=== PATIENT | female | born 1960 | race African-American/Black ===

== ENCOUNTER 2016-06-12 18:14 | Emergency (ER) | payer OTHER ==
[~2016-06-12] VITALS: Ht 154.9 cm; Wt 56.0 kg
[~2016-06-12 18:14] MED LIST: AMLO5 PO; ASPI81TA11 PO; CREON24 PO; FOLI1TAB4 PO; GETGO ROLLING W1 MI1; GLIP5 PO; LIPI20TA PO; MAGN400T PO; METF500 PO; OXYC-392 PO; PANT40TA3 PO; PERI8.6T PO; THIA100T PO; TRAZ100T4 PO
== END 2016-06-12 21:03 | disposition left against medical advice (07) ==
LOC: NED 18:14
DX: R68.89 Other general symptoms and signs (principal)
CPT/HCPCS: 99281

== ENCOUNTER 2016-06-19 21:39 | Inpatient (IN) | payer OTHER ==
[~2016-06-19] VITALS: Ht 154.9 cm; Wt 77.7 kg
[2016-06-19 21:48] VITALS: BP 161/72; PULSE 105; RESP 18; TEMP 98; O2SAT 98
[2016-06-19] MEDS ORDERED: SODIUM CHLOR 0.9% 1000 ML INJ 1,000 ML IV SCH (22:14)
--- NOTE | 2016-06-19 22:21 | PD ---
HPI Chief Complaint: Diabetic Time Seen by Provider: 22:17 Travel History International Travel<30 days: No Contact w/Intl Traveler<30days: No Traveled to known affect area: No History of Present Illness HPI 56-year-old female with a history of alcohol abuse, pancreatitis, and diabetes that presents to the ED for evaluation of high blood sugar and some epigastric abdominal pain as well as dizziness and feeling thirsty. Per patient she's had this for about 2 weeks now. Per patient nothing seems to make it better. Per patient her sugars keep coming as critical high. She denies any chest pain or shortness of breath but she does state having some epigastric pain to radiates to the back especially to the right side. She denies any diarrhea. No bowel movement or urinary issues. She states that she does feel more thirsty than usual and she's been urinating a little more but no pain or dysuria. She states that she has no nausea or vomiting. Per patient she feels lightheaded and not really spinning. She denies any numbness, tilling, weakness. She has no allergies to medication. She states compliance with her diabetic medications. She is here with family member who provides some history as she is somewhat of a poor historian. Abdominal panel is pressure-like and sharp and is 6 out of 10. Nothing seems to make it better or worse. PFSH Past Medical History Arthritis: No Asthma: Yes (CHILDHOOD) Autoimmune Disease: No Blood Disorders: No Anxiety: No Depression: No Heart Rhythm Problems: No Cancer: No Cardiac Catheterization: Yes Cardiovascular Problems: Yes (HTN) High Cholesterol: Yes Chemotherapy: No Chest Pain: Yes Congestive Heart Failure: No COPD: No Cerebrovascular Accident: No Coronary Artery Disease: Yes Diabetes: Yes Diminished Hearing: No Endocrine: No Gastrointestinal Disorders: Yes (HX. PANCREATITIS) GERD: No Glaucoma: No Genitourinary: No Headaches: No Hepatitis: No Hiatal Hernia: No Hypertension: Yes Immune Disorder: No Implanted Vascular Access Dvce: No Kidney Stones: No Musculoskeletal: Yes Neurologic: No Psychiatric: No Reproductive: No Respiratory: Yes Immunizations Current: Yes Migraines: No Myocardial Infarction: No Pancreatitis: Yes Radiation Therapy: No Renal Failure: No Seizures: No Sickle Cell Disease: No Sleep Apnea: Yes (denies) Thyroid Disease: No Ulcer: No Menopausal: Yes : 9 Para: 9 Past Surgical History Abdominal Surgery: Yes (CHOLECYSTECTOMY) AICD: No Appendectomy: No Arteriovenous Shunt: No Cardiac Surgery: Yes (CARDIAC CATH. WITH STENTS-,) Cholecystectomy: Yes Coronary Artery Bypass Graft: No Coronary Stent: Yes (2005) Ear Surgery: No Endocrine Surgery: No Eye Surgery: No Genitourinary Surgery: No Gynecologic Surgery: No Insulin Pump: No Joint Replacement: No Neurologic Surgery: No Oral Surgery: Yes (TEETH EXTRACTIONS) Pacemaker: No Thoracic Surgery: No Other Surgery: Yes (G-TUBE PLACEMENT) Social History Alcohol Use: Yes (SOCIALLY) Tobacco Use: Yes (1 PPD) Substance Use: No Allergies-Medications (Allergen,Severity, Reaction): Coded Allergies: No Known Allergies (Verified , 06/12/16) NONE KNOWN Reported Meds & Prescriptions Reported Meds & Active Scripts Active Walker Rolling/GetGo (Device) 1 Mis Mis 1 Ea .ROUTE DIRECTED Aspirin EC (Aspirin) 81 Mg Tabdr 81 Mg PO DAILY Lipitor (Atorvastatin Calcium) 20 Mg Tab 20 Mg PO HS Glucotrol (Glipizide) 5 Mg Tab 2.5 Mg PO DAILYAC Hold if glucose less than 100. Take with food, do not skip meal. Glucophage (Metformin HCl) 500 Mg Tab 1,000 Mg PO BIDPC Norvasc (Amlodipine Besylate) 5 Mg Tab 5 Mg PO DAILY Oxycodone (Oxycodone HCl) 5 Mg Tab 5 Mg PO Q8H PRN Creon (Amylase/Lipase/Protease) 24,000-76,000-120,000 Units Cap 2 Cap PO TID Pantoprazole (Pantoprazole Sodium) 40 Mg Tab 40 Mg PO DAILY Trazodone (Trazodone HCl) 100 Mg Tab 100 Mg PO HS Thiamine (Thiamine HCl) 100 Mg Tab 100 Mg PO DAILY Mariah-Colace (Sennosides-Docusate Sodium) 8.6-50 Mg Tab 1 Tab PO BID PRN Folate (Folic Acid) 1 Mg Tab 1 Mg PO DAILY Magnesium Oxide 400 Mg Tab 1 Tab PO DAILY Review of Systems General / Constitutional: No: Fever, Chills, Weight Gain, Weight Loss, Other Eyes: No: Diploplia, Blurred Vision, Photophobia, Drainage, Redness, Foreign Body Sensation, Pain, Tearing, Blind Spots, Visual changes, Blindness, Other HENT: No: Headaches, Vertigo, Lightheadedness, Sore Throat, Rhinitis, Rhinorrhea, Congestion, Nosebleed, Neck Stiffness, Neck Pain, Masses, Gingival Bleeding, Dental Difficulties, Ear Discharge, Earache, Other Cardiovascular: No: Chest Pain or Discomfort, Palpitations, Irregular Rhythm, Tachycardia, Diaphoresis, Syncope, Dyspnea on exertion, Varicosities, Edema, Cyanosis, Varicosities, Phlebitis, Claudication, Other Respiratory: No: Cough, Shortness of Breath, Wheezing, Sneezing, Orthopnea, Hemoptysis, Stridor, Night Sweats, Pleuritic Pain, Other Gastrointestinal: Positive: Abdominal Pain, No: Nausea, Vomiting, Diarrhea, Hematemesis, Hematochezia, Constipation, Changes in Bowel Habits, Indigestion, Dysphagia, Loss of Appetite, Other Genitourinary: No: Urgency, Frequency, Dysuria, Nocturia, Hematuria, Decreased Urinary Output, Oliguria, Hesitancy, Dribbling, Incontinence, Pelvic Pain, Flank Pain, Dyspareunia, Discharge, Dysmenorrhea, Menorrhagia, Metorrhagia, Vaginal Bleeding, Other Musculoskeletal: No: Myalgias, Arthralgias, Limited ROM, Weakness, Cramping, Edema, Pain, Atrophy, Other Skin: No Rash, No Itching, No Dryness, No Lumps, No Hives, No Change in Pigmentation, No Change in nails, No Alopecia, No Lesions, No Breast Lumps, No Breast Tenderness, No Breast Swelling, No Other Neurologic: No: Weakness, Dizziness, Syncope, Focal Abnormalities, Coordination Problem, Tremor, Ataxia, Headache, Change in Mentation, Slurred Speech, Paresthesia, Incontinence, Seizures, Sensory Disturbance, Other Psychiatric: No: Anxiety, Depression, Suicidal Ideations, Disorder of Thought, Mood Disorder, Substance Abuse, Homicidal Ideation, Other Endocrine: Positive: Polyuria, Polydipsia, No: Heat Intolerance, Cold Intolerance, Other Hematologic/Lymphatic: No: Easy Bruising, Lymph Node Enlargement, Other Physical Exam Narrative GENERAL: SKIN: Warm and dry. HEAD: Atraumatic. Normocephalic. EYES: Pupils equal and round. No scleral icterus. No injection or drainage. ENT: No nasal bleeding or discharge. Mucous membranes pink and moist. Tongue is midline. No uvula deviation. NECK: Trachea midline. No JVD. CARDIOVASCULAR: Regular rate and rhythm. No murmurs, S3, S4. RESPIRATORY: No accessory muscle use. Clear to auscultation. Breath sounds equal bilaterally. GASTROINTESTINAL: Abdomen soft, non-tender, nondistended. Hepatic and splenic margins not palpable. MUSCULOSKELETAL: Extremities without clubbing, cyanosis, or edema. No obvious deformities. Full range of motion of the upper and lower extremities bilaterally. 2+ pulses bilaterally. No cervical, thoracic, lumbar spine tenderness to palpation. NEUROLOGICAL: Awake and alert. No obvious cranial nerve deficits. Motor grossly within normal limits. Five out of 5 muscle strength in the arms and legs. Normal speech. PSYCHIATRIC: Appropriate mood and affect; insight and judgment normal. Data Data Last Documented VS Vital Signs Date Time Temp Pulse Resp B/P Pulse Ox O2 Delivery O2 Flow Rate FiO2 06/19/16 21:48 98.0 105 18 161/72 98 Orders Electrocardiogram (06/19/16 22:14) Complete Blood Count With Diff (06/19/16 22:14) Comprehensive Metabolic Panel (06/19/16 22:14) Troponin I (06/19/16 22:14) Lipase (06/19/16 22:14) Urinalysis - C+S If Indicated (06/19/16 22:14) Magnesium (Mg) (06/19/16 22:14) Beta Hydroxybutyrate (Acetone) (06/19/16 22:14) Chest, Single Ap (06/19/16 22:14) Iv Access Insert/Monitor (06/19/16 22:14) Ecg Monitoring (06/19/16 22:14) Oximetry (06/19/16 22:14) Sodium Chlor 0.9% 1000 Ml Inj (Ns 1000 M (06/19/16 22:14) MDM Medical Decision Making Medical Screen Exam Complete: Yes Emergency Medical Condition: Yes Medical Record Reviewed: Yes Differential Diagnosis Pancreatitis versus pneumonia versus DKA versus hyperglycemia versus electrical abnormality versus noncompliance versus dehydration Narrative Course 56-year-old female that presents to the ED for evaluation of high blood sugar and abdominal pain. Patient was properly examined and was found to have signs and symptoms of unclear etiology. At this time labs and imaging recommended. Patient was given IV fluids. Patient is agreeable with plan. Case will be sent out to my attending pending labs and imaging. Emanuel Manriquez Jun 19, 2016 22:21
[2016-06-19 22:30] VITALS: TEMP 98.1
--- NOTE | 2016-06-19 22:38 | RADRPT ---
EXAM DATE/TIME: 06/19/2016 22:29 [facility] COMPARISON: No previous studies available for comparison. INDICATIONS : Chest pain. MEDICAL HISTORY : None. SURGICAL HISTORY : None. ENCOUNTER: Initial ACUITY: 1 day PAIN SCORE: 4/10 LOCATION: Bilateral chest FINDINGS: A single view of the chest demonstrates the lungs to be symmetrically aerated without evidence of mas s, infiltrate or effusion. The cardiomediastinal contours are unremarkable. Osseous structures are intact. CONCLUSION: No acute intrathoracic disease. James Herrera MD on June 19, 2016 at 22:36 Board Certified Radiologist. This report was verified electronically.
[2016-06-19 23:12] VITALS: BP 132/82; PULSE 76; RESP 16; O2SAT 96
[2016-06-19 23:30] LABS: BLOOD, URINE NEG (NEG); COMMENT (UR) CULT NOT INDICATED; CULTURE IF INDICATED CULT NOT INDICATED; GLUCOSE,URINE 1000 mg/dL (NEG); KETONE, URINE NEG (NEG); NITRITE,URINE NEG (NEG); SQUAMOUS EPITHELIAL CELL URINE <1 /hpf (0-5); URINE COLOR COLORLESS (YELLW/STRAW)
[2016-06-19 23:39] LABS: ALKALINE PHOSPHATASE 261 U/L (45-117); ALT (GPT) 19 U/L (10-53); ANION GAP 16 MEQ/L (5-15); AST (GOT) 16 U/L (15-37); BETA-HYDROXYBUTYRATE 1.31 MMOL/L (0.00-0.39); BICARBONATE 17.7 MEQ/L (21.0-32.0); BLOOD UREA NITROGEN 63 MG/DL (7-18); CHLORIDE 81 MEQ/L (98-107); GLOMERULAR FILTRATION RATE 28 ML/MIN (>89); MAGNESIUM 2.3 MG/DL (1.5-2.5); POTASSIUM 5.4 MEQ/L (3.5-5.1); TOTAL BILIRUBIN ADULT 0.3 MG/DL (0.2-1.0)
[2016-06-19 23:42] LABS: SODIUM (NA) 115 MEQ/L (136-145)
[2016-06-19] MEDS ORDERED: SODIUM CHLOR 0.9% 1000 ML INJ 1,000 ML IV ONE (23:42)
[2016-06-19] MEDS ORDERED: INSULIN HUMAN REGULAR 1,000 UNITS/10 ML VIAL IVP ONE (23:45)
[2016-06-20] VITALS (13 sets, daily range): BP systolic 118–147; BP diastolic 70–79; PULSE 82–89; RESP 16–24; TEMP 97.8–98.9; O2SAT 96–100
[2016-06-20] MEDS ORDERED: SODIUM CHLOR 0.9% 1000 ML INJ 1,000 ML IV ONE (00:12)
[2016-06-20 01:11] LABS: AUTOMATED NEUTROPHIL # 4.6 TH/MM3 (1.8-7.7); BASOPHIL % 0.4 % (0.0-2.0); EOSINOPHIL % 0.2 % (0.0-4.0); HEMATOCRIT 40.2 % (35.0-46.0); HEMO FLAGS DIFF FINAL; LYMPH % 14.3 % (9.0-44.0); LYMPHOCYTE # 0.8 TH/MM3 (1.0-4.8); MEAN CELL VOLUME 98.5 FL (80.0-100.0); MEAN CORPUSCULAR HEMOGLOBIN 30.8 PG (27.0-34.0); MEAN CORPUSCULAR HGB CONC 31.3 % (32.0-36.0); MONO % 3.3 % (0.0-8.0); NEUT % 81.8 % (16.0-70.0); PLATELET COUNT 132 TH/MM3 (150-450); RED BLOOD COUNT 4.08 MIL/MM3 (4.00-5.30); RED CELL DISTRIBUTION WIDTH 14.8 % (11.6-17.2); WHITE BLOOD COUNT 5.6 TH/MM3 (4.0-11.0)
[2016-06-20] MEDS ORDERED: HYDROmorphone HCL PF 1 MG/ML VIAL IV PUSH ONE (01:30)
[2016-06-20 01:32] LABS: BICARBONATE 16.7 MEQ/L (21.0-32.0); POTASSIUM 3.2 MEQ/L (3.5-5.1)
[2016-06-20] MEDS ORDERED: DEXT 5%-NACL 0.9% 1000 ML INJ 1,000 ML IV SCH ×2 (01:34→17:00)
[2016-06-20] MEDS ORDERED: SODIUM BICARBONATE 8.4% SOLN 50 MEQ/50 ML VIAL IV PRN ×2 (01:45)
[2016-06-20] MEDS ORDERED: POTASSIUM CHLOR 20 MEQ PREMIX 100 ML IV PRN ×6 (01:45)
[2016-06-20] MEDS ORDERED: MISCELLANEOUS NURSING INFORMATION XX SCH (01:45)
[2016-06-20] MEDS ORDERED: CHLORHEXIDINE GLUCONATE 2 % 1 PACK (2 CLOTHS) TOP PRN (01:45)
[2016-06-20] MEDS ORDERED: POTASSIUM CHLOR 40 MEQ PREMIX 100 ML IV PRN (01:45)
[2016-06-20] MEDS ORDERED: INSULIN REGULAR (IV INFUSION) 100 UNITS in SODIUM CHLORIDE 0.9% INJ 99 ML IV SCH ×2 (01:45→06:45)
[2016-06-20] MEDS ORDERED: SODIUM PHOSPHATE INJ 15 MMOL in SODIUM CHLORIDE 0.9% INJ 100 ML IV PRN (01:45)
[2016-06-20 02:08] LABS: BLOOD GAS BASE EXCESS -12.1 mmol/L (-2-2); BLOOD GAS CARBOXYHEMOGLOBIN 1.1 % (0-4); BLOOD GAS HCO3 14 mmol/L (22-26); BLOOD GAS METHEMOGLOBIN 0.4 % (0-2); BLOOD GAS O2 HGB SATURATION 95 % (90-100); BLOOD GAS OXYGEN CONTENT 18.8 Vol % (12.0-20.0); BLOOD GAS PCO2 38 mmHg (38-42); BLOOD GAS PO2 98 mmHG (61-120); TEMP CORR TO 98.6
[2016-06-20 02:09] LABS: CRITICAL VALUE YES; DRAW SITE LT RADIAL; FIO2 21 %; NUMBER OF ARTERIAL PUNCTURES 1; OXYGEN DEVICE RA; STAT YES; ULNAR PULSE Y
--- NOTE | 2016-06-20 02:15 | HHI.HP ---
[facility] Unknown Admission Diagnosis Hyperglycemia, Pancreatitis, HyperK Diagnoses: Chief Complaint: Sugar was high, dizziness Travel History International Travel<30 Days: No Contact w/Intl Traveler <30 Da: No Traveled to Known Affected Are: No History of Present Illness History patient, your physician for medication, and review of medical records. Patient reported that she came to the hospital because her sugar was high at home. Next and she reports she has been feeling dizzy for the past 3 months. Today particularly, because her dizziness was getting worse, her daughter had checked her blood sugar. She states the blood sugar was not registering it on the machine and therefore the daughter brought her to hospital. Patient states that she ran out of her medications although she is not sure which ones. She states her daughter usually puts her medication in the pillbox for a whole week and she would take from it. She knew that she ran out of medications and was told to wait until the next doctor's appointment to get refills. Next appointment is in one week. Patient reports of dizziness chronically for past 3 months. She states that she did have a stroke versus seizure previously and since then she has been feeling dizzy. Her previous hospitalization in February 2016reviewed. Patient had carotid sono gram done which did not reveal any hemodynamically significant stenosis. Apart from the above, patient denies any recent fever/nausea/vomiting/diarrhea/ urinary burning or pain on urination. Denies any hematemesis/hematochezia/melena/hematuria. Patient is somewhat of a poor historian in general though. She reports that she thinks some of her symptoms may be coming because she was inhaling bleach and cleaning supply pretty much every day as her daughter-in- law always cleans the house with 2 months, call us. She lives with her son and [id number]. She states that these chemicals have been causing her to have trouble breathing as well. She is considering to move out. 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 Prior history of alcohol abusestated she quit about a year ago History of head of pancreas mass History of cephalic vein thrombosiswas evaluated by hematology previously. Contraindication to anticoagulants. Noncompliance with medications Past Surgical History J-tube insertion Coronary angiogram and stent placements Cholecystectomy Reported Medications Patient's medications listed on EMRreviewed. Allergies: Coded Allergies: No Known Allergies (Verified , 06/19/16) NONE KNOWN Family History Patient states she cannot remember any medical issues in her immediate family members. Per EMR, patient has history of CAD in uncles. Social History Smokes about half a pack a day. States she used to drink alcohol heavily. However quit about a year ago. Denies any drug abuse. Physical Exam Vital Signs Vital Signs Date Time Temp Pulse Resp B/P Pulse Ox O2 Delivery O2 Flow Rate FiO2 06/19/16 23:12 16 06/19/16 23:12 Room Air 06/19/16 23:12 76 16 132/82 96 Room Air 06/19/16 21:48 98.0 105 18 161/72 98 Physical Exam GENERAL: This is elderly lady, in no apparent distress. SKIN: No rashes, ecchymoses or lesions. Cool and dry. HEAD: Atraumatic. Normocephalic. No temporal or scalp tenderness. EYES: No scleral icterus. No injection or drainage. ENT: Nose without bleeding, purulent drainage or septal hematoma. Airway patent. NECK: Trachea midline. No JVD CARDIOVASCULAR: Regular rate and rhythm without murmurs, gallops, or rubs. RESPIRATORY: Clear to auscultation. Breath sounds equal bilaterally. No wheezes , rales, or rhonchi. GASTROINTESTINAL: Abdomen soft, non-tender, nondistended. No guarding.prior peg site clean MUSCULOSKELETAL: Extremities without clubbing, cyanosis, or edema. No calf tenderness. NEUROLOGICAL: Awake and alert. Motor and sensory grossly within normal limits. Normal speech. Laboratory Laboratory Tests Test 06/19/16 06/20/16 06/20/16 22:50 00:55 02:00 Sodium Level 115 127 Potassium Level 5.4 3.2 Chloride Level 81 94 Carbon Dioxide Level 17.7 16.7 Anion Gap 16 16 Blood Urea Nitrogen 63 59 Creatinine 2.20 1.93 Estimat Glomerular Filtration 28 32 Rate Random Glucose 1639 1199 Calcium Level 9.7 8.7 Magnesium Level 2.3 Total Bilirubin 0.3 Aspartate Amino Transf 16 (AST/SGOT) Alanine Aminotransferase 19 (ALT/SGPT) Alkaline Phosphatase 261 Troponin I LESS THAN 0.02 Total Protein 9.3 Albumin 4.0 Lipase 664 B-Hydroxybutyrate 1.31 Urine Color COLORLESS Urine Turbidity CLEAR Urine pH 6.0 Urine Specific Ruth 1.022 Urine Protein NEG Urine Glucose (UA) 1000 Urine Ketones NEG Urine Occult Blood NEG Urine Nitrite NEG Urine Bilirubin NEG Urine Urobilinogen LESS THAN 2.0 Urine Leukocyte Esterase NEG Urine RBC 1 Urine WBC LESS THAN 1 Urine Squamous Epithelial <1 Cells Urine Yeast (Budding) RARE Microscopic Urinalysis Comment CULT NOT INDICATED White Blood Count 5.6 Red Blood Count 4.08 Hemoglobin 12.6 Hematocrit 40.2 Mean Corpuscular Volume 98.5 Mean Corpuscular Hemoglobin 30.8 Mean Corpuscular Hemoglobin 31.3 Concent Red Cell Distribution Width 14.8 Platelet Count 132 Mean Platelet Volume 11.5 Neutrophils (%) (Auto) 81.8 Lymphocytes (%) (Auto) 14.3 Monocytes (%) (Auto) 3.3 Eosinophils (%) (Auto) 0.2 Basophils (%) (Auto) 0.4 Neutrophils # (Auto) 4.6 Lymphocytes # (Auto) 0.8 Monocytes # (Auto) 0.2 Eosinophils # (Auto) 0.0 Basophils # (Auto) 0.0 CBC Comment DIFF FINAL Differential Comment Blood Gas Puncture Site LT RADIAL Blood Gas Patient Temperature 98.6 Blood Gas HCO3 14 Blood Gas Base Excess -12.1 Blood Gas Oxygen Saturation 95 Arterial Blood pH 7.20 Arterial Blood Partial 38 Pressure CO2 Arterial Blood Partial 98 Pressure O2 Arterial Blood Oxygen Content 18.8 Arterial Blood 1.1 Carboxyhemoglobin Arterial Blood Methemoglobin 0.4 Blood Gas Hemoglobin 14.0 Oxygen Delivery Device RA Blood Gas Inspired Oxygen 21 Result Diagram: 06/20/165406/20/1654 Imaging Last 48 hours Impressions Chest X-Ray 06/19/162213 Signed Impressions: Service Date/Time: Sunday, June 19, 2016 22:29 - CONCLUSION: No acute intrathoracic disease. 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 Prior history of alcohol abusestated she quit about a year ago History of head of pancreas mass History of cephalic vein thrombosiswas evaluated by hematology previously. Contraindication to anticoagulants. Noncompliance with medications Plan: Patient was given a total of 4 L normal saline bolus in ER. She was also given 20 units of insulin IV push. Blood sugars came down to 1199 from 1639 after the above treatment. Start patient on insulin drip per DKA protocol. Fingersticks every hour. Replace electrolytes per protocol. At present, patient has no respiratory distress or compensation from this metabolic acidosis. She is quite comfortable sitting in bed, able to complete sentences. No documented fevers. Nothing by mouth. Will follow electrolytes. Follow Nilesh's criteria. DVT prophylaxiswith SCD. GI prophylaxison pantoprazole. critical care 40min Discussed Condition With Patient, ER physician, ER nurse Physician Certification 2 Midnight Certification Type: Admission for Inpatient Services Order for Inpatient Services The services are ordered in accordance with Medicare regulations or non- Medicare payer requirements, as applicable. In the case of services not specified as inpatient-only, they are appropriately provided as inpatient services in accordance with the 2-midnight benchmark. Estimated LOS (days): 3 days is the estimated time the patient will need to remain in the hospital, assuming treatment plan goals are met and no additional complications. Post-Hospital Plan: Lucila Stephenson MD Jun 20, 2016 02:15
[2016-06-20] MEDS: POTASSIUM CHLOR 40 MEQ PREMIX 100 ML IV PRN ×2 (02:45→04:10)
[2016-06-20] MEDS: SODIUM CHLOR 0.9% 1000 ML INJ 1,000 ML IV SCH ×4 (03:32→12:59)
[2016-06-20] MEDS ORDERED: CHLORHEXIDINE GLUCONATE 2 % 1 PACK (2 CLOTHS) TOP SCH (04:00)
[2016-06-20 04:05] LABS: BICARBONATE 18.5 MEQ/L (21.0-32.0); POTASSIUM 5.2 MEQ/L (3.5-5.1)
[2016-06-20 05:10] LABS: BICARBONATE 16.9 MEQ/L (21.0-32.0); MAGNESIUM 1.8 MG/DL (1.5-2.5)
[2016-06-20] MEDS ORDERED: INSULIN HUMAN REGULAR 1,000 UNITS/10 ML VIAL IVP ONE ×2 (05:15→06:45)
[2016-06-20] MEDS ORDERED: PILL SPLITTER OTHER PRN (05:30)
[2016-06-20] MEDS ORDERED: MISC INFORMATION XX ONE (06:45)
[2016-06-20] MEDS ORDERED: DEXTROSE 50% IN WATER 50 ML VIAL(D50) IV PUSH PRN ×2 (06:45→19:00)
[2016-06-20 07:36] LABS: BICARBONATE 16.7 MEQ/L (21.0-32.0); MAGNESIUM 1.6 MG/DL (1.5-2.5); POTASSIUM 4.9 MEQ/L (3.5-5.1)
[2016-06-20] MEDS: PANTOPRAZOLE SOD 40 MG DELAYED RELEASE TAB PO SCH (08:22)
[2016-06-20] MEDS: THIAMINE HCL 100 MG TAB PO SCH (08:22)
[2016-06-20] MEDS: glipiZIDE 5 MG TAB PO SCH (08:22)
[2016-06-20] MEDS: ASPIRIN EC 81 MG TABEC PO SCH (08:23)
[2016-06-20] MEDS: FOLIC ACID 1 MG TAB PO SCH (08:23)
[2016-06-20] MEDS: LIPASE/PROTEASE/AMYLASE (24,000/76,000/120,000) CAP PO SCH ×3 (08:23→17:31)
[2016-06-20] MEDS: MAGNESIUM OXIDE 400 MG TAB PO SCH (08:23)
[2016-06-20] MEDS: amLODIPine BESYLATE 5 MG TAB PO SCH (08:24)
--- NOTE | 2016-06-20 10:05 | EKG ---
Date Performed: 06/19/2016 Time Performed: 22:31:37 PTAGE: 56 years EKG: Sinus rhythm POSSIBLE RIGHT ATRIAL ENLARGEMENT NONSPECIFIC T-WAVE ABNORMALITY BORDERLINE ECG WARNING: DATA QUALIT Y MAY AFFECT INTERPRETATION PREVIOUS TRACING : 02/26/2016 20.29 DOCTOR: Amilcar Shelton Interpretating Date/Time 06/20/2016 10:02:03
[2016-06-20 14:27] LABS: BETA-HYDROXYBUTYRATE 0.32 MMOL/L (0.00-0.39); BICARBONATE 19.4 MEQ/L (21.0-32.0); MAGNESIUM 1.7 MG/DL (1.5-2.5); POTASSIUM 4.6 MEQ/L (3.5-5.1)
[2016-06-20] MEDS: DEXT 5%-NACL 0.9% 1000 ML INJ 1,000 ML IV SCH ×2 (17:00→21:03)
[2016-06-20] MEDS ORDERED: GLUCAGON 1 MG/ML VIAL OTHER PRN (19:00)
[2016-06-20] MEDS ORDERED: DC previous DKA orders (HMC 1917) XX ONE (19:00)
[2016-06-20 19:36] LABS: BICARBONATE 19.9 MEQ/L (21.0-32.0); MAGNESIUM 1.5 MG/DL (1.5-2.5); POTASSIUM 3.9 MEQ/L (3.5-5.1)
[2016-06-20] MEDS: INSULIN ASPART SUPPLEMENTAL SCALE SQ SCH (21:00)
[2016-06-20] MEDS: INSULIN DETEMIR 100 UNITS/ML VIAL SQ SCH (21:02)
[2016-06-20] MEDS: traZODone HCL 100 MG TAB PO SCH (21:02)
[2016-06-20] MEDS: ATORVASTATIN 20 MG TAB PO SCH (21:02)
[2016-06-20] MEDS ORDERED: DC Insulin drip 2 hrs post basal insulin dose XX ONE (23:00)
[2016-06-21] VITALS (13 sets, daily range): BP systolic 97–120; BP diastolic 53–68; PULSE 82–116; RESP 18–23; TEMP 98.4–99.3; O2SAT 96–100
[2016-06-21] MEDS: DEXT 5%-NACL 0.9% 1000 ML INJ 1,000 ML IV SCH (01:21)
[2016-06-21 05:34] LABS: BICARBONATE 17.2 MEQ/L (21.0-32.0); POTASSIUM 3.9 MEQ/L (3.5-5.1)
[2016-06-21] MEDS: INSULIN ASPART SUPPLEMENTAL SCALE SQ SCH ×4 (06:59→20:53)
[2016-06-21] MEDS: amLODIPine BESYLATE 5 MG TAB PO SCH (08:16)
[2016-06-21] MEDS: FOLIC ACID 1 MG TAB PO SCH (08:16)
[2016-06-21] MEDS: PANTOPRAZOLE SOD 40 MG DELAYED RELEASE TAB PO SCH (08:16)
[2016-06-21] MEDS: ASPIRIN EC 81 MG TABEC PO SCH (08:16)
[2016-06-21] MEDS: MAGNESIUM OXIDE 400 MG TAB PO SCH (08:16)
[2016-06-21] MEDS: glipiZIDE 5 MG TAB PO SCH (08:16)
[2016-06-21] MEDS: THIAMINE HCL 100 MG TAB PO SCH (08:16)
[2016-06-21] MEDS: LIPASE/PROTEASE/AMYLASE (24,000/76,000/120,000) CAP PO SCH ×3 (09:00→18:07)
[2016-06-21] MEDS ORDERED: INFLUENZA VIRUS VACCINE (QUADRIVALENT) 0.5 ML SYR IM ONE (10:00)
[2016-06-21] MEDS ORDERED: PNEUMOCOCCAL POLYVALENT INJ 25 MCG/0.5 ML SYR IM ONE (10:00)
[2016-06-21] MEDS: INSULIN DETEMIR 100 UNITS/ML VIAL SQ SCH ×2 (10:21→20:50)
[2016-06-21] MEDS: metFORMIN HCL 500 MG TAB PO SCH ×2 (10:22→18:06)
--- NOTE | 2016-06-21 14:41 | HHI.PR ---
Subjective Remarks Late entry. Patient was seen at noon. She is eating well. Most recent Accu- Chek was 300. The patient states she has used insulin in the past but currently is not on it. She is agreeable to going back on insulin. She admits she ran out of medications. She is unable to tell me the names of the medications that she was on for diabetes. She does admit to continued smoking. She states that the only candy she eats are [employer]. The patient is a somewhat poor historian. The patient does endorse dizziness for the past few weeks as well as pain along the entire right side of her body. She denies nausea or vomiting. Objective Vitals Vital Signs Date Time Temp Pulse Resp B/P Pulse Ox O2 Delivery O2 Flow Rate FiO2 06/21/16 11:00 98.6 116 22 97/53 96 06/21/16 07:00 98.4 86 22 120/62 98 06/21/16 06:00 89 06/21/16 04:00 82 06/21/16 04:00 98.5 82 18 103/63 99 06/21/16 02:00 88 06/21/16 00:00 89 06/21/16 00:00 98.6 89 18 101/59 98 06/21/16 00:00 89 06/20/16 22:00 88 06/20/16 22:00 88 06/20/16 20:00 98.9 88 24 128/75 100 06/20/16 20:00 88 06/20/16 20:00 88 06/20/16 18:00 82 06/20/16 16:00 83 06/20/16 15:05 84 17 140/77 99 Room Air I/O 06/20/16 06/20/16 06/20/16 06/21/16 06/21/16 06/21/16 07:00 15:00 23:00 07:00 15:00 23:00 Intake Total 3919 ml 180 ml 560 ml Output Total 1500 ml 800 ml 2100 ml 600 ml 600 ml Balance -1500 ml -800 ml 1819 ml -420 ml -40 ml Intake Oral 240 ml 120 ml 560 ml IV Total 3679 ml 60 ml Output Urine Total 1500 ml 800 ml 2100 ml 600 ml 600 ml # Bowel Movements 0 1 Result Diagram: 06/20/16 0055 06/21/16 0346 Objective Remarks GENERAL: Well-nourished, well-developed pleasant obese female patient. No apparent distress. SKIN: Warm and dry. HEAD: Normocephalic. EYES: No scleral icterus. No injection or drainage. NECK: Supple, trachea midline. No JVD or lymphadenopathy. CARDIOVASCULAR: Regular rate and rhythm without murmurs, gallops, or rubs. RESPIRATORY: Breath sounds equal and clear to auscultation bilaterally. No accessory muscle use. GASTROINTESTINAL: Abdomen soft, non-tender, nondistended. EXTREMITIES: No cyanosis, or edema. NEUROLOGICAL: Awake, alert, and oriented x 3. Non-focal. 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 Now resolved and transitioned to Levemir subcutaneous. I will increase to 15 units subcutaneous twice a day. Resume metformin. Continue sliding scale insulin low-dose with NovoLog. Awaiting cob sawyer consultation. -Elevated lipase, now resolved. Doubt pancreatitis. -Hypertension - blood pressure currently running lower. Will hold Norvasc. -Coronary artery disease, history of stents -continue aspirin and statin. -Acute kidney injury - resolved -Chronic diastolic heart failure - currently compensated. -Noncompliance with medications -Tobaccoism counts on cessation -Chronic pancreatitis. Continue pancreatic enzyme supplementation. -History of alcoholism. Patient states she has not been drinking at all. -Chronic dizziness -DVT prophylaxis with SCDs Jessica Salas MD Jun 21, 2016 14:41
[2016-06-21] MEDS: ATORVASTATIN 20 MG TAB PO SCH (20:50)
[2016-06-21] MEDS: traZODone HCL 100 MG TAB PO SCH (20:50)
[2016-06-22] VITALS (8 sets, daily range): BP systolic 88–119; BP diastolic 57–66; PULSE 80–97; RESP 15–24; TEMP 98.3–99.1; O2SAT 93–100
[2016-06-22 02:05] LABS: MAGNESIUM 1.4 MG/DL (1.5-2.5)
[2016-06-22 02:06] LABS: BETA-HYDROXYBUTYRATE 0.59 MMOL/L (0.00-0.39)
[2016-06-22] MEDS: INSULIN ASPART SUPPLEMENTAL SCALE SQ SCH ×4 (07:00→21:00)
[2016-06-22] MEDS: INSULIN DETEMIR 100 UNITS/ML VIAL SQ SCH ×2 (08:50→21:00)
[2016-06-22] MEDS: metFORMIN HCL 500 MG TAB PO SCH ×2 (08:51→17:10)
[2016-06-22] MEDS: FOLIC ACID 1 MG TAB PO SCH (08:51)
[2016-06-22] MEDS: ASPIRIN EC 81 MG TABEC PO SCH (08:51)
[2016-06-22] MEDS: THIAMINE HCL 100 MG TAB PO SCH (08:51)
[2016-06-22] MEDS: LIPASE/PROTEASE/AMYLASE (24,000/76,000/120,000) CAP PO SCH ×3 (08:51→17:09)
[2016-06-22] MEDS: PANTOPRAZOLE SOD 40 MG DELAYED RELEASE TAB PO SCH (08:51)
[2016-06-22] MEDS: MAGNESIUM OXIDE 400 MG TAB PO SCH (08:52)
[2016-06-22 12:04] LABS: BICARBONATE 19.6 MEQ/L (21.0-32.0); MAGNESIUM 1.3 MG/DL (1.5-2.5); POTASSIUM 3.6 MEQ/L (3.5-5.1)
--- NOTE | 2016-06-22 17:28 | HHI.PR ---
Subjective Remarks Episode of hypotension this morning, and patient is quite dizzy, no one at home to help her with insulin today. Objective Vitals Vital Signs Date Time Temp Pulse Resp B/P Pulse Ox O2 Delivery O2 Flow Rate FiO2 06/22/16 14:00 94 06/22/16 12:00 90 06/22/16 10:00 86 06/22/16 08:00 80 06/22/16 04:00 99.1 85 15 88/59 98 06/22/16 04:00 85 06/22/16 00:00 98.7 85 16 100/57 98 06/22/16 00:00 85 06/21/16 22:00 93 06/21/16 20:00 93 06/21/16 20:00 98.8 93 19 115/67 98 I/O 06/21/16 06/21/16 06/21/16 06/22/16 06/22/16 06/22/16 07:00 15:00 23:00 07:00 15:00 23:00 Intake Total 180 ml 560 ml 100 ml 150 ml 200 ml Output Total 600 ml 600 ml 400 ml 375 ml 100 ml Balance -420 ml -40 ml -300 ml -225 ml 100 ml Intake Oral 120 ml 560 ml 100 ml 150 ml 200 ml IV Total 60 ml Output Urine Total 600 ml 600 ml 400 ml 375 ml 100 ml # Bowel Movements 1 0 Result Diagram: 06/20/16 0055 06/22/16 1136 Objective Remarks GENERAL: Well-nourished, well-developed pleasant obese female patient. No apparent distress. SKIN: Warm and dry. HEAD: Normocephalic. EYES: No scleral icterus. No injection or drainage. NECK: Supple, trachea midline. No JVD or lymphadenopathy. CARDIOVASCULAR: Regular rate and rhythm without murmurs, gallops, or rubs. RESPIRATORY: Breath sounds equal and clear to auscultation bilaterally. No accessory muscle use. GASTROINTESTINAL: Abdomen soft, non-tender, nondistended. EXTREMITIES: No cyanosis, or edema. NEUROLOGICAL: Awake, alert, and oriented x 3. Non-focal. 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 Now resolved and transitioned to Levemir subcutaneous. Cont 15 units subcutaneous twice a day. Resumed metformin. Continue sliding scale insulin low-dose with NovoLog. S/p family living educator consultation. -Elevated lipase, now resolved. Doubt pancreatitis. -Hypertension - blood pressure currently running lower. Will hold Norvasc. -Coronary artery disease, history of stents -continue aspirin and statin. -Acute kidney injury - resolved -Chronic diastolic heart failure - currently compensated. -Noncompliance with medications -Tobaccoism counts on cessation -Chronic pancreatitis. Continue pancreatic enzyme supplementation. -History of alcoholism. Patient states she has not been drinking at all. -Chronic dizziness - check orthostatics. -DVT prophylaxis with SCDs Discharge Planning DC home in a.m. if BP improved. Jessica Salas MD Jun 22, 2016 17:28
[2016-06-22] MEDS: traZODone HCL 100 MG TAB PO SCH (21:00)
[2016-06-22] MEDS: ATORVASTATIN 20 MG TAB PO SCH (21:02)
[2016-06-23] VITALS: BP 122/70; PULSE 103; RESP 20; TEMP 99.1; O2SAT 99
[2016-06-23 04:00] VITALS: BP 105/58; PULSE 92; RESP 18; TEMP 98.1; O2SAT 98
[2016-06-23] MEDS: INSULIN ASPART SUPPLEMENTAL SCALE SQ SCH ×4 (05:53→23:39)
[2016-06-23 08:00] VITALS: BP_SYST 106; BP_SYST 113; BP_SYST 95; BP_DIAS 66; BP_DIAS 77; BP_DIAS 82; PULSE 102; PULSE 103; PULSE 95; RESP 16; TEMP 97.7; O2SAT 97
[2016-06-23] MEDS: PANTOPRAZOLE SOD 40 MG DELAYED RELEASE TAB PO SCH (09:00)
[2016-06-23] MEDS: FOLIC ACID 1 MG TAB PO SCH (09:00)
[2016-06-23] MEDS ORDERED: LEVEMIR SQ (10:34)
[2016-06-23] MEDS: LIPASE/PROTEASE/AMYLASE (24,000/76,000/120,000) CAP PO SCH ×3 (10:37→18:33)
[2016-06-23] MEDS ORDERED: LANCETS1 MI1 (10:37)
[2016-06-23] MEDS ORDERED: GLUCKIT15 (10:37)
[2016-06-23] MEDS ORDERED: INSU1MIS15 (10:37)
[2016-06-23] MEDS: MAGNESIUM OXIDE 400 MG TAB PO SCH (10:37)
[2016-06-23] MEDS: metFORMIN HCL 500 MG TAB PO SCH ×2 (10:37→18:33)
[2016-06-23] MEDS: THIAMINE HCL 100 MG TAB PO SCH (10:37)
[2016-06-23] MEDS: ASPIRIN EC 81 MG TABEC PO SCH (10:37)
[2016-06-23] MEDS ORDERED: GLUCTES12 (10:37)
--- NOTE | 2016-06-23 10:37 | HHI.DS ---
Discharge Summary Admission Date Jun 20, 2016 at 01:37 Discharge Date: Jun 24, 2016 Admitting Diagnosis Hyperglycemia, Pancreatitis, HyperK (1) DKA (diabetic ketoacidoses) ICD Code: E13.10 (2) Diastolic CHF ICD Code: I50.30 (3) Type 2 diabetes mellitus ICD Code: E11.9 (4) Cephalic vein thrombosis ICD Code: I82.619 (5) MAUREEN (acute kidney injury) ICD Code: N17.9 Procedures None Brief History - From Admission History patient, your physician for medication, and review of medical records. Patient reported that she came to the hospital because her sugar was high at home. Next and she reports she has been feeling dizzy for the past 3 months. Today particularly, because her dizziness was getting worse, her daughter had checked her blood sugar. She states the blood sugar was not registering it on the machine and therefore the daughter brought her to hospital. Patient states that she ran out of her medications although she is not sure which ones. She states her daughter usually puts her medication in the pillbox for a whole week and she would take from it. She knew that she ran out of medications and was told to wait until the next doctor's appointment to get refills. Next appointment is in one week. Patient reports of dizziness chronically for past 3 months. She states that she did have a stroke versus seizure previously and since then she has been feeling dizzy. Her previous hospitalization in February 2016reviewed. Patient had carotid sono gram done which did not reveal any hemodynamically significant stenosis. Apart from the above, patient denies any recent fever/nausea/vomiting/diarrhea/ urinary burning or pain on urination. Denies any hematemesis/hematochezia/melena/hematuria. Patient is somewhat of a poor historian in general though. She reports that she thinks some of her symptoms may be coming because she was inhaling bleach and cleaning supply pretty much every day as her daughter-in- law always cleans the house with 2 months, call us. She lives with her son and [id number]. She states that these chemicals have been causing her to have trouble breathing as well. She is considering to move out. CBC/BMP: 06/20/16 0055 06/22/16 1136 Significant Findings Laboratory Tests Test 06/20/16 06/20/16 06/21/16 06/22/16 13:25 18:55 03:46 11:36 Chloride Level 113 MEQ/L 112 MEQ/L 111 MEQ/L 110 MEQ/L (98-107) (98-107) (98-107) (98-107) Carbon Dioxide Level 19.4 MEQ/L 19.9 MEQ/L 17.2 MEQ/L 19.6 MEQ/L (21.0-32.0) (21.0-32.0) (21.0-32.0) (21.0-32.0) Blood Urea Nitrogen 33 MG/DL (7-18) 25 MG/DL (7-18) 19 MG/DL (7-18) Estimat Glomerular Filtration 81 ML/MIN (>89) 87 ML/MIN (>89) 81 ML/MIN (>89) Rate Random Glucose 157 MG/DL 250 MG/DL 242 MG/DL 201 MG/DL (74-106) (74-106) (74-106) (74-106) Phosphorus Level 2.0 MG/DL 1.8 MG/DL 1.9 MG/DL (2.5-4.9) (2.5-4.9) (2.5-4.9) Calcium Level 8.3 MG/DL (8.5-10.1) Magnesium Level 1.4 MG/DL 1.3 MG/DL (1.5-2.5) (1.5-2.5) Lipase 501 U/L (73-393) B-Hydroxybutyrate 0.59 MMOL/L (0.00-0.39) PE at Discharge GENERAL: Well-nourished, well-developed pleasant obese female patient. No apparent distress. SKIN: Warm and dry. HEAD: Normocephalic. EYES: No scleral icterus. No injection or drainage. NECK: Supple, trachea midline. No JVD or lymphadenopathy. CARDIOVASCULAR: Regular rate and rhythm without murmurs, gallops, or rubs. RESPIRATORY: Breath sounds equal and clear to auscultation bilaterally. No accessory muscle use. GASTROINTESTINAL: Abdomen soft, non-tender, nondistended. EXTREMITIES: No cyanosis, or edema. NEUROLOGICAL: Awake, alert, and oriented x 3. Non-focal. Hospital Course The patient was admitted for the DKA treated with insulin drip, DKA resolved. She's been transitioned to Levemir subcutaneous with good Accu-Cheks. She has undergone diabetic education and is comfortable using insulin. Renal function is now good and she will also be continued on metformin. The patient complained of dizziness but ambulated well with physical therapy. The patient does have a history of chronic pancreatitis but was not complaining of significant abdominal pain. She did have a mildly elevated lipase. She is tolerating her meals well. She'll be discharged home today. She is instructed to follow-up with her primary care physician in one week with the list of her Accu-Chek readings for adjustment of her insulin if needed. Pt Condition on Discharge: Stable Discharge Disposition: Discharge Home Discharge Time: > 30 minutes Discharge Instructions DIET: Follow Instructions for: Diabetic Diet Activities you can perform: Regular-No Restrictions New Medications: Blood Glucose Monitoring W/Device (Glucocom Blood Glucose Mo W/Device) 1 Kit Kit 1 KIT .ROUTE DIRECTED Blood Sugar Management #1 KIT Glucocom Test Strips (Glucocom Test Strips) 1 Martha Marhta 1 EA .ROUTE DIRECTED Blood Sugar Management #120 BOX Insulin Syringe/U-100/31G X 5/16" 1 ml (Insulin Syringe/U-100/31G X 5/16" 1 ml) 1 Mis Mis 1 EA .ROUTE DIRECTED #1 Ref 0 BOX Lancets (Lancets) 1 Mis Mis 1 EA .ROUTE Blood Sugar Management #1 Ref 0 BOX Insulin Detemir Inj (Levemir Inj) 1,000 unit/ 10 ML Vial 15 UNITS SQ BID glucose Days 30 INJECTION Continued Medications: Amlodipine (Norvasc) 5 Mg Tab 5 MG PO DAILY #[address] (Aspirin EC) 81 Mg Tabdr 81 MG PO DAILY #30 TAB Atorvastatin (Lipitor) 20 Mg Tab 20 MG PO HS #30 TAB Folic Acid (Folate) 1 Mg Tab 1 MG PO DAILY Nutritional Supplement #30 Ref 0 TAB Magnesium Oxide (Magnesium Oxide) 400 Mg Tab 1 TAB PO DAILY #30 Metformin (Glucophage) 500 Mg Tab 1000 MG PO BIDPC #120 TAB Oxycodone (Oxycodone) 5 Mg Tab 5 MG PO Q8H PRN pain scale 5-10 #30 TAB Pancrelipase (Creon) 24,000-76,000-120,000 Units Cap 2 CAP PO TID abdominal pain #180 CAP Pantoprazole (Pantoprazole) 40 Mg Tab 40 MG PO DAILY Reflux #30 Ref 0 TAB Sennosides-Docusate Sodium (Mariah-Colace) 8.6-50 Mg Tab 1 TAB PO BID PRN Constipation #60 Ref 0 TAB Thiamine (Thiamine) 100 Mg Tab 100 MG PO DAILY Nutritional Supplement #30 Ref 0 TAB Trazodone (Trazodone) 100 Mg Tab 100 MG PO HS Control Depression #30 Ref 0 TAB Discontinued Medications: Glipizide (Glucotrol) 5 Mg Tab 2.5 MG PO DAILYAC Hold if glucose less than 100. Take with food, do not skip meal. #30 TAB Jessica Salas MD Jun 23, 2016 10:37
[2016-06-23] MEDS: INSULIN DETEMIR 100 UNITS/ML VIAL SQ SCH ×2 (10:38→23:04)
[2016-06-23 12:00] VITALS: BP_SYST 118; BP_SYST 126; BP_SYST 142; BP_DIAS 110; BP_DIAS 72; BP_DIAS 83; PULSE 102; PULSE 90; RESP 16; TEMP 97; O2SAT 99
[2016-06-23 16:00] VITALS: BP_SYST 115; BP_SYST 120; BP_SYST 130; BP_DIAS 70; BP_DIAS 80; BP_DIAS 88; PULSE 111; PULSE 117; PULSE 85; RESP 16; TEMP 97.5; O2SAT 99
[2016-06-23 20:00] VITALS: BP_SYST 127; BP_SYST 168; BP_SYST 183; BP_DIAS 67; BP_DIAS 90; BP_DIAS 97; PULSE 112; PULSE 92; PULSE 99; RESP 19; RESP 20; RESP 22; TEMP 96.2; O2SAT 96; O2SAT 98
[2016-06-23] MEDS: traZODone HCL 100 MG TAB PO SCH (23:00)
[2016-06-23] MEDS: ATORVASTATIN 20 MG TAB PO SCH (23:00)
[2016-06-24] VITALS: BP 139/70; PULSE 99; RESP 20; TEMP 98.3; O2SAT 96
[2016-06-24 04:00] VITALS: BP 132/96; PULSE 96; RESP 19; TEMP 97.6; O2SAT 96
[2016-06-24] MEDS: INSULIN ASPART SUPPLEMENTAL SCALE SQ SCH ×2 (06:11→12:26)
[2016-06-24 08:00] VITALS: BP 108/72; PULSE 87; RESP 16; TEMP 97.3; O2SAT 99
[2016-06-24] MEDS: MAGNESIUM OXIDE 400 MG TAB PO SCH (08:31)
[2016-06-24] MEDS: INSULIN DETEMIR 100 UNITS/ML VIAL SQ SCH (08:31)
[2016-06-24] MEDS: PANTOPRAZOLE SOD 40 MG DELAYED RELEASE TAB PO SCH (08:31)
[2016-06-24] MEDS: LIPASE/PROTEASE/AMYLASE (24,000/76,000/120,000) CAP PO SCH ×2 (08:31→12:35)
[2016-06-24] MEDS: metFORMIN HCL 500 MG TAB PO SCH (08:32)
[2016-06-24] MEDS: THIAMINE HCL 100 MG TAB PO SCH (08:32)
[2016-06-24] MEDS: ASPIRIN EC 81 MG TABEC PO SCH (08:32)
[2016-06-24] MEDS: FOLIC ACID 1 MG TAB PO SCH (08:32)
[2016-06-24 12:00] VITALS: BP 113/67; PULSE 92; RESP 16; TEMP 97.9; O2SAT 100
== END 2016-06-24 14:30 | disposition home or self-care (01) | DRG 638 ==
LOC: NEPE 21:39 → NEDA 06-20 01:37 → NEDH 06-20 13:32 → HIMW 06-20 15:50 → HIME 06-21 14:35 → HOCB 06-22 22:19
PROVIDERS: ADMIT Family Medicine; ATTEND Family Medicine
DX: E13.10 Other specified diabetes mellitus with ketoacidosis without coma (principal); N17.9 Acute kidney failure, unspecified; I50.32 Chronic diastolic (congestive) heart failure; I95.9 Hypotension, unspecified; E87.5 Hyperkalemia; K86.1 Other chronic pancreatitis; I10 Essential (primary) hypertension; E78.5 Hyperlipidemia, unspecified; I25.10 Atherosclerotic heart disease of native coronary artery without angina pectoris; Z91.14 Patient's other noncompliance with medication regimen; F17.210 Nicotine dependence, cigarettes, uncomplicated; E86.0 Dehydration; F10.21 Alcohol dependence, in remission; J45.909 Unspecified asthma, uncomplicated; E78.00 Pure hypercholesterolemia, unspecified; Z95.5 Presence of coronary angioplasty implant and graft; Z86.718 Personal history of other venous thrombosis and embolism; Z79.84 Long term (current) use of oral hypoglycemic drugs; Z23 Encounter for immunization
CPT/HCPCS: 36600; 71010; 76937; 80048; 80053; 81001; 82010; 82805; 82948; 83690; 83735; 84100; 84484; 85025; 87641; 90686; 90732; 93005; 96361; 96374; J1170; J1815; J1817; J3480; J7030; J7042; Q2038

== ENCOUNTER 2016-07-03 17:11 | Emergency (ER) | payer OTHER ==
[~2016-07-03] VITALS: Ht 154.9 cm; Wt 53.0 kg
[~2016-07-03 17:11] MED LIST changes: -GETGO ROLLING W1 MI1; -GLIP5 PO; +GLUCKIT15; +GLUCTES12; +INSU1MIS15; +LANCETS1 MI1; +LEVEMIR SQ
[2016-07-03 17:12] VITALS: BP 146/67; PULSE 120; RESP 20; TEMP 99.4; O2SAT 97
[2016-07-03 17:56] VITALS: PULSE 104
--- NOTE | 2016-07-03 17:58 | PD ---
Physical Exam Date Seen by Provider: Jul 03, 2016 Time Seen by Provider: 17:55 Narrative 56 YOBF C/O DIZZINESS WITH NEW ONSET IDDM. NO CP/SOB. BGL 441 VITALS REVIEW. AWAITING BED PLACEMENT Data Data Last Documented VS Vital Signs Date Time Temp Pulse Resp B/P Pulse Ox O2 Delivery O2 Flow Rate FiO2 07/03/16 17:56 104 07/03/16 17:12 99.4 20 146/67 97 Room Air [facility] Medical Record Reviewed: Yes Supervised Visit with SHELBIE: Yes Sincere Silverman Jul 03, 2016 17:58
[2016-07-03] MEDS ORDERED: SODIUM CHLOR 0.9% 1000 ML INJ 1,000 ML IV ONE ×2 (21:45→23:30)
--- NOTE | 2016-07-03 21:56 | PD ---
HPI Chief Complaint: Diabetic Time Seen by Provider: 21:40 Travel History International Travel<30 days: No Contact w/Intl Traveler<30days: No Traveled to known affect area: No History of Present Illness HPI The patient is a 56 year old female who presents to the [facility] emergency department with a history of lower abdominal pain, dizziness, dysuria with urinary frequency and urgency that began approximately a week and a half to 2 weeks ago. The patient reports that she was just seen in the emergency department approximately 2 weeks ago and started on insulin for poorly controlled diabetes mellitus. She reports that she has an appointment to follow -up with her primary care physician regarding this later in the month. She reports that her blood sugar continues to be difficult to control despite of taking the Levemir 15 units twice a day. She denies having any fevers or chills. She denies having any vomiting or diarrhea. Her last bowel movement was yesterday. She denies having any blood in her stool or black or tarry stools. The patient reports that she has a chronic history of back pain, however it has been changed, slightly worse recently. She reports that she now has left flank pain. On review of systems, the patient denies any cough, congestion, neck pain, chest pain, shortness of breath, or neurologic symptoms. [facility] Past Medical History Narrative Medical The patient's past medical history is significant for diabetes mellitus, hypertension, pancreatitis, acid reflux, and asthma. Arthritis: No Asthma: Yes (CHILDHOOD) Autoimmune Disease: No Blood Disorders: No Anxiety: No Depression: No Heart Rhythm Problems: No Cancer: No Cardiac Catheterization: Yes Cardiovascular Problems: Yes (htn) High Cholesterol: Yes Chemotherapy: No Chest Pain: No Congestive Heart Failure: No COPD: No Cerebrovascular Accident: No Coronary Artery Disease: Yes Diabetes: Yes Diminished Hearing: No Endocrine: No Gastrointestinal Disorders: Yes (HX. PANCREATITIS) GERD: No Glaucoma: No Genitourinary: No Headaches: No Hepatitis: No Hiatal Hernia: No Hypertension: Yes Immune Disorder: No Implanted Vascular Access Dvce: No Kidney Stones: No Musculoskeletal: Yes Neurologic: No Psychiatric: No Reproductive: No Respiratory: Yes Immunizations Current: Yes Migraines: No Myocardial Infarction: No Pancreatitis: Yes Radiation Therapy: No Renal Failure: No Seizures: No Sickle Cell Disease: No Sleep Apnea: Yes (denies) Thyroid Disease: No Ulcer: No Menopausal: Yes : 9 Para: 9 Past Surgical History Narrative Surgical The patient has a past surgical history significant for dental extractions, cardiac catheterization with stent placement in 2005 and 2006, cholecystectomy. Abdominal Surgery: Yes (CHOLECYSTECTOMY) AICD: No Appendectomy: No Arteriovenous Shunt: No Cardiac Surgery: Yes (CARDIAC CATH. WITH STENTS-,) Cholecystectomy: Yes Coronary Artery Bypass Graft: No Coronary Stent: Yes (2005) Ear Surgery: No Endocrine Surgery: No Eye Surgery: No Genitourinary Surgery: No Gynecologic Surgery: No Insulin Pump: No Joint Replacement: No Neurologic Surgery: No Oral Surgery: Yes (TEETH EXTRACTIONS) Pacemaker: No Thoracic Surgery: No Other Surgery: Yes (G-TUBE PLACEMENT) Social History Alcohol Use: Yes (SOCIALLY) Tobacco Use: Yes (1 PPD) Substance Use: No Allergies-Medications (Allergen,Severity, Reaction): Coded Allergies: No Known Allergies (Verified , 07/03/16) NONE KNOWN Reported Meds & Prescriptions Reported Meds & Active Scripts Active Levemir Inj (Insulin Detemir) 1,000 unit/ 10 ML Vial 15 Units SQ BID 30 Days Lipitor (Atorvastatin Calcium) 20 Mg Tab 20 Mg PO HS Glucophage (Metformin HCl) 500 Mg Tab 1,000 Mg PO BIDPC Norvasc (Amlodipine Besylate) 5 Mg Tab 5 Mg PO DAILY Creon (Amylase/Lipase/Protease) 24,000-76,000-120,000 Units Cap 2 Cap PO TID Pantoprazole (Pantoprazole Sodium) 40 Mg Tab 40 Mg PO DAILY Trazodone (Trazodone HCl) 100 Mg Tab 100 Mg PO HS Thiamine (Thiamine HCl) 100 Mg Tab 100 Mg PO DAILY Mariah-Colace (Sennosides-Docusate Sodium) 8.6-50 Mg Tab 1 Tab PO BID PRN Folate (Folic Acid) 1 Mg Tab 1 Mg PO DAILY Review of Systems Except as stated in HPI: all other systems reviewed are Neg General / Constitutional: No: Fever Eyes: No: Visual changes HENT: No: Headaches Cardiovascular: No: Chest Pain or Discomfort Respiratory: No: Shortness of Breath Gastrointestinal: Positive: Abdominal Pain, No: Nausea, Vomiting, Diarrhea, Hematemesis, Hematochezia, Constipation, Changes in Bowel Habits, Loss of Appetite Genitourinary: Positive: Urgency, Frequency, Dysuria, Flank Pain (left-sided) Musculoskeletal: No: Pain Skin: No Rash Neurologic: No: Weakness, Focal Abnormalities, Change in Mentation, Slurred Speech, Sensory Disturbance Psychiatric: No: Depression Endocrine: Positive: Polyuria, Polydipsia Hematologic/Lymphatic: No: Easy Bruising Physical Exam Narrative General: The patient is a well-developed well-nourished female in no acute distress. Head and Neck exam: Head is normocephalic atraumatic. Eyes: EOMI, pupils are equal round and reactive to light. Nose: Midline septum with pink mucous membranes Mouth: Dentition unremarkable. Moist mucus membranes. Posterior oropharynx is not erythematous. No tonsillar hypertrophy. Uvula midline. Airway patent. Neck: No palpable lymphadenopathy. No nuchal rigidity. No thyromegaly. Cardiovascular: Sinus tachycardia in the low 100s without murmurs, gallops, or rubs. No pulse deficit to the extremities is on Altace auscultation and palpation of her radial artery. Lungs: Clear to auscultation bilaterally. No wheezes, rhonchi, or rales. Abdomen: Soft, without tenderness to palpation in all 4 quadrants of the abdomen. No guarding, rebound, or rigidity. Normal bowel sounds are audible. No tenderness on palpation of McBurney's point. Negative Manzano's sign. Extremities: No clubbing, cyanosis, or edema. 2+ pulses in all 4 extremities. Back: No spinous process tenderness to palpation. Left-sided CVA tenderness on palpation. Neurologic Exam: Grossly nonfocal Skin Exam: No rash noted. Intact skin that is warm and dry. Data Data Last Documented VS Vital Signs Date Time Temp Pulse Resp B/P Pulse Ox O2 Delivery O2 Flow Rate FiO2 07/03/16 23:52 100 20 140/81 98 07/03/16 17:12 99.4 Room Air Orders Electrocardiogram (07/03/16 21:41) Complete Blood Count With Diff (07/03/16 21:41) Comprehensive Metabolic Panel (07/03/16 21:41) Lipase (07/03/16 21:41) Urinalysis - C+S If Indicated (07/03/16 21:41) Magnesium (Mg) (07/03/16 21:41) Beta Hydroxybutyrate (Acetone) (07/03/16 21:41) Chest, Single Ap (07/03/16 21:41) Iv Access Insert/Monitor (07/03/16 21:41) Ecg Monitoring (07/03/16 21:41) Oximetry (07/03/16 21:41) Resp Blood Gas Venous (07/03/16 ) Sodium Chlor 0.9% 1000 Ml Inj (Ns 1000 M (07/03/16 21:45) Blood Gas Venous (Vbg) (07/03/16 21:54) Acetaminophen (Tylenol) (07/03/16 23:15) Insulin Human Regular Inj (Novolin R Inj (07/03/16 23:15) Sodium Chlor 0.9% 1000 Ml Inj (Ns 1000 M (07/03/16 23:30) Blood Glucose (07/03/16 23:22) Cath For Specimen (07/03/16 23:23) Ceftriaxone Inj (Rocephin Inj) (07/04/16 00:30) Urine Culture (07/04/16 00:00) Labs Laboratory Tests Test 07/03/16 07/03/16 07/04/16 21:54 22:00 00:00 Blood Gas Puncture Site IV Blood Gas Patient Temperature 98.6 Venous Blood pH 7.39 Venous Blood Partial Pressure 40 mmHg CO2 Venous Blood Partial Pressure 34 mmHg O2 Venous Blood HCO3 24 mmol/L Venous Blood Oxygen Saturation 59 % Venous Blood Oxygen Content 9.6 Vol % Venous Blood Base Excess -0.4 mmol/L Oxygen Delivery Device NASAL CANNULA Blood Gas Liter Flow 2 L/M Sodium Level 131 MEQ/L Potassium Level 4.1 MEQ/L Chloride Level 95 MEQ/L Carbon Dioxide Level 25.5 MEQ/L Anion Gap 11 MEQ/L Blood Urea Nitrogen 25 MG/DL Creatinine 1.29 MG/DL Estimat Glomerular Filtration 52 ML/MIN Rate Random Glucose 593 MG/DL Calcium Level 9.1 MG/DL Magnesium Level 1.8 MG/DL Total Bilirubin 0.3 MG/DL Aspartate Amino Transf 17 U/L (AST/SGOT) Alanine Aminotransferase 15 U/L (ALT/SGPT) Alkaline Phosphatase 178 U/L Total Protein 8.0 GM/DL Albumin 3.0 GM/DL Lipase 377 U/L B-Hydroxybutyrate 0.19 MMOL/L White Blood Count 6.1 TH/MM3 Red Blood Count 3.72 MIL/MM3 Hemoglobin 11.2 GM/DL Hematocrit 33.8 % Mean Corpuscular Volume 90.8 FL Mean Corpuscular Hemoglobin 30.2 PG Mean Corpuscular Hemoglobin 33.2 % Concent Red Cell Distribution Width 14.8 % Platelet Count 184 TH/MM3 Mean Platelet Volume 9.6 FL Neutrophils (%) (Auto) 76.1 % Lymphocytes (%) (Auto) 18.3 % Monocytes (%) (Auto) 4.7 % Eosinophils (%) (Auto) 0.7 % Basophils (%) (Auto) 0.2 % Neutrophils # (Auto) 4.7 TH/MM3 Lymphocytes # (Auto) 1.1 TH/MM3 Monocytes # (Auto) 0.3 TH/MM3 Eosinophils # (Auto) 0.0 TH/MM3 Basophils # (Auto) 0.0 TH/MM3 CBC Comment DIFF FINAL Differential Comment Urine Color YELLOW Urine Turbidity HAZY Urine pH 6.0 Urine Specific [place] 1.017 Urine Protein TRACE mg/dL Urine Glucose (UA) 1000 mg/dL Urine Ketones NEG mg/dL Urine Occult Blood SMALL Urine Nitrite NEG Urine Bilirubin NEG Urine Urobilinogen LESS THAN 2.0 MG/DL Urine Leukocyte Esterase LARGE Urine RBC 1 /hpf Urine WBC /hpf Urine WBC Clumps MANY Urine Squamous Epithelial <1 /hpf Cells Microscopic Urinalysis Comment CATH-CULTURE IND MDM Medical Decision Making Medical Screen Exam Complete: Yes Emergency Medical Condition: Yes Medical Record Reviewed: Yes Interpretation(s) Last Impressions Chest X-Ray 07/03/162140 Signed Impressions: Service Date/Time: Sunday, July 03, 2016 22:13 - CONCLUSION: No acute cardiopulmonary disease. Tamika Drummond MD Differential Diagnosis DKA, versus poorly controlled diabetes mellitus related to an infectious process , versus cystitis, versus pyelonephritis, dehydration, versus pancreatitis Narrative Course During the course of the patients emergency department visit, the patients history, examination, and differential diagnosis were reviewed with the patient. The patient had IV access obtained and blood work sent for analysis. The patient's was on a quality assurance monitor body with oximetry and blood pressure monitoring. An EKG was done on arrival. The patient's EKG shows a sinus rhythm heart rate of 96, no acute ST segment elevation or depression. The patient was provided normal saline a 500 mL bolus 1, Zofran 4 mg IV, Tylenol 650 by mouth 1 for pain. VBG reveals no evidence of acidosis. The patient's elevated blood sugar was covered with subcutaneous insulin 9 units subcutaneous 1. The patients laboratory studies were reviewed and remarkable for a white count that is 6.1, hemoglobin 11.2, platelets 184 with 76.1 neutrophils. CMP is remarkable for sodium of 131, chloride 95, BUN 25, creatinine 1.29, glucose 593 , alkaline phosphatase 178, albumin 3.0, lipase 377, beta hydroxybutyrate is 0.19. Radiology studies were reviewed and remarkable for a chest x-ray that shows no acute abnormality. The patient's Levemir dose will be increased to 18 units twice a day. The patient will also be discharged home with a prescription for Bactrim for her urinary tract infection The patient is resting comfortably and feels better, is alert and in no distress. The patients results and examination findings were discussed with the patient. The repeat examination is unremarkable and benign. The history, exam, diagnostic testing, and current condition do not suggest any significant pathology to warrant further testing, continued ED treatment, admission, or surgical evaluation at this point. The vital signs have been stable. The patient does not have uncontrollable pain, intractable vomiting, or other significant symptoms. The patient's condition is stable and appropriate for discharge. The patient will pursue further outpatient evaluation with a primary care physician or other designated or consulting physician as indicated in the discharge instructions. The patient expressed understanding and was agreeable with this plan. Diagnosis Primary Impression: Abdominal pain Qualified Code: R10.30 - Lower abdominal pain Additional Impressions: Poorly controlled diabetes mellitus Urinary tract infection Qualified Code: N39.0 - Urinary tract infection without hematuria, site unspecified Referrals: Primary Care Physician 2 days Patient Instructions: Diabetic Hyperglycemia (ED), General Instructions, Urinary Tract Infection in Women (ED) Med/Other Pt SpecificInfo: Prescription(s) given Scripts Sulfamethoxazole-Trimethoprim (Bactrim DS)800-160 Mg Tab1 Tab PO BID #20 TAB Ref 0 Prov:Deepti Garcia MD 07/04/16 Insulin Detemir Inj (Levemir Inj)1,000 unit/ 10 ML Vial18 Units SQ BID 30 Days Prov:Deepti Garcia MD 07/04/16 Disposition: 01 DISCHARGE HOME Condition: Stable Deepti Garcia MD Jul 03, 2016 21:56
[2016-07-03 22:00] LABS: BLOOD GAS VENOUS BASE EXCESS -0.4 mmol/L (-2-2); BLOOD GAS VENOUS HCO3 24 mmol/L (22-26); BLOOD GAS VENOUS O2 CONTENT 9.6 Vol % (9.0-17.0); BLOOD GAS VENOUS O2 HGB SAT 59 % (70-76); BLOOD GAS VENOUS PCO2 40 mmHg (44-48); BLOOD GAS VENOUS PO2 34 mmHg (35-40); BLOOD GAS VENOUS pH 7.39 (7.360-7.400); CRITICAL VALUE NO; DRAW SITE IV; LITER FLOW 2 L/M; OXYGEN DEVICE NASAL CANNULA; STAT YES; TEMP CORR TO 98.6
[2016-07-03 22:06] VITALS: BP 128/102; PULSE 102; RESP 20; O2SAT 99
[2016-07-03 22:34] LABS: AUTOMATED NEUTROPHIL # 4.7 TH/MM3 (1.8-7.7); BASOPHIL % 0.2 % (0.0-2.0); EOSINOPHIL % 0.7 % (0.0-4.0); HEMATOCRIT 33.8 % (35.0-46.0); HEMO FLAGS DIFF FINAL; LYMPH % 18.3 % (9.0-44.0); LYMPHOCYTE # 1.1 TH/MM3 (1.0-4.8); MEAN CELL VOLUME 90.8 FL (80.0-100.0); MEAN CORPUSCULAR HEMOGLOBIN 30.2 PG (27.0-34.0); MEAN CORPUSCULAR HGB CONC 33.2 % (32.0-36.0); MONO % 4.7 % (0.0-8.0); NEUT % 76.1 % (16.0-70.0); PLATELET COUNT 184 TH/MM3 (150-450); RED BLOOD COUNT 3.72 MIL/MM3 (4.00-5.30); RED CELL DISTRIBUTION WIDTH 14.8 % (11.6-17.2); WHITE BLOOD COUNT 6.1 TH/MM3 (4.0-11.0)
--- NOTE | 2016-07-03 22:40 | RADRPT ---
EXAM DATE/TIME: 07/03/2016 22:13 [place] COMPARISON: CHEST SINGLE AP, June 19, 2016, 22:29. INDICATIONS : Chest pain. MEDICAL HISTORY : None. SURGICAL HISTORY : None. ENCOUNTER: Initial ACUITY: 2 weeks PAIN SCORE: 5/10 LOCATION: Bilateral chest FINDINGS: The lungs are clear without infiltrate, nodule, or mass. There is no appreciable pleural effusion fo r technique. Heart and mediastinum are unremarkable. CONCLUSION: No acute cardiopulmonary disease. Tamika Drummond MD on July 03, 2016 at 22:38 Board Certified Radiologist. This report was verified electronically.
[2016-07-03 22:56] LABS: ALT (GPT) 15 U/L (10-53); ANION GAP 11 MEQ/L (5-15); AST (GOT) 17 U/L (15-37); BICARBONATE 25.5 MEQ/L (21.0-32.0); BLOOD UREA NITROGEN 25 MG/DL (7-18); CHLORIDE 95 MEQ/L (98-107); GLOMERULAR FILTRATION RATE 52 ML/MIN (>89); MAGNESIUM 1.8 MG/DL (1.5-2.5); POTASSIUM 4.1 MEQ/L (3.5-5.1); SODIUM (NA) 131 MEQ/L (136-145)
[2016-07-03 22:59] LABS: ALKALINE PHOSPHATASE 178 U/L (45-117); BETA-HYDROXYBUTYRATE 0.19 MMOL/L (0.00-0.39); TOTAL BILIRUBIN ADULT 0.3 MG/DL (0.2-1.0)
[2016-07-03] MEDS ORDERED: INSULIN HUMAN REGULAR 1,000 UNITS/10 ML VIAL SQ ONE (23:15)
[2016-07-03] MEDS ORDERED: ACETAMINOPHEN 325 MG TAB PO ONE (23:15)
[2016-07-03 23:52] VITALS: BP 140/81; PULSE 100; RESP 20; O2SAT 98
[2016-07-04] MEDS ORDERED: cefTRIAXone INJ 1,000 MG in SODIUM CHLORIDE 0.9% INJ 100 ML IV ONE (00:30)
[2016-07-04 00:31] LABS: BLOOD, URINE SMALL (NEG); GLUCOSE,URINE 1000 mg/dL (NEG); KETONE, URINE NEG (NEG); NITRITE,URINE NEG (NEG); SQUAMOUS EPITHELIAL CELL URINE <1 /hpf (0-5); URINE COLOR YELLOW (YELLW/STRAW)
[2016-07-04 00:32] LABS: COMMENT (UR) CATH-CULTURE IND; CULTURE IF INDICATED CATH CULTURE IND
[2016-07-04] MEDS ORDERED: LEVEMIR SQ (01:27)
[2016-07-04] MEDS ORDERED: BACT800T5 PO (01:27)
[2016-07-04 02:01] VITALS: RESP 16
[2016-07-04 03:52] VITALS: BP 150/80
--- NOTE | 2016-07-04 10:42 | EKG ---
Date Performed: 07/03/2016 Time Performed: 21:58:59 PTAGE: 56 years EKG: Sinus rhythm POSSIBLE LEFT ATRIAL ENLARGEMENT POSSIBLE LEFT VENTRICULAR HYPERTROPHY ABNORMAL ECG Compared to prio r tracing no significant change PREVIOUS TRACING 06/19/2016 22.31.37 DOCTOR: Olamide Mcfadden Interpretating Date/Time 07/04/2016 10:36:08
== END 2016-07-04 03:49 | disposition home or self-care (01) ==
LOC: NEPC 17:11
DX: R10.30 Lower abdominal pain, unspecified (principal); N39.0 Urinary tract infection, site not specified; E11.65 Type 2 diabetes mellitus with hyperglycemia; B96.20 Unspecified Escherichia coli [E. coli] as the cause of diseases classified elsewhere; J45.909 Unspecified asthma, uncomplicated; I10 Essential (primary) hypertension; R94.31 Abnormal electrocardiogram [ECG] [EKG]; F17.210 Nicotine dependence, cigarettes, uncomplicated
CPT/HCPCS: 71010; 80053; 81001; 82010; 82805; 83690; 83735; 85025; 87077; 87086; 87186; 93005; 96361; 96365; 96372; 99284; J0696; J1815; J7030; P9612

== ENCOUNTER 2016-09-08 04:45 | Inpatient (IN) | payer OTHER ==
[2016-09-08] VITALS (8 sets, daily range): BP systolic 102–145; BP diastolic 63–80; PULSE 70–106; RESP 14–24; TEMP 97.7–97.8; O2SAT 96–100
[~2016-09-08] VITALS: Ht 154.9 cm; Wt 83.6 kg
[~2016-09-08 04:45] MED LIST changes: -ASPI81TA11 PO; +BACT800T5 PO; -GLUCKIT15; -GLUCTES12; -INSU1MIS15; -LANCETS1 MI1; -MAGN400T PO; -OXYC-392 PO
[2016-09-08] MEDS ORDERED: SODIUM CHLOR 0.9% 1000 ML INJ 1,000 ML IV SCH ×2 (05:14→09:26)
[2016-09-08 05:16] LABS: MEAN CORPUSCULAR HGB CONC 29.1 % (32.0-36.0)
--- NOTE | 2016-09-08 05:51 | PD ---
HPI Chief Complaint: Diabetic Time Seen by Provider: 05:07 Travel History International Travel<30 days: No Contact w/Intl Traveler<30days: No Traveled to known affect area: No History of Present Illness HPI Patient's 56-year-old female presents emergency department for evaluation of back pain dehydration high blood sugar. Patient is coming by her family who states they noticed that she has slurred speech and that typically happens when her blood sugar is very high. She is also stating that she's been out of all of her medicines recently including her insulin. Patient states she took her blood sugar prior to arrival and was "hi". Patient states she's never had a history of DKA before. She states she has chronic back pain as might be the cause of her high blood sugar. On the order of the slurred speech patient's daughter says that she thinks is slurred simply because her mouth is very dry. No focalized weakness no facial droop was seen. The patient awoke with the symptoms this morning. No fevers no chest pain mild abdominal cramping. PFSH Past Medical History Arthritis: No Asthma: Yes (CHILDHOOD) Autoimmune Disease: No Blood Disorders: No Anxiety: No Depression: No Heart Rhythm Problems: No Cancer: No Cardiac Catheterization: Yes Cardiovascular Problems: Yes (htn) High Cholesterol: Yes Chemotherapy: No Chest Pain: No Congestive Heart Failure: No COPD: No Cerebrovascular Accident: No Coronary Artery Disease: Yes Diabetes: Yes Patient Takes Glucophage: No Diminished Hearing: No Endocrine: No Gastrointestinal Disorders: Yes (HX. PANCREATITIS) GERD: No Glaucoma: No Genitourinary: No Headaches: No Hepatitis: No Hiatal Hernia: No Heparin Induced Thrombocytopen: No Hypertension: No Immune Disorder: No Implanted Vascular Access Dvce: No Kidney Stones: No Musculoskeletal: Yes Neurologic: No Psychiatric: No Reproductive: No Respiratory: Yes Immunizations Current: Yes Migraines: No Myocardial Infarction: No Pancreatitis: Yes Radiation Therapy: No Renal Failure: No Seizures: No Sickle Cell Disease: No Sleep Apnea: Yes (denies) Thyroid Disease: No Ulcer: No Menopausal: Yes : 9 Para: 9 Past Surgical History Abdominal Surgery: Yes (CHOLECYSTECTOMY) AICD: No Appendectomy: No Arteriovenous Shunt: No Cardiac Surgery: Yes (CARDIAC CATH. WITH STENTS-,) Cholecystectomy: Yes Coronary Artery Bypass Graft: No Coronary Stent: Yes (2005) Ear Surgery: No Endocrine Surgery: No Eye Surgery: No Genitourinary Surgery: No Gynecologic Surgery: No Insulin Pump: No Joint Replacement: No Neurologic Surgery: No Oral Surgery: Yes (TEETH EXTRACTIONS) Pacemaker: No Thoracic Surgery: No Other Surgery: Yes (G-TUBE PLACEMENT AND REMOVAL ) Family History Family Myocardial Infarction: Yes (uncle and other family members) Social History Alcohol Use: No Tobacco Use: Yes (1 PPD) Substance Use: No Allergies-Medications (Allergen,Severity, Reaction): Coded Allergies: No Known Allergies (Verified , 09/08/16) NONE KNOWN Reported Meds & Prescriptions Reported Meds & Active Scripts Active Bactrim DS (Sulfamethoxazole-Trimethoprim) 800-160 Mg Tab 1 Tab PO BID Levemir Inj (Insulin Detemir) 1,000 unit/ 10 ML Vial 18 Units SQ BID 30 Days Lipitor (Atorvastatin Calcium) 20 Mg Tab 20 Mg PO HS Glucophage (Metformin HCl) 500 Mg Tab 1,000 Mg PO BIDPC Norvasc (Amlodipine Besylate) 5 Mg Tab 5 Mg PO DAILY Creon (Amylase/Lipase/Protease) 24,000-76,000-120,000 Units Cap 2 Cap PO TID Pantoprazole (Pantoprazole Sodium) 40 Mg Tab 40 Mg PO DAILY Trazodone (Trazodone HCl) 100 Mg Tab 100 Mg PO HS Mariah-Colace (Sennosides-Docusate Sodium) 8.6-50 Mg Tab 1 Tab PO BID PRN Review of Systems Except as stated in HPI: all other systems reviewed are Neg Physical Exam Narrative GENERAL: Well-developed well-nourished, appears much older than stated age in no apparent distress. SKIN: No rash, decreased in turgor. HEAD: Atraumatic. Normocephalic. EYES: Pupils equal and round. No scleral icterus. No injection or drainage. ENT: No nasal bleeding or discharge. Mucous membranes pink and dry. NECK: Trachea midline. No JVD. CARDIOVASCULAR: Regular rate and rhythm. No murmur appreciated. RESPIRATORY: No accessory muscle use. Clear to auscultation. Breath sounds equal bilaterally. GASTROINTESTINAL: Abdomen soft, non-tender, nondistended. No rebound no percussive tenderness. Hepatic and splenic margins not palpable. MUSCULOSKELETAL: No obvious deformities. No clubbing. No cyanosis. No edema. NEUROLOGICAL: Awake and alert. No obvious cranial nerve deficits. Motor grossly within normal limits. Normal speech. PSYCHIATRIC: Appropriate mood and affect; insight and judgment normal. Data Data Last Documented VS Vital Signs Date Time Temp Pulse Resp B/P Pulse Ox O2 Delivery O2 Flow Rate FiO2 09/08/16 07:18 90 24 106/68 100 Room Air 09/08/16 04:53 97.7 Orders Complete Blood Count With Diff (09/08/16 05:14) Comprehensive Metabolic Panel (09/08/16 05:14) Lipase (09/08/16 05:14) Prothrombin Time / Inr (Pt) (09/08/16 05:14) Act Partial Throm Time (Ptt) (09/08/16 05:14) Urinalysis - C+S If Indicated (09/08/16 05:14) Iv Access Insert/Monitor (09/08/16 05:14) Ecg Monitoring (09/08/16 05:14) Oximetry (09/08/16 05:14) Sodium Chlor 0.9% 1000 Ml Inj (Ns 1000 M (09/08/16 05:14) Sodium Chloride 0.9% Flush (Ns Flush) (09/08/16 05:15) Resp Blood Gas Venous (09/08/16 ) Beta Hydroxybutyrate (Acetone) (09/08/16 05:14) Electrocardiogram (09/08/16 ) Ct Brain W/O Iv Contrast(Rout) (09/08/16 ) Chest, Single Ap (09/08/16 ) Blood Gas Venous (Vbg) (09/08/16 06:15) Morphine Inj (Morphine Inj) (09/08/16 07:00) Troponin I (09/08/16 06:26) Typewriter Operator Automatic / Telemetry ANDREI.Q8H (09/08/16 07:48) ^ Insert Iv (09/08/16 07:48) Diet Npo (09/08/16 Breakfast) Dext 5%-Nacl 0.9% 1000 Ml Inj (D5w-Ns 10 (09/08/16 07:48) Insulin Human Regular Inj (Novolin R Inj (09/08/16 08:00) Insulin Regular (Iv Infusion) (Novolin R (09/08/16 08:00) Potassium Chlor 40 Meq Premix (Kcl 40 Me (09/08/16 08:00) Potassium Chlor 40 Meq Premix (Kcl 40 Me (09/08/16 08:00) Potassium Chlor 20 Meq Premix (Kcl 20 Me (09/08/16 08:00) Potassium Chlor 20 Meq Premix (Kcl 20 Me (09/08/16 08:00) Potassium Chlor 20 Meq Premix (Kcl 20 Me (09/08/16 08:00) Potassium Chlor 20 Meq Premix (Kcl 20 Me (09/08/16 08:00) Potassium Chlor 20 Meq Premix (Kcl 20 Me (09/08/16 08:00) Potassium Chlor 20 Meq Premix (Kcl 20 Me (09/08/16 08:00) Sodium Bicarbonate 8.4% Inj (Sodium Bica (09/08/16 08:00) Sodium Bicarbonate 8.4% Inj (Sodium Bica (09/08/16 08:00) Sodium Phosphate Inj (Sodium Phosphate I (09/08/16 08:00) Basic Metabolic Panel (Bmp) (09/08/16 12:48) Basic Metabolic Panel (Bmp) (09/09/16 00:48) Basic Metabolic Panel (Bmp) (09/09/16 06:48) Magnesium (Mg) (09/08/16 12:48) Magnesium (Mg) (09/09/16 00:48) Magnesium (Mg) (09/09/16 06:48) Phosphorus (Po4) (09/08/16 12:48) Phosphorus (Po4) (09/09/16 00:48) Phosphorus (Po4) (09/09/16 06:48) Beta Hydroxybutyrate (Acetone) (09/09/16 06:48) Admit Order (Ed Use Only) (09/08/16 09:12) Labs Laboratory Tests Test 09/08/16 09/08/16 06:15 06:26 Blood Gas Puncture Site CENTRAL LINE Blood Gas Patient Temperature 98.6 Venous Blood pH 7.28 Venous Blood Partial Pressure 52 mmHg CO2 Venous Blood Partial Pressure 29 mmHg O2 Venous Blood HCO3 24 mmol/L Venous Blood Oxygen Saturation 43 % Venous Blood Oxygen Content 7.9 Vol % Venous Blood Base Excess -1.7 mmol/L Oxygen Delivery Device ROOMAIR Blood Gas Inspired Oxygen 21 % White Blood Count 6.3 TH/MM3 Red Blood Count 4.28 MIL/MM3 Hemoglobin 12.5 GM/DL Hematocrit 42.8 % Mean Corpuscular Volume 99.9 FL Mean Corpuscular Hemoglobin 29.1 PG Mean Corpuscular Hemoglobin 29.1 % Concent Red Cell Distribution Width 16.1 % Platelet Count 203 TH/MM3 Mean Platelet Volume 11.0 FL Neutrophils (%) (Auto) 80.0 % Lymphocytes (%) (Auto) 14.0 % Monocytes (%) (Auto) 5.2 % Eosinophils (%) (Auto) 0.3 % Basophils (%) (Auto) 0.5 % Neutrophils # (Auto) 5.0 TH/MM3 Lymphocytes # (Auto) 0.9 TH/MM3 Monocytes # (Auto) 0.3 TH/MM3 Eosinophils # (Auto) 0.0 TH/MM3 Basophils # (Auto) 0.0 TH/MM3 CBC Comment DIFF FINAL Differential Comment Prothrombin Time 11.2 SEC Prothromb Time International 1.0 RATIO Ratio Activated Partial 19.7 SEC Thromboplast Time Urine Color LIGHT-YELLOW Urine Turbidity CLEAR Urine pH 6.0 Urine Specific Morse 1.026 Urine Protein NEG mg/dL Urine Glucose (UA) 1000 mg/dL Urine Ketones TRACE mg/dL Urine Occult Blood NEG Urine Nitrite NEG Urine Bilirubin NEG Urine Urobilinogen LESS THAN 2.0 MG/DL Urine Leukocyte Esterase NEG Urine RBC 1 /hpf Urine WBC 1 /hpf Microscopic Urinalysis Comment CULT NOT INDICATED Sodium Level 115 MEQ/L Potassium Level 4.7 MEQ/L Chloride Level 76 MEQ/L Carbon Dioxide Level 23.5 MEQ/L Anion Gap 16 MEQ/L Blood Urea Nitrogen 40 MG/DL Creatinine 1.96 MG/DL Estimat Glomerular Filtration 32 ML/MIN Rate Random Glucose 1436 MG/DL Calcium Level 9.4 MG/DL Total Bilirubin 0.6 MG/DL Aspartate Amino Transf 26 U/L (AST/SGOT) Alanine Aminotransferase 127 U/L (ALT/SGPT) Alkaline Phosphatase 670 U/L Troponin I LESS THAN 0.02 NG/ML Total Protein 8.8 GM/DL Albumin 3.8 GM/DL Lipase 512 U/L B-Hydroxybutyrate 2.76 MMOL/L [facility] Medical Decision Making Medical Screen Exam Complete: Yes Emergency Medical Condition: Yes Interpretation(s) EKG shows sinus rhythm right atrial enlargement, non specific ST segment depression in II, III, and F aVF, no ST elevations seen, no peaked T waves. Intervals within normal limits. This is a borderline EKG. comparison to 2016 shows no significant change. Differential Diagnosis DKA, dehydration, pancreatitis, hyperglycemia, HHS. Narrative Course Patient roomed in the emergency department, she has significant history of being a diabetic only for the past 2 months. She has history of recurrent admissions for alcohol-related pancreatitis. She appears well in no obvious distress. After ultrasound-guided IV was started fluid resuscitation was started, patient will be given pain medication. Discussed with the oncoming provider at 0700 is to follow-up workup and disposition properly. Procedures Procedure Narrative Ultrasound guided IV: Under ultrasound guidance patient had 20-gauge placed in left antecubital superficial vein. Mary flushed with ease, secured, tourniquet removed. Rubens Hubbard MD Sep 08, 2016 05:51
--- NOTE | 2016-09-08 06:12 | RADRPT ---
EXAM DATE/TIME: 09/08/2016 05:45 [facility] COMPARISON: No previous studies available for comparison. INDICATIONS : Pt has cough and shortness of breath. MEDICAL HISTORY : None. SURGICAL HISTORY : None. ENCOUNTER: Initial ACUITY: 1 day PAIN SCORE: 7/10 LOCATION: Bilateral chest FINDINGS: A single view of the chest demonstrates the lungs to be symmetrically aerated without evidence of mas s, infiltrate or effusion. The cardiomediastinal contours are unremarkable. Osseous structures are intact. CONCLUSION: No evidence of acute cardiopulmonary disease. Chang Martell MD on September 08, 2016 at 6:10 Board Certified Radiologist. This report was verified electronically.
[2016-09-08 06:26] LABS: BLOOD GAS VENOUS BASE EXCESS -1.7 mmol/L (-2-2); BLOOD GAS VENOUS HCO3 24 mmol/L (22-26); BLOOD GAS VENOUS O2 CONTENT 7.9 Vol % (9.0-17.0); BLOOD GAS VENOUS O2 HGB SAT 43 % (70-76); BLOOD GAS VENOUS PCO2 52 mmHg (44-48); BLOOD GAS VENOUS PO2 29 mmHg (35-40); BLOOD GAS VENOUS pH 7.28 (7.360-7.400); TEMP CORR TO 98.6
[2016-09-08 06:27] LABS: CRITICAL VALUE YES; DRAW SITE CENTRAL LINE; FIO2 21 %; OXYGEN DEVICE ROOMAIR; STAT YES
--- NOTE | 2016-09-08 06:52 | RADRPT ---
EXAM DATE/TIME: 09/08/2016 06:39 [facility] COMPARISON: No previous studies available for comparison. INDICATIONS : Altered mental status. RADIATION DOSE: 33.28 CTDIvol (mGy) MEDICAL HISTORY : Cardiovascular disease. Diabetes mellitus type 2. Hypercholesterolemia.Pancreatitis SURGICAL HISTORY : Cholecystectomy. Coronary artery stent. ENCOUNTER: Initial ACUITY: 1 day PAIN SCALE: 0/10 LOCATION: cranial TECHNIQUE: Multiple contiguous axial images were obtained of the head. Using automated exposure control and adj ustment of the mA and/or kV according to patient size, radiation dose was kept as low as reasonably a chievable to obtain optimal diagnostic quality images. FINDINGS: CEREBRUM: The ventricles are normal for age. No evidence of midline shift, mass lesion, hemorrhage or acute in farction. No extra-axial fluid collections are seen. POSTERIOR FOSSA: The cerebellum and brainstem are intact. The 4th ventricle is midline. The cerebellopontine angle i s unremarkable. EXTRACRANIAL: The visualized portion of the orbits is intact. SKULL: The calvaria is intact. No evidence of skull fracture. CONCLUSION: Negative noncontrast head CT. Chang Martell MD on September 08, 2016 at 6:50 Board Certified Radiologist. This report was verified electronically.
[2016-09-08 06:58] LABS: BASOPHIL % 0.5 % (0.0-2.0); EOSINOPHIL % 0.3 % (0.0-4.0); HEMATOCRIT 42.8 % (35.0-46.0); HEMO FLAGS DIFF FINAL; LYMPHOCYTE # 0.9 TH/MM3 (1.0-4.8); MEAN CELL VOLUME 99.9 FL (80.0-100.0); MEAN CORPUSCULAR HEMOGLOBIN 29.1 PG (27.0-34.0); MONO % 5.2 % (0.0-8.0); PLATELET COUNT 203 TH/MM3 (150-450); RED BLOOD COUNT 4.28 MIL/MM3 (4.00-5.30); RED CELL DISTRIBUTION WIDTH 16.1 % (11.6-17.2); WHITE BLOOD COUNT 6.3 TH/MM3 (4.0-11.0)
[2016-09-08] MEDS ORDERED: MORPHINE SULFATE 4 MG/ML INJ IV PUSH ONE (07:00)
[2016-09-08 07:05] LABS: BLOOD, URINE NEG (NEG); GLUCOSE,URINE 1000 mg/dL (NEG); KETONE, URINE TRACE mg/dL (NEG); NITRITE,URINE NEG (NEG); URINE COLOR LIGHT-YELLOW (YELLW/STRAW)
[2016-09-08 07:08] LABS: COMMENT (UR) CULT NOT INDICATED; CULTURE IF INDICATED CULT NOT INDICATED
[2016-09-08 07:16] LABS: APTT (PATIENT) 19.7 SEC (24.3-30.1); PROTHROMBIN TIME - PATIENT 11.2 SEC (9.8-11.6)
[2016-09-08 07:35] LABS: ANION GAP 16 MEQ/L (5-15)
[2016-09-08 07:36] LABS: ALKALINE PHOSPHATASE 670 U/L (45-117); ALT (GPT) 127 U/L (10-53); AST (GOT) 26 U/L (15-37); BETA-HYDROXYBUTYRATE 2.76 MMOL/L (0.00-0.39); BICARBONATE 23.5 MEQ/L (21.0-32.0); BLOOD UREA NITROGEN 40 MG/DL (7-18); CHLORIDE 76 MEQ/L (98-107); GLOMERULAR FILTRATION RATE 32 ML/MIN (>89); POTASSIUM 4.7 MEQ/L (3.5-5.1); TOTAL BILIRUBIN ADULT 0.6 MG/DL (0.2-1.0)
[2016-09-08 07:37] LABS: SODIUM (NA) 115 MEQ/L (136-145)
[2016-09-08] MEDS ORDERED: DEXT 5%-NACL 0.9% 1000 ML INJ 1,000 ML IV SCH ×2 (07:48→10:00)
[2016-09-08] MEDS ORDERED: POTASSIUM CHLOR 20 MEQ PREMIX 100 ML IV PRN ×10 (08:00→09:30)
[2016-09-08] MEDS ORDERED: SODIUM PHOSPHATE INJ 15 MMOL in SODIUM CHLORIDE 0.9% INJ 100 ML IV PRN ×2 (08:00→09:30)
[2016-09-08] MEDS ORDERED: INSULIN HUMAN REGULAR 1,000 UNITS/10 ML VIAL IV PUSH ONE (08:00)
[2016-09-08] MEDS ORDERED: SODIUM BICARBONATE 8.4% SOLN 50 MEQ/50 ML VIAL IV PRN ×4 (08:00→09:30)
[2016-09-08] MEDS ORDERED: INSULIN REGULAR (IV INFUSION) 100 UNITS in SODIUM CHLORIDE 0.9% INJ 99 ML IV SCH (08:00)
[2016-09-08] MEDS ORDERED: POTASSIUM CHLOR 40 MEQ PREMIX 100 ML IV PRN ×2 (08:00)
--- NOTE | 2016-09-08 09:24 | PD ---
Data Data Last Documented VS Vital Signs Date Time Temp Pulse Resp B/P Pulse Ox O2 Delivery O2 Flow Rate FiO2 09/08/16 07:18 90 24 106/68 100 Room Air 09/08/16 04:53 97.7 Orders Complete Blood Count With Diff (09/08/16 05:14) Comprehensive Metabolic Panel (09/08/16 05:14) Lipase (09/08/16 05:14) Prothrombin Time / Inr (Pt) (09/08/16 05:14) Act Partial Throm Time (Ptt) (09/08/16 05:14) Urinalysis - C+S If Indicated (09/08/16 05:14) Iv Access Insert/Monitor (09/08/16 05:14) Ecg Monitoring (09/08/16 05:14) Oximetry (09/08/16 05:14) Sodium Chlor 0.9% 1000 Ml Inj (Ns 1000 M (09/08/16 05:14) Sodium Chloride 0.9% Flush (Ns Flush) (09/08/16 05:15) Resp Blood Gas Venous (09/08/16 ) Beta Hydroxybutyrate (Acetone) (09/08/16 05:14) Electrocardiogram (09/08/16 ) Ct Brain W/O Iv Contrast(Rout) (09/08/16 ) Chest, Single Ap (09/08/16 ) Blood Gas Venous (Vbg) (09/08/16 06:15) Morphine Inj (Morphine Inj) (09/08/16 07:00) Troponin I (09/08/16 06:26) Veneer Stacker / Telemetry ANDREI.Q8H (09/08/16 07:48) ^ Insert Iv (09/08/16 07:48) Diet Npo (09/08/16 Breakfast) Dext 5%-Nacl 0.9% 1000 Ml Inj (D5w-Ns 10 (09/08/16 07:48) Insulin Human Regular Inj (Novolin R Inj (09/08/16 08:00) Insulin Regular (Iv Infusion) (Novolin R (09/08/16 08:00) Potassium Chlor 40 Meq Premix (Kcl 40 Me (09/08/16 08:00) Potassium Chlor 40 Meq Premix (Kcl 40 Me (09/08/16 08:00) Potassium Chlor 20 Meq Premix (Kcl 20 Me (09/08/16 08:00) Potassium Chlor 20 Meq Premix (Kcl 20 Me (09/08/16 08:00) Potassium Chlor 20 Meq Premix (Kcl 20 Me (09/08/16 08:00) Potassium Chlor 20 Meq Premix (Kcl 20 Me (09/08/16 08:00) Potassium Chlor 20 Meq Premix (Kcl 20 Me (09/08/16 08:00) Potassium Chlor 20 Meq Premix (Kcl 20 Me (09/08/16 08:00) Sodium Bicarbonate 8.4% Inj (Sodium Bica (09/08/16 08:00) Sodium Bicarbonate 8.4% Inj (Sodium Bica (09/08/16 08:00) Sodium Phosphate Inj (Sodium Phosphate I (09/08/16 08:00) Hemoglobin (Hgb) A1c (09/08/16 07:48) Basic Metabolic Panel (Bmp) (09/08/16 12:48) Basic Metabolic Panel (Bmp) (09/08/16 18:48) Basic Metabolic Panel (Bmp) (09/09/16 00:48) Basic Metabolic Panel (Bmp) (09/09/16 06:48) Magnesium (Mg) (09/08/16 12:48) Magnesium (Mg) (09/08/16 18:48) Magnesium (Mg) (09/09/16 00:48) Magnesium (Mg) (09/09/16 06:48) Phosphorus (Po4) (09/08/16 12:48) Phosphorus (Po4) (09/08/16 18:48) Phosphorus (Po4) (09/09/16 00:48) Phosphorus (Po4) (09/09/16 06:48) Beta Hydroxybutyrate (Acetone) (09/08/16 18:48) Beta Hydroxybutyrate (Acetone) (09/09/16 06:48) Admit Order (Ed Use Only) (09/08/16 09:12) Labs Laboratory Tests Test 09/08/16 09/08/16 06:15 06:26 Blood Gas Puncture Site CENTRAL LINE Blood Gas Patient Temperature 98.6 Venous Blood pH 7.28 Venous Blood Partial Pressure 52 mmHg CO2 Venous Blood Partial Pressure 29 mmHg O2 Venous Blood HCO3 24 mmol/L Venous Blood Oxygen Saturation 43 % Venous Blood Oxygen Content 7.9 Vol % Venous Blood Base Excess -1.7 mmol/L Oxygen Delivery Device ROOMAIR Blood Gas Inspired Oxygen 21 % White Blood Count 6.3 TH/MM3 Red Blood Count 4.28 MIL/MM3 Hemoglobin 12.5 GM/DL Hematocrit 42.8 % Mean Corpuscular Volume 99.9 FL Mean Corpuscular Hemoglobin 29.1 PG Mean Corpuscular Hemoglobin 29.1 % Concent Red Cell Distribution Width 16.1 % Platelet Count 203 TH/MM3 Mean Platelet Volume 11.0 FL Neutrophils (%) (Auto) 80.0 % Lymphocytes (%) (Auto) 14.0 % Monocytes (%) (Auto) 5.2 % Eosinophils (%) (Auto) 0.3 % Basophils (%) (Auto) 0.5 % Neutrophils # (Auto) 5.0 TH/MM3 Lymphocytes # (Auto) 0.9 TH/MM3 Monocytes # (Auto) 0.3 TH/MM3 Eosinophils # (Auto) 0.0 TH/MM3 Basophils # (Auto) 0.0 TH/MM3 CBC Comment DIFF FINAL Differential Comment Prothrombin Time 11.2 SEC Prothromb Time International 1.0 RATIO Ratio Activated Partial 19.7 SEC Thromboplast Time Urine Color LIGHT-YELLOW Urine Turbidity CLEAR Urine pH 6.0 Urine Specific Orange 1.026 Urine Protein NEG mg/dL Urine Glucose (UA) 1000 mg/dL Urine Ketones TRACE mg/dL Urine Occult Blood NEG Urine Nitrite NEG Urine Bilirubin NEG Urine Urobilinogen LESS THAN 2.0 MG/DL Urine Leukocyte Esterase NEG Urine RBC 1 /hpf Urine WBC 1 /hpf Microscopic Urinalysis Comment CULT NOT INDICATED Sodium Level 115 MEQ/L Potassium Level 4.7 MEQ/L Chloride Level 76 MEQ/L Carbon Dioxide Level 23.5 MEQ/L Anion Gap 16 MEQ/L Blood Urea Nitrogen 40 MG/DL Creatinine 1.96 MG/DL Estimat Glomerular Filtration 32 ML/MIN Rate Random Glucose 1436 MG/DL Calcium Level 9.4 MG/DL Total Bilirubin 0.6 MG/DL Aspartate Amino Transf 26 U/L (AST/SGOT) Alanine Aminotransferase 127 U/L (ALT/SGPT) Alkaline Phosphatase 670 U/L Troponin I LESS THAN 0.02 NG/ML Total Protein 8.8 GM/DL Albumin 3.8 GM/DL Lipase 512 U/L B-Hydroxybutyrate 2.76 MMOL/L [facility] Supervised Visit with SHELBIE: No Narrative Course I took over care of this patient from Dr. Hubbard. She has a history of poorly controlled diabetes and recurrent the emergency department with some confusion and slurred speech. Labs were obtained which demonstrate marked hyperglycemia with a sodium of 115, renal insufficiency and elevated alkaline phosphatase of uncertain etiology. Patient was started on IV insulin and electrolyte repletion. She appears quite well. She'll be admitted to the residents for further care. Otherwise imaging studies are reassuring. Critical Care Narrative Aggregate critical care time was 35 minutes. Time to perform other separately billable procedures was not included in the critical care time. My time did not include minutes spent treating any other patients simultaneously or on activities that did not directly contribute to the patient's treatment. The services I provided to this patient were to treat and/or prevent clinically significant deterioration that could result in: Disability, I provided critical care services requiring my management, as noted below: Chart data review, documentation time, medication orders and management, vital sign assessments/reviewing monitor data, ordering and reviewing lab tests, ordering and interpreting/reviewing x-rays and diagnostic studies, care of the patient and discussion of the patient with the admitting physicians. Adalgisa Yates MD Sep 08, 2016 09:23
[2016-09-08] MEDS ORDERED: CHLORHEXIDINE GLUCONATE 2 % 1 PACK (2 CLOTHS) TOP PRN (09:30)
[2016-09-08] MEDS ORDERED: MISCELLANEOUS NURSING INFORMATION XX SCH (09:30)
--- NOTE | 2016-09-08 10:07 | HHI.HP ---
HPI Service Family Medicine Primary Care Physician No Primary Care Physician Admission Diagnosis hyperglycemia Diagnoses: International Travel<30 Days: No Contact w/Intl Traveler<30days: No Known Affected Area: No History of Present Illness Patient is a 56 year old female with a past medical history of Diabetes mellitus, hypertension, hyperlipidemia and chronic pancreatitis who was brought to the ED by her son for confusion/AMS. Patient is a poor historian however describes experiencing nausea and vomiting last night and this morning, along with back pain which has been present for several weeks. Currently she has some mild abdominal pain, back pain, headache and blurry vision. She denies other symptoms such as chest pain, and shortness of breath and has not vomited since this morning. Patient ran out of her home medications approximately 2 weeks ago and has not seen her PCP in approximately one year. ( Mariam Doyle MD R3) Review of Systems Other Denies fever or chills Denies otorrhea, rhinorrhea, admits to blurry vision and headache Denies sore throat and cough No chest pain, palpitations, shortness of breath, leg swelling Mild epigastric abdominal pain Denies constipation/diarrhea, admits to nausea and vomiting this morning Denies muscle pain/weakness No rashes (Mariam Doyle MD R3) Past Family Social History Past Medical History Hypertension Diabetes Mellitus Hyperlipidemia Chronic pancreatitis Past Surgical History J-tube placement Coronary angiogram and stent placement Cholecystectomy May 2006 Reported Medications Reported Meds & Active Scripts Active Levemir Inj (Insulin Detemir) 1,000 unit/ 10 ML Vial 18 Units SQ BID 30 Days Lipitor (Atorvastatin Calcium) 20 Mg Tab 20 Mg PO HS Glucophage (Metformin HCl) 500 Mg Tab 1,000 Mg PO BIDPC Norvasc (Amlodipine Besylate) 5 Mg Tab 5 Mg PO DAILY Creon (Amylase/Lipase/Protease) 24,000-76,000-120,000 Units Cap 2 Cap PO TID Pantoprazole (Pantoprazole Sodium) 40 Mg Tab 40 Mg PO DAILY Trazodone (Trazodone HCl) 100 Mg Tab 100 Mg PO HS Mariah-Colace (Sennosides-Docusate Sodium) 8.6-50 Mg Tab 1 Tab PO BID PRN (Mariam Doyle MD R3) Allergies: Coded Allergies: No Known Allergies (Verified , 09/08/16) NONE KNOWN Family History Diabetes mellitus Social History Tobacco use 1/2 pack per day Prior heavy alcohol use, none currently Denies other recreational drug use (Mariam Doyle MD R3) Physical Exam Vital Signs Vital Signs Date Time Temp Pulse Resp B/P Pulse Ox O2 Delivery O2 Flow Rate FiO2 09/08/16 07:18 90 24 106/68 100 Room Air 09/08/16 06:35 90 14 131/79 99 Room Air 09/08/16 04:53 97.7 106 18 145/80 96 Physical Exam GENERAL: This is a well-nourished, well-developed patient, in no apparent distress. SKIN: No rashes, ecchymoses or lesions. Cool and dry. HEAD: Atraumatic. Normocephalic. No temporal or scalp tenderness. EYES: Pupils equal round and reactive. Extraocular motions intact. No scleral icterus. No injection or drainage. ENT: Nose without bleeding, purulent drainage or septal hematoma. Throat without erythema, tonsillar hypertrophy or exudate. Uvula midline. Airway patent. NECK: Trachea midline. No JVD or lymphadenopathy. Supple, nontender, no meningeal signs. CARDIOVASCULAR: Regular rate and rhythm without murmurs, gallops, or rubs. Pulses equal in all four extremities. RESPIRATORY: Clear to auscultation. Breath sounds equal bilaterally. No wheezes , rales, or rhonchi. GASTROINTESTINAL: Abdomen soft, nondistended, mildly tender to palpation in mid- epigastric region. No hepato-splenomegaly, or palpable masses. No guarding. MUSCULOSKELETAL: Extremities without clubbing, cyanosis, or edema. No joint tenderness, effusion, or edema noted. No calf tenderness. Negative Homans sign bilaterally. NEUROLOGICAL: Awake and alert. Cranial nerves II through XII intact. Motor and sensory grossly within normal limits. Five out of 5 muscle strength in all muscle groups. Normal speech. Laboratory Laboratory Tests Test 09/08/16 09/08/16 06:15 06:26 Blood Gas Puncture Site CENTRAL LINE Blood Gas Patient Temperature 98.6 Venous Blood pH 7.28 Venous Blood Partial Pressure 52 CO2 Venous Blood Partial Pressure 29 O2 Venous Blood HCO3 24 Venous Blood Oxygen Saturation 43 Venous Blood Oxygen Content 7.9 Venous Blood Base Excess -1.7 Oxygen Delivery Device ROOMAIR Blood Gas Inspired Oxygen 21 White Blood Count 6.3 Red Blood Count 4.28 Hemoglobin 12.5 Hematocrit 42.8 Mean Corpuscular Volume 99.9 Mean Corpuscular Hemoglobin 29.1 Mean Corpuscular Hemoglobin 29.1 Concent Red Cell Distribution Width 16.1 Platelet Count 203 Mean Platelet Volume 11.0 Neutrophils (%) (Auto) 80.0 Lymphocytes (%) (Auto) 14.0 Monocytes (%) (Auto) 5.2 Eosinophils (%) (Auto) 0.3 Basophils (%) (Auto) 0.5 Neutrophils # (Auto) 5.0 Lymphocytes # (Auto) 0.9 Monocytes # (Auto) 0.3 Eosinophils # (Auto) 0.0 Basophils # (Auto) 0.0 CBC Comment DIFF FINAL Differential Comment Prothrombin Time 11.2 Prothromb Time International 1.0 Ratio Activated Partial 19.7 Thromboplast Time Urine Color LIGHT-YELLOW Urine Turbidity CLEAR Urine pH 6.0 Urine Specific [place] 1.026 Urine Protein NEG Urine Glucose (UA) 1000 Urine Ketones TRACE Urine Occult Blood NEG Urine Nitrite NEG Urine Bilirubin NEG Urine Urobilinogen LESS THAN 2.0 Urine Leukocyte Esterase NEG Urine RBC 1 Urine WBC 1 Microscopic Urinalysis Comment CULT NOT INDICATED Sodium Level 115 Potassium Level 4.7 Chloride Level 76 Carbon Dioxide Level 23.5 Anion Gap 16 Blood Urea Nitrogen 40 Creatinine 1.96 Estimat Glomerular Filtration 32 Rate Random Glucose 1436 Calcium Level 9.4 Total Bilirubin 0.6 Aspartate Amino Transf 26 (AST/SGOT) Alanine Aminotransferase 127 (ALT/SGPT) Alkaline Phosphatase 670 Troponin I LESS THAN 0.02 Total Protein 8.8 Albumin 3.8 Lipase 512 B-Hydroxybutyrate 2.76 (Mariam Doyle MD R3) Result Diagram: 09/08/1662509/08/16625 Assessment and Plan Assessment and Plan Patient is a 56 year old female with a past medical history of diabetes mellitus , chronic pancreatitis, hypertension and hyperlipidemia presenting in hyperosmolar hyperglycemic state. She admitted to nausea and vomiting last night and some mild abdominal pain with no other symptoms. 1. HHS: Blood glucose 1436, pH 7.28, sodium 115, corrected 136. Osmolality pending Insulin drip per protocol with IV fluid hydration Follow serial BMPs, adjust IV fluids and transition to subcutaneous insulin per protocol Replete electrolytes as needed 2. MAUREEN - likely secondary to dehydration - IV fluid hydration as above, monitor creatinine 3. Chronic pancreatitis - last imaging done 03/02/16 showing acute on chronic pancreatitis without masses. Patient's lipase is mildly elevated near baseline. - follow clinically 4. Chronic medical problems - HTN: continue home amlodipine - Hyperlipidemia: continue home atorvastatin - GERD: continue home protonix - 5. FEN - fluids as above, electrolytes replete prn, npo - heparin 5000 units [id number] (Mariam Doyle MD R3) Attending Attestation The patient has been seen and examined. The chart and all resident notes have been reviewed. I agree that inpatient care is appropriate and that a two midnight stay is expected for the reasons documented in the resident history and physical. I have discussed this with the resident and certify the resident s order for inpatient admission. Patient seen and examined in the ED. Case reviewed and discussed Please refer to resident H&P for further details regarding HPI, ROS, PMH, SurgHx , Fh and SocHx All systems reviewed and neg except as stated in HPI. In summary, patient is a 56yoF seen in the ED with a history of insulin- dependent DM (diagnosed approx 1 year ago). She reports she ran out of her insulin about 1-2 weeks ago She has started to feel dizzy and unwell and came to the ED because she suspected she needed her insulin. Upon arrival, she was found to have a glucose of >1400 She is currently on the insulin gtt, per protocol. She does mention some back pain which is chronic in nature GENERAL: thin AAF resting in bed, awake, communicative SKIN: Warm and dry. No rashes HEAD: Normocephalic. AT EYES: No scleral icterus. No injection or drainage. ENT: OP clear. MM slightly dry NECK: Supple, trachea midline. No JVD or lymphadenopathy. CARDIOVASCULAR: Regular rate and rhythm without audible murmurs, gallops, or rubs. RESPIRATORY: Breath sounds equal and clear bilaterally. No accessory muscle use. GASTROINTESTINAL: Abdomen soft, mild tenderness over epigastrium, nondistended. Normal active BS. MUSCULOSKELETAL: No cyanosis, or edema. No calf tenderness BACK: Mild tenderness over bilateral paraspinal spaces without obvious deformity. No midline tenderness. No CVA tenderness. NEURO: Awake and alert. Normal speech. CN grossly intact. A/P: 56yoF admitted with: HHS/DKA Severe hyponatremia Acute on chronic kidney failure Chronic pancreatitis with pancreatic insufficiency Transaminitis HTN HL Medical non-adherence Insulin gtt per protocol Serial BMPs Resume home meds as appropriate Heparin for DVT proph DM education Monitor Cr, LFTs Monitor back pain, if persists, consider CT Abd/Pelvis with IV contrast Patient seen and examined. Case reviewed and discussed Agree with plan of care as discussed with me and documented in the resident note. (Gloria Padgett MD) Problem List: (1) Type 2 diabetes mellitus with hyperosmolar nonketotic hyperglycemia Status: Acute (2) MAUREEN (acute kidney injury) Status: Acute (3) Type 2 diabetes mellitus Status: Chronic (4) Chronic pancreatitis Status: Acute (5) HTN (hypertension) Status: Chronic (6) Hyperlipemia Status: Acute (Mariam Doyle MD R3) Physician Certification 2 Midnight Certification Type: Admission for Inpatient Services Order for Inpatient Services The services are ordered in accordance with Medicare regulations or non- Medicare payer requirements, as applicable. In the case of services not specified as inpatient-only, they are appropriately provided as inpatient services in accordance with the 2-midnight benchmark. Estimated LOS (days): 2 2 days is the estimated time the patient will need to remain in the hospital, assuming treatment plan goals are met and no additional complications. Post-Hospital Plan: Not yet determined (Mariam Doyle MD R3) Mariam Doyle MD R3 Sep 08, 2016 10:07 Gloria Padgett MD Sep 08, 2016 17:02
[2016-09-08 10:13] LABS: BETA-HYDROXYBUTYRATE 0.51 MMOL/L (0.00-0.39); BICARBONATE 22.4 MEQ/L (21.0-32.0); POTASSIUM 4.3 MEQ/L (3.5-5.1)
[2016-09-08 12:52] LABS: BICARBONATE 29.4 MEQ/L (21.0-32.0); MAGNESIUM 2.4 MG/DL (1.5-2.5); POTASSIUM 4.2 MEQ/L (3.5-5.1)
[2016-09-08] MEDS: HEPARIN SODIUM - SQ 10,000 UNITS/ML VIAL SQ SCH ×2 (14:02→21:39)
[2016-09-08 16:32] LABS: MAGNESIUM 2.5 MG/DL (1.5-2.5); POTASSIUM 3.7 MEQ/L (3.5-5.1)
[2016-09-08] MEDS ORDERED: DC Insulin drip 2 hrs post basal insulin dose ONE (17:15)
[2016-09-08] MEDS ORDERED: DEXTROSE 50% IN WATER 50 ML VIAL(D50) IV PRN ×2 (17:15→22:30)
[2016-09-08] MEDS ORDERED: INSULIN ASPART 1,000 UNITS/10 ML VIAL SQ SCH (17:15)
[2016-09-08] MEDS ORDERED: DC previous DKA orders (HMC 1917) ONE (17:15)
[2016-09-08] MEDS ORDERED: GLUCAGON 1 MG/ML VIAL OTHER PRN ×2 (17:15→22:30)
--- NOTE | 2016-09-08 17:18 | EKG ---
Date Performed: 09/08/2016 Time Performed: 06:27:27 PTAGE: 56 years EKG: Sinus rhythm RIGHT ATRIAL ENLARGEMENT MODERATE ST DEPRESSION ABNORMAL ECG PREVIOUS TRACING : 07/03/2016 21.58 Compared to the previous tracing ST changes now present DOCTOR: Ericka Schulz Interpretating Date/Time 09/08/2016 17:17:34
[2016-09-08] MEDS: INSULIN DETEMIR 100 UNITS/ML VIAL SQ SCH ×2 (18:13→21:00)
[2016-09-08] MEDS: MORPHINE SULFATE 4 MG/ML INJ IV PUSH PRN ×2 (18:13→21:47)
[2016-09-08 21:39] LABS: ANION GAP 10 MEQ/L (5-15); BETA-HYDROXYBUTYRATE 0.12 MMOL/L (0.00-0.39); BLOOD UREA NITROGEN 39 MG/DL (7-18); CHLORIDE 110 MEQ/L (98-107); GLOMERULAR FILTRATION RATE 52 ML/MIN (>89); MAGNESIUM 2.1 MG/DL (1.5-2.5); POTASSIUM 3.4 MEQ/L (3.5-5.1); SODIUM (NA) 143 MEQ/L (136-145)
[2016-09-08] MEDS: ATORVASTATIN 20 MG TAB PO SCH (21:39)
[2016-09-08] MEDS: traZODone HCL 100 MG TAB PO SCH (21:39)
[2016-09-08] MEDS: SODIUM CHLORIDE 0.9% FLUSH 10 ML FLUSH IV FLUSH PRN (21:48)
[2016-09-08] MEDS ORDERED: POTASSIUM PHOSPHATE INJ 30 MMOL in SODIUM CHLOR 0.9% 250 ML INJ 250 ML IV ONE (22:45)
[2016-09-08] MEDS ORDERED: ONDANSETRON HCL 4 MG/2 ML VIAL IV PUSH PRN (22:45)
[2016-09-09] VITALS (11 sets, daily range): BP systolic 97–135; BP diastolic 57–73; PULSE 67–91; RESP 15–24; TEMP 96.8–98.7; O2SAT 95–100
[2016-09-09] MEDS: HEPARIN SODIUM - SQ 10,000 UNITS/ML VIAL SQ SCH ×3 (07:25→21:02)
[2016-09-09] MEDS: INSULIN ASPART SUPPLEMENTAL SCALE SQ SCH ×4 (07:28→21:01)
[2016-09-09] MEDS ORDERED: INSULIN ASPART 1,000 UNITS/10 ML VIAL SQ SCH (08:00)
[2016-09-09 08:47] LABS: BICARBONATE 22.1 MEQ/L (21.0-32.0); POTASSIUM 4.4 MEQ/L (3.5-5.1)
[2016-09-09] MEDS: INSULIN DETEMIR 100 UNITS/ML VIAL SQ SCH ×2 (09:00→21:01)
[2016-09-09] MEDS: amLODIPine BESYLATE 5 MG TAB PO SCH (09:32)
[2016-09-09] MEDS: PANTOPRAZOLE SOD 40 MG DELAYED RELEASE TAB PO SCH (09:33)
[2016-09-09] MEDS: SODIUM CHLOR 0.9% 1000 ML INJ 1,000 ML IV SCH ×2 (09:33→17:45)
[2016-09-09] MEDS: MORPHINE SULFATE 4 MG/ML INJ IV PUSH PRN ×2 (09:42→16:24)
[2016-09-09] MEDS ORDERED: INFLUENZA VIRUS VACCINE (QUADRIVALENT) 0.5 ML SYR IM ONE (10:00)
--- NOTE | 2016-09-09 12:39 | HHI.FPPN ---
Subjective Remarks Patient was afebrile overnight with stable vitals. Patient was able to eat some last night but had one episode of nausea with emesis. She is still having lower back and mild epigastric pain which was present on admission and also complains of a mild sore throat. She denies fevers, chills, headache, chest pain, shortness of breath, nausea and vomiting. (Mariam Doyle MD R3) Objective Vitals Vital Signs Date Time Temp Pulse Resp B/P Pulse Ox O2 Delivery O2 Flow Rate FiO2 09/09/16 06:00 73 09/09/16 04:00 97.4 79 15 101/57 95 09/09/16 04:00 79 09/09/16 02:00 91 09/09/16 00:00 98.2 84 24 135/66 100 09/09/16 00:00 84 09/08/16 22:00 93 09/08/16 21:52 24 09/08/16 20:00 97.8 96 24 106/65 96 09/08/16 20:00 96 09/08/16 18:09 70 09/08/16 13:54 94 14 102/69 100 Room Air I/O 09/08/16 09/08/16 09/08/16 09/09/16 09/09/16 09/09/16 07:00 15:00 23:00 07:00 15:00 23:00 Intake Total 1258 ml 1537 ml Output Total 500 ml 400 ml Balance 758 ml 1137 ml Intake Oral 480 ml IV Total 778 ml 1537 ml Output Urine Total 250 ml 400 ml Emesis 250 ml (Mariam Doyle MD R3) Result Diagram: 09/08/16 0626 09/09/16 0720 Objective Remarks General: patient was in no acute distress, laying comfortably in bed. Alert and oriented Cardio: regular rate and rhythm with no evidence of murmurs, rubs or gallops. Pulm: lungs clear to auscultation bilaterally with no accessory muscle use, wheezes, crackles or rhonchi. Abdomen: Bowel sounds present; remains tender to palpation in mid-epigastric region. Extremities: no swelling or erythema in any extremity. Negative Giovanni's sign. Skin: no rashes seen, patient was warm and dry. (Mariam Doyle MD R3) A/P Assessment and Plan Patient is a 56 year old female with a past medical history of diabetes mellitus , chronic pancreatitis, hypertension and hyperlipidemia presenting in hyperosmolar hyperglycemic state. 1. HHS: On admission, blood glucose 1436, pH 7.28, sodium 115, corrected 136 with serum osmolality 343. Patient is s/p insulin drip which was transitioned to subcutaneous insulin as Levemir 10 units bid and insulin aspart 10 units before meals after resolution of increased anion gap and hyperglycemia. Patient continued to be hyperglycemic this morning with a bedside glucose of 456, likely secondary to D5NS which was discontinued, home Levemir was restarted and sliding scale insulin was used to lower her serum glucose. Insulin adjusted to Levemir 15 units bid with sliding scale as needed as patient was on this dosing at home Normal saline restarted at 100ml/hr Repeat BMP in the morning (09/10) - monitor bedside glucose before meals and at bedtime - transfer to floor 2. MAUREEN: On admission, creatinine was 1.62. Baseline 0.7. Improving with IVFs. 3. Chronic pancreatitis: patient is still experiencing pain in the lower back bilaterally, but denies worsening abdominal or back pain. - last imaging done 03/02/16 showing acute on chronic pancreatitis without masses. Patient's lipase is mildly elevated near baseline. - CT abd/pelvis for evaluation of possible acute on chronic process 4. Chronic medical problems - HTN: continue home amlodipine - Hyperlipidemia: continue home atorvastatin - GERD: continue home protonix 5. FEN - fluids as above, electrolytes replete prn - heparin 5000 units [id number] - patient is tolerating soft, diabetic diet well. Disp: Anticipate d/c to home tomorrow (Mariam Doyle MD R3) Attending Attestation Patient seen and examined with the resident team. Case reviewed and discussed Agree with plan of care as discussed with me and documented in the resident note. CT Abd/Pelvis for persistent abd and back pain Resume home Levemir [place] [facility] [place] (Gloria Padgett MD) Problem List: (1) Type 2 diabetes mellitus with hyperosmolar nonketotic hyperglycemia Status: Acute (2) MAUREEN (acute kidney injury) Status: Acute (3) Type 2 diabetes mellitus Status: Chronic (4) Chronic pancreatitis Status: Acute (5) HTN (hypertension) Status: Chronic (6) Hyperlipemia Status: Acute (Mariam Doyle MD R3) Mariam Doyle MD R3 Sep 09, 2016 12:39 Gloria Padgett MD Sep 09, 2016 14:29
[2016-09-09] MEDS ORDERED: DIATRIZOATE MEGLUM/DIATRIZOATE SOD 9 ML CUP PO ONE (13:15)
[2016-09-09 14:18] LABS: HEMOGLOBIN A1a 1.1 %
[2016-09-09 14:19] LABS: HEMOGLOBIN A1b 0.8 %; HEMOGLOBIN Ao 86.3 %; HEMOGLOBIN F 0.9 %; HEMOGLOBIN LA1C 1.7 %; HEMOGLOBIN P3 3.4 %
[2016-09-09] MEDS ORDERED: IOHEXOL 350 MG/ML 10 ML VIAL (for RAD DIAG) IV ONE (19:27)
--- NOTE | 2016-09-09 19:49 | RADRPT ---
EXAM DATE/TIME: 09/09/2016 19:15 [place] COMPARISON: No previous studies available for comparison. INDICATIONS : Diffuse abdomen pain for three weeks. IV CONTRAST: 96 cc Omnipaque 350 (iohexol) IV ORAL CONTRAST: Prescribed oral contrast ingested. RADIATION DOSE: 10.36 CTDIvol (mGy) MEDICAL HISTORY : Pancreatitis. Cardiovascular disease SURGICAL HISTORY : Cholecystectomy. ENCOUNTER: Initial ACUITY: 3 weeks PAIN SCALE: 7/10 LOCATION: Bilateral abdomen TECHNIQUE: Volumetric scanning of the abdomen and pelvis was performed. Using automated exposure control and ad justment of the mA and/or kV according to patient size, radiation dose was kept as low as reasonably achievable to obtain optimal diagnostic quality images. FINDINGS: Lung bases are clear except for minimal linear atelectasis or scarring. There is biliary ductal dilatation the common bile duct measuring up to 17 mm in diameter. Calcificat ions in the pancreas are difficult to differentiate from distal common bile duct. Cannot exclude chol edocholithiasis. The coarse calcifications in the pancreas characteristic of chronic pancreatitis the pancreatic duct dilated up to 6 mm. No acute findings in the spleen, adrenals. Small left renal cysts. No hydronephrosis or obstructive u ropathy. Within the pelvis there is a fat containing right adnexal lesion circumscribed measuring up to 4.8 cm in diameter most characteristic of an ovarian dermoid. On bone windows there are subtle subcentimeter lucencies in several vertebra. Consider myeloma. CONCLUSION: 1. Chronic pancreatitis with biliary ductal dilatation to 17 mm. Cannot exclude choledocholithiasis w ith extensive coarse calcifications in the region of the pancreatic head. 2. Subtle subcentimeter lucent lesions in the lumbar spine. Patient should be evaluated for myeloma o r less likely metastatic disease. 3. 4.8 cm dermoid right adnexal region. Sincere Gallardo MD on September 09, 2016 at 19:38 Board Certified Radiologist. This report was verified electronically.
[2016-09-09] MEDS: traZODone HCL 100 MG TAB PO SCH (20:55)
[2016-09-09] MEDS: ATORVASTATIN 20 MG TAB PO SCH (20:55)
[2016-09-10] VITALS: BP 107/66; PULSE 77; RESP 17; TEMP 98; O2SAT 100
[2016-09-10] MEDS: SODIUM CHLOR 0.9% 1000 ML INJ 1,000 ML IV SCH ×3 (03:45→21:06)
[2016-09-10 04:00] VITALS: BP 97/58; PULSE 77; RESP 17; TEMP 97.8; O2SAT 97
[2016-09-10] MEDS: MORPHINE SULFATE 4 MG/ML INJ IV PUSH PRN ×4 (05:17→21:05)
[2016-09-10] MEDS: HEPARIN SODIUM - SQ 10,000 UNITS/ML VIAL SQ SCH ×3 (05:17→21:05)
[2016-09-10] MEDS: INSULIN ASPART SUPPLEMENTAL SCALE SQ SCH ×4 (05:45→21:04)
[2016-09-10 07:26] LABS: BICARBONATE 23.2 MEQ/L (21.0-32.0); POTASSIUM 4.1 MEQ/L (3.5-5.1)
[2016-09-10 08:00] VITALS: BP 100/60; PULSE 79; RESP 17; TEMP 97.2; O2SAT 99
[2016-09-10] MEDS: PANTOPRAZOLE SOD 40 MG DELAYED RELEASE TAB PO SCH (08:45)
[2016-09-10] MEDS: amLODIPine BESYLATE 5 MG TAB PO SCH (08:45)
[2016-09-10] MEDS: INSULIN DETEMIR 100 UNITS/ML VIAL SQ SCH ×2 (08:53→21:03)
--- NOTE | 2016-09-10 10:13 | HHI.FPPN ---
Subjective Remarks Still complaining of chronic back pain that is not getting better despite IV morphine. New epigastric pain today that is dull and achy. No fevers or chills, sob, or headaches. BG has been < 200. Objective Vitals Vital Signs Date Time Temp Pulse Resp B/P Pulse Ox O2 Delivery O2 Flow Rate FiO2 09/10/16 08:00 97.2 79 17 100/60 99 09/10/16 04:00 97.8 77 17 97/58 97 09/10/16 00:00 98.0 77 17 107/66 100 09/09/16 21:00 80 09/09/16 20:00 96.8 79 16 110/66 99 09/09/16 16:00 98.4 85 18 118/73 98 09/09/16 14:00 82 09/09/16 12:00 98.7 75 18 106/63 100 09/09/16 12:00 75 I/O 09/09/16 09/09/16 09/09/16 09/10/16 09/10/16 09/10/16 07:00 15:00 23:00 07:00 15:00 23:00 Intake Total 1537 ml 455 ml 240 ml 240 ml Output Total 400 ml 350 ml Balance 1137 ml 105 ml 240 ml 240 ml Intake Oral 240 ml 240 ml IV Total 1537 ml 455 ml Output Urine Total 400 ml 350 ml # Voids 2 2 # Bowel Movements 0 0 Result Diagram: 09/08/16 0626 09/10/16 0607 Objective Remarks General: patient was in no acute distress, laying comfortably in bed. Alert and oriented Cardio: regular rate and rhythm with no evidence of murmurs, rubs or gallops. Pulm: lungs clear to auscultation bilaterally with no accessory muscle use, wheezes, crackles or rhonchi. Abdomen: Bowel sounds present; remains tender to palpation in mid-epigastric region. Extremities: no swelling or erythema in any extremity. Negative Giovanni's sign. Skin: no rashes seen, patient was warm and dry. A/P Assessment and Plan Patient is a 56 year old female with a past medical history of diabetes mellitus , chronic pancreatitis, hypertension and hyperlipidemia presenting in hyperosmolar hyperglycemic state. 1. HHS: Corrected. Glucose 142 this a.m. Insulin adjusted to Levemir 15 units bid with sliding scale as needed as patient was on this dosing at home Normal saline restarted at 100ml/hr Repeat BMP in the morning (09/11) - monitor bedside glucose before meals and at bedtime - A1c 5.5% 2. MAUREEN: On admission, creatinine was 1.62. Baseline 0.7. Improving with IVFs. 3. Chronic pancreatitis: patient is still experiencing pain in the lower back bilaterally. - CT abd/pelvis on 09/09 showed "chronic pancreatitis with biliary ductal dilatation to 17 mm. Cannot exclude choledocholelithiasis with extensive coarse calcifications in the region of the pancreatic head. " -Lipase elevated to 515, patient with history of chronic pancreatitis. -Consult GI, we appreciate their recommendations. 4. Chronic medical problems - HTN: continue home amlodipine - Hyperlipidemia: continue home atorvastatin - GERD: continue home protonix 5. Lytic lesions of spine Subtle subcentimeter lucent lesions in the lumbar spine. "Patient should be evaluated for myeloma or less likely metastatic disease." Multiple myeloma workup including ERP, beta-2 microglobulin, LDH, ESR, protein electro paresis, urine electro paresis, free light chain kappa/lambda. 6. 4.8 cm dermoid lesion in adnexa We'll get tumor markers. Patient may need CT of thorax to rule out any malignancies above the diaphragm. Will follow. 5. FEN - fluids as above, electrolytes replete prn - heparin 5000 units [id number] - patient is tolerating soft, diabetic diet well. Problem List: (1) Type 2 diabetes mellitus with hyperosmolar nonketotic hyperglycemia Status: Acute (2) MAUREEN (acute kidney injury) Status: Acute (3) Type 2 diabetes mellitus Status: Chronic (4) Chronic pancreatitis Status: Acute (5) HTN (hypertension) Status: Chronic (6) Hyperlipemia Status: Acute Ferny Avitia MD R2 Sep 10, 2016 10:13
[2016-09-10 12:00] VITALS: BP 101/61; PULSE 75; RESP 18; TEMP 97.9; O2SAT 98
[2016-09-10 12:27] LABS: LDH SERUM 249 U/L (84-246)
[2016-09-10 16:00] VITALS: BP 111/67; PULSE 81; RESP 18; TEMP 96.8; O2SAT 97
[2016-09-10 20:25] VITALS: BP 116/68; PULSE 89; RESP 17; TEMP 98.4; O2SAT 98
[2016-09-10] MEDS: ATORVASTATIN 20 MG TAB PO SCH (21:05)
[2016-09-10] MEDS: traZODone HCL 100 MG TAB PO SCH (21:05)
[2016-09-10] MEDS: CHLORHEXIDINE GLUCONATE 2 % 1 PACK (2 CLOTHS) TOP SCH (21:06)
--- NOTE | 2016-09-10 22:09 | PD.CONS ---
HPI History of Present Illness This is a 56 year old female known to our service from prior encounters who we are asked to see regarding a dilated bile duct noted on abdomen CT which was done to further evaluate abdominal pain patient has a known underlying chronic pancreatitis her biggest complaint to me at this point was that of back pain she did have some abdominal pain with nausea and vomiting prior to coming to the hospital but this has settled down at this point on admission she was found to be hyperglycemic [facility] Past Medical History Past Medical History Hypertension Diabetes Mellitus Hyperlipidemia Chronic pancreatitis Past Surgical History Past Surgical History J-tube placement Coronary angiogram and stent placement Cholecystectomy May 2006 Coded Allergies: No Known Allergies (Verified , 09/08/16) NONE KNOWN Medications Levemir Inj (Insulin Detemir) 1,000 unit/ 10 ML Vial 18 Units SQ BID 30 Days Lipitor (Atorvastatin Calcium) 20 Mg Tab 20 Mg PO HS Glucophage (Metformin HCl) 500 Mg Tab 1,000 Mg PO BIDPC Norvasc (Amlodipine Besylate) 5 Mg Tab 5 Mg PO DAILY Creon (Amylase/Lipase/Protease) 24,000-76,000-120,000 Units Cap 2 Cap PO TID Pantoprazole (Pantoprazole Sodium) 40 Mg Tab 40 Mg PO DAILY Trazodone (Trazodone HCl) 100 Mg Tab 100 Mg PO HS Mariah-Colace (Sennosides-Docusate Sodium) 8.6-50 Mg Tab 1 Tab PO BID PRN Family History Diabetes mellitus Social History Tobacco use 1/2 pack per day Prior heavy alcohol use, none currently Review of Systems ROS Review of systems Patient denies any headache dizziness blurry vision, denies any chest pain shortness of breath cough fever chills, Denies any palpitations or fatigue denies any polyuria dysuria hematuria, denies any numbness tingling or weakness, denies any skin rash pruritus or jaundice, denies any easy bruising or bleeding tendency, denies any recent change in mood GI Exam Vitals I&O Vital Signs Date Time Temp Pulse Resp B/P Pulse Ox O2 Delivery O2 Flow Rate FiO2 09/10/16 16:00 96.8 81 18 111/67 97 09/10/16 12:00 97.9 75 18 101/61 98 09/10/16 08:00 97.2 79 17 100/60 99 09/10/16 04:00 97.8 77 17 97/58 97 09/10/16 00:00 98.0 77 17 107/66 100 I/O 09/09/16 09/09/16 09/09/16 09/10/16 09/10/16 09/10/16 07:00 15:00 23:00 07:00 15:00 23:00 Intake Total 1537 ml 455 ml 240 ml 240 ml 960 ml Output Total 400 ml 350 ml Balance 1137 ml 105 ml 240 ml 240 ml 960 ml Intake Oral 240 ml 240 ml 960 ml IV Total 1537 ml 455 ml Output Urine Total 400 ml 350 ml # Voids 2 2 4 # Bowel Movements 0 0 0 Imaging Last Impressions Abdomen/Pelvis CT 09/09/16 0000 Signed Impressions: Service Date/Time: Friday, September 09, 2016 19:15 - CONCLUSION: 1. Chronic pancreatitis with biliary ductal dilatation to 17 mm. Cannot exclude choledocholithiasis with extensive coarse calcifications in the region of the pancreatic head. 2. Subtle subcentimeter lucent lesions in the lumbar spine. Patient should be evaluated for myeloma or less likely metastatic disease. 3. 4.8 cm dermoid right adnexal region. Sincere Gallardo MD Head CT 09/08/16 0000 Signed Impressions: Service Date/Time: Thursday, September 08, 2016 06:39 - CONCLUSION: Negative noncontrast head CT. Chang Martell MD Chest X-Ray 09/08/16 0000 Signed Impressions: Service Date/Time: Thursday, September 08, 2016 05:45 - CONCLUSION: No evidence of acute cardiopulmonary disease. Chang Martell MD Laboratory Test 09/10/16 09/10/16 06:07 11:07 Sodium Level 139 MEQ/L Potassium Level 4.1 MEQ/L Chloride Level 106 MEQ/L Carbon Dioxide Level 23.2 MEQ/L Anion Gap 10 MEQ/L Blood Urea Nitrogen 17 MG/DL Creatinine 0.77 MG/DL Estimat Glomerular Filtration 94 ML/MIN Rate Random Glucose 142 MG/DL Calcium Level 8.1 MG/DL Erythrocyte Sedimentation Rate 62 mm/hr Phosphorus Level 2.5 MG/DL Lactate Dehydrogenase 249 U/L C-Reactive Protein LESS THAN 0.29 MG/DL Total Protein 6.0 GM/DL Tumor Marker Alpha Fetoprotein 4.3 NG/ML Carcinoembryonic Antigen 8.2 NG/ML CA 19-9 Antigen 265.1 U/ML CA 125 Antigen 8.3 U/ML Physical Examination HEENT: Pupils round and reactive to light; normocephalic; atraumatic; no jaundice. Throat is clear. NECK: Neck is supple, no JVD, no lymphadenopathy. CHEST: Chest is clear to auscultation and percussion. CARDIAC: Regular rate and rhythm with no murmur gallop or rubs. ABDOMEN: Soft, nondistended, mild opportunity mid abdominal tenderness no rebound or guarding; no hepatosplenomegaly; bowel sounds are present in all four quadrants. EXTREMITIES: No clubbing, cyanosis, or edema. SKIN: Normal; no rash; no jaundice. COMMERCIAL COUNSEL: No focal deficits; alert and oriented times three. Assessment and Plan Plan Abdominal pain Acute on Chronic pancreatitis Abnormal imaging revealing pancreatic calcifications and dilated bile duct Elevated LFTs specifically ALT and alkaline phosphatase Hyperglycemia Agree with current supportive care Recommend ERCP Monitor labs Pain control Hydration Jun Samaniego MD Sep 10, 2016 22:09
[2016-09-11] VITALS (7 sets, daily range): BP systolic 98–148; BP diastolic 59–90; PULSE 78–87; RESP 17–19; TEMP 96.9–98.6; O2SAT 94–100
[2016-09-11] MEDS: MORPHINE SULFATE 4 MG/ML INJ IV PUSH PRN ×4 (02:58→20:40)
[2016-09-11] MEDS: HEPARIN SODIUM - SQ 10,000 UNITS/ML VIAL SQ SCH ×3 (05:53→20:39)
[2016-09-11] MEDS: INSULIN ASPART SUPPLEMENTAL SCALE SQ SCH ×4 (06:02→20:38)
[2016-09-11 06:42] LABS: AUTOMATED NEUTROPHIL # 2.2 TH/MM3 (1.8-7.7); BASOPHIL % 0.5 % (0.0-2.0); EOSINOPHIL # 0.1 TH/MM3 (0-0.4); EOSINOPHIL % 2.9 % (0.0-4.0); HEMATOCRIT 29.8 % (35.0-46.0); LYMPH % 45.7 % (9.0-44.0); LYMPHOCYTE # 2.1 TH/MM3 (1.0-4.8); MEAN CELL VOLUME 88.9 FL (80.0-100.0); MEAN CORPUSCULAR HEMOGLOBIN 29.6 PG (27.0-34.0); MEAN CORPUSCULAR HGB CONC 33.3 % (32.0-36.0); MONO % 4.3 % (0.0-8.0); NEUT % 46.6 % (16.0-70.0); PLATELET COUNT 125 TH/MM3 (150-450); RED BLOOD COUNT 3.36 MIL/MM3 (4.00-5.30); RED CELL DISTRIBUTION WIDTH 15.5 % (11.6-17.2); WHITE BLOOD COUNT 4.7 TH/MM3 (4.0-11.0)
[2016-09-11 06:59] LABS: HEMO FLAGS AUTO DIFF
[2016-09-11 07:02] LABS: ALKALINE PHOSPHATASE 419 U/L (45-117); ALT (GPT) 174 U/L (10-53); ANION GAP 9 MEQ/L (5-15); AST (GOT) 187 U/L (15-37); BICARBONATE 23.3 MEQ/L (21.0-32.0); BLOOD UREA NITROGEN 14 MG/DL (7-18); CHLORIDE 106 MEQ/L (98-107); GLOMERULAR FILTRATION RATE 84 ML/MIN (>89); POTASSIUM 4.4 MEQ/L (3.5-5.1); SODIUM (NA) 138 MEQ/L (136-145); TOTAL BILIRUBIN ADULT 0.2 MG/DL (0.2-1.0)
[2016-09-11 07:54] LABS: PLATELET ESTIMATE SMEAR LOW (NORMAL); PLATELET MORPHOLOGY NORMAL (NORMAL); SCAN/DIFF AUTO DIFF CONFIRMED
[2016-09-11] MEDS: amLODIPine BESYLATE 5 MG TAB PO SCH (09:06)
[2016-09-11] MEDS: INSULIN DETEMIR 100 UNITS/ML VIAL SQ SCH ×2 (09:06→20:39)
[2016-09-11] MEDS: PANTOPRAZOLE SOD 40 MG DELAYED RELEASE TAB PO SCH (09:06)
[2016-09-11] MEDS: SODIUM CHLOR 0.9% 1000 ML INJ 1,000 ML IV SCH (09:09)
[2016-09-11] MEDS: SODIUM CHLORIDE 0.9% FLUSH 10 ML FLUSH IV FLUSH PRN ×2 (10:29→15:30)
--- NOTE | 2016-09-11 11:01 | HHI.GIFU ---
Subjective Remarks Resting in bed without distress. No n/v. Mild epigastric discomfort, controlled. Had breakfast, states she did not know she needed to be NPO. ( Ilana Cotter) Objective Vitals I&O Vital Signs Date Time Temp Pulse Resp B/P Pulse Ox O2 Delivery O2 Flow Rate FiO2 09/11/16 08:00 97.5 78 18 107/63 99 09/11/16 04:20 98.3 82 17 98/62 98 09/11/16 00:25 97.7 86 17 100/61 98 09/10/16 20:25 98.4 89 17 116/68 98 09/10/16 16:00 96.8 81 18 111/67 97 09/10/16 12:00 97.9 75 18 101/61 98 I/O 09/10/16 09/10/16 09/10/16 09/11/16 09/11/16 09/11/16 07:00 15:00 23:00 07:00 15:00 23:00 Intake Total 240 ml 960 ml 480 ml 240 ml Balance 240 ml 960 ml 480 ml 240 ml Intake Oral 240 ml 960 ml 480 ml 240 ml # Voids 2 4 4 4 # Bowel Movements 0 0 0 0 Laboratory Laboratory Tests Test 09/10/16 09/11/16 11:07 05:56 Erythrocyte Sedimentation Rate 62 Phosphorus Level 2.5 Lactate Dehydrogenase 249 C-Reactive Protein LESS THAN 0.29 Total Protein 6.0 5.9 Tumor Marker Alpha Fetoprotein 4.3 Carcinoembryonic Antigen 8.2 CA 19-9 Antigen 265.1 CA 125 Antigen 8.3 White Blood Count 4.7 Red Blood Count 3.36 Hemoglobin 9.9 Hematocrit 29.8 Mean Corpuscular Volume 88.9 Mean Corpuscular Hemoglobin 29.6 Mean Corpuscular Hemoglobin 33.3 Concent Red Cell Distribution Width 15.5 Platelet Count 125 Mean Platelet Volume 10.6 Neutrophils (%) (Auto) 46.6 Lymphocytes (%) (Auto) 45.7 Monocytes (%) (Auto) 4.3 Eosinophils (%) (Auto) 2.9 Basophils (%) (Auto) 0.5 Neutrophils # (Auto) 2.2 Lymphocytes # (Auto) 2.1 Monocytes # (Auto) 0.2 Eosinophils # (Auto) 0.1 Basophils # (Auto) 0.0 CBC Comment AUTO DIFF Differential Comment AUTO DIFF CONFIRMED Platelet Estimate LOW Platelet Morphology Comment NORMAL Sodium Level 138 Potassium Level 4.4 Chloride Level 106 Carbon Dioxide Level 23.3 Anion Gap 9 Blood Urea Nitrogen 14 Creatinine 0.85 Estimat Glomerular Filtration 84 Rate Random Glucose 252 Calcium Level 8.8 Total Bilirubin 0.2 Aspartate Amino Transf 187 (AST/SGOT) Alanine Aminotransferase 174 (ALT/SGPT) Alkaline Phosphatase 419 Albumin 2.3 Lipase 279 Imaging Last Impressions Abdomen/Pelvis CT 09/09/16 0000 Signed Impressions: Service Date/Time: Friday, September 09, 2016 19:15 - CONCLUSION: 1. Chronic pancreatitis with biliary ductal dilatation to 17 mm. Cannot exclude choledocholithiasis with extensive coarse calcifications in the region of the pancreatic head. 2. Subtle subcentimeter lucent lesions in the lumbar spine. Patient should be evaluated for myeloma or less likely metastatic disease. 3. 4.8 cm dermoid right adnexal region. Sincere Gallardo MD Head CT 09/08/16 0000 Signed Impressions: Service Date/Time: Thursday, September 08, 2016 06:39 - CONCLUSION: Negative noncontrast head CT. Chang Martell MD Chest X-Ray 09/08/16 0000 Signed Impressions: Service Date/Time: Thursday, September 08, 2016 05:45 - CONCLUSION: No evidence of acute cardiopulmonary disease. Chang Martell MD Physical Exam HEENT: Normocephalic; atraumatic; no jaundice. CHEST: CTA CARDIAC: RRR ABDOMEN: Soft, nondistended, mild epigastric discomfort; no hepatosplenomegaly ; bowel sounds are present in all four quadrants. EXTREMITIES: No clubbing, cyanosis, or edema. SKIN: Normal; no rash; no jaundice. [employer] SOCIAL WORKER: No focal deficits; alert and oriented times three. (Ilana Cotter) Assessment and Plan Plan ASSESSMENT: - Abdominal pain. Abdomen/Pelvis CT (09/09/16)----> 1. Chronic pancreatitis with biliary ductal dilatation to 17 mm. Cannot exclude choledocholithiasis with extensive coarse calcifications in the region of the pancreatic head. 2. Subtle subcentimeter lucent lesions in the lumbar spine. Patient should be evaluated for myeloma or less likely metastatic disease. 3. 4.8 cm dermoid right adnexal region. Ca19-9 265.1, CEA 8.2, AFP 4.3, Ca125 8.3. Pt ate today, therefore ERCP will be scheduled for tomorrow. No distress. Mild epigastric discomfort. - Acute on Chronic pancreatitis. CT as above. Ca19-9 265.1. Lipase 279. Hx of heavy ETOH use, none currently. Tolerating diet. - Biliary ductal dilatation to 17mm with elevated LFTs and chronic pancreatitis and unable to exclude choledocholithiasis. T. Bili 0.2, AST 187, ALT 174, Alk Phosph. 419. - Abnormal imaging with subtle subcentimeter lucent lesions in the lumbar spine. - DM, HTN, Hyperlipidemia per primary. PLAN: - Plan for ERCP with possible stent placement - Obtain consents - NPO after MN - Hold heparin after MN - IVF - PPI - Monitor labs - Supportive care - Further recommendations to follow based on results of above - Pt seen and examined by Dr. Osorio and myself and this note is written on his behalf (Ilana Cotter) Physician Comments Seen and examined with STEVE, ERCP planned for tomorrow for elevated lfts and abnormal imaging suspicious for cholidocholithiasis. (Cat Osorio MD) Ilana Cotter Sep 11, 2016 11:01 Cat Osorio MD Sep 11, 2016 14:45
--- NOTE | 2016-09-11 11:59 | HHI.FPPN ---
Subjective Remarks Patient was afebrile with stable vitals overnight. She was sitting up in bed, finishing her breakfast and still experiencing the same mid-epigastric and back pain present since admission. She denied any other symptoms such as nausea, vomiting, fevers or chills. (Mariam Doyle MD R3) Objective Vitals Vital Signs Date Time Temp Pulse Resp B/P Pulse Ox O2 Delivery O2 Flow Rate FiO2 09/11/16 08:00 97.5 78 18 107/63 99 09/11/16 04:20 98.3 82 17 98/62 98 09/11/16 00:25 97.7 86 17 100/61 98 09/10/16 20:25 98.4 89 17 116/68 98 09/10/16 16:00 96.8 81 18 111/67 97 09/10/16 12:00 97.9 75 18 101/61 98 I/O 09/10/16 09/10/16 09/10/16 09/11/16 09/11/16 09/11/16 07:00 15:00 23:00 07:00 15:00 23:00 Intake Total 240 ml 960 ml 480 ml 240 ml Balance 240 ml 960 ml 480 ml 240 ml Intake Oral 240 ml 960 ml 480 ml 240 ml # Voids 2 4 4 4 # Bowel Movements 0 0 0 0 (Mariam Doyle MD R3) Result Diagram: 09/11/16 0556 09/11/16 0556 Objective Remarks General: patient was in no acute distress, laying comfortably in bed. Alert and oriented Cardio: regular rate and rhythm with no evidence of murmurs, rubs or gallops. Pulm: lungs clear to auscultation bilaterally with no accessory muscle use, wheezes, crackles or rhonchi. Abdomen: Bowel sounds present; remains tender to palpation in mid-epigastric region. Extremities: no swelling or erythema in any extremity. Negative Giovanni's sign. Skin: no rashes seen, patient was warm and dry. (Mariam Doyle MD R3) A/P Assessment and Plan Patient is a 56 year old female with a past medical history of diabetes mellitus , chronic pancreatitis, hypertension and hyperlipidemia presenting in hyperosmolar hyperglycemic state. BG now controlled. Patient with persistent abdominal and back pain resulting in further workup. CT abd/pelvis showed biliary ductal dilation. Lytic spine lesions on CT, concerning for MM. 1. HHS: Corrected. Glucose 252 this a.m on BMP. Patient remains hyperglycemic with BG 427 last night. Insulin adjusted to Levemir 18 units bid with sliding scale as needed as serum glucose is still not at optimal levels IV fluids stopped 09/11 as patient is eating and drinking appropriately. - monitor bedside glucose before meals and at bedtime - A1c 5.5% 2. MAUREEN: Resolved. 2/2 Dehydration. 3. Chronic pancreatitis: patient is still experiencing pain in epigastric region and the lower back bilaterally. - CT abd/pelvis on 09/09 showed "chronic pancreatitis with biliary ductal dilatation to 17 mm. Cannot exclude choledocholelithiasis with extensive coarse calcifications in the region of the pancreatic head. " -Lipase elevated to 515, patient with history of chronic pancreatitis. -GI consulted and they recommended ERCP which will be completed 09/12. We appreciate their involvement. 4. Lytic lesions of spine Subtle subcentimeter lucent lesions in the lumbar spine. "Patient should be evaluated for myeloma or less likely metastatic disease." Multiple myeloma workup including ERP, beta-2 microglobulin, protein electro paresis, urine electro paresis, free light chain kappa/lambda - results pending ESR 30; LDH 249 Tumor markers obtained. AFP - 4.3; CA 19-9 - 265; CA 125 - 8.[address] of thorax to rule out any malignancies above the diaphragm. - Medical oncology was consulted, appreciate recommendations. 5. Anemia & thrombocytopenia. - Likely dilutional - Hemoccult ordered to rule out GI bleeding causing decreased Hgb and RBC. - Hematocrit and hemoglobin will be repeated at 1800 on 09/11 to follow - Will follow CBC tomorrow morning - stopped IV fluids 09/11 6. Chronic medical problems - HTN: continue home amlodipine - Hyperlipidemia: continue home atorvastatin - GERD: continue home protonix 8. FEN - heparin 5000 units [id number] - patient is tolerating soft, diabetic diet well. - NPO after midnight for ERCP 09/12 (Mariam Doyle MD R3) Attending Attestation Patient seen and examined Case reviewed and discussed Agree with plan of care as discussed with me and documented in the resident note. (Gloria Padgett MD) Problem List: (1) Type 2 diabetes mellitus with hyperosmolar nonketotic hyperglycemia Status: Acute (2) Type 2 diabetes mellitus Status: Chronic (3) MAUREEN (acute kidney injury) Status: Acute (4) Chronic pancreatitis Status: Acute (5) Anemia Status: Chronic (6) Thrombocytopenia Status: Chronic (7) HTN (hypertension) Status: Chronic (8) Hyperlipemia Status: Acute (9) Lytic bone lesions on xray Status: Acute (Mariam Doyle MD R3) Mariam Doyle MD R3 Sep 11, 2016 11:59 Gloria Padgett MD Sep 21, 2016 11:27
[2016-09-11] MEDS ORDERED: LACTATED RINGER'S 1000 ML IV PRN (16:45)
[2016-09-11] MEDS ORDERED: CHLORHEXIDINE GLUCONATE 2 % 1 PACK (2 CLOTHS) TOPICAL PRN (16:45)
[2016-09-11] MEDS ORDERED: SODIUM CHLORID 0.9% 500 ML IV PRN (16:45)
[2016-09-11] MEDS ORDERED: POVIDONE IODINE 5% (ANTISEPSIS KIT) 4 APPLICATIONS EACH NARE PRN (16:45)
[2016-09-11] MEDS ORDERED: METOPROLOL TARTRATE 25 MG TAB PO PRN (16:45)
[2016-09-11] MEDS ORDERED: INSULIN HUMAN REGULAR 1,000 UNITS/10 ML VIAL SQ PRN (16:45)
[2016-09-11 20:00] LABS: REVIEW FLAG FINAL
[2016-09-11] MEDS: ATORVASTATIN 20 MG TAB PO SCH (20:39)
[2016-09-11] MEDS: traZODone HCL 100 MG TAB PO SCH (20:39)
[2016-09-11] MEDS ORDERED: INSULIN DETEMIR 100 UNITS/ML VIAL SQ SCH (21:00)
[2016-09-11 21:50] LABS: ALBUMIN SPE 3.03 GM/DL (3.50-5.00); ALPHA 1 GLOBULIN 0.19 GM/DL (0.11-0.29); ALPHA 2 GLOBULIN 1.01 GM/DL (0.22-1.00)
[2016-09-11] MEDS ORDERED: IOHEXOL 350 MG/ML 10 ML VIAL (for RAD DIAG) IV ONE (22:55)
--- NOTE | 2016-09-11 23:15 | RADRPT ---
EXAM DATE/TIME: 09/11/2016 22:49 [place] COMPARISON: CT ABDOMEN & PELVIS W CONTRAST, September 09, 2016, 19:15. INDICATIONS : Neoplasm. IV CONTRAST: 75 cc Omnipaque 350 (iohexol) IV RADIATION DOSE: 9.41 CTDIvol (mGy) MEDICAL HISTORY : Cardiovascular disease. Pancreatitis. Diabetes mellitus type 2.Coronary artery disease. SURGICAL HISTORY : None. ENCOUNTER: Initial ACUITY: 1 day PAIN SCALE: 0/10 LOCATION: chest TECHNIQUE: Volumetric scanning of the chest was performed. Using automated exposure control and adjustment of t he mA and/or kV according to patient size, radiation dose was kept as low as reasonably achievable to obtain optimal diagnostic quality images. FINDINGS: The lungs are clear without infiltrate, nodule, or mass except for slight scarring in the left lung b ase. There is no pleural effusion. No appreciable pathological adenopathy is seen within the medias tinum. There are benignappearing lymph nodes in the mediastinum the largest measures 1.5 cm in pretra cheal area. There is an approximate 4.1 x 1.7 cm mainly fat containing mass adjacent to the right par avertebral location at the level of T9 has the appearance of a lipoma with a separate area at the lev el of T8 similar size. 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 KRocío Drummond MD on September 11, 2016 at 23:08 Board Certified Radiologist. This report was verified electronically.
[2016-09-12] MEDS: CHLORHEXIDINE GLUCONATE 2 % 1 PACK (2 CLOTHS) TOP SCH (00:26)
[2016-09-12] MEDS: MORPHINE SULFATE 4 MG/ML INJ IV PUSH PRN ×5 (02:00→22:41)
[2016-09-12 03:51] VITALS: BP 101/60; PULSE 77; RESP 18; TEMP 97.5; O2SAT 96
[2016-09-12 04:59] LABS: AUTOMATED NEUTROPHIL # 2.4 TH/MM3 (1.8-7.7); BASOPHIL % 0.8 % (0.0-2.0); EOSINOPHIL # 0.1 TH/MM3 (0-0.4); EOSINOPHIL % 2.3 % (0.0-4.0); HEMATOCRIT 30.7 % (35.0-46.0); HEMO FLAGS DIFF FINAL; LYMPH % 43.2 % (9.0-44.0); LYMPHOCYTE # 2.1 TH/MM3 (1.0-4.8); MEAN CELL VOLUME 90.2 FL (80.0-100.0); MEAN CORPUSCULAR HEMOGLOBIN 28.8 PG (27.0-34.0); MEAN CORPUSCULAR HGB CONC 31.9 % (32.0-36.0); MONO % 4.2 % (0.0-8.0); NEUT % 49.5 % (16.0-70.0); PLATELET COUNT 117 TH/MM3 (150-450); RED BLOOD COUNT 3.41 MIL/MM3 (4.00-5.30); RED CELL DISTRIBUTION WIDTH 16.1 % (11.6-17.2); WHITE BLOOD COUNT 4.9 TH/MM3 (4.0-11.0)
[2016-09-12 05:03] LABS: ALKALINE PHOSPHATASE 398 U/L (45-117); ALT (GPT) 155 U/L (10-53); ANION GAP 8 MEQ/L (5-15); AST (GOT) 130 U/L (15-37); BICARBONATE 24.8 MEQ/L (21.0-32.0); BLOOD UREA NITROGEN 13 MG/DL (7-18); CHLORIDE 106 MEQ/L (98-107); GLOMERULAR FILTRATION RATE 75 ML/MIN (>89); INDIRECT BILIRUBIN 0.2 MG/DL (0.0-0.8); SODIUM (NA) 139 MEQ/L (136-145); TOTAL BILIRUBIN ADULT 0.3 MG/DL (0.2-1.0)
[2016-09-12 05:04] LABS: POTASSIUM 4.5 MEQ/L (3.5-5.1)
[2016-09-12] MEDS: INSULIN ASPART SUPPLEMENTAL SCALE SQ SCH ×4 (06:29→20:45)
--- NOTE | 2016-09-12 06:32 | MB ---
cc: TESS PROCTOR M.D. DATE OF CONSULTATION September 11, [address] Doyle REASON FOR CONSULTATION Oncology is consulted to render opinion regarding patient with a bone lesion. HISTORY OF PRESENT ILLNESS The patient is a very pleasant 56-year-old male brought into the hospital with acute mental status change. She was found to have blood glucose level of 1400 and is in diabetic ketoacidosis. When I saw her mental status back to baseline, she stated she had low back pain over the last two weeks; it is constant, is worse with sudden movement and she also experienced low abdominal pain the last three days. She had nausea and vomiting twice when she first presented but that has resolved. Denies any fever, chills, night sweats or weight loss. Denies any chest pressure or palpitations. Denies shortness of breath or cough. Denies any dysuria or hematuria. Denies any headache or visual changes. PAST MEDICAL HISTORY 1. Diabetes mellitus. 2. Hypertension. 3. Hyperlipidemia. 4. Chronic pancreatitis. PAST SURGICAL HISTORY 1. G-tube placement. 2. Coronary stent placement. 3. Cholecystectomy. FAMILY HISTORY She had nine children, all healthy. SOCIAL HISTORY Smoker of half a pack per day for the above 15 years. She used to drink four to a six-pack of beer per day but has quit about a year ago. ALLERGIES No known drug allergies. CURRENT MEDICATIONS 1. Insulin. 2. Amlodipine. 3. Protonix. 4. Atorvastatin. 5. Trazodone. 6. Heparin. REVIEW OF SYSTEMS CONSTITUTIONAL: Negative. EYES: Denies any blurry vision, double vision. ENT: Negative. CARDIOVASCULAR: No chest pressure or palpitation. RESPIRATORY: Denies shortness of breath or cough. GI: As above. : Denies dysuria, hematuria. MUSCULOSKELETAL: As above. HEMATOLOGY: Negative. ENDOCRINE: Negative. DERMATOLOGY: Negative. PSYCHIATRIC: Negative. NEUROLOGIC: Negative. PHYSICAL EXAMINATION VITAL SIGNS: Temperature 98.6, blood pressure 137/89, O2 saturation 99%. GENERAL: She is alert and oriented x 3, in no acute distress. HEENT: Atraumatic, normocephalic. Pupils equal, round and reactive to light. Extraocular muscles intact. No scleral icterus. Oropharynx - dry mucosa. No lesion, no thrush, no Mucositis. NECK: No thyromegaly. No palpable masses. LYMPHATICS: No palpable cervical, clavicular, axillary or inguinal lymph nodes. CARDIOVASCULAR: Regular S1, S2. No murmurs. LUNGS: Clear to auscultation bilaterally. No wheezing. ABDOMEN: Soft, a little tender in the lower abdomen. No rebound or rigidity. Positive bowel sounds. Could not palpate liver or spleen. EXTREMITY EXAM: No cyanosis or clubbing. No edema, no calf tenderness. BACK: No paravertebral tenderness. SKIN: No rash or petechiae. NEUROLOGIC EXAMINATION: Nonfocal. LABORATORY DATA Reviewed ASSESSMENT 1. Low back pain which started about two weeks ago. It is constant in nature and worse with certain movements. CT of the abdomen and pelvis showed subtle lucent lesions in the lumbar spine. They were all sub-cm. Differential diagnosis include multiple myeloma or metastatic disease. Tumor markers CA19-9 and CEA were elevated. She does not have renal failure or significant cytopenia. We will need to rule out metastatic disease. Serum and urine protein study have been ordered and pending. I am going to have her get a CT of the chest and a bone scan for further evaluation. May need biopsy if there is any hypermetabolic bone lesion. 2. Elevated tumor marker. Her CEA was 8.2 and CA19-9 was 265 which are nonspecific. This could be due to underlying pancreatitis and biliary disease but would need to rule out malignancy. CT of the abdomen and pelvis showed chronic pancreatitis with biliary ductal dilatation. There was calcification noted in the region of the pancreatic head. She has been evaluated by Gastroenterology and awaiting an ERCP. 3. Diabetes with diabetic ketoacidosis. Symptoms have improved. 4. Hypertension. 5. Hyperlipidemia. RECOMMENDATIONS 1. Get CT of the chest and bone scan. 2. Await serum and urine protein study. 3. Await ERCP. 4. Reviewed CT scan with the patient. Her questions were answered. Thank you Dr. Doyle for asking me to see this patient. MD MINA Noonan/RUMA /6:38 PM /6:20 AM FELIX
[2016-09-12 07:45] VITALS: BP 103/60; PULSE 84; RESP 18; TEMP 97.7; O2SAT 98
[2016-09-12] MEDS: SODIUM CHLORIDE 0.9% FLUSH 10 ML FLUSH IV FLUSH PRN ×2 (08:17→17:58)
--- NOTE | 2016-09-12 08:56 | HHI.FPPN ---
Subjective Remarks Patient was afebrile with stable vital signs overnight. She is still having pain in the mid abdomen and lower back which has been unchanged since admission. She states feeling well besides the pain and denied fever, chills or vomiting but said she had some nausea last night which resolved. Patient expressed feeling hungry but understood the need to remain NPO for her procedure today. She had questions regarding the plan for her workup; we clarified those answers and patient seemed like she understood. (Mariam Doyle MD R3) Objective Vitals Vital Signs Date Time Temp Pulse Resp B/P Pulse Ox O2 Delivery O2 Flow Rate FiO2 09/12/16 07:45 97.7 84 18 103/60 98 09/12/16 03:51 97.5 77 18 101/60 96 09/11/16 23:03 97.1 81 18 148/90 99 09/11/16 19:06 98.1 87 19 118/88 100 09/11/16 16:00 98.6 86 18 137/89 99 09/11/16 12:00 98.1 87 18 115/59 100 I/O 09/11/16 09/11/16 09/11/16 09/12/16 09/12/16 09/12/16 07:00 15:00 23:00 07:00 15:00 23:00 Intake Total 240 ml 960 ml 0 ml Balance 240 ml 960 ml 0 ml Intake Oral 240 ml 960 ml 0 ml # Voids 4 9 2 # Bowel Movements 0 0 0 (Mariam Doyle MD R3) Result Diagram: 09/12/16 0400 09/12/16 0400 Objective Remarks General: patient was in no acute distress, laying comfortably in bed. Alert and oriented Cardio: regular rate and rhythm with no evidence of murmurs, rubs or gallops. Pulm: lungs clear to auscultation bilaterally with no accessory muscle use, wheezes, crackles or rhonchi. Abdomen: Bowel sounds present; remains tender to palpation in mid-epigastric region. No distention or peritoneal signs present. Extremities: no swelling or erythema in any extremity. Negative Giovanni's sign. Skin: no rashes seen, patient was warm and dry. (Mariam Doyle MD R3) A/P Assessment and Plan Patient is a 56 year old female with a past medical history of diabetes mellitus , chronic pancreatitis, hypertension and hyperlipidemia presenting in hyperosmolar hyperglycemic state. BG now controlled. Patient with persistent abdominal and back pain resulting in further workup. CT abd/pelvis showed biliary ductal dilation. Lytic spine lesions on CT, concerning for MM. CT chest showed lipoma at T8 and T9. 1. HHS: Corrected. Glucose 272 this a.m on BMP. Patient remains hyperglycemic with BG remaining around 300 overnight. After procedure, insulin will be adjusted to Levemir 18 units bid with sliding scale as needed as serum glucose is still not at optimal levels. - monitor bedside glucose before meals and at bedtime - A1c 5.5% 2. MAUREEN: Resolved. 2/2 Dehydration. 3. Chronic pancreatitis: patient is still experiencing pain in epigastric region and the lower back bilaterally. - CT abd/pelvis on 09/09 showed "chronic pancreatitis with biliary ductal dilatation to 17 mm. Cannot exclude choledocholelithiasis with extensive coarse calcifications in the region of the pancreatic head. " -Lipase chronically elevated -GI consulted and they recommended ERCP which will be completed 09/12. We appreciate their involvement. 4. Lytic lesions of spine Subtle subcentimeter lucent lesions in the lumbar spine. "Patient should be evaluated for myeloma or less likely metastatic disease." Multiple myeloma workup including ERP, beta-2 microglobulin, protein electrophoresis, urine electrophoresis, free light chain kappa/lambda - results showed mild elevation in alpha 2 globulin and mild decrease in albumin ESR 30; LDH 249 Tumor markers obtained. AFP - 4.3; CA 19-9 - 265; CA 125 - 8.3 24 hour urine ordered to further assess markers for multiple myeloma - begun 0810. -- Medical oncology was consulted, recommended CT chest and bone scan. CT of thorax showed lipoma at the level of T8 and T9 on 09/11 with no other abnormalities. Bone scan is pending. 5. Anemia & thrombocytopenia. - Likely dilutional - Hemoccult ordered to rule out GI bleeding causing decreased Hgb and RBC. - H&H stable 6. Chronic medical problems - HTN: continue home amlodipine - Hyperlipidemia: continue home atorvastatin - GERD: continue home protonix 8. FEN - heparin 5000 units [id number] - patient is tolerating soft, diabetic diet well. - NPO until after procedure - Electrolytes replete when necessary (Mariam Doyle MD R3) Attending Attestation Patient seen and examined Case reviewed and discussed Agree with plan of care as discussed with me and documented in the resident note. (Gloria Padgett MD) Problem List: (1) Type 2 diabetes mellitus with hyperosmolar nonketotic hyperglycemia Status: Acute (2) Type 2 diabetes mellitus Status: Chronic (3) MAUREEN (acute kidney injury) Status: Acute (4) Chronic pancreatitis Status: Acute (5) Anemia Status: Chronic (6) Thrombocytopenia Status: Chronic (7) HTN (hypertension) Status: Chronic (8) Hyperlipemia Status: Acute (9) Lytic bone lesions on xray Status: Acute (Mariam Doyle MD R3) Mariam Doyle MD R3 Sep 12, 2016 08:56 Gloria Padgett MD Sep 21, 2016 11:29 Mariam Doyle MD R3 Sep 12, 2016 08:56
--- NOTE | 2016-09-12 08:58 | PD.ONC.PN ---
Subjective Subjective Remarks Afebrile overnight. Patient resting in bed. Awaiting bone scan. Minimal abdominal pain at present. Objective Data Date Time Temp Pulse Resp B/P Pulse Ox O2 Delivery O2 Flow Rate FiO2 09/12/16 07:45 97.7 84 18 103/60 98 09/12/16 03:51 97.5 77 18 101/60 96 09/11/16 23:03 97.1 81 18 148/90 99 09/11/16 19:06 98.1 87 19 118/88 100 09/11/16 16:00 98.6 86 18 137/89 99 09/11/16 12:00 98.1 87 18 115/59 100 09/12/16 09/12/16 09/12/16 07:00 15:00 23:00 Intake Total 0 ml Balance 0 ml Result Diagram: 09/12/16 0400 09/12/16 0400 Laboratory Results Laboratory Tests Test 09/11/16 09/12/16 19:00 04:00 Hemoglobin 11.3 GM/DL 9.8 GM/DL Hematocrit 34.0 % 30.7 % White Blood Count 4.9 TH/MM3 Red Blood Count 3.41 MIL/MM3 Mean Corpuscular Volume 90.2 FL Mean Corpuscular Hemoglobin 28.8 PG Mean Corpuscular Hemoglobin 31.9 % Concent Red Cell Distribution Width 16.1 % Platelet Count 117 TH/MM3 Mean Platelet Volume 10.1 FL Neutrophils (%) (Auto) 49.5 % Lymphocytes (%) (Auto) 43.2 % Monocytes (%) (Auto) 4.2 % Eosinophils (%) (Auto) 2.3 % Basophils (%) (Auto) 0.8 % Neutrophils # (Auto) 2.4 TH/MM3 Lymphocytes # (Auto) 2.1 TH/MM3 Monocytes # (Auto) 0.2 TH/MM3 Eosinophils # (Auto) 0.1 TH/MM3 Basophils # (Auto) 0.0 TH/MM3 CBC Comment DIFF FINAL Differential Comment Sodium Level 139 MEQ/L Potassium Level 4.5 MEQ/L Chloride Level 106 MEQ/L Carbon Dioxide Level 24.8 MEQ/L Anion Gap 8 MEQ/L Blood Urea Nitrogen 13 MG/DL Creatinine 0.93 MG/DL Estimat Glomerular Filtration 75 ML/MIN Rate Random Glucose 272 MG/DL Calcium Level 8.5 MG/DL Total Bilirubin 0.3 MG/DL Direct Bilirubin LESS THAN 0.1 MG/DL Indirect Bilirubin 0.2 MG/DL Aspartate Amino Transf 130 U/L (AST/SGOT) Alanine Aminotransferase 155 U/L (ALT/SGPT) Alkaline Phosphatase 398 U/L Total Protein 6.3 GM/DL Albumin 2.6 GM/DL Administered Medications Medications (Trade) Dose Ordered Sig/Vini Route PRN Reason Start Time Stop Time Status Last Admin Dose Admin Sodium Chloride (NS Flush) 2 ml UNSCH PRN IV FLUSH FLUSH AFTER USING IV ACCESS 09/08/16 05:15 09/12/16 08:17 Amlodipine Besylate (Norvasc) 5 mg DAILY PO 09/09/16 09:00 09/11/16 09:06 Atorvastatin Calcium (Lipitor) 20 mg HS PO 09/08/16 21:00 09/11/16 20:39 Pantoprazole Sodium (Protonix) 40 mg DAILY PO 09/09/16 09:00 09/11/16 09:06 Trazodone HCl (Desyrel) 100 mg HS PO 09/08/16 21:00 09/11/16 20:39 Heparin Sodium (Porcine) (Heparin Inj) 5,000 units Q8HR SQ 09/08/16 14:00 Hold 09/11/16 20:39 Morphine Sulfate (Morphine Inj) 2 mg Q3H PRN IV PUSH PAIN 1-10 09/08/16 17:45 09/12/16 08:04 Insulin Detemir (Levemir Inj) 10 units HS SQ 09/11/16 21:00 09/11/16 20:39 Objective Remarks GENERAL: Middle aged female, sitting up in bed in [facility] SKIN: Warm and dry. HEAD: Normocephalic. EYES: No injection or drainage. NECK: Supple, trachea midline. CARDIOVASCULAR: Regular rate and rhythm RESPIRATORY: Breath sounds equal bilaterally. No accessory muscle use. GASTROINTESTINAL: Abdomen soft, non-tender, nondistended. EXTREMITIES: No cyanosis NEUROLOGICAL: No obvious focal deficit. Awake, alert, and oriented x3. Assessment/Plan Problem List: (1) Lytic bone lesions on xray Status: Acute Plan: -- Low back pain started about two weeks ago--> constant in nature and worse with certain movements. --CT abdomen and pelvis showed subtle lucent lesions in the lumbar spine. They were all sub-cm. --Differential diagnosis include multiple myeloma or metastatic disease. --Tumor markers CA19-9 and CEA were elevated --no renal failure or significant cytopenia. --will need to rule out metastatic disease. --Serum and urine protein study have been ordered and pending. --CT chest no mets --bone scan pending --May need biopsy and bone marrow biopsy if there is any hypermetabolic bone lesion. (2) Elevated tumor markers Status: Acute Plan: -- CEA was 8.2 and CA19-9 was 265 which are nonspecific. --could be due to underlying pancreatitis and biliary disease but would need to rule out malignancy. --CT of the abdomen and pelvis showed chronic pancreatitis with biliary ductal dilatation. --Gastroenterology following awaiting an ERCP. Assessment 56y/o female with a bone lesion, admitted with AMS, found to be in diabetic ketoacidosis h/o Diabetes mellitus. Hypertension. Hyperlipidemia. Chronic pancreatitis. G-tube placement. Coronary stent placement. Cholecystectomy. Plan 1. await bone scan 2. monitor blood counts 3. await SPEP Attending Statement The exam, history, and the medical decision-making described in the above note were completed with the assistance of the mid-level provider. I reviewed and agree with the findings presented. I attest that I had a [id number] encounter with the patient on the same day, and personally performed and documented my assessment and findings in the medical record. Back pain stable. CT chest showed no obvious mass. Bone scan pending. Serum and urine protein studies pending. Await ERCP. Charisse Sanchez Sep 12, 2016 08:57 Ramana Orozco MD Sep 12, 2016 11:36
[2016-09-12] MEDS: PANTOPRAZOLE SOD 40 MG DELAYED RELEASE TAB PO SCH (09:00)
[2016-09-12 11:15] VITALS: BP 103/68; PULSE 84; RESP 18; TEMP 97.7; O2SAT 97
[2016-09-12] MEDS ORDERED: NS 500 ML (EXCEL BAG) 500 ML BAG IV ONE (12:06)
[2016-09-12] MEDS ORDERED: PROPOFOL 200 MG/20 ML AMP IV ONE (12:06)
[2016-09-12] MEDS ORDERED: IOHEXOL 350 MG/ML 100 ML BTL (for RAD DIAG) OTHER ONE (12:06)
[2016-09-12] MEDS ORDERED: ESMOLOL HCL 100 MG/10 ML VIAL IV ONE (13:06)
[2016-09-12] MEDS ORDERED: PHENYLEPH/NS 1000 MCG/10 ML SYR IV ONE (13:06)
--- NOTE | 2016-09-12 15:16 | RADRPT ---
EXAM DATE/TIME: 09/12/2016 12:08 [facility] COMPARISON: CT ABDOMEN & PELVIS W CONTRAST, September 09, 2016, 19:15. INDICATIONS : Abdominal pain, dilated CBD FLUORO TIME: 7.4 minutes IMAGE COUNT: 3 CONTRAST: Instilled by Ordering Physician MEDICAL HISTORY : Pancreatitis. Cardiovascular disease SURGICAL HISTORY : Cholecystectomy. ENCOUNTER: Subsequent ACUITY: 3 days PAIN SCORE: Non-responsive. LOCATION: abdomen FINDINGS: An ERCP was performed by the ordering physician. There is marked dilatation of the extrahepatic and central intrahepatic biliary system. No focal filling defect is noted. There is significant narrowing of the distal common bile duct resulting in distal common bile duct obstruction. CONCLUSION: ERCP as above. Rubens Menchaca MD on September 12, 2016 at 15:12 Board Certified Radiologist. This report was verified electronically.
[2016-09-12 15:41] VITALS: BP 143/91; PULSE 100; RESP 18; TEMP 96; O2SAT 96
--- NOTE | 2016-09-12 16:40 | RADRPT ---
EXAM DATE/TIME: 09/12/2016 10:12 [facility] COMPARISON: CT ABDOMEN & PELVIS W CONTRAST, September 09, 2016, 19:15. PRIOR BONE SCANS: No correlative bone scan available for comparison. INDICATIONS : Low back pain with lucent lesions seen on CT of lumbar spine. DOSE: 31 mCi Tc99m MDP IV IMAGING: SPECT/CT imaging with fusion was performed. RADIATION DOSE: 4.57 CTDIvol (mGy) MEDICAL HISTORY : Hypertension. Diabetes mellitus type 2. SURGICAL HISTORY : Cholecystectomy. G-Tube. ENCOUNTER: Subsequent ACUITY: 2 weeks PAIN SCALE: 3/10 LOCATION: Low back. TECHNIQUE: Three hours post intravenous administration of radiotracer, whole body bone scan imaging was performe d. FINDINGS: Images demonstrate a homogeneous pattern of uptake in the soft tissue. No hyperemic areas are identi fied. Whole body bone scan demonstrates a normal pattern of uptake throughout the axial and appendic ular skeleton. No focal areas of suspicious increased or decreased uptake are seen. Mild uptake is i dentified in the right knee. To further evaluate the lumbar spine, SPECT imaging was performed in sagittal, axial and coronal plan es. Attenuation correction was performed with computed tomography and both the attenuation correctio n and non-attenuation corrected data sets were reviewed. There is a normal pattern of uptake. No foc al abnormalities are seen. CONCLUSION: Increased uptake in the right knee characteristic of arthropathy. Otherwise normal bone scan. No evidence of metastatic disease. Tin Momin MD on September 12, 2016 at 16:34 Board Certified Radiologist. This report was verified electronically.
[2016-09-12] MEDS: amLODIPine BESYLATE 5 MG TAB PO SCH (16:57)
[2016-09-12 20:16] VITALS: BP 134/79; PULSE 98; RESP 18; TEMP 96.7; O2SAT 98
[2016-09-12] MEDS: traZODone HCL 100 MG TAB PO SCH (20:43)
[2016-09-12] MEDS: ATORVASTATIN 20 MG TAB PO SCH (20:43)
[2016-09-12] MEDS: INSULIN DETEMIR 100 UNITS/ML VIAL SQ SCH (20:44)
--- NOTE | 2016-09-12 22:58 | MR ---
cc: SUNIL CAMPOS M.D. [facility] DATE: 09/12/2016 INDICATIONS FOR PROCEDURE: Choledocholithiasis, pancreatitis. PROCEDURE: ERCP. DESCRIPTION OF PROCEDURE: After informed consent and explaining the risks of the procedure to the patient including bleeding, perforation, risk of anesthesia, risk of pancreatitis, May placed in the ERCP position and sedated with the help of anesthesia. ERCP scope advanced to the second portion of the duodenum. Significant duodenitis seen, swelling inflammation around the ampulla consistent with pancreatitis, common bile duct was cannulated common bile duct was dilated in its entirety, intrahepatic ducts were minimally dilated. No clear filling defects seen. The duct was not seen emptying out rapidly due to the swelling from the pancreatitis. The duct was suctioned and generously washed. Adequate drainage was obtained and the ERCP scope was withdrawn. The patient appeared to tolerate procedure well. No complications. IMPRESSION Dilated common bile duct, pancreatitis. No clear filling defects identified. RECOMMENDATIONS Post ERCP protocol. Continue to monitor for signs of fever and infection. Will follow with you. Thank you for this referral. MD DOMI Pitts/JULISA /12:45 PM /10:54 PM
[2016-09-12 23:22] VITALS: BP 103/65; PULSE 91; RESP 17; TEMP 98.8; O2SAT 97
[2016-09-13] MEDS: MORPHINE SULFATE 4 MG/ML INJ IV PUSH PRN ×4 (03:13→11:19)
[2016-09-13] MEDS: CHLORHEXIDINE GLUCONATE 2 % 1 PACK (2 CLOTHS) TOP SCH ×2 (03:42→21:30)
[2016-09-13 03:59] VITALS: BP 128/71; PULSE 92; RESP 18; TEMP 100.2; O2SAT 96
[2016-09-13] MEDS: INSULIN ASPART SUPPLEMENTAL SCALE SQ SCH ×4 (06:04→21:00)
[2016-09-13 07:20] LABS: AUTOMATED NEUTROPHIL # 4.1 TH/MM3 (1.8-7.7); BASOPHIL % 0.2 % (0.0-2.0); EOSINOPHIL # 0.1 TH/MM3 (0-0.4); HEMATOCRIT 31.2 % (35.0-46.0); HEMO FLAGS DIFF FINAL; LYMPH % 12.1 % (9.0-44.0); LYMPHOCYTE # 0.6 TH/MM3 (1.0-4.8); MEAN CELL VOLUME 89.5 FL (80.0-100.0); MEAN CORPUSCULAR HEMOGLOBIN 28.7 PG (27.0-34.0); MONO % 5.4 % (0.0-8.0); NEUT % 81.3 % (16.0-70.0); PLATELET COUNT 114 TH/MM3 (150-450); RED BLOOD COUNT 3.49 MIL/MM3 (4.00-5.30); RED CELL DISTRIBUTION WIDTH 16.2 % (11.6-17.2)
[2016-09-13 07:57] LABS: ALKALINE PHOSPHATASE 530 U/L (45-117); ALT (GPT) 325 U/L (10-53); ANION GAP 11 MEQ/L (5-15); AST (GOT) 488 U/L (15-37); BICARBONATE 22.3 MEQ/L (21.0-32.0); BLOOD UREA NITROGEN 12 MG/DL (7-18); CHLORIDE 101 MEQ/L (98-107); GLOMERULAR FILTRATION RATE 91 ML/MIN (>89); POTASSIUM 4.4 MEQ/L (3.5-5.1); SODIUM (NA) 134 MEQ/L (136-145); TOTAL BILIRUBIN ADULT 0.7 MG/DL (0.2-1.0)
[2016-09-13 08:00] VITALS: BP 121/69; PULSE 93; RESP 18; TEMP 100.8; O2SAT 99
[2016-09-13] MEDS: PANTOPRAZOLE SOD 40 MG DELAYED RELEASE TAB PO SCH (08:06)
[2016-09-13] MEDS: amLODIPine BESYLATE 5 MG TAB PO SCH (08:06)
--- NOTE | 2016-09-13 08:37 | HHI.FPPN ---
Subjective Remarks Patient reports worsening abdominal pain, localized to the left lower quadrant. She denies any fevers or chills. She is tolerating meals. Spiking fevers, temperature max was 101.1. (Ferny Avitia MD R2) Objective Vitals Vital Signs Date Time Temp Pulse Resp B/P Pulse Ox O2 Delivery O2 Flow Rate FiO2 09/13/16 08:00 100.8 93 18 121/69 99 09/13/16 03:59 100.2 92 18 128/71 96 09/12/16 23:22 98.8 91 17 103/65 97 09/12/16 20:16 96.7 98 18 134/79 98 09/12/16 15:41 96.0 100 18 143/91 96 09/12/16 13:10 96 18 122/60 96 09/12/16 12:59 99 18 138/63 98 09/12/16 12:49 97.6 106 18 123/66 98 09/12/16 11:15 97.7 84 18 103/68 97 I/O 09/12/16 09/12/16 09/12/16 09/13/16 09/13/16 09/13/16 07:00 15:00 23:00 07:00 15:00 23:00 Intake Total 0 ml 125 ml 360 ml 480 ml Output Total 400 ml 500 ml Balance 0 ml 125 ml -40 ml -20 ml Intake Oral 0 ml 360 ml 480 ml Other 125 ml Output Urine Total 400 ml 500 ml # Voids 2 5 3 # Bowel Movements 0 0 0 0 (Ferny Avitia MD R2) Result Diagram: 09/13/16 0630 09/13/16 0630 Objective Remarks General: patient was in no acute distress, laying comfortably in bed. Alert and oriented Cardio: regular rate and rhythm with no evidence of murmurs, rubs or gallops. Pulm: lungs clear to auscultation bilaterally with no accessory muscle use, wheezes, crackles or rhonchi. Abdomen: Bowel sounds present; remains tender to palpation in mid-epigastric region and now in the left lower quadrant. No distention or peritoneal signs present. Extremities: no swelling or erythema in any extremity. Negative Giovanni's sign. Skin: no rashes seen, patient was warm and dry. (Ferny Avitia MD R2) A/P Assessment and Plan Patient is a 56 year old female with a past medical history of diabetes mellitus , chronic pancreatitis, hypertension and hyperlipidemia presenting in hyperosmolar hyperglycemic state. BG now controlled. Patient with persistent abdominal and back pain resulting in further workup. CT abd/pelvis showed biliary ductal dilation. Lytic spine lesions on CT, concerning for MM. CT chest showed lipoma at T8 and T9. 1. Fever TMax 101.1 on 09/13/2016 No leukocytosis - WBC 5.0 Fevers on 09/13 to 101.1 Get UA, Blood cultures x 2 No consolidation on chest CT on 09/11 2. HHS: Corrected. Glucose 262 this a.m on BMP. Start her on Levemir 18 units twice a day, continue with sliding scale. - monitor bedside glucose before meals and at bedtime - A1c 5.5% 3. MAUREEN: Resolved. / Dehydration. 4. Chronic pancreatitis. - CT abd/pelvis on 09/09 showed "chronic pancreatitis with biliary ductal dilatation to 17 mm. Cannot exclude choledocholelithiasis with extensive coarse calcifications in the region of the pancreatic head. " -ERCP 09/12. Showed: "Marked dilatation of the extrahepatic and central intrahepatic biliary system. No focal filling defect is noted. There is a significant narrowing of the distal common bile duct resulting in distal common bile duct obstruction." GI consulted, we appreciate their assistance. 5. Lytic lesions of spine MRI of spine pending. Subtle subcentimeter lucent lesions in the lumbar spine. "Patient should be evaluated for myeloma or less likely metastatic disease." Tumor markers obtained. AFP - 4.3; CA 19-9 - 265; CA 125 - 8.3. Multiple myeloma workup including ERP, beta-2 microglobulin, protein electrophoresis, urine electrophoresis, free light chain kappa/lambda - results showed mild elevation in alpha 2 globulin and mild decrease in albumin ESR 30; LDH 249 24 hr urine ordered to further assess markers for multiple myeloma - begun 09/12 0810. -- Medical oncology was consulted, recommended CT chest and bone scan. CT of thorax showed lipoma at the level of T8 and T9 on 09/11 with no other abnormalities. Bone scan is pending. 5. Anemia & thrombocytopenia. - Likely dilutional - Hemoccult ordered to rule out GI bleeding causing decreased Hgb and RBC. - H&H stable 6. Chronic medical problems - HTN: continue home amlodipine - Hyperlipidemia: continue home atorvastatin - GERD: continue home protonix 8. FEN - heparin 5000 units [id number] - patient is tolerating soft, diabetic diet well. - NPO until after procedure - Electrolytes replete when necessary (Ferny Avitia MD R2) Attending Attestation Patient seen and examined Case reviewed and discussed Agree with plan of care as discussed with me and documented in the resident note. (Gloria Padgett MD) Problem List: (1) Fever Status: Resolved (2) Type 2 diabetes mellitus with hyperosmolar nonketotic hyperglycemia Status: Acute (3) Type 2 diabetes mellitus Status: Chronic (4) MAUREEN (acute kidney injury) Status: Acute (5) Chronic pancreatitis Status: Acute (6) Anemia Status: Chronic (7) Thrombocytopenia Status: Chronic (8) HTN (hypertension) Status: Chronic (9) Hyperlipemia Status: Acute (10) Lytic bone lesions on xray Status: Acute (Ferny Avitia MD R2) Ferny Avitia MD R2 Sep 13, 2016 08:37 Gloria Padgett MD Sep 21, 2016 11:30
[2016-09-13 11:36] VITALS: BP 114/63; PULSE 98; RESP 18; TEMP 101.1; O2SAT 94
--- NOTE | 2016-09-13 12:39 | PD.ONC.PN ---
Subjective Subjective Remarks Tmax 101.1 this AM. Patient continuing to have low back pain. Otherwise resting without complaint. Waiting to go down for MRI. Objective Data Date Time Temp Pulse Resp B/P Pulse Ox O2 Delivery O2 Flow Rate FiO2 09/13/16 11:36 101.1 98 18 114/63 94 09/13/16 08:22 18 09/13/16 08:00 100.8 93 18 121/69 99 09/13/16 03:59 100.2 92 18 128/71 96 09/12/16 23:22 98.8 91 17 103/65 97 09/12/16 20:16 96.7 98 18 134/79 98 09/12/16 15:41 96.0 100 18 143/91 96 09/12/16 13:10 96 18 122/60 96 09/12/16 12:59 99 18 138/63 98 09/12/16 12:49 97.6 106 18 123/66 98 09/13/16 09/13/16 09/13/16 07:00 15:00 23:00 Intake Total 480 ml Output Total 500 ml Balance -20 ml Result Diagram: 09/13/16 0630 09/13/16 0630 Laboratory Results Laboratory Tests Test 09/13/16 06:30 White Blood Count 5.0 TH/MM3 Red Blood Count 3.49 MIL/MM3 Hemoglobin 10.0 GM/DL Hematocrit 31.2 % Mean Corpuscular Volume 89.5 FL Mean Corpuscular Hemoglobin 28.7 PG Mean Corpuscular Hemoglobin 32.0 % Concent Red Cell Distribution Width 16.2 % Platelet Count 114 TH/MM3 Mean Platelet Volume 10.1 FL Neutrophils (%) (Auto) 81.3 % Lymphocytes (%) (Auto) 12.1 % Monocytes (%) (Auto) 5.4 % Eosinophils (%) (Auto) 1.0 % Basophils (%) (Auto) 0.2 % Neutrophils # (Auto) 4.1 TH/MM3 Lymphocytes # (Auto) 0.6 TH/MM3 Monocytes # (Auto) 0.3 TH/MM3 Eosinophils # (Auto) 0.1 TH/MM3 Basophils # (Auto) 0.0 TH/MM3 CBC Comment DIFF FINAL Differential Comment Sodium Level 134 MEQ/L Potassium Level 4.4 MEQ/L Chloride Level 101 MEQ/L Carbon Dioxide Level 22.3 MEQ/L Anion Gap 11 MEQ/L Blood Urea Nitrogen 12 MG/DL Creatinine 0.79 MG/DL Estimat Glomerular Filtration 91 ML/MIN Rate Random Glucose 226 MG/DL Calcium Level 8.7 MG/DL Total Bilirubin 0.7 MG/DL Aspartate Amino Transf 488 U/L (AST/SGOT) Alanine Aminotransferase 325 U/L (ALT/SGPT) Alkaline Phosphatase 530 U/L Total Protein 6.4 GM/DL Albumin 2.5 GM/DL Administered Medications Medications (Trade) Dose Ordered Sig/Vini Route PRN Reason Start Time Stop Time Status Last Admin Dose Admin Sodium Chloride (NS Flush) 2 ml UNSCH PRN IV FLUSH FLUSH AFTER USING IV ACCESS 09/08/16 05:15 09/12/16 17:58 Amlodipine Besylate (Norvasc) 5 mg DAILY PO 09/09/16 09:00 09/13/16 08:06 Atorvastatin Calcium (Lipitor) 20 mg HS PO 09/08/16 21:00 09/12/16 20:43 Pantoprazole Sodium (Protonix) 40 mg DAILY PO 09/09/16 09:00 09/13/16 08:06 Trazodone HCl (Desyrel) 100 mg HS PO 09/08/16 21:00 09/12/16 20:43 Heparin Sodium (Porcine) (Heparin Inj) 5,000 units Q8HR SQ 09/08/16 14:00 Hold 09/11/16 20:39 Morphine Sulfate (Morphine Inj) 2 mg Q3H PRN IV PUSH PAIN 1-10 09/08/16 17:45 09/13/16 11:19 Insulin Detemir (Levemir Inj) 10 units HS SQ 09/11/16 21:00 09/12/16 20:44 Objective Remarks GENERAL: Middle aged female, supine in bed. SKIN: Warm and dry. HEAD: Normocephalic. EYES: No injection or drainage. NECK: Supple, trachea midline. CARDIOVASCULAR: Regular rate and rhythm RESPIRATORY: Breath sounds equal bilaterally. No accessory muscle use. GASTROINTESTINAL: Abdomen soft, non-tender, nondistended. EXTREMITIES: No cyanosis NEUROLOGICAL: awake and alert, normal speech. Assessment/Plan Problem List: (1) Lytic bone lesions on xray Status: Acute Plan: -- Low back pain started about two weeks ago--> constant in nature and worse with certain movements. --CT abdomen and pelvis showed subtle lucent lesions in the lumbar spine. They were all sub-cm. --Differential diagnosis include multiple myeloma or metastatic disease. --Tumor markers CA19-9 and CEA were elevated --no renal failure or significant cytopenia. --will need to rule out metastatic disease. --Serum protein study shows no monoclonal protein. free light chains pending. --CT chest no mets --bone scan no mets --May need biopsy and bone marrow biopsy if there is any hypermetabolic bone lesion. (2) Elevated tumor markers Status: Acute Plan: -- CEA was 8.2 and CA19-9 was 265 which are nonspecific. --could be due to underlying pancreatitis and biliary disease but would need to rule out malignancy. --CT of the abdomen and pelvis showed chronic pancreatitis with biliary ductal dilatation. --Gastroenterology following awaiting an ERCP. Assessment 56y/o female with a bone lesion, admitted with AMS, found to be in diabetic ketoacidosis h/o Diabetes mellitus. Hypertension. Hyperlipidemia. Chronic pancreatitis. G-tube placement. Coronary stent placement. Cholecystectomy. Plan 1. obtain screening MRI of the spine. 2. continue pain management, supportive care Attending Statement The exam, history, and the medical decision-making described in the above note were completed with the assistance of the mid-level provider. I reviewed and agree with the findings presented. I attest that I had a [id number] encounter with the patient on the same day, and personally performed and documented my assessment and findings in the medical record. Still has low back pain. Bone scan no hypermetabolic lesion SPEP no M spike. Will get MRI spine to further evaluate the bone. Charisse Sanchez Sep 13, 2016 12:39 Ramana Orozco MD Sep 13, 2016 15:53
[2016-09-13] MEDS ORDERED: oxyCODONE/ACETAMINOPHEN 10 MG/325 MG TAB PO PRN (12:45)
[2016-09-13] MEDS ORDERED: GADODIAMIDE PF 287 MG/ML 10 ML VIAL (for RAD MRI) IV ONE (15:08)
[2016-09-13] MEDS: oxyCODONE/ACETAMINOPHEN 10 MG/325 MG TAB PO PRN ×2 (15:47→21:45)
[2016-09-13 16:00] VITALS: BP 139/78; PULSE 105; RESP 18; TEMP 99.3; O2SAT 95
[2016-09-13 16:14] LABS: URINE TOTAL PROTEIN TIMED 15.7 MG/DL
--- NOTE | 2016-09-13 17:14 | HHI.GIFU ---
Subjective Remarks Resting in bed. Tolerating diet. No n/v. Still having some pain, but no worse , slightly improved. States the Morphine made her dizzy and she does not want it anymore. (Ilana Cotter) Objective Vitals I&O Vital Signs Date Time Temp Pulse Resp B/P Pulse Ox O2 Delivery O2 Flow Rate FiO2 09/13/16 11:36 101.1 98 18 114/63 94 09/13/16 08:22 18 09/13/16 08:00 100.8 93 18 121/69 99 09/13/16 03:59 100.2 92 18 128/71 96 09/12/16 23:22 98.8 91 17 103/65 97 09/12/16 20:16 96.7 98 18 134/79 98 I/O 09/12/16 09/12/16 09/12/16 09/13/16 09/13/16 09/13/16 07:00 15:00 23:00 07:00 15:00 23:00 Intake Total 0 ml 125 ml 360 ml 480 ml 150 ml Output Total 400 ml 500 ml Balance 0 ml 125 ml -40 ml -20 ml 150 ml Intake Oral 0 ml 360 ml 480 ml 150 ml Other 125 ml Output Urine Total 400 ml 500 ml # Voids 2 5 3 # Bowel Movements 0 0 0 0 Laboratory Laboratory Tests Test 09/13/16 09/13/16 06:30 08:05 White Blood Count 5.0 Red Blood Count 3.49 Hemoglobin 10.0 Hematocrit 31.2 Mean Corpuscular Volume 89.5 Mean Corpuscular Hemoglobin 28.7 Mean Corpuscular Hemoglobin 32.0 Concent Red Cell Distribution Width 16.2 Platelet Count 114 Mean Platelet Volume 10.1 Neutrophils (%) (Auto) 81.3 Lymphocytes (%) (Auto) 12.1 Monocytes (%) (Auto) 5.4 Eosinophils (%) (Auto) 1.0 Basophils (%) (Auto) 0.2 Neutrophils # (Auto) 4.1 Lymphocytes # (Auto) 0.6 Monocytes # (Auto) 0.3 Eosinophils # (Auto) 0.1 Basophils # (Auto) 0.0 CBC Comment DIFF FINAL Differential Comment Sodium Level 134 Potassium Level 4.4 Chloride Level 101 Carbon Dioxide Level 22.3 Anion Gap 11 Blood Urea Nitrogen 12 Creatinine 0.79 Estimat Glomerular Filtration 91 Rate Random Glucose 226 Calcium Level 8.7 Total Bilirubin 0.7 Aspartate Amino Transf 488 (AST/SGOT) Alanine Aminotransferase 325 (ALT/SGPT) Alkaline Phosphatase 530 Total Protein 6.4 Albumin 2.5 Urine Total Volume 24 Hours 1400 Urine Total Protein 24 Hour 220 Imaging Last Impressions SPECT Scan-Bone Nuclear Medicine 09/12/16 0000 Signed Impressions: Service Date/Time: Monday, September 12, 2016 10:12 - CONCLUSION: Increased uptake in the right knee characteristic of arthropathy. Otherwise normal bone scan. No evidence of metastatic disease. Tin Momin MD GI Procedure 09/12/16 0000 Signed Impressions: Service Date/Time: Monday, September 12, 2016 12:08 - CONCLUSION: ERCP as above. 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 Tamika Drummond MD Abdomen/Pelvis CT 09/09/16 0000 Signed Impressions: Service Date/Time: Friday, September 09, 2016 19:15 - CONCLUSION: 1. Chronic pancreatitis with biliary ductal dilatation to 17 mm. Cannot exclude choledocholithiasis with extensive coarse calcifications in the region of the pancreatic head. 2. Subtle subcentimeter lucent lesions in the lumbar spine. Patient should be evaluated for myeloma or less likely metastatic disease. 3. 4.8 cm dermoid right adnexal region. Sincere Gallardo MD Head CT 09/08/16 0000 Signed Impressions: Service Date/Time: Thursday, September 08, 2016 06:39 - CONCLUSION: Negative noncontrast head CT. Chang Martell MD Chest X-Ray 09/08/16 0000 Signed Impressions: Service Date/Time: Thursday, September 08, 2016 05:45 - CONCLUSION: No evidence of acute cardiopulmonary disease. Chang Martell MD Physical Exam HEENT: Normocephalic; atraumatic; no jaundice. CHEST: CTA CARDIAC: RRR ABDOMEN: Soft, nondistended, mild epigastric discomfort; no hepatosplenomegaly ; bowel sounds are present in all four quadrants. EXTREMITIES: No clubbing, cyanosis, or edema. SKIN: Normal; no rash; no jaundice. LINE TESTER: No focal deficits; alert and oriented times three. (Ilana Cotter) Assessment and Plan Plan ASSESSMENT: - Abdominal pain. Abdomen/Pelvis CT (09/09/16)----> 1. Chronic pancreatitis with biliary ductal dilatation to 17 mm. Cannot exclude choledocholithiasis with extensive coarse calcifications in the region of the pancreatic head. 2. Subtle subcentimeter lucent lesions in the lumbar spine. Patient should be evaluated for myeloma or less likely metastatic disease. 3. 4.8 cm dermoid right adnexal region. Ca19-9 265.1, CEA 8.2, AFP 4.3, Ca125 8.3. S/P ERCP (09/12/16)---> dilated common bile duct, pancreatitis, no clear filling defect. LFT's increased T. Bili 0.7, AST 488, ALT 325, Alk Phosph 530, but WBC okay and pain is slightly improved not worse. Likely related to procedure itself. Will recheck in am. - Acute on Chronic pancreatitis. CT as above. Ca19-9 265.1. Lipase 279. Hx of heavy ETOH use, none currently. Tolerating diet. - Biliary ductal dilatation to 17mm with elevated LFTs and chronic pancreatitis and unable to exclude choledocholithiasis. ERCP as above. No clear filling defect. LFTs increased today, likely related to procedure, will recheck in am. - Abnormal imaging with subtle subcentimeter lucent lesions in the lumbar spine. - DM, HTN, Hyperlipidemia per primary. PLAN: - JOCELYN - PPI - LFT in am - Supportive care - Okay to d/c home in am if doing well and LFTs improved - Pt seen and examined by Dr. Osorio and myself and this note is written on his behalf (Ilana Cotter) Physician Comments Seen and examined with STEVE, some abdominal pain. LFTS increased after ERCP. REpeat labs tomorrow. (Cat Osorio MD) Ilana Cotter Sep 13, 2016 17:14 Cat Osorio MD Sep 14, 2016 14:12
[2016-09-13 18:57] LABS: AUTOMATED NEUTROPHIL # 3.8 TH/MM3 (1.8-7.7); BASOPHIL % 0.2 % (0.0-2.0); EOSINOPHIL % 0.7 % (0.0-4.0); HEMATOCRIT 31.4 % (35.0-46.0); HEMO FLAGS DIFF FINAL; LYMPHOCYTE # 0.9 TH/MM3 (1.0-4.8); MEAN CELL VOLUME 90.4 FL (80.0-100.0); MEAN CORPUSCULAR HGB CONC 32.1 % (32.0-36.0); MONO % 6.2 % (0.0-8.0); NEUT % 75.9 % (16.0-70.0); PLATELET COUNT 114 TH/MM3 (150-450); RED BLOOD COUNT 3.47 MIL/MM3 (4.00-5.30); RED CELL DISTRIBUTION WIDTH 15.8 % (11.6-17.2)
[2016-09-13] MEDS ORDERED: IOHEXOL 350 MG/ML 10 ML VIAL (for RAD DIAG) IV ONE (19:08)
--- NOTE | 2016-09-13 19:14 | RADRPT ---
EXAM DATE/TIME: 09/13/2016 18:46 [facility] COMPARISON: CT ABDOMEN & PELVIS W CONTRAST, September 09, 2016, 19:15. INDICATIONS : Diffuse abdomen pain in left lower region. IV CONTRAST: 95 cc Omnipaque 350 (iohexol) IV ORAL CONTRAST: No oral contrast ingested. RADIATION DOSE: 10.19 CTDIvol (mGy) MEDICAL HISTORY : Hypertension. Diabetes mellitus type 2. Pancreatitis. SURGICAL HISTORY : None. ENCOUNTER: Initial ACUITY: 2 days PAIN SCALE: 6/10 LOCATION: Left lower quadrant TECHNIQUE: Volumetric scanning of the abdomen and pelvis was performed. Using automated exposure control and ad justment of the mA and/or kV according to patient size, radiation dose was kept as low as reasonably achievable to obtain optimal diagnostic quality images. FINDINGS: Heterogeneously enhancing liver without a well-defined focal lesion. Biliary distention again noted w ith the common bile duct around 17 mm, not changed. Patient has had previous cholecystectomy. Calcifi cations are again seen of the pancreas. Spleen within normal limits. There is nodularity of the left adrenal gland. Patchy cortical thinning/ scarring seen in both kidneys. No obstruction or acute inflammatory changes are seen in the gastrointestinal tract. Diverticulosis a gain seen of the descending and sigmoid colon. 5 cm right ovarian dermoid again seen. No free fluid. CONCLUSION: 1. No obstruction or acute inflammatory changes have developed. Distal colon diverticulosis again see n. 2. Nonspecific heterogeneous attenuation/enhancement of the liver suggesting mild hepatocellular dise ase. 3. No change biliary distention and findings of chronic pancreatitis. 4. There is a 15 mm nodule the left adrenal gland, most likely an adenoma. Een patchy cortical thinni ng/scarring of both kidneys. 5. Right ovarian dermoid again seen without evidence of acute complication. Chang Martell MD on September 13, 2016 at 19:07 Board Certified Radiologist. This report was verified electronically.
[2016-09-13 19:26] LABS: ANION GAP 11 MEQ/L (5-15); AST (GOT) 206 U/L (15-37); BLOOD UREA NITROGEN 13 MG/DL (7-18); CHLORIDE 102 MEQ/L (98-107); GLOMERULAR FILTRATION RATE 69 ML/MIN (>89); POTASSIUM 3.9 MEQ/L (3.5-5.1); SODIUM (NA) 135 MEQ/L (136-145)
[2016-09-13 19:27] LABS: ALT (GPT) 236 U/L (10-53)
[2016-09-13 19:29] LABS: ALKALINE PHOSPHATASE 479 U/L (45-117); TOTAL BILIRUBIN ADULT 0.7 MG/DL (0.2-1.0)
[2016-09-13 20:01] VITALS: BP 100/60; PULSE 84; RESP 18; TEMP 97.9; O2SAT 92
[2016-09-13] MEDS: ATORVASTATIN 20 MG TAB PO SCH (21:36)
[2016-09-13] MEDS: DOCUSATE SODIUM 50 MG/SENNA 8.6 MG TAB PO SCH (21:36)
[2016-09-13] MEDS: traZODone HCL 100 MG TAB PO SCH (21:36)
[2016-09-13] MEDS: INSULIN DETEMIR 100 UNITS/ML VIAL SQ SCH (21:37)
--- NOTE | 2016-09-13 21:59 | RADRPT ---
EXAM DATE/TIME: 09/13/2016 14:33 [facility] COMPARISON: No previous studies available for comparison. INDICATIONS : Pain. CONTRAST: 16 cc Omniscan (gadodiamide) IV MEDICAL HISTORY : Hypertension. Diabetes mellitus type 2. SURGICAL HISTORY : None. ENCOUNTER: Initial ACUITY: 2 day PAIN SCORE: 5/10 LOCATION: Back TECHNIQUE: Screening MRI of the entire spinal axis was performed in the sagittal and axial planes. FINDINGS: Degenerative changes are seen of the cervical and lumbar portions of the spine, to a lesser extent th e thoracic spine. Broad posterior disc osteophyte complexes with uncovertebral and facet osteoarthritis seen in the cer vical spine at C3/C4 and C4/C5, both levels with mild spinal stenosis but no evidence of cord nadia refugio. Don't see any significant foraminal stenosis in the cervical spine. No foraminal or spinal stenosis demonstrated within the thoracic spine. Broad posterior disc protrusions are seen at most levels in the lumbar spine. Low-grade spinal stenos is without evidence of transiting nerve root impingement. There is moderate bilateral foraminal steno sis at L3/L4 and L4/L5 and mild right, moderate to severe left foraminal stenosis at L5/S1. No perceptible focal bone lesion/abnormal enhancement. CONCLUSION: Multilevel degenerative changes of the spine as detailed above, mainly cervical and lumbar. No well-d efined bone lesion. Chang Martell MD on September 13, 2016 at 21:50 Board Certified Radiologist. This report was verified electronically.
[2016-09-13 23:35] VITALS: BP 92/51; PULSE 84; RESP 18; TEMP 96.7; O2SAT 95
[2016-09-14 03:45] VITALS: BP 93/55; PULSE 68; RESP 18; TEMP 96.7; O2SAT 98
[2016-09-14 03:50] LABS: KAPPA/LAMBDA FREE 1.31 (0.26-1.65)
[2016-09-14 04:01] LABS: BLOOD, URINE NEG (NEG); GLUCOSE,URINE TRACE mg/dL (NEG); KETONE, URINE NEG (NEG); NITRITE,URINE NEG (NEG); PH, URINE 6.5 (5.0-8.5); SQUAMOUS EPITHELIAL CELL URINE <1 /hpf (0-5); URINE COLOR YELLOW (YELLW/STRAW)
[2016-09-14 04:11] LABS: COMMENT (UR) CULT NOT INDICATED; CULTURE IF INDICATED CULT NOT INDICATED
[2016-09-14] MEDS: CYCLOBENZAPRINE HCL 10 MG TAB PO PRN ×2 (06:13→16:54)
[2016-09-14] MEDS: INSULIN ASPART SUPPLEMENTAL SCALE SQ SCH ×3 (06:14→16:57)
[2016-09-14 07:03] VITALS: BP 94/60; PULSE 68; RESP 16; TEMP 97.3; O2SAT 99
[2016-09-14 08:01] LABS: AUTOMATED NEUTROPHIL # 2.5 TH/MM3 (1.8-7.7); BASOPHIL % 0.4 % (0.0-2.0); EOSINOPHIL # 0.1 TH/MM3 (0-0.4); EOSINOPHIL % 2.8 % (0.0-4.0); HEMATOCRIT 30.2 % (35.0-46.0); HEMO FLAGS DIFF FINAL; LYMPH % 29.1 % (9.0-44.0); LYMPHOCYTE # 1.2 TH/MM3 (1.0-4.8); MEAN CELL VOLUME 89.3 FL (80.0-100.0); MEAN CORPUSCULAR HEMOGLOBIN 29.6 PG (27.0-34.0); MEAN CORPUSCULAR HGB CONC 33.2 % (32.0-36.0); MONO % 7.2 % (0.0-8.0); NEUT % 60.5 % (16.0-70.0); PLATELET COUNT 119 TH/MM3 (150-450); RED BLOOD COUNT 3.38 MIL/MM3 (4.00-5.30); RED CELL DISTRIBUTION WIDTH 15.9 % (11.6-17.2); WHITE BLOOD COUNT 4.2 TH/MM3 (4.0-11.0)
[2016-09-14 08:24] LABS: BICARBONATE 25.9 MEQ/L (21.0-32.0); POTASSIUM 4.2 MEQ/L (3.5-5.1)
[2016-09-14] MEDS ORDERED: AMLO5 PO (08:25)
[2016-09-14] MEDS ORDERED: PANT40TA3 PO (08:25)
[2016-09-14] MEDS ORDERED: PERI8.6T PO (08:25)
[2016-09-14] MEDS ORDERED: METF500 PO (08:25)
[2016-09-14] MEDS ORDERED: LIPI20TA PO (08:25)
[2016-09-14] MEDS ORDERED: CREON24 PO (08:25)
[2016-09-14 08:26] LABS: INDIRECT BILIRUBIN 0.3 MG/DL (0.0-0.8); TOTAL BILIRUBIN ADULT 0.7 MG/DL (0.2-1.0)
[2016-09-14] MEDS: amLODIPine BESYLATE 5 MG TAB PO SCH (08:56)
[2016-09-14] MEDS: PANTOPRAZOLE SOD 40 MG DELAYED RELEASE TAB PO SCH (08:58)
[2016-09-14] MEDS: DOCUSATE SODIUM 50 MG/SENNA 8.6 MG TAB PO SCH (08:58)
--- NOTE | 2016-09-14 10:22 | PD.ONC.PN ---
Subjective Subjective Remarks Afebrile overnight. Patient resting in bed. Excited to be going home. Still with some abdominal and back pain. Glad MRI of spine did not show lesions. Objective Data Date Time Temp Pulse Resp B/P Pulse Ox O2 Delivery O2 Flow Rate FiO2 09/14/16 07:03 97.3 68 16 94/60 99 09/14/16 03:45 96.7 68 18 93/55 98 09/13/16 23:35 96.7 84 18 92/51 95 09/13/16 20:01 97.9 84 18 100/60 92 09/13/16 16:47 20 09/13/16 16:00 99.3 105 18 139/78 95 09/13/16 11:36 101.1 98 18 114/63 94 09/14/16 09/14/16 09/14/16 07:00 15:00 23:00 Intake Total 480 ml Balance 480 ml Result Diagram: 09/14/16 0654 09/14/16 0654 Laboratory Results Laboratory Tests Test 09/13/16 09/14/16 09/14/16 18:34 03:35 06:54 White Blood Count 5.0 TH/MM3 4.2 TH/MM3 Red Blood Count 3.47 MIL/MM3 3.38 MIL/MM3 Hemoglobin 10.1 GM/DL 10.0 GM/DL Hematocrit 31.4 % 30.2 % Mean Corpuscular Volume 90.4 FL 89.3 FL Mean Corpuscular Hemoglobin 29.0 PG 29.6 PG Mean Corpuscular Hemoglobin 32.1 % 33.2 % Concent Red Cell Distribution Width 15.8 % 15.9 % Platelet Count 114 TH/MM3 119 TH/MM3 Mean Platelet Volume 10.0 FL 10.9 FL Neutrophils (%) (Auto) 75.9 % 60.5 % Lymphocytes (%) (Auto) 17.0 % 29.1 % Monocytes (%) (Auto) 6.2 % 7.2 % Eosinophils (%) (Auto) 0.7 % 2.8 % Basophils (%) (Auto) 0.2 % 0.4 % Neutrophils # (Auto) 3.8 TH/MM3 2.5 TH/MM3 Lymphocytes # (Auto) 0.9 TH/MM3 1.2 TH/MM3 Monocytes # (Auto) 0.3 TH/MM3 0.3 TH/MM3 Eosinophils # (Auto) 0.0 TH/MM3 0.1 TH/MM3 Basophils # (Auto) 0.0 TH/MM3 0.0 TH/MM3 CBC Comment DIFF FINAL DIFF FINAL Differential Comment Sodium Level 135 MEQ/L 134 MEQ/L Potassium Level 3.9 MEQ/L 4.2 MEQ/L Chloride Level 102 MEQ/L 101 MEQ/L Carbon Dioxide Level 22.0 MEQ/L 25.9 MEQ/L Anion Gap 11 MEQ/L 7 MEQ/L Blood Urea Nitrogen 13 MG/DL 13 MG/DL Creatinine 1.00 MG/DL 0.92 MG/DL Estimat Glomerular Filtration 69 ML/MIN 76 ML/MIN Rate Random Glucose 190 MG/DL 156 MG/DL Lactic Acid Level 0.8 mmol/L Calcium Level 7.9 MG/DL 8.7 MG/DL Total Bilirubin 0.7 MG/DL 0.7 MG/DL Aspartate Amino Transf 206 U/L 170 U/L (AST/SGOT) Alanine Aminotransferase 236 U/L 201 U/L (ALT/SGPT) Alkaline Phosphatase 479 U/L 474 U/L Total Protein 6.4 GM/DL 6.6 GM/DL Albumin 2.6 GM/DL 2.6 GM/DL Urine Color YELLOW Urine Turbidity CLEAR Urine pH 6.5 Urine Specific [place] 1.048 Urine Protein NEG mg/dL Urine Glucose (UA) TRACE mg/dL Urine Ketones NEG mg/dL Urine Occult Blood NEG Urine Nitrite NEG Urine Bilirubin NEG Urine Urobilinogen 2.0 MG/DL Urine Leukocyte Esterase TRACE Urine RBC LESS THAN 1 /hpf Urine WBC 1 /hpf Urine Squamous Epithelial <1 /hpf Cells Microscopic Urinalysis Comment CULT NOT INDICATED Erythrocyte Sedimentation Rate 77 mm/hr Direct Bilirubin 0.4 MG/DL Indirect Bilirubin 0.3 MG/DL Culture Results Microbiology Date/Time Procedure Status Source Growth 09/13/16 19:37 Aerobic Blood Culture Received Blood Peripheral Pending 09/13/16 19:37 Anaerobic Blood Culture Received Blood Peripheral Pending 09/13/16 19:42 Aerobic Blood Culture Received Blood Peripheral Pending 09/13/16 19:42 Anaerobic Blood Culture Received Blood Peripheral Pending 09/14/16 07:49 Stool Occult Blood (ANIBAL) Received Stool Stool Pending Administered Medications Medications (Trade) Dose Ordered Sig/Vini Route PRN Reason Start Time Stop Time Status Last Admin Dose Admin Sodium Chloride (NS Flush) 2 ml UNSCH PRN IV FLUSH FLUSH AFTER USING IV ACCESS 09/08/16 05:15 09/12/16 17:58 Amlodipine Besylate (Norvasc) 5 mg DAILY PO 09/09/16 09:00 09/13/16 08:06 Atorvastatin Calcium (Lipitor) 20 mg HS PO 09/08/16 21:00 09/13/16 21:36 Pantoprazole Sodium (Protonix) 40 mg DAILY PO 09/09/16 09:00 09/14/16 08:58 Trazodone HCl (Desyrel) 100 mg HS PO 09/08/16 21:00 09/13/16 21:36 Heparin Sodium (Porcine) (Heparin Inj) 5,000 units Q8HR SQ 09/08/16 14:00 Hold 09/11/16 20:39 Cyclobenzaprine HCl (Flexeril) 5 mg Q8H PRN PO back spasms 09/10/16 13:45 09/14/16 06:13 Insulin Detemir (Levemir Inj) 10 units HS SQ 09/11/16 21:00 09/13/16 21:37 Oxycodone/ Acetaminophen (Percocet 10-325 Mg) 2 tab Q6H PRN PO PAIN 6-10 09/13/16 12:45 09/13/16 21:45 Senna/Docusate Sodium (Mariah-Colace) 1 tab BID PO 09/13/16 13:00 09/14/16 08:58 Objective Remarks GENERAL: Middle aged female, lying in bed in [facility]. SKIN: Warm and dry. HEAD: Normocephalic. EYES: No injection or drainage. NECK: Supple, trachea midline. CARDIOVASCULAR: Regular rate and rhythm RESPIRATORY: Breath sounds equal bilaterally. No accessory muscle use. GASTROINTESTINAL: Abdomen soft, non-tender, nondistended. EXTREMITIES: No cyanosis NEUROLOGICAL: awake and alert, normal speech. moving all extremities. Assessment/Plan Problem List: (1) Lytic bone lesions on xray Status: Acute Plan: -- Low back pain started about two weeks ago--> constant in nature and worse with certain movements. --CT abdomen and pelvis showed subtle lucent lesions in the lumbar spine. They were all sub-cm. --Differential diagnosis include multiple myeloma or metastatic disease. --Tumor markers CA19-9 and CEA were elevated --no renal failure or significant cytopenia. --Serum protein study shows no monoclonal protein. --CT chest no mets --bone scan no mets --MRI spine: no lesion (2) Elevated tumor markers Status: Acute Plan: -- CEA was 8.2 and CA19-9 was 265 which are nonspecific. --could be due to underlying pancreatitis and biliary disease but would need to rule out malignancy. --CT of the abdomen and pelvis showed chronic pancreatitis with biliary ductal dilatation. --Gastroenterology following Assessment 56y/o female with a bone lesion, admitted with AMS, found to be in diabetic ketoacidosis h/o Diabetes mellitus. Hypertension. Hyperlipidemia. Chronic pancreatitis. G-tube placement. Coronary stent placement. Cholecystectomy. Plan 1. clear for discharge. 2. Hematology will sign off. patient advised to follow up with GI Attending Statement The exam, history, and the medical decision-making described in the above note were completed with the assistance of the mid-level provider. I reviewed and agree with the findings presented. I attest that I had a [id number] encounter with the patient on the same day, and personally performed and documented my assessment and findings in the medical record. No new c/o. MRI of spine did not show any lytic lesions. She has degenerative disease that is likely the cause of her back pain. Free light chain ration is normal, she has no evidence of multiple myeloma. The elevated tumor markers are likely due to her pancreatitis and biliary disease. She can f/u with GI. Charisse Sanchez Sep 14, 2016 10:22 Ramana Orozco MD Sep 14, 2016 11:50
--- NOTE | 2016-09-14 10:24 | HHI.FPPN ---
Subjective Remarks No acute events overnight. Afebrile, vital signs stable. Patient continues to complain of back pain. Her abdominal pain has moved to the signs and is not severe at this time. Patient states she feels ready to go home. (Mariam Doyle MD R3) Objective Vitals Vital Signs Date Time Temp Pulse Resp B/P Pulse Ox O2 Delivery O2 Flow Rate FiO2 09/14/16 07:03 97.3 68 16 94/60 99 09/14/16 03:45 96.7 68 18 93/55 98 09/13/16 23:35 96.7 84 18 92/51 95 09/13/16 20:01 97.9 84 18 100/60 92 09/13/16 16:47 20 09/13/16 16:00 99.3 105 18 139/78 95 09/13/16 11:36 101.1 98 18 114/63 94 I/O 09/13/16 09/13/16 09/13/16 09/14/16 09/14/16 09/14/16 07:00 15:00 23:00 07:00 15:00 23:00 Intake Total 480 ml 150 ml 960 ml 480 ml Output Total 500 ml Balance -20 ml 150 ml 960 ml 480 ml Intake Oral 480 ml 150 ml 960 ml 480 ml Output Urine Total 500 ml # Voids 9 3 # Bowel Movements 0 1 0 (Mariam Doyle MD R3) Result Diagram: 09/14/16 0654 09/14/16 0654 Objective Remarks General: patient was in no acute distress, laying comfortably in bed. Alert and oriented Cardio: regular rate and rhythm with no evidence of murmurs, rubs or gallops. Pulm: lungs clear to auscultation bilaterally with no accessory muscle use, wheezes, crackles or rhonchi. Abdomen: Bowel sounds present; mildly tender to palpation. No distention or peritoneal signs present. Extremities: no swelling or erythema in any extremity. Negative Giovanni's sign. Skin: no rashes seen, patient was warm and dry. (Mariam Doyle MD R3) A/P Assessment and Plan Patient is a 56 year old female with a past medical history of diabetes mellitus , chronic pancreatitis, hypertension and hyperlipidemia presenting in hyperosmolar hyperglycemic state. BG now controlled. Patient with persistent abdominal and back pain resulting in further workup. CT abd/pelvis showed biliary ductal dilation. Lytic spine lesions on CT, concerning for MM. CT chest showed lipoma at T8 and T9. 1. HHS: Corrected. Start her on Levemir 18 units twice a day, continue with sliding scale. Patient will be discharged to home on Levemir 18 units twice a day, which was her previous home dose. - A1c 5.5% 3. MAUREEN: Resolved. 2/2 Dehydration. 4. Chronic pancreatitis. - CT abd/pelvis on 09/09 showed "chronic pancreatitis with biliary ductal dilatation to 17 mm. Cannot exclude choledocholelithiasis with extensive coarse calcifications in the region of the pancreatic head. " -ERCP 09/12. Showed: "Marked dilatation of the extrahepatic and central intrahepatic biliary system. No focal filling defect is noted. There is a significant narrowing of the distal common bile duct resulting in distal common bile duct obstruction." GI consulted, would like follow-up as an outpatient in 2 weeks 5. Lytic lesions of spine MRI of spine showed no well-defined bone lesion. Subtle subcentimeter lucent lesions in the lumbar spine. "Patient should be evaluated for myeloma or less likely metastatic disease." Tumor markers obtained. AFP - 4.3; CA 19-9 - 265; CA 125 - 8.3. Multiple myeloma workup including ERP, beta-2 microglobulin, protein electrophoresis, urine electrophoresis, free light chain kappa/lambda - results showed mild elevation in alpha 2 globulin and mild decrease in albumin. Light chains elevated. ESR 30; LDH 249 24 hr urine ordered to further assess markers for multiple myeloma pending. -- Medical oncology was consulted, recommended CT chest and bone scan. CT of thorax showed lipoma at the level of T8 and T9 on 09/11 with no other abnormalities. Bone scan within normal limits Patient cleared from medical oncology standpoint. No follow-up needed. 5. Anemia & thrombocytopenia. - Likely dilutional - Hemoccult ordered to rule out GI bleeding causing decreased Hgb and RBC. - H&H stable 6. Chronic medical problems - HTN: continue home amlodipine - Hyperlipidemia: continue home atorvastatin - GERD: continue home protonix 8. FEN - heparin 5000 units [id number] - patient is tolerating soft, diabetic diet well. - Electrolytes replete when necessary (Mariam Doyle MD R3) Attending Attestation Patient seen and examined Case reviewed and discussed Agree with plan of care as discussed with me and documented in the resident note. (Gloria Padgett MD) Problem List: (1) Fever Status: Resolved (2) Type 2 diabetes mellitus with hyperosmolar nonketotic hyperglycemia Status: Acute (3) Type 2 diabetes mellitus Status: Chronic (4) MAUREEN (acute kidney injury) Status: Acute (5) Chronic pancreatitis Status: Acute (6) Anemia Status: Chronic (7) Thrombocytopenia Status: Chronic (8) HTN (hypertension) Status: Chronic (9) Hyperlipemia Status: Acute (10) Lytic bone lesions on xray Status: Acute (Mariam Doyle MD R3) Mariam Doyle MD R3 Sep 14, 2016 10:24 Gloria Padgett MD Sep 21, 2016 11:29
--- NOTE | 2016-09-14 10:35 | HHI.DS ---
Discharge Summary Admission Date Sep 08, 2016 at 09:13 Discharge Date: Sep 14, 2016 Admitting Diagnosis hyperglycemia (1) Type 2 diabetes mellitus with hyperosmolar nonketotic hyperglycemia Diagnosis: Principal (2) Type 2 diabetes mellitus Diagnosis: Secondary (3) MAUREEN (acute kidney injury) Diagnosis: Principal (4) Chronic pancreatitis Diagnosis: Secondary (5) Anemia Diagnosis: Secondary (6) Thrombocytopenia Diagnosis: Secondary (7) HTN (hypertension) Diagnosis: Secondary (8) Hyperlipemia Diagnosis: Secondary (9) Lytic bone lesions on xray Diagnosis: [facility] Gastroenterology Brief History History of present illness: Patient is a 56 year old female with a past medical history of Diabetes mellitus, hypertension, hyperlipidemia and chronic pancreatitis who was brought to the ED by her son for confusion/ AMS. Patient is a poor historian however describes experiencing nausea and vomiting last night and this morning, along with back pain which has been present for several weeks. Currently she has some mild abdominal pain, back pain , headache and blurry vision. She denies other symptoms such as chest pain, and shortness of breath and has not vomited since this morning. Patient ran out of her home medications approximately 2 weeks ago and has not seen her PCP in approximately one year. CBC/BMP: 09/14/16 0654 09/14/16 0654 Significant Findings Laboratory Tests Test 09/11/16 09/12/16 09/13/16 09/13/16 19:00 04:00 06:30 08:05 Hemoglobin 11.3 GM/DL 9.8 GM/DL 10.0 GM/DL (11.6-15.3) (11.6-15.3) (11.6-15.3) Hematocrit 34.0 % 30.7 % 31.2 % (35.0-46.0) (35.0-46.0) (35.0-46.0) Red Blood Count 3.41 MIL/MM3 3.49 MIL/MM3 (4.00-5.30) (4.00-5.30) Mean Corpuscular Hemoglobin 31.9 % Concent (32.0-36.0) Platelet Count 117 TH/MM3 114 TH/MM3 (150-450) (150-450) Estimat Glomerular Filtration 75 ML/MIN (>89) Rate Random Glucose 272 MG/DL 226 MG/DL (74-106) (74-106) Aspartate Amino Transf 130 U/L (15-37) 488 U/L (15-37) (AST/SGOT) Alanine Aminotransferase 155 U/L (10-53) 325 U/L (10-53) (ALT/SGPT) Alkaline Phosphatase 398 U/L 530 U/L (45-117) (45-117) Total Protein 6.3 GM/DL (6.4-8.2) Albumin 2.6 GM/DL 2.5 GM/DL (3.4-5.0) (3.4-5.0) Neutrophils (%) (Auto) 81.3 % (16.0-70.0) Lymphocytes # (Auto) 0.6 TH/MM3 (1.0-4.8) Sodium Level 134 MEQ/L (136-145) Urine Total Protein 24 Hour 220 MG/24HR (0-150) Test 09/13/16 09/14/16 09/14/16 18:34 03:35 06:54 Red Blood Count 3.47 MIL/MM3 3.38 MIL/MM3 (4.00-5.30) (4.00-5.30) Hemoglobin 10.1 GM/DL 10.0 GM/DL (11.6-15.3) (11.6-15.3) Hematocrit 31.4 % 30.2 % (35.0-46.0) (35.0-46.0) Platelet Count 114 TH/MM3 119 TH/MM3 (150-450) (150-450) Neutrophils (%) (Auto) 75.9 % (16.0-70.0) Lymphocytes # (Auto) 0.9 TH/MM3 (1.0-4.8) Sodium Level 135 MEQ/L 134 MEQ/L (136-145) (136-145) Estimat Glomerular Filtration 69 ML/MIN (>89) 76 ML/MIN (>89) Rate Random Glucose 190 MG/DL 156 MG/DL (74-106) (74-106) Calcium Level 7.9 MG/DL (8.5-10.1) Aspartate Amino Transf 206 U/L (15-37) 170 U/L (15-37) (AST/SGOT) Alanine Aminotransferase 236 U/L (10-53) 201 U/L (10-53) (ALT/SGPT) Alkaline Phosphatase 479 U/L 474 U/L (45-117) (45-117) Albumin 2.6 GM/DL 2.6 GM/DL (3.4-5.0) (3.4-5.0) Urine Specific [place] 1.048 (1.002-1.035) Urine Leukocyte Esterase TRACE (NEG) Erythrocyte Sedimentation Rate 77 mm/hr (0-30) Direct Bilirubin 0.4 MG/DL (0.0-0.2) Imaging Last Impressions Entire Spine MRI 09/13/16 0000 Signed Impressions: Service Date/Time: Tuesday, September 13, 2016 14:33 - CONCLUSION: Multilevel degenerative changes of the spine as detailed above, mainly cervical and lumbar. No well-defined bone lesion. Chang Martell MD Abdomen/Pelvis CT 09/13/16 0000 Signed Impressions: Service Date/Time: Tuesday, September 13, 2016 18:46 - CONCLUSION: 1. No obstruction or acute inflammatory changes have developed. Distal colon diverticulosis again seen. 2. Nonspecific heterogeneous attenuation/ enhancement of the liver suggesting mild hepatocellular disease. 3. No change biliary distention and findings of chronic pancreatitis. 4. There is a 15 mm nodule the left adrenal gland, most likely an adenoma. Een patchy cortical thinning/scarring of both kidneys. 5. Right ovarian dermoid again seen without evidence of acute complication. Chang Martell MD SPECT Scan-Bone Nuclear Medicine 09/12/16 0000 Signed Impressions: Service Date/Time: Monday, September 12, 2016 10:12 - CONCLUSION: Increased uptake in the right knee characteristic of arthropathy. Otherwise normal bone scan. No evidence of metastatic disease. Tin Momin MD GI Procedure 09/12/16 0000 Signed Impressions: Service Date/Time: Monday, September 12, 2016 12:08 - CONCLUSION: ERCP as above. 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 Tamika Drummond MD Head CT 09/08/16 0000 Signed Impressions: Service Date/Time: Thursday, September 08, 2016 06:39 - CONCLUSION: Negative noncontrast head CT. Chang Martell MD Chest X-Ray 09/08/16 0000 Signed Impressions: Service Date/Time: Thursday, September 08, 2016 05:45 - CONCLUSION: No evidence of acute cardiopulmonary disease. Chang Martell MD PE at Discharge General: patient was in no acute distress, laying comfortably in bed. Alert and oriented Cardio: regular rate and rhythm with no evidence of murmurs, rubs or gallops. Pulm: lungs clear to auscultation bilaterally with no accessory muscle use, wheezes, crackles or rhonchi. Abdomen: Bowel sounds present; mildly tender to palpation. No distention or peritoneal signs present. Extremities: no swelling or erythema in any extremity. Negative Giovanni's sign. Skin: no rashes seen, patient was warm and dry. Hospital Course Patient admitted to the intensive care unit for HHS where she was treated with an insulin drip. Her sugars corrected within 24 hours and her anion gap closed. Patient states that she had stopped taking her insulin because she was prescribed a pill (metformin) and she thought she did not need to take both medications. She was restarted on her home insulin regimen with good results. Patient had persistent abdominal and back pain resulting in a CT of the abdomen and pelvis which showed lytic lesions of the patient's spine. Medical oncology was consulted who recommended multiple myeloma workup in addition to ruling out other possible primary forms of cancer. Additionally the CT of the abdomen showed dilated hepatic ducts and gastroenterology was consulted. ERCP was performed with results as above. Patient's multiple myeloma workup was significant for mildly elevated And lambda light chains. Other tumor markers were also mildly elevated and patient underwent CT of the thorax and bone scan both of which were within normal limits. I spoke with oncology who states patient does not need follow-up with them. She will follow-up with gastroenterology in 2 weeks. Patient will also follow-up with her primary care provider if she is out of all of her medications except for her insulin. Prescriptions for 1 month were written for the patient. Pt Condition on Discharge: Stable Discharge Disposition: Discharge Home Discharge Instructions DIET: Follow Instructions for: As Tolerated, No Restrictions Activities you can perform: Regular-No Restrictions Follow up Referrals: Gastroenterology - 2 Weeks with Cat Osorio MD PCP Follow-up - 1 Week Continued Medications: Amlodipine (Norvasc) 5 Mg Tab 5 MG PO DAILY #30 TAB (This prescription has been renewed) Atorvastatin (Lipitor) 20 Mg Tab 20 MG PO HS #30 TAB (This prescription has been renewed) Insulin Detemir Inj (Levemir Inj) 1,000 unit/ 10 ML Vial 18 UNITS SQ BID glucose Days 30 INJECTION Metformin (Glucophage) 500 Mg Tab 1000 MG PO BIDPC #120 TAB (This prescription has been renewed) Pancrelipase (Creon) 24,000-76,000-120,000 Units Cap 2 CAP PO TID abdominal pain #180 CAP (This prescription has been renewed) Pantoprazole (Pantoprazole) 40 Mg Tab 40 MG PO DAILY Reflux #30 Ref 0 TAB (This prescription has been renewed) Sennosides-Docusate Sodium (Mariah-Colace) 8.6-50 Mg Tab 1 TAB PO BID PRN Constipation #60 Ref 0 TAB (This prescription has been renewed) Trazodone (Trazodone) 100 Mg Tab 100 MG PO HS Control Depression #30 Ref 0 TAB Discontinued Medications: Sulfamethoxazole-Trimethoprim (Bactrim DS) 800-160 Mg Tab 1 TAB PO BID Infection #20 Ref 0 TAB Mariam Doyle MD R3 Sep 14, 2016 10:35
[2016-09-14 11:20] VITALS: BP 122/84; PULSE 84; RESP 16; TEMP 98.2; O2SAT 94
[2016-09-14 15:35] VITALS: BP 116/67; PULSE 84; RESP 16; TEMP 99.4; O2SAT 98
== END 2016-09-14 18:45 | disposition home or self-care (01) | DRG 637 ==
LOC: NEPC 04:45 → NEDA 09:13 → HIME 15:30 → N06B 09-09 15:06
PROVIDERS: ADMIT Family Medicine; ATTEND Family Medicine
PROC: 0F998ZZ Drainage of Common Bile Duct, Via Natural or Artificial Opening Endoscopic (ICD-10-PCS; principal; 2016-09-12 11:50)
DX: E11.00 Type 2 diabetes mellitus with hyperosmolarity without nonketotic hyperglycemic-hyperosmolar coma (NKHHC) (principal); K85.90 Acute pancreatitis without necrosis or infection, unspecified; N17.9 Acute kidney failure, unspecified; K83.1 Obstruction of bile duct; K86.1 Other chronic pancreatitis; D69.6 Thrombocytopenia, unspecified; E87.1 Hypo-osmolality and hyponatremia; I10 Essential (primary) hypertension; E78.5 Hyperlipidemia, unspecified; M54.5 Low back pain; E86.0 Dehydration; K21.9 Gastro-esophageal reflux disease without esophagitis; I25.10 Atherosclerotic heart disease of native coronary artery without angina pectoris; K29.80 Duodenitis without bleeding; D64.9 Anemia, unspecified; D17.79 Benign lipomatous neoplasm of other sites; M47.812 Spondylosis without myelopathy or radiculopathy, cervical region; M47.816 Spondylosis without myelopathy or radiculopathy, lumbar region; M47.814 Spondylosis without myelopathy or radiculopathy, thoracic region; F17.210 Nicotine dependence, cigarettes, uncomplicated; Z79.4 Long term (current) use of insulin; Z83.3 Family history of diabetes mellitus; Z91.19 Patient's noncompliance with other medical treatment and regimen; Z95.5 Presence of coronary angioplasty implant and graft
CPT/HCPCS: 70450; 71010; 71260; 72156; 72158; 74177; 74330; 78306; 78320; 78399; 80048; 80053; 80074; 80076; 81001; 81050; 82010; 82105; 82232; 82272; 82378; 82805; 82948; 83036; 83605; 83615; 83690; 83735; 83883; 83930; 84100; 84156; 84165; 84166; 84484; 85014; 85018; 85025; 85610; 85652; 85730; 86140; 86301; 86304; 87040; 87641; 93005; 96361; 96365; 96368; 96375; A9503; A9579; C1769; J1644; J1815; J1817; J2270; J2370; J3480; J7030; J7040; J7042; J7050; Q9963; Q9967

== ENCOUNTER 2016-10-15 22:08 | Inpatient (IN) | payer OTHER ==
[~2016-10-15] VITALS: Ht 154.9 cm; Wt 78.0 kg
[~2016-10-15 22:08] MED LIST changes: -BACT800T5 PO; -FOLI1TAB4 PO; -THIA100T PO
[2016-10-15 22:10] VITALS: BP 177/95; PULSE 118; RESP 16; TEMP 98.3; O2SAT 96
[2016-10-15] MEDS ORDERED: SODIUM CHLOR 0.9% 1000 ML INJ 1,000 ML IV ONE ×2 (22:48→23:18)
[2016-10-15 22:50] VITALS: BP 178/94; PULSE 98; RESP 17; O2SAT 100
--- NOTE | 2016-10-15 22:54 | PD ---
HPI Chief Complaint: abdominal pain Time Seen by Provider: 22:40 Travel History International Travel<30 days: No Contact w/Intl Traveler<30days: No History of Present Illness HPI This is a 56-year-old female with a history of diabetes who I have seen before in the setting of severe hyperglycemia who presents today with lower abdominal discomfort. She says for the past several days she has been having lower abdominal pain described as cramping, moderate severity, with no associated fevers chills or vomiting. She has had discolored stools with some green and some black stools. She says she's been taking her diabetes medicines as prescribed she doesn't have a glucometer so she doesn't know what her blood sugar has been running. PFSH Past Medical History Arthritis: No Asthma: Yes (CHILDHOOD) Autoimmune Disease: No Blood Disorders: No Anxiety: No Depression: No Heart Rhythm Problems: No Cancer: No Cardiac Catheterization: Yes Cardiovascular Problems: Yes (htn) High Cholesterol: Yes Chemotherapy: No Chest Pain: No Congestive Heart Failure: No COPD: No Cerebrovascular Accident: No Coronary Artery Disease: Yes Diabetes: Yes Diminished Hearing: No Endocrine: No Gastrointestinal Disorders: Yes (HX. PANCREATITIS) GERD: No Glaucoma: No Genitourinary: No Headaches: No Hepatitis: No Hiatal Hernia: No Heparin Induced Thrombocytopen: No Hypertension: No Immune Disorder: No Implanted Vascular Access Dvce: No Kidney Stones: No Musculoskeletal: Yes Neurologic: No Psychiatric: No Reproductive: No Respiratory: Yes Immunizations Current: Yes Migraines: No Myocardial Infarction: No Pancreatitis: Yes Radiation Therapy: No Renal Failure: No Seizures: No Sickle Cell Disease: No Sleep Apnea: Yes (denies) Thyroid Disease: No Ulcer: No Menopausal: Yes : 9 Para: 9 Past Surgical History Abdominal Surgery: Yes (CHOLECYSTECTOMY) AICD: No Appendectomy: No Arteriovenous Shunt: No Cardiac Surgery: Yes (CARDIAC CATH. WITH STENTS-,) Cholecystectomy: Yes Coronary Artery Bypass Graft: No Coronary Stent: Yes (2005) Ear Surgery: No Endocrine Surgery: No Eye Surgery: No Genitourinary Surgery: No Gynecologic Surgery: No Insulin Pump: No Joint Replacement: No Neurologic Surgery: No Oral Surgery: Yes (TEETH EXTRACTIONS) Pacemaker: No Thoracic Surgery: No Other Surgery: Yes (G-TUBE PLACEMENT AND REMOVAL ) Social History Alcohol Use: No Tobacco Use: Yes (1 PPD) Substance Use: No Allergies-Medications (Allergen,Severity, Reaction): Coded Allergies: No Known Allergies (Verified , 10/15/16) NONE KNOWN Reported Meds & Prescriptions Reported Meds & Active Scripts Active Lipitor (Atorvastatin Calcium) 20 Mg Tab 20 Mg PO HS Glucophage (Metformin HCl) 500 Mg Tab 1,000 Mg PO BIDPC Norvasc (Amlodipine Besylate) 5 Mg Tab 5 Mg PO DAILY Pantoprazole (Pantoprazole Sodium) 40 Mg Tab 40 Mg PO DAILY Levemir Inj (Insulin Detemir) 1,000 unit/ 10 ML Vial 18 Units SQ BID 30 Days Review of Systems Except as stated in HPI: all other systems reviewed are Neg Physical Exam Narrative GENERAL: Frail elderly female in no acute distress SKIN: Focused skin assessment warm and dry. HEAD: Atraumatic. Normocephalic. EYES: Pupils equal and round. No injection or drainage. ENT: Dry mucous membranes. NECK: Trachea midline. CARDIOVASCULAR: Regular rate and rhythm. No murmur appreciated. RESPIRATORY: Clear to auscultation. Breath sounds equal bilaterally. GASTROINTESTINAL: Abdomen soft, tender to palpation in the lower abdomen with no rebound or guarding. MUSCULOSKELETAL: No obvious deformities. NEUROLOGICAL: Awake and alert. No obvious cranial nerve deficits. Moving all extremities. PSYCHIATRIC: Appropriate mood and affect; insight and judgment normal. Data Data Last Documented VS Vital Signs Date Time Temp Pulse Resp B/P Pulse Ox O2 Delivery O2 Flow Rate FiO2 10/16/16 02:29 105 22 118/58 98 Room Air 10/15/16 22:10 98.3 Orders Complete Blood Count With Diff (10/15/16 22:48) Comprehensive Metabolic Panel (10/15/16 22:48) Beta Hydroxybutyrate (Acetone) (10/15/16 22:48) Lactic Acid (10/15/16 22:48) Urinalysis - C+S If Indicated (10/15/16 22:48) Ecg Monitoring (10/15/16 22:48) Iv Access Insert/Monitor (10/15/16 22:48) Oximetry (10/15/16 22:48) NPO (10/15/16 22:48) Sodium Chlor 0.9% 1000 Ml Inj (Ns 1000 M (10/15/16 22:48) Sodium Chlor 0.9% 1000 Ml Inj (Ns 1000 M (10/15/16 23:18) Sodium Chloride 0.9% Flush (Ns Flush) (10/15/16 23:00) Lipase (10/15/16 22:48) Insulin Human Regular Inj (Novolin R Inj (10/16/16 00:30) Morphine Inj (Morphine Inj) (10/16/16 02:00) Hydromorphone Pf Inj (Dilaudid Pf Inj) (10/16/16 02:30) Ct Abd/Pel W/O Iv Contrast (10/15/16 ) Labs Laboratory Tests Test 10/15/16 10/15/16 23:05 23:20 White Blood Count 6.7 TH/MM3 Red Blood Count 4.60 MIL/MM3 Hemoglobin 13.8 GM/DL Hematocrit 41.6 % Mean Corpuscular Volume 90.4 FL Mean Corpuscular Hemoglobin 30.1 PG Mean Corpuscular Hemoglobin 33.3 % Concent Red Cell Distribution Width 15.3 % Platelet Count 162 TH/MM3 Mean Platelet Volume 10.8 FL Neutrophils (%) (Auto) 68.4 % Lymphocytes (%) (Auto) 24.3 % Monocytes (%) (Auto) 5.1 % Eosinophils (%) (Auto) 1.5 % Basophils (%) (Auto) 0.7 % Neutrophils # (Auto) 4.6 TH/MM3 Lymphocytes # (Auto) 1.6 TH/MM3 Monocytes # (Auto) 0.3 TH/MM3 Eosinophils # (Auto) 0.1 TH/MM3 Basophils # (Auto) 0.0 TH/MM3 CBC Comment DIFF FINAL Differential Comment Sodium Level 128 MEQ/L Potassium Level 4.7 MEQ/L Chloride Level 91 MEQ/L Carbon Dioxide Level 23.2 MEQ/L Anion Gap 14 MEQ/L Blood Urea Nitrogen 28 MG/DL Creatinine 1.29 MG/DL Estimat Glomerular Filtration 52 ML/MIN Rate Random Glucose 610 MG/DL Lactic Acid Level 1.8 mmol/L Calcium Level 9.7 MG/DL Total Bilirubin 0.6 MG/DL Aspartate Amino Transf 256 U/L (AST/SGOT) Alanine Aminotransferase 85 U/L (ALT/SGPT) Alkaline Phosphatase 477 U/L Total Protein 8.0 GM/DL Albumin 3.4 GM/DL Lipase 3394 U/L B-Hydroxybutyrate 2.40 MMOL/L Urine Color LIGHT-YELLOW Urine Turbidity HAZY Urine pH 6.0 Urine Specific [place] 1.027 Urine Protein NEG mg/dL Urine Glucose (UA) 1000 mg/dL Urine Ketones 10 mg/dL Urine Occult Blood NEG Urine Nitrite NEG Urine Bilirubin NEG Urine Urobilinogen LESS THAN 2.0 MG/DL Urine Leukocyte Esterase NEG Urine RBC 1 /hpf Urine WBC 1 /hpf Urine Squamous Epithelial <1 /hpf Cells Urine Mucus FEW /lpf Urine Yeast (Budding) RARE Microscopic Urinalysis Comment CULT NOT INDICATED MDM Medical Decision Making Medical Screen Exam Complete: Yes Emergency Medical Condition: Yes Medical Record Reviewed: Yes Interpretation(s) Oh, tachycardic, hypertensive No leukocytosis Hyponatremia Renal insufficiency Glucose is 610 Lactic acid is 1.8 Lipase is 3394 Anion gap is 14 Urinalysis: Negative for infection Last 24 hours Impressions Abdomen/Pelvis CT 10/15/16 0000 Signed Impressions: Service Date/Time: Sunday, October 16, 2016 02:53 - CONCLUSION: 1. No acute intra-abdominal or pelvic pathology. 2. Stable chronic pancreatitis. 3. Stable 4.4 cm right dermoid cyst. 4. Stable left adrenal mass measuring 1.9 cm. Most likely an adrenal adenoma. 5. Stable appearance of the liver, status post cholecystectomy James Herrera MD Differential Diagnosis Acute pancreatitis, hyperglycemia, DKA, colitis Narrative Course This is a 56-year-old female who presents to the emergency department with abdominal discomfort. She has a history of recurrent pancreatitis and poor glycemic control. She was placed on a monitor and an IV was established. She is given 2 L of IV hydration. She is found to be hyperglycemic in the 600s. She also has a lipase of 3300. She developed a moderate amount of pain in the emergency department. She was given IV morphine and then a dose of IV Dilaudid. CT was obtained which was negative for an acute process but does demonstrate chronic pancreatitis. I think patient requires admission for IV hydration, continue pain control and insulin. She doesn't appear to be in DKA she has normal anion gap and a normal bicarbonate. Diagnosis Primary Impression: Acute pancreatitis Qualified Code: K85.90 - Acute pancreatitis, unspecified complication status, unspecified pancreatitis type Additional Impression: Type 2 diabetes mellitus with hyperosmolar nonketotic hyperglycemia Admitting Information Admitting Physician Requests: Admit Adalgisa Yates MD Oct 15, 2016 22:54
[2016-10-15] MEDS ORDERED: SODIUM CHLORIDE 0.9% FLUSH 10 ML FLUSH IVF PRN (23:00)
[2016-10-15 23:53] LABS: AUTOMATED NEUTROPHIL # 4.6 TH/MM3 (1.8-7.7); BASOPHIL % 0.7 % (0.0-2.0); EOSINOPHIL # 0.1 TH/MM3 (0-0.4); EOSINOPHIL % 1.5 % (0.0-4.0); HEMATOCRIT 41.6 % (35.0-46.0); HEMO FLAGS DIFF FINAL; LYMPH % 24.3 % (9.0-44.0); LYMPHOCYTE # 1.6 TH/MM3 (1.0-4.8); MEAN CELL VOLUME 90.4 FL (80.0-100.0); MEAN CORPUSCULAR HEMOGLOBIN 30.1 PG (27.0-34.0); MEAN CORPUSCULAR HGB CONC 33.3 % (32.0-36.0); MONO % 5.1 % (0.0-8.0); NEUT % 68.4 % (16.0-70.0); PLATELET COUNT 162 TH/MM3 (150-450); RED CELL DISTRIBUTION WIDTH 15.3 % (11.6-17.2); WHITE BLOOD COUNT 6.7 TH/MM3 (4.0-11.0)
[2016-10-16] VITALS (10 sets, daily range): BP systolic 99–184; BP diastolic 56–95; PULSE 88–105; RESP 16–22; TEMP 96.9–98; O2SAT 98–100
[2016-10-16 00:04] LABS: BLOOD, URINE NEG (NEG); COMMENT (UR) CULT NOT INDICATED; CULTURE IF INDICATED CULT NOT INDICATED; GLUCOSE,URINE 1000 mg/dL (NEG); KETONE, URINE 10 mg/dL (NEG); MUCUS URINE FEW /lpf (OCC); NITRITE,URINE NEG (NEG); SQUAMOUS EPITHELIAL CELL URINE <1 /hpf (0-5); URINE COLOR LIGHT-YELLOW (YELLW/STRAW)
[2016-10-16 00:25] LABS: ALKALINE PHOSPHATASE 477 U/L (45-117); ALT (GPT) 85 U/L (10-53); ANION GAP 14 MEQ/L (5-15); AST (GOT) 256 U/L (15-37); BICARBONATE 23.2 MEQ/L (21.0-32.0); BLOOD UREA NITROGEN 28 MG/DL (7-18); CHLORIDE 91 MEQ/L (98-107); GLOMERULAR FILTRATION RATE 52 ML/MIN (>89); POTASSIUM 4.7 MEQ/L (3.5-5.1); SODIUM (NA) 128 MEQ/L (136-145); TOTAL BILIRUBIN ADULT 0.6 MG/DL (0.2-1.0)
[2016-10-16] MEDS ORDERED: INSULIN HUMAN REGULAR 1,000 UNITS/10 ML VIAL IV PUSH ONE (00:30)
[2016-10-16] MEDS ORDERED: MORPHINE SULFATE 8 MG/ML INJ IV PUSH ONE (02:00)
[2016-10-16] MEDS ORDERED: HYDROmorphone HCL PF 1 MG/ML VIAL IV PUSH ONE (02:30)
--- NOTE | 2016-10-16 03:13 | RADRPT ---
EXAM DATE/TIME: 10/16/2016 02:53 [facility] COMPARISON: CT ABDOMEN & PELVIS W CONTRAST, September 13, 2016, 18:46. INDICATIONS : Abdominal pain. ORAL CONTRAST: No oral contrast ingested. RADIATION DOSE: 6.34 CTDIvol (mGy) MEDICAL HISTORY : Pancreatitis. Diabetes mellitus type 2. Cardiovascular disease SURGICAL HISTORY : Cholecystectomy. ENCOUNTER: Initial ACUITY: 2 weeks PAIN SCALE: 7/10 LOCATION: abdomen TECHNIQUE: Volumetric scanning of the abdomen and pelvis was performed. Using automated exposure control and ad justment of the mA and/or kV according to patient size, radiation dose was kept as low as reasonably achievable to obtain optimal diagnostic quality images. DICOM format image data is available electro nically for review and comparison. The lack of IV contrast limits the diagnosis for certain organ pat hology. FINDINGS: LOWER LUNGS: The visualized lower lungs are clear. Stable pleural thickening in the right paraspinal area. LIVER: Liver is mildly heterogeneous. There is a 1.7 cm hemangioma in the right lobe of the liver.. There i s mild and stable dilation of the biliary tree. No gallbladder, surgically removed. Stable appearanc e of the liver compared to the prior study.. SPLEEN: Normal size without lesion. PANCREAS: Multiple calcifications consist with chronic pancreatitis. No significant change compared to the prio r study. KIDNEYS: Normal in size and shape. There is no mass, stone, or hydronephrosis. ADRENAL GLANDS: Stable left adrenal nodule measuring approximately 1.9 cm. Right internal gland is unremarkable and s table. VASCULAR: There is no aortic aneurysm. Atherosclerotic changes. BOWEL/MESENTERY: The stomach, small bowel, and colon demonstrate no acute abnormality. There is no free intraperitone al air or fluid. The appendix is unremarkable. No inflammatory changes are seen. There is stool throu ghout the colon. ABDOMINAL WALL: Within normal limits. RETROPERITONEUM: There is no lymphadenopathy. BLADDER: No wall thickening or mass. REPRODUCTIVE: Stable dermoid cyst in the right adnexal area. This is unchanged compared to the prior study. The fidelia moid measures 4.4 x 4.4 cm. INGUINAL: There is no lymphadenopathy or hernia. MUSCULOSKELETAL: Within normal limits for patient age. No significant change compared to the prior exam. CONCLUSION: 1. No acute intra-abdominal or pelvic pathology. 2. Stable chronic pancreatitis. 3. Stable 4.4 cm right dermoid cyst. 4. Stable left adrenal mass measuring 1.9 cm. Most likely an adrenal adenoma. 5. Stable appearance of the liver, status post cholecystectomy James Herrera MD on October 16, 2016 at 3:04 Board Certified Radiologist. This report was verified electronically.
[2016-10-16] MEDS ORDERED: BISACODYL 10 MG SUPP RECTAL PRN (04:00)
[2016-10-16] MEDS ORDERED: DEXTROSE 50% IN WATER 50 ML VIAL(D50) IV PRN (04:00)
[2016-10-16] MEDS ORDERED: GLUCAGON 1 MG/ML VIAL OTHER PRN (04:00)
[2016-10-16] MEDS ORDERED: SENNOSIDES 8.6 MG TAB PO PRN (04:00)
[2016-10-16] MEDS ORDERED: SODIUM CHLORIDE 0.9% FLUSH 10 ML FLUSH IV FLUSH PRN (04:00)
[2016-10-16] MEDS ORDERED: ACETAMINOPHEN 325 MG TAB PO PRN (04:00)
[2016-10-16] MEDS ORDERED: LACTULOSE SYRUP 20 GM/30 ML CUP PO PRN (04:00)
[2016-10-16] MEDS ORDERED: ONDANSETRON HCL 4 MG/2 ML VIAL IVP PRN (04:00)
--- NOTE | 2016-10-16 04:07 | HHI.HP ---
[facility] Ophelia Samaniego M.D. Admission Diagnosis acute pancreatitis Diagnoses: (1) Pancreatitis Diagnosis: Principal (2) MAUREEN (acute kidney injury) Diagnosis: Principal (3) HTN (hypertension) Diagnosis: Principal (4) DM (diabetes mellitus) Diagnosis: Principal (5) Tobacco abuse Diagnosis: Principal Travel History International Travel<30 Days: No Contact w/Intl Traveler <30 Da: No Traveled to Known Affected Are: No History of Present Illness This is a 56-year-old female with a PMH of HTN, DM, CAD, h/o Pancreatitis, Tobacco Abuse and Noncompliance who presented to the ER with complaints of abdominal pain x2-3 days. Notes associated nausea, but no vomiting. Denies fever, chills or diarrhea. Previous admit 09/08-09/14/16 for similar complaints, found to be in DKA w/ Acute Pancreatitis, s/p ERCP by Dr. Osorio w/ dilated CBD, also eval by Hematology for apparent lytic lesion, however MRI w/ no evidence of lytic lesions and work up negative for multiple myeloma. Returns now w/ recurrent abdominal pain. On arrival, BP 177/95, HR 118, O2 sat 96% on RA, Afebrile. CBC unremarkable. Creatinine 1.29, previously 0.92 on 09/14/16. BS 610. Lactic Acid normal. Lipase 3394. UA negative. CT Abd/Pelvis w/ no acute intra-abdominal or pelvic pathology, stable chronic pancreatitis, stable left adrenal mass. Review of Systems Except as stated in HPI: all other systems reviewed are Neg ROS: 14 point review of systems otherwise negative. Past Family Social History Past Medical History PMH: HTN, DM, CAD, h/o Pancreatitis, Tobacco Abuse and Noncompliance Past Surgical History PAST SURGICAL HISTORY: Cholecystectomy, Cardiac Catheterization, Dental Extraction, G-tube Placement and Removal Allergies: Coded Allergies: No Known Allergies (Verified , 10/15/16) NONE KNOWN Family History PAST FAMILY HISTORY: Reviewed, positive for DM. Social History PAST SOCIAL HISTORY: Negative for alcohol or drugs. Smokes 1ppd. Physical Exam Vital Signs Vital Signs Date Time Temp Pulse Resp B/P Pulse Ox O2 Delivery O2 Flow Rate FiO2 10/16/16 02:29 105 22 118/58 98 Room Air 10/16/16 02:15 98 18 110/56 100 Room Air 10/15/16 22:50 98 17 178/94 100 10/15/16 22:10 98.3 118 16 177/95 96 Room Air Physical Exam PE: GENERAL: Middle-aged black female in no acute distress. HEENT: PERRLA, EOMI. No scleral icterus or conjunctival pallor. No lid lag or facial droop. CARDIOVASCULAR: Regular rate and rhythm. No obvious murmurs to auscultation. No chest tenderness to palpation. RESPIRATORY: No obvious rhonchi or wheezing. Clear to auscultation. Breath sounds equal bilaterally. GASTROINTESTINAL: Abdomen soft, epigastric tenderness to palpation, nondistended. BS normal. MUSCULOSKELETAL: Extremities without clubbing, cyanosis, or edema. No obvious deformities. NEUROLOGICAL: Awake, alert and oriented x4. No focal neurologic deficits. Moving both upper and lower extremities spontaneously. Laboratory Laboratory Tests Test 10/15/16 10/15/16 23:05 23:20 White Blood Count 6.7 Red Blood Count 4.60 Hemoglobin 13.8 Hematocrit 41.6 Mean Corpuscular Volume 90.4 Mean Corpuscular Hemoglobin 30.1 Mean Corpuscular Hemoglobin 33.3 Concent Red Cell Distribution Width 15.3 Platelet Count 162 Mean Platelet Volume 10.8 Neutrophils (%) (Auto) 68.4 Lymphocytes (%) (Auto) 24.3 Monocytes (%) (Auto) 5.1 Eosinophils (%) (Auto) 1.5 Basophils (%) (Auto) 0.7 Neutrophils # (Auto) 4.6 Lymphocytes # (Auto) 1.6 Monocytes # (Auto) 0.3 Eosinophils # (Auto) 0.1 Basophils # (Auto) 0.0 CBC Comment DIFF FINAL Differential Comment Sodium Level 128 Potassium Level 4.7 Chloride Level 91 Carbon Dioxide Level 23.2 Anion Gap 14 Blood Urea Nitrogen 28 Creatinine 1.29 Estimat Glomerular Filtration 52 Rate Random Glucose 610 Lactic Acid Level 1.8 Calcium Level 9.7 Total Bilirubin 0.6 Aspartate Amino Transf 256 (AST/SGOT) Alanine Aminotransferase 85 (ALT/SGPT) Alkaline Phosphatase 477 Total Protein 8.0 Albumin 3.4 Lipase 3394 B-Hydroxybutyrate 2.40 Urine Color LIGHT-YELLOW Urine Turbidity HAZY Urine pH 6.0 Urine Specific [place] 1.027 Urine Protein NEG Urine Glucose (UA) 1000 Urine Ketones 10 Urine Occult Blood NEG Urine Nitrite NEG Urine Bilirubin NEG Urine Urobilinogen LESS THAN 2.0 Urine Leukocyte Esterase NEG Urine RBC 1 Urine WBC 1 Urine Squamous Epithelial <1 Cells Urine Mucus FEW Urine Yeast (Budding) RARE Microscopic Urinalysis Comment CULT NOT INDICATED Result Diagram: 10/15/16230410/15/162304 Assessment and Plan Problem List: (1) Pancreatitis ICD Code: K85.9 Status: Chronic (2) MAUREEN (acute kidney injury) ICD Code: N17.9 Status: Acute (3) HTN (hypertension) ICD Code: I10 Status: Chronic (4) Tobacco abuse ICD Code: Z72.0 Status: Chronic (5) DM (diabetes mellitus) ICD Code: E11.9 Status: Acute Assessment and Plan A/P: 1. Pancreatitis: Recurrent. c/o abdominal pain w/ nausea. Lipase 3394. CT Abd/Pelvis w/ chronic pancreatitis, no acute findings, images reviewed by me. Protonix IV, analgesics/antiemetics, clear liquids, advance diet as tolerated, repeat Lipase in am. 2. DM: Uncontrolled. Non-compliant w/ medications. Hgb A1c 5.5 on 09/08/16. Will hold Metformin in light of renal insufficiency, resume home Insulin. Sliding scale w/ Accu-Cheks. 3. MAUREEN: Creatinine 1.29, previously 0.92 on 09/14/16. U/a negative. IVF for hydration, repeat labs in am. 4. HTN: BP 180's on arrival, likely compounded by pain complaints, BP currently 118/58, HR 105. Will monitor. Resume home medications. 5. Tobacco Abuse: Pt counselled. Ativan/NicoDerm prn if needed. 6. Social work for d/c planning as needed. 7. Case discussed w/ ER physician at length. Physician Certification 2 Midnight Certification Type: Admission for Inpatient Services Order for Inpatient Services The services are ordered in accordance with Medicare regulations or non- Medicare payer requirements, as applicable. In the case of services not specified as inpatient-only, they are appropriately provided as inpatient services in accordance with the 2-midnight benchmark. Estimated LOS (days): 2 days is the estimated time the patient will need to remain in the hospital, assuming treatment plan goals are met and no additional complications. Post-Hospital Plan: Not yet determined Elena Okeefe MD Oct 16, 2016 04:07
[2016-10-16] MEDS: SODIUM CHLOR 0.9% 1000 ML INJ 1,000 ML IV SCH ×2 (04:11→13:48)
[2016-10-16] MEDS: MORPHINE SULFATE 8 MG/ML INJ IV PUSH PRN ×4 (04:51→18:02)
[2016-10-16 06:57] LABS: AUTOMATED NEUTROPHIL # 4.6 TH/MM3 (1.8-7.7); BASOPHIL % 0.6 % (0.0-2.0); EOSINOPHIL # 0.1 TH/MM3 (0-0.4); EOSINOPHIL % 1.9 % (0.0-4.0); HEMO FLAGS DIFF FINAL; LYMPH % 24.8 % (9.0-44.0); LYMPHOCYTE # 1.7 TH/MM3 (1.0-4.8); MEAN CELL VOLUME 90.4 FL (80.0-100.0); MEAN CORPUSCULAR HEMOGLOBIN 29.5 PG (27.0-34.0); MEAN CORPUSCULAR HGB CONC 32.6 % (32.0-36.0); MONO % 4.9 % (0.0-8.0); NEUT % 67.8 % (16.0-70.0); PLATELET COUNT 155 TH/MM3 (150-450); RED BLOOD COUNT 4.21 MIL/MM3 (4.00-5.30); RED CELL DISTRIBUTION WIDTH 15.5 % (11.6-17.2); WHITE BLOOD COUNT 6.8 TH/MM3 (4.0-11.0)
[2016-10-16 07:14] LABS: ALKALINE PHOSPHATASE 525 U/L (45-117); ALT (GPT) 169 U/L (10-53); ANION GAP 14 MEQ/L (5-15); AST (GOT) 615 U/L (15-37); BICARBONATE 19.3 MEQ/L (21.0-32.0); BLOOD UREA NITROGEN 23 MG/DL (7-18); CHLORIDE 103 MEQ/L (98-107); GLOMERULAR FILTRATION RATE 80 ML/MIN (>89); POTASSIUM 3.7 MEQ/L (3.5-5.1); SODIUM (NA) 136 MEQ/L (136-145); TOTAL BILIRUBIN ADULT 0.9 MG/DL (0.2-1.0)
[2016-10-16] MEDS: INSULIN DETEMIR 100 UNITS/ML VIAL SQ SCH ×2 (09:00→22:25)
[2016-10-16] MEDS: INSULIN ASPART SUPPLEMENTAL SCALE SQ SCH ×4 (09:05→22:24)
[2016-10-16] MEDS: PANTOPRAZOLE SODIUM 40 MG VIAL IV PUSH SCH ×2 (10:40→22:27)
[2016-10-16] MEDS: amLODIPine BESYLATE 5 MG TAB PO SCH (10:42)
[2016-10-16] MEDS: DOCUSATE SODIUM 50 MG/SENNA 8.6 MG TAB PO SCH ×2 (10:59→22:26)
[2016-10-16] MEDS: SODIUM CHLORIDE 0.9% FLUSH 10 ML FLUSH IV FLUSH SCH ×2 (11:00→22:34)
--- NOTE | 2016-10-16 16:00 | HHI.PR ---
Subjective Remarks Follow-up pancreatitis, poorly controlled diabetes. Patient reporting significant ongoing abdominal pain. Denies cough, dyspnea, chest pain. Objective Vitals Vital Signs Date Time Temp Pulse Resp B/P Pulse Ox O2 Delivery O2 Flow Rate FiO2 10/16/16 15:34 96.9 91 18 141/83 99 10/16/16 13:31 16 10/16/16 11:25 97.3 100 17 169/95 98 10/16/16 09:53 97.2 98 17 184/88 100 10/16/16 09:12 84 16 120/62 99 10/16/16 07:15 98.0 88 16 118/67 98 Room Air 10/16/16 06:00 88 17 99/61 99 Room Air 10/16/16 04:40 96 18 127/73 98 Room Air 10/16/16 02:29 105 22 118/58 98 Room Air 10/16/16 02:15 98 18 110/56 100 Room Air 10/15/16 22:50 98 17 178/94 100 10/15/16 22:10 98.3 118 16 177/95 96 Room Air I/O 10/15/16 10/15/16 10/15/16 10/16/16 10/16/16 10/16/16 06:59 14:59 22:59 06:59 14:59 22:59 Intake Total 400 ml Balance 400 ml Intake Oral 400 ml # Voids 4 # Bowel Movements 0 Result Diagram: 10/16/16 0551 10/16/16 0551 Imaging Last Impressions Abdomen/Pelvis CT 10/15/16 0000 Signed Impressions: Service Date/Time: Sunday, October 16, 2016 02:53 - CONCLUSION: 1. No acute intra-abdominal or pelvic pathology. 2. Stable chronic pancreatitis. 3. Stable 4.4 cm right dermoid cyst. 4. Stable left adrenal mass measuring 1.9 cm. Most likely an adrenal adenoma. 5. Stable appearance of the liver, status post cholecystectomy James Herrera MD Objective Remarks General: No acute distress. Appears older than stated age. Heart: Regular rate and rhythm. No murmur. Lungs: Clear to auscultation bilaterally. No wheezes, rales, or rhonchi. Breathing is nonlabored. Abdomen: Soft, tender to palpation in the midepigastric region, nondistended. Extremities: No lower extremity edema. Psych: Alert and oriented. Procedures None Urinary Catheter: No Vascular Central Line Catheter: No A/P Problem List: (1) Pancreatitis ICD Code: K85.9 Status: Chronic (2) MAUREEN (acute kidney injury) ICD Code: N17.9 Status: Acute (3) HTN (hypertension) ICD Code: I10 Status: Chronic (4) Tobacco abuse ICD Code: Z72.0 Status: Chronic (5) DM (diabetes mellitus) ICD Code: E11.9 Status: Acute Assessment and Plan 1. Pancreatitis: Recurrent. Lipase is elevated greater than 3000. CT of the abdomen/pelvis shows chronic pancreatitis, no acute findings. Continue IV Protonix. Continue pain control, antiemetics. Clear liquid diet. Follow lipase. IV fluids. 2. Poorly controlled diabetes mellitus: Patient is reportedly noncompliant with medications. Metformin on hold secondary to renal insufficiency. Continue Levemir. Monitor Accu-Cheks and cover with sliding scale insulin. 3. Acute kidney injury: Continue IV fluids. Monitor BUN and creatinine. 4. Hypertension: Blood pressure likely elevated secondary to pain. Continue home medications. 5. Tobacco abuse: Counseled to quit smoking. 6. DVT prophylaxis: PAVAN Casanova. Tin Gilbert MD Oct 16, 2016 16:00
[2016-10-16] MEDS: NS + KCL 20 MEQ INJ 1,000 ML IV SCH (17:30)
[2016-10-16] MEDS: ATORVASTATIN 20 MG TAB PO SCH (22:26)
[2016-10-16] MEDS: MAGNESIUM HYDROXIDE SUSP 30 ML CUP PO PRN (22:27)
[2016-10-17] VITALS (7 sets, daily range): BP systolic 118–151; BP diastolic 59–86; PULSE 57–98; RESP 17–19; TEMP 96.1–98.6; O2SAT 94–100
[2016-10-17] MEDS: MORPHINE SULFATE 8 MG/ML INJ IV PUSH PRN ×2 (01:10→06:38)
[2016-10-17] MEDS: NS + KCL 20 MEQ INJ 1,000 ML IV SCH ×3 (03:30→23:30)
[2016-10-17] MEDS: INSULIN ASPART SUPPLEMENTAL SCALE SQ SCH ×4 (06:39→21:12)
[2016-10-17 07:00] LABS: AUTOMATED NEUTROPHIL # 3.9 TH/MM3 (1.8-7.7); BASOPHIL # 0.3 TH/MM3 (0-0.2); BASOPHIL % 5.3 % (0.0-2.0); EOSINOPHIL # 0.1 TH/MM3 (0-0.4); EOSINOPHIL % 1.4 % (0.0-4.0); HEMATOCRIT 35.4 % (35.0-46.0); HEMO FLAGS DIFF FINAL; LYMPHOCYTE # 0.7 TH/MM3 (1.0-4.8); MEAN CELL VOLUME 89.4 FL (80.0-100.0); MEAN CORPUSCULAR HEMOGLOBIN 29.8 PG (27.0-34.0); MEAN CORPUSCULAR HGB CONC 33.4 % (32.0-36.0); MONO % 4.7 % (0.0-8.0); NEUT % 74.6 % (16.0-70.0); PLATELET COUNT 150 TH/MM3 (150-450); RED BLOOD COUNT 3.95 MIL/MM3 (4.00-5.30); RED CELL DISTRIBUTION WIDTH 15.4 % (11.6-17.2); WHITE BLOOD COUNT 5.2 TH/MM3 (4.0-11.0)
[2016-10-17 07:18] LABS: ALKALINE PHOSPHATASE 739 U/L (45-117); ALT (GPT) 358 U/L (10-53); ANION GAP 8 MEQ/L (5-15); AST (GOT) 756 U/L (15-37); BICARBONATE 26.5 MEQ/L (21.0-32.0); BLOOD UREA NITROGEN 10 MG/DL (7-18); CHLORIDE 105 MEQ/L (98-107); GLOMERULAR FILTRATION RATE 95 ML/MIN (>89); MAGNESIUM 1.7 MG/DL (1.5-2.5); POTASSIUM 4.2 MEQ/L (3.5-5.1); SODIUM (NA) 139 MEQ/L (136-145); TOTAL BILIRUBIN ADULT 0.6 MG/DL (0.2-1.0)
[2016-10-17] MEDS: SODIUM CHLORIDE 0.9% FLUSH 10 ML FLUSH IV FLUSH SCH ×2 (09:19→21:00)
[2016-10-17] MEDS: DOCUSATE SODIUM 50 MG/SENNA 8.6 MG TAB PO SCH ×2 (09:19→21:13)
[2016-10-17] MEDS: amLODIPine BESYLATE 5 MG TAB PO SCH (09:19)
[2016-10-17] MEDS: INSULIN DETEMIR 100 UNITS/ML VIAL SQ SCH ×2 (09:21→21:13)
[2016-10-17] MEDS: PANTOPRAZOLE SODIUM 40 MG VIAL IV PUSH SCH ×2 (09:22→21:14)
--- NOTE | 2016-10-17 13:10 | PD.CONS ---
HPI History of Present Illness This is a 56 year old female with a history recurrent/chronic pancreatitis thought to be related to ETOH abuse. She has had multiple hospitalizations for the above, as well as decreased appetite, early satiety, and abnormal weight loss of 100 lbs. She was evaluated with MRCP (07/14/15) revealed diffuse biliary and pancreatic ductal dilatation, bilateral pleural effusions and findings suggesting acute on chronic pancreatitis. She underwent evaluation with EGD/Colonoscopy (07/19/15) which noted flat lesion at ampulla, diverticulosis. Pathology with duodenal mucosa without significant histologic abnormality, ampulla with Anthony's hyperplasia. She was noted to have a progressive rise in her Ca 19-9 over the past several years with a peak of her Ca 19-9 1136.9. IR was asked to evaluated for possible pancreatic head biopsy, but they were unable to do this, as there was no mass to biopsy and they were unable to get to the pancreatic head secondary to dilated common bile duct and they felt that these changes were more likely related to chronic pancreatitis. She was discharged on 08/04/15 with the plan to have outpatient EUS vs. repeat CT scan to follow up on this. Of note, more recently this has been lower. On , this was 265.1. She was recently hospitalized last month and found to have biliary ductal dilatation to 17 mm and was evaluated with ERCP (09/12/16)--- -> dilated common bile duct, pancreatitis, no clear filling defects identified. Tumor markers during this hospitalization were Ca19-9 265.1, CEA 8.2, AFP 4.3 , Ca125 8.3. Of note, she was also found to have subtle lucent lesions in lumbar spine. She was evaluated with CT chest, bone scan, and MRI spine and no lesions were found. She reports that she has continued to have back pain since her last hospitalization. She then started having severe constant mid abdominal pain that she describes as a constant stabbing pain that radiates to her back. She has occasional nausea and did vomit nonbloody emesis yesterday, but reports that she does not typically vomit. She denies fevers/chills, weight loss. She came to the ER and was found to have elevated LFTs with T. Bili 0.6, AST 256, ALT 85, Alk Phosphatase 477 with lipase 3394. These have been trending up and today are T. Bili 0.6, AST 756, ALT 358, ALk Phosph 739. Lipase has been trending down and is 441. She is requesting a diet. She did have a G/J tube at one point, but states that she has not had this for about a year and that she has been eating a low fat diet. She does not recall being on creon/zenpep at home. She reports that she was recently started on a new medication but she cannot recall what this was. She does not recall ever having an endoscopic ultrasound. This was confirmed with our office. (Ilana Cotter) PFSH Past Medical History Hypertension CAD Chronic pancreatitis with recurrent attacks Hyperlipidemia Past Surgical History Cholecystectomy Cardiac catheterization with stent placement ERCP with stent placement and then removal (Ilana Cotter) Coded Allergies: No Known Allergies (Verified , 10/15/16) NONE KNOWN Medications Allergies Coded Allergies Type Severity Reaction Last Updated Verified No Known Allergies 10/15/16 Yes Active Scripts Medications Dose Route/Sig Days Date Category Lipitor (Atorvastatin Calcium) 20 Mg Tab 20 Mg PO HS 09/14/16 Rx Glucophage (Metformin HCl) 500 Mg Tab 1,000 Mg PO BIDPC 09/14/16 Rx Norvasc (Amlodipine Besylate) 5 Mg Tab 5 Mg PO DAILY 09/14/16 Rx Pantoprazole (Pantoprazole Sodium) 40 Mg Tab 40 Mg PO DAILY 09/14/16 Rx Levemir Inj (Insulin Detemir) 1,000 unit/ 10 ML Vial 18 Units SQ BID 30 07/04/16 Rx Family History Noncontributory Social History Negative for alcohol or drugs. Smokes 1ppd. (Ilana Cotter) Review of Systems Constitutional: COMPLAINS OF: Fatigue, DENIES: Fever, Weight loss, Chills Respiratory: DENIES: Cough, Shortness of breath Cardiovascular: DENIES: Chest pain Gastrointestinal: COMPLAINS OF: Abdominal pain, Nausea, Vomiting, DENIES: Black stools, Bloody stools, Constipation, Diarrhea, Anorexia, Swelling of Abdomen, Heartburn, Hematemesis Integumentary: DENIES: Abnormal pigmentation, Rash, Jaundice Hematologic/lymphatic: DENIES: Bruising Neurologic: DENIES: Headache Psychiatric: DENIES: Confusion (Ilana Cotter) GI Exam Vitals I&O Vital Signs Date Time Temp Pulse Resp B/P Pulse Ox O2 Delivery O2 Flow Rate FiO2 10/17/16 08:00 97.5 90 18 151/86 100 10/17/16 04:05 97.6 84 17 143/79 100 10/17/16 00:25 98.2 98 17 135/68 98 10/16/16 20:00 97.2 91 17 145/76 98 10/16/16 19:09 Room Air 10/16/16 18:10 16 10/16/16 15:34 96.9 91 18 141/83 99 10/16/16 13:31 16 I/O 10/16/16 10/16/16 10/16/16 10/17/16 10/17/16 10/17/16 07:00 15:00 23:00 07:00 15:00 23:00 Intake Total 400 ml 480 ml 240 ml Balance 400 ml 480 ml 240 ml Intake Oral 400 ml 480 ml 240 ml # Voids 4 2 3 # Bowel Movements 0 0 0 Imaging Last Impressions Abdomen/Pelvis CT 10/15/16 0000 Signed Impressions: Service Date/Time: Sunday, October 16, 2016 02:53 - CONCLUSION: 1. No acute intra-abdominal or pelvic pathology. 2. Stable chronic pancreatitis. 3. Stable 4.4 cm right dermoid cyst. 4. Stable left adrenal mass measuring 1.9 cm. Most likely an adrenal adenoma. 5. Stable appearance of the liver, status post cholecystectomy James Herrera MD Laboratory Test 10/17/16 06:29 White Blood Count 5.2 TH/MM3 Red Blood Count 3.95 MIL/MM3 Hemoglobin 11.8 GM/DL Hematocrit 35.4 % Mean Corpuscular Volume 89.4 FL Mean Corpuscular Hemoglobin 29.8 PG Mean Corpuscular Hemoglobin 33.4 % Concent Red Cell Distribution Width 15.4 % Platelet Count 150 TH/MM3 Mean Platelet Volume 10.0 FL Neutrophils (%) (Auto) 74.6 % Lymphocytes (%) (Auto) 14.0 % Monocytes (%) (Auto) 4.7 % Eosinophils (%) (Auto) 1.4 % Basophils (%) (Auto) 5.3 % Neutrophils # (Auto) 3.9 TH/MM3 Lymphocytes # (Auto) 0.7 TH/MM3 Monocytes # (Auto) 0.2 TH/MM3 Eosinophils # (Auto) 0.1 TH/MM3 Basophils # (Auto) 0.3 TH/MM3 CBC Comment DIFF FINAL Differential Comment Sodium Level 139 MEQ/L Potassium Level 4.2 MEQ/L Chloride Level 105 MEQ/L Carbon Dioxide Level 26.5 MEQ/L Anion Gap 8 MEQ/L Blood Urea Nitrogen 10 MG/DL Creatinine 0.76 MG/DL Estimat Glomerular Filtration 95 ML/MIN Rate Random Glucose 180 MG/DL Calcium Level 9.4 MG/DL Magnesium Level 1.7 MG/DL Total Bilirubin 0.6 MG/DL Aspartate Amino Transf 756 U/L (AST/SGOT) Alanine Aminotransferase 358 U/L (ALT/SGPT) Alkaline Phosphatase 739 U/L Total Protein 7.1 GM/DL Albumin 2.9 GM/DL Lipase 441 U/L Physical Examination HEENT: Normocephalic; atraumatic; no jaundice. CHEST: CTA. CARDIAC: RRR. ABDOMEN: Soft, nondistended,mild ; no hepatosplenomegaly; bowel sounds are present in all four quadrants. EXTREMITIES: No clubbing, cyanosis, or edema. SKIN: Normal; no rash; no jaundice. RESOURCE SPECIALIST TEACHER: No focal deficits; alert and oriented times three. (Ilana Cotter) Assessment and Plan Plan ASSESSMENT: - Elevated LFTs in patient with acute on chronic pancreatitis. Recent hospitalization she was found to have biliary dilatation. ERCP (09/12/16)----> dilated common bile duct, pancreatitis, no clear filling defects identified. Tumor markers during this hospitalization were Ca19-9 265.1, CEA 8.2, AFP 4.3, Ca125 8.3. She reports that she has continued to have back pain since her last hospitalization and then has had abdominal pain for the past two weeks. She was found to have elevated LFTs with T. Bili 0.6, AST 256, ALT 85 , Alk Phosphatase 477 with lipase 3394. These have been trending up and today are T. Bili 0.6, AST 756 , ALT 358, ALk Phosph 739. Lipase has been trending down and is 441. She is requesting a diet. Abdomen/Pelvis CT (10/15/16)----> 1. No acute intra-abdominal or pelvic pathology. 2. Stable chronic pancreatitis. 3. Stable 4.4 cm right dermoid cyst. 4. Stable left adrenal mass measuring 1.9 cm. Most likely an adrenal adenoma. 5. Stable appearance of the liver, status post cholecystectomy. LFTs are increasing, although bilirubin is normal. Of note, she was started on an unknown med recently- she does not recall the name. Will get MRCP to rule out biliary obstruction. - Acute on chronic pancreatitis, thought to be related to prior etoh use. S/P Extensive workup. Ca19-9 has been elevated, as high as 1136.9 in July of 2015 , more recently 265 last month. She does not currently drink ETOH. At one point, she had G/J tube, but this has been out for about a year per the patient. She is not on pancreatic enzymes and has never had EUS. - Abnormal weight loss, now stable but has hx of loosing 100 lbs. EGD/ Colonoscopy (07/19/15) which noted flat lesion at ampulla, diverticulosis. Pathology with duodenal mucosa without significant histologic abnormality, ampulla with Anthony's hyperplasia. 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 She was evaluated by oncology with CT chest, bone scan, and MRI spine and no lesions were found. - Poorly controlled DM. Glucose was 610 on admission. This is now 180. - MAUREEN. Improved. - HTN per attending. PLAN: - Clear liquids - MRCP - Trial of Creon - PPI - CBC, CMP, Lipase in am - ? EUS as outpatient - Supportive care - Further recommendations to follow based on results of above - Pt seen aned examined by Dr. Mcdowell and myself and this note is written on her behalf (Ilana Cotter) Physician Comments seen, examined agree with above (Annette Mcdowell MD) Ilana Cotter Oct 17, 2016 13:10 Annette Mcdowell MD Oct 17, 2016 18:03
--- NOTE | 2016-10-17 15:21 | HHI.PR ---
Subjective Remarks Follow-up pancreatitis, diabetes mellitus. Patient still reporting abdominal pain, unchanged. No nausea or vomiting. Objective Vitals Vital Signs Date Time Temp Pulse Resp B/P Pulse Ox O2 Delivery O2 Flow Rate FiO2 10/17/16 14:28 16 10/17/16 12:00 97.7 94 18 127/68 100 10/17/16 08:00 97.5 90 18 151/86 100 10/17/16 04:05 97.6 84 17 143/79 100 10/17/16 00:25 98.2 98 17 135/68 98 10/16/16 20:00 97.2 91 17 145/76 98 10/16/16 19:09 Room Air 10/16/16 18:10 16 10/16/16 15:34 96.9 91 18 141/83 99 I/O 10/16/16 10/16/16 10/16/16 10/17/16 10/17/16 10/17/16 07:00 15:00 23:00 07:00 15:00 23:00 Intake Total 400 ml 480 ml 240 ml Balance 400 ml 480 ml 240 ml Intake Oral 400 ml 480 ml 240 ml # Voids 4 2 3 # Bowel Movements 0 0 0 Result Diagram: 10/17/16 0629 10/17/16 0629 Imaging Last Impressions Abdomen/Pelvis CT 10/15/16 0000 Signed Impressions: Service Date/Time: Sunday, October 16, 2016 02:53 - CONCLUSION: 1. No acute intra-abdominal or pelvic pathology. 2. Stable chronic pancreatitis. 3. Stable 4.4 cm right dermoid cyst. 4. Stable left adrenal mass measuring 1.9 cm. Most likely an adrenal adenoma. 5. Stable appearance of the liver, status post cholecystectomy James Herrera MD Objective Remarks General: No acute distress. Appears older than stated age. Heart: Regular rate and rhythm. No murmur. Lungs: Clear to auscultation bilaterally. No wheezes, rales, or rhonchi. Breathing is nonlabored. Abdomen: Soft, tender to palpation in the midepigastric region, nondistended. Extremities: No lower extremity edema. Psych: Alert and oriented. Procedures None Urinary Catheter: No Vascular Central Line Catheter: No A/P Problem List: (1) Pancreatitis ICD Code: K85.9 Status: Chronic (2) MAUREEN (acute kidney injury) ICD Code: N17.9 Status: Acute (3) HTN (hypertension) ICD Code: I10 Status: Chronic (4) Tobacco abuse ICD Code: Z72.0 Status: Chronic (5) DM (diabetes mellitus) ICD Code: E11.9 Status: Acute Assessment and Plan 1. Pancreatitis: Recurrent. Lipase is improving. CT of the abdomen/pelvis shows chronic pancreatitis, no acute findings. Continue IV Protonix. Continue pain control, antiemetics. Clear liquid diet. Follow lipase. IV fluids. Appreciate GI recommendations. MRCP ordered. May need endoscopic ultrasound. 2. Poorly controlled diabetes mellitus: Patient is reportedly noncompliant with medications. Metformin on hold secondary to renal insufficiency. Continue Levemir. Monitor Accu-Cheks and cover with sliding scale insulin. 3. Acute kidney injury: Continue IV fluids. Monitor BUN and creatinine. 4. Hypertension: Blood pressure likely elevated secondary to pain. Continue home medications. 5. Tobacco abuse: Counseled to quit smoking. 6. DVT prophylaxis: PAVAN Casanova. Tin Gilbert MD Oct 17, 2016 15:21
--- NOTE | 2016-10-17 18:04 | RADRPT ---
EXAM DATE/TIME: 10/17/2016 17:20 [facility] COMPARISON: CT ABDOMEN & PELVIS W CONTRAST, January 23, 2012, 19:22. INDICATIONS : Abdominal pain. MEDICAL HISTORY : Diabetes mellitus type 2. Hypertension. SURGICAL HISTORY : G tube placed and removed. ENCOUNTER: Subsequent ACUITY: 2 day PAIN SCORE: 0/10 LOCATION: abdomen. TECHNIQUE: Multiplanar, multisequence magnetic resonance imaging of the abdomen was performed. High-resolution 3D dataset was utilized to reconstruct maximum-intensity projection (MIP) images. FINDINGS: INTRAHEPATIC BILE DUCTS: There is moderate dilatation of the intrahepatic ducts. No significant anatomical variant is present. EXTRAHEPATIC BILE DUCTS: The common bile duct measures <14mm> No stone or filling defect is identified. GALLBLADDER: Surgically absent. LIVER: Normal size and signal intensity. No concerning liver lesion is identified on this non-contrast exam. PANCREAS: There some dilatation of the pancreatic duct diffusely without obvious solid mass. There is no signi ficant anatomical variant. Signal intensity is within normal limits. No mass is visualized on this non-contrast exam. OTHER: The remaining visualized structures demonstrate no acute abnormality on this non-contrast exam. CONCLUSION: The common bile duct is markedly dilated in a patient status post cholecystectomy. It's tortuous but I do not see any filling defects or solid masses. Hema Zarate MD on October 17, 2016 at 18:02 Board Certified Radiologist. This report was verified electronically.
[2016-10-17] MEDS: LIPASE/PROTEASE/AMYLASE (24,000/76,000/120,000) CAP PO SCH (19:03)
[2016-10-17 19:31] LABS: BASOPHIL % 0.7 % (0.0-2.0); EOSINOPHIL # 0.1 TH/MM3 (0-0.4); EOSINOPHIL % 1.8 % (0.0-4.0); HEMATOCRIT 33.8 % (35.0-46.0); HEMO FLAGS DIFF FINAL; LYMPH % 22.1 % (9.0-44.0); LYMPHOCYTE # 1.3 TH/MM3 (1.0-4.8); MEAN CELL VOLUME 87.8 FL (80.0-100.0); MEAN CORPUSCULAR HEMOGLOBIN 30.2 PG (27.0-34.0); MEAN CORPUSCULAR HGB CONC 34.5 % (32.0-36.0); MONO % 6.4 % (0.0-8.0); PLATELET COUNT 139 TH/MM3 (150-450); RED BLOOD COUNT 3.85 MIL/MM3 (4.00-5.30); WHITE BLOOD COUNT 5.8 TH/MM3 (4.0-11.0)
[2016-10-17 19:47] LABS: ANION GAP 8 MEQ/L (5-15); AST (GOT) 763 U/L (15-37); CHLORIDE 105 MEQ/L (98-107); GLOMERULAR FILTRATION RATE 105 ML/MIN (>89); POTASSIUM 3.6 MEQ/L (3.5-5.1); SODIUM (NA) 136 MEQ/L (136-145)
[2016-10-17 19:48] LABS: ALT (GPT) 362 U/L (10-53)
[2016-10-17 19:50] LABS: ALKALINE PHOSPHATASE 838 U/L (45-117); TOTAL BILIRUBIN ADULT 1.2 MG/DL (0.2-1.0)
[2016-10-17 19:57] LABS: BLOOD UREA NITROGEN 9 MG/DL (7-18)
[2016-10-17] MEDS: ATORVASTATIN 20 MG TAB PO SCH (21:13)
[2016-10-18] MEDS: MAGNESIUM HYDROXIDE SUSP 30 ML CUP PO PRN (02:32)
[2016-10-18] MEDS: INSULIN ASPART SUPPLEMENTAL SCALE SQ SCH ×4 (05:56→20:43)
[2016-10-18 08:00] VITALS: BP 108/69; PULSE 90; RESP 16; TEMP 97.1; O2SAT 99
[2016-10-18 08:15] LABS: ALKALINE PHOSPHATASE 840 U/L (45-117); ALT (GPT) 313 U/L (10-53); ANION GAP 8 MEQ/L (5-15); AST (GOT) 618 U/L (15-37); BICARBONATE 25.3 MEQ/L (21.0-32.0); BLOOD UREA NITROGEN 10 MG/DL (7-18); CHLORIDE 108 MEQ/L (98-107); GLOMERULAR FILTRATION RATE 87 ML/MIN (>89); POTASSIUM 3.7 MEQ/L (3.5-5.1); SODIUM (NA) 141 MEQ/L (136-145); TOTAL BILIRUBIN ADULT 0.7 MG/DL (0.2-1.0)
[2016-10-18] MEDS: NS + KCL 20 MEQ INJ 1,000 ML IV SCH ×2 (09:30→19:30)
[2016-10-18] MEDS: DOCUSATE SODIUM 50 MG/SENNA 8.6 MG TAB PO SCH ×2 (09:53→20:40)
[2016-10-18] MEDS: amLODIPine BESYLATE 5 MG TAB PO SCH (09:53)
[2016-10-18] MEDS: PANTOPRAZOLE SODIUM 40 MG VIAL IV PUSH SCH ×2 (09:53→20:40)
[2016-10-18] MEDS: LIPASE/PROTEASE/AMYLASE (24,000/76,000/120,000) CAP PO SCH ×3 (09:54→16:36)
[2016-10-18] MEDS: SODIUM CHLORIDE 0.9% FLUSH 10 ML FLUSH IV FLUSH SCH ×2 (09:54→20:48)
[2016-10-18] MEDS: INSULIN DETEMIR 100 UNITS/ML VIAL SQ SCH ×2 (10:00→20:42)
[2016-10-18] MEDS: MORPHINE SULFATE 8 MG/ML INJ IV PUSH PRN ×2 (10:01→19:48)
[2016-10-18 12:00] VITALS: BP 109/60; PULSE 79; RESP 16; TEMP 97.5; O2SAT 99
--- NOTE | 2016-10-18 14:37 | HHI.GIFU ---
Subjective Remarks Pt resting in bed, watching TV. C/o of continue abd pain, LUQ, comes and goes. No nausea or vomiting. (Hanna Hernandez) Objective Vitals I&O Vital Signs Date Time Temp Pulse Resp B/P Pulse Ox O2 Delivery O2 Flow Rate FiO2 10/18/16 12:00 97.5 79 16 109/60 99 10/18/16 08:00 97.1 90 16 108/69 99 10/17/16 23:45 97.4 88 18 121/73 100 10/17/16 20:37 98.6 81 19 138/81 99 10/17/16 16:00 98.2 91 19 118/59 99 I/O 10/17/16 10/17/16 10/17/16 10/18/16 10/18/16 10/18/16 07:00 15:00 23:00 07:00 15:00 23:00 Intake Total 240 ml 1160 ml 1080 ml Balance 240 ml 1160 ml 1080 ml Intake Oral 240 ml 1160 ml 480 ml IV Total 600 ml # Voids 3 9 1 # Bowel Movements 0 0 0 Laboratory Laboratory Tests Test 10/17/16 10/18/16 19:13 06:50 White Blood Count 5.8 Red Blood Count 3.85 Hemoglobin 11.6 Hematocrit 33.8 Mean Corpuscular Volume 87.8 Mean Corpuscular Hemoglobin 30.2 Mean Corpuscular Hemoglobin 34.5 Concent Red Cell Distribution Width 15.0 Platelet Count 139 Mean Platelet Volume 10.5 Neutrophils (%) (Auto) 69.0 Lymphocytes (%) (Auto) 22.1 Monocytes (%) (Auto) 6.4 Eosinophils (%) (Auto) 1.8 Basophils (%) (Auto) 0.7 Neutrophils # (Auto) 4.0 Lymphocytes # (Auto) 1.3 Monocytes # (Auto) 0.4 Eosinophils # (Auto) 0.1 Basophils # (Auto) 0.0 CBC Comment DIFF FINAL Differential Comment Hematology Comments Sodium Level 136 141 Potassium Level 3.6 3.7 Chloride Level 105 108 Carbon Dioxide Level 23.0 25.3 Anion Gap 8 8 Blood Urea Nitrogen 9 10 Creatinine 0.70 0.82 Estimat Glomerular Filtration 105 87 Rate Random Glucose 224 83 Calcium Level 9.0 8.9 Total Bilirubin 1.2 0.7 Aspartate Amino Transf 763 618 (AST/SGOT) Alanine Aminotransferase 362 313 (ALT/SGPT) Alkaline Phosphatase 838 840 Total Protein 6.7 6.3 Albumin 2.7 2.5 Lipase 256 203 Imaging Last Impressions Cholangiopancreatography MRI 10/17/16 0000 Signed Impressions: Service Date/Time: Monday, October 17, 2016 17:20 - CONCLUSION: The common bile duct is markedly dilated in a patient status post cholecystectomy. It's tortuous but I do not see any filling defects or solid masses. Hema Zarate MD Abdomen/Pelvis CT 10/15/16 0000 Signed Impressions: Service Date/Time: Sunday, October 16, 2016 02:53 - CONCLUSION: 1. No acute intra-abdominal or pelvic pathology. 2. Stable chronic pancreatitis. 3. Stable 4.4 cm right dermoid cyst. 4. Stable left adrenal mass measuring 1.9 cm. Most likely an adrenal adenoma. 5. Stable appearance of the liver, status post cholecystectomy James Herrera MD Physical Exam HEENT: PERRL; normocephalic; atraumatic; no jaundice. CHEST: CTA CARDIAC: RRR ABDOMEN: Soft, nondistended, mild TTP LUQ and epigastrium; no hepatosplenomegaly; bowel sounds are present in all four quadrants. EXTREMITIES: No clubbing, cyanosis, or edema. SKIN: Normal; no rash; no jaundice. IMPORT/EXPORT ADMINISTRATOR: No focal deficits; alert and oriented times three. (Hanna Hernandez [facility]) Assessment and Plan Plan ASSESSMENT: - Elevated LFTs in patient with acute on chronic pancreatitis. Recent hospitalization she was found to have biliary dilatation. ERCP (09/12/16)----> dilated common bile duct, pancreatitis, no clear filling defects identified. Tumor markers during this hospitalization were Ca19-9 265.1, CEA 8.2, AFP 4.3, Ca125 8.3. She reports that she has continued to have back pain since her last hospitalization and then has had abdominal pain for the past two weeks. She was found to have elevated LFTs with T. Bili 0.6, AST 256, ALT 85 , Alk Phosphatase 477 with lipase 3394. These have been trending up but today decreased, Lipase has been trending down and is 303. She is requesting a diet. Abdomen/Pelvis CT (10/15/16)----> 1. No acute intra-abdominal or pelvic pathology. 2. Stable chronic pancreatitis. 3. Stable 4.4 cm right dermoid cyst. 4. Stable left adrenal mass measuring 1.9 cm. Most likely an adrenal adenoma. 5. Stable appearance of the liver, status post cholecystectomy. MRCP 10-18-16--> The common bile duct is markedly dilated in a patient status post cholecystectomy. It's tortuous but I do not see any filling defects or solid masses. Of note, she was started on an unknown med recently- she does not recall the name. - Acute on chronic pancreatitis, thought to be related to prior etoh use. S/P Extensive workup. Ca19-9 has been elevated, as high as 1136.9 in July of 2015 , more recently 265 last month. She does not currently drink ETOH. At one point, she had G/J tube, but this has been out for about a year per the patient. She is not on pancreatic enzymes and has never had EUS. - Abnormal weight loss, now stable but has hx of loosing 100 lbs. EGD/ Colonoscopy (07/19/15) which noted flat lesion at ampulla, diverticulosis. Pathology with duodenal mucosa without significant histologic abnormality, ampulla with Anthony's hyperplasia. 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 She was evaluated by oncology with CT chest, bone scan, and MRI spine and no lesions were found. - Poorly controlled DM. Glucose was 610 on admission. - MAUREEN. Improved. - HTN per attending. PLAN: - continue to monitor LFTs, lipase - JOCELYN - Trial of Creon - PPI - ? EUS as outpatient - Supportive care - Further recommendations to follow based on results of above - Pt seen aned examined by Dr. Mcdowell and myself and this note is written on her behalf (Hanna HernandezP) Physician Comments seen, examined agree with above leif, asma , ama, ferriti , iron start actigall [address] guided liver biopsy eus op vs repeat ercp with stent if lfts increasing (Annette Mcdowell MD) Hanna Hernandez Oct 18, 2016 14:37 Annette Mcdowell MD Oct 18, 2016 18:04
--- NOTE | 2016-10-18 15:49 | HHI.PR ---
Subjective Remarks Follow up pancreatitis, diabetes. Patient still reporting abdominal pain, but it seems to be improving. No nausea/vomiting. Objective Vitals Vital Signs Date Time Temp Pulse Resp B/P Pulse Ox O2 Delivery O2 Flow Rate FiO2 10/18/16 12:00 97.5 79 16 109/60 99 10/18/16 08:00 97.1 90 16 108/69 99 10/17/16 23:45 97.4 88 18 121/73 100 10/17/16 20:37 98.6 81 19 138/81 99 10/17/16 16:00 98.2 91 19 118/59 99 I/O 10/17/16 10/17/16 10/17/16 10/18/16 10/18/16 10/18/16 07:00 15:00 23:00 07:00 15:00 23:00 Intake Total 240 ml 1160 ml 1080 ml Balance 240 ml 1160 ml 1080 ml Intake Oral 240 ml 1160 ml 480 ml IV Total 600 ml # Voids 3 9 1 # Bowel Movements 0 0 0 Result Diagram: 10/17/16 1913 10/18/16 0650 Imaging Last Impressions Cholangiopancreatography MRI 10/17/16 0000 Signed Impressions: Service Date/Time: Monday, October 17, 2016 17:20 - CONCLUSION: The common bile duct is markedly dilated in a patient status post cholecystectomy. It's tortuous but I do not see any filling defects or solid masses. Hema Zarate MD Abdomen/Pelvis CT 10/15/16 0000 Signed Impressions: Service Date/Time: Sunday, October 16, 2016 02:53 - CONCLUSION: 1. No acute intra-abdominal or pelvic pathology. 2. Stable chronic pancreatitis. 3. Stable 4.4 cm right dermoid cyst. 4. Stable left adrenal mass measuring 1.9 cm. Most likely an adrenal adenoma. 5. Stable appearance of the liver, status post cholecystectomy James Herrera MD Objective Remarks General: No acute distress. Appears older than stated age. Heart: Regular rate and rhythm. No murmur. Lungs: Clear to auscultation bilaterally. No wheezes, rales, or rhonchi. Breathing is nonlabored. Abdomen: Soft, tender to palpation in the midepigastric region, nondistended. + bowel sounds Extremities: No lower extremity edema. Psych: Alert and oriented. Procedures None Urinary Catheter: No Vascular Central Line Catheter: No A/P Problem List: (1) Pancreatitis ICD Code: K85.9 Status: Chronic (2) MAUREEN (acute kidney injury) ICD Code: N17.9 Status: Acute (3) HTN (hypertension) ICD Code: I10 Status: Chronic (4) Tobacco abuse ICD Code: Z72.0 Status: Chronic (5) DM (diabetes mellitus) ICD Code: E11.9 Status: Acute Assessment and Plan 1. Pancreatitis: Recurrent. Lipase is improving. CT of the abdomen/pelvis shows chronic pancreatitis, no acute findings. Continue IV Protonix. Continue pain control, antiemetics. Clear liquid diet. Follow lipase. IV fluids. Appreciate GI recommendations. MRCP report noted. May need endoscopic ultrasound. 2. Poorly controlled diabetes mellitus: Patient is reportedly noncompliant with medications. Metformin on hold secondary to renal insufficiency. Continue Levemir. Monitor Accu-Cheks and cover with sliding scale insulin. 3. Acute kidney injury: Continue IV fluids. Monitor BUN and creatinine. 4. Hypertension: Blood pressure was likely elevated secondary to pain, now well controlled. Continue home medications. 5. Tobacco abuse: Counseled to quit smoking. 6. DVT prophylaxis: PAVAN Casanova. Discharge Planning Possible discharge next 1-2 days if cleared by GI. Tin Gilbert MD Oct 18, 2016 15:48
[2016-10-18 16:00] VITALS: BP 118/67; PULSE 91; RESP 16; TEMP 97.1; O2SAT 100
[2016-10-18 19:46] VITALS: BP 117/66; PULSE 86; RESP 18; TEMP 97.8; O2SAT 97
[2016-10-18 19:46] LABS: GAMMA GT 1577 U/L (5-55); TRANSFERRIN IRON PROFILE 141 MG/DL (200-360)
[2016-10-18 19:48] LABS: FERRITIN 513 NG/ML (8-252)
[2016-10-18] MEDS: ATORVASTATIN 20 MG TAB PO SCH (20:40)
[2016-10-18] MEDS: URSODIOL 300 MG CAP PO SCH (21:43)
[2016-10-18 23:45] VITALS: BP 104/61; PULSE 86; RESP 17; TEMP 97.7; O2SAT 99
[2016-10-19] VITALS (9 sets, daily range): BP systolic 96–149; BP diastolic 57–77; PULSE 74–87; RESP 16–20; TEMP 96.3–98.4; O2SAT 95–100
[2016-10-19] MEDS: MORPHINE SULFATE 8 MG/ML INJ IV PUSH PRN ×2 (03:31→21:25)
[2016-10-19] MEDS: NS + KCL 20 MEQ INJ 1,000 ML IV SCH ×2 (05:30→15:30)
[2016-10-19] MEDS: INSULIN ASPART SUPPLEMENTAL SCALE SQ SCH ×4 (06:33→21:33)
[2016-10-19 07:37] LABS: INDIRECT BILIRUBIN 0.2 MG/DL (0.0-0.8); TOTAL BILIRUBIN ADULT 0.5 MG/DL (0.2-1.0)
[2016-10-19] MEDS: amLODIPine BESYLATE 5 MG TAB PO SCH (09:00)
[2016-10-19] MEDS: LIPASE/PROTEASE/AMYLASE (24,000/76,000/120,000) CAP PO SCH ×3 (09:00→17:56)
[2016-10-19] MEDS: INSULIN DETEMIR 100 UNITS/ML VIAL SQ SCH ×2 (09:00→21:32)
[2016-10-19] MEDS: DOCUSATE SODIUM 50 MG/SENNA 8.6 MG TAB PO SCH ×2 (09:00→21:28)
[2016-10-19] MEDS: URSODIOL 300 MG CAP PO SCH ×2 (09:12→21:29)
[2016-10-19] MEDS: SODIUM CHLORIDE 0.9% FLUSH 10 ML FLUSH IV FLUSH SCH ×2 (09:12→21:29)
[2016-10-19] MEDS: PANTOPRAZOLE SODIUM 40 MG VIAL IV PUSH SCH ×2 (09:12→21:29)
[2016-10-19 12:29] LABS: INTERNATIONAL NORMALIZED RATIO 1.1 RATIO; PROTHROMBIN TIME - PATIENT 11.7 SEC (9.8-11.6)
[2016-10-19] MEDS ORDERED: LIDOCAINE 1%/EPINEPHrine 1:100,000 SOLN 20 ML VIAL ONE (14:38)
[2016-10-19] MEDS ORDERED: MIDAZOLAM HCL 5 MG/5 ML VIAL ONE (14:47)
[2016-10-19] MEDS ORDERED: fentaNYL CITRATE 250 MCG/5 ML AMP ONE (14:48)
--- NOTE | 2016-10-19 15:25 | PD.RAD ---
Post CT Procedure Prog Note Pre Procedure Diagnosis: (1) Elevated liver enzymes Post Procedure Diagnosis: Procedure Date: Oct 19, 2016 Supervising Radiologist: Sammy Francois Proceduralist/Assist: Maye Rae Anesthesia: Conscious Sedation Plan of Activity Patient to Unit: ROPU Patient Condition: Good See PACS Report for procedural detail/treatment Sammy Francois MD Oct 19, 2016 15:24
--- NOTE | 2016-10-19 16:35 | HHI.PR ---
Subjective Remarks Follow up diabetes, pancreatitis. Patient still having abdominal pain, but no worse than yesterday. Denies chest pain, dyspnea. Objective Vitals Vital Signs Date Time Temp Pulse Resp B/P Pulse Ox O2 Delivery O2 Flow Rate FiO2 10/19/16 16:05 80 20 149/77 96 10/19/16 15:50 74 18 147/68 97 10/19/16 15:35 97.8 87 20 131/68 95 10/19/16 12:00 97.5 87 16 105/62 98 10/19/16 10:12 18 10/19/16 08:00 97.4 87 16 103/58 95 10/19/16 03:12 98.4 82 18 131/69 100 10/18/16 23:45 97.7 86 17 104/61 99 10/18/16 19:53 20 10/18/16 19:46 97.8 86 18 117/66 97 I/O 10/18/16 10/18/16 10/18/16 10/19/16 10/19/16 10/19/16 07:00 15:00 23:00 07:00 15:00 23:00 Intake Total 1080 ml 1160 ml 480 ml 120 ml Balance 1080 ml 1160 ml 480 ml 120 ml Intake Oral 480 ml 1160 ml 480 ml 120 ml IV Total 600 ml # Voids 1 2 5 2 # Bowel Movements 0 1 0 0 Result Diagram: 10/17/16 1913 10/18/16 0650 Imaging Last Impressions Cholangiopancreatography MRI 10/17/16 0000 Signed Impressions: Service Date/Time: Monday, October 17, 2016 17:20 - CONCLUSION: The common bile duct is markedly dilated in a patient status post cholecystectomy. It's tortuous but I do not see any filling defects or solid masses. Hema Zarate MD Abdomen/Pelvis CT 10/15/16 0000 Signed Impressions: Service Date/Time: Sunday, October 16, 2016 02:53 - CONCLUSION: 1. No acute intra-abdominal or pelvic pathology. 2. Stable chronic pancreatitis. 3. Stable 4.4 cm right dermoid cyst. 4. Stable left adrenal mass measuring 1.9 cm. Most likely an adrenal adenoma. 5. Stable appearance of the liver, status post cholecystectomy James Herrera MD Objective Remarks General: No acute distress. Appears older than stated age. Heart: Regular rate and rhythm. No murmur. Lungs: Clear to auscultation bilaterally. No wheezes, rales, or rhonchi. Breathing is nonlabored. Abdomen: Soft, tender to palpation in the midepigastric region, nondistended. + bowel sounds Extremities: No lower extremity edema. Psych: Alert and oriented. Procedures 10/19/16 CT-guided liver biopsy Urinary Catheter: No Vascular Central Line Catheter: No A/P Problem List: (1) Pancreatitis ICD Code: K85.9 Status: Chronic (2) MAUREEN (acute kidney injury) ICD Code: N17.9 Status: Acute (3) HTN (hypertension) ICD Code: I10 Status: Chronic (4) Tobacco abuse ICD Code: Z72.0 Status: Chronic (5) DM (diabetes mellitus) ICD Code: E11.9 Status: Acute Assessment and Plan 1. Pancreatitis: Recurrent. Lipase is improving. CT of the abdomen/pelvis shows chronic pancreatitis, no acute findings. Continue IV Protonix. Continue pain control, antiemetics. Clear liquid diet. Follow lipase. IV fluids. Appreciate GI recommendations. MRCP report noted. May need endoscopic ultrasound. 2. Poorly controlled diabetes mellitus: Patient is reportedly noncompliant with medications. Metformin on hold secondary to renal insufficiency. Continue Levemir. Monitor Accu-Cheks and cover with sliding scale insulin. 3. Acute kidney injury: Continue IV fluids. Monitor BUN and creatinine. 4. Hypertension: Blood pressure was likely elevated secondary to pain, now well controlled. Continue home medications. 5. Tobacco abuse: Counseled to quit smoking. 6. DVT prophylaxis: SCDs, PAVAN ray. 7. Elevated LFTs: Appreciate GI recommendations. Liver biopsy done today. LFTs are trending down. Discharge Planning Possible discharge next 1-2 days if cleared by GI. Tin Gilbert MD Oct 19, 2016 16:35
[2016-10-19] MEDS: ATORVASTATIN 20 MG TAB PO SCH (21:28)
[2016-10-20] VITALS: BP 117/72; PULSE 98; RESP 16; TEMP 98.2; O2SAT 97
[2016-10-20] MEDS: NS + KCL 20 MEQ INJ 1,000 ML IV SCH ×2 (01:30→11:30)
[2016-10-20 04:00] VITALS: BP 142/73; PULSE 77; RESP 16; TEMP 98; O2SAT 97
[2016-10-20] MEDS: INSULIN ASPART SUPPLEMENTAL SCALE SQ SCH ×2 (05:38→12:32)
[2016-10-20 08:00] VITALS: BP 140/72; PULSE 80; RESP 18; TEMP 98.2; O2SAT 98
[2016-10-20] MEDS: DOCUSATE SODIUM 50 MG/SENNA 8.6 MG TAB PO SCH (09:50)
[2016-10-20] MEDS: URSODIOL 300 MG CAP PO SCH (09:50)
[2016-10-20] MEDS: amLODIPine BESYLATE 5 MG TAB PO SCH (09:50)
[2016-10-20] MEDS: PANTOPRAZOLE SODIUM 40 MG VIAL IV PUSH SCH (09:51)
[2016-10-20] MEDS: LIPASE/PROTEASE/AMYLASE (24,000/76,000/120,000) CAP PO SCH ×2 (09:53→12:28)
[2016-10-20] MEDS: INSULIN DETEMIR 100 UNITS/ML VIAL SQ SCH (10:03)
[2016-10-20] MEDS: SODIUM CHLORIDE 0.9% FLUSH 10 ML FLUSH IV FLUSH SCH (10:04)
[2016-10-20] MEDS ORDERED: OXYC-392 PO (10:20)
[2016-10-20] MEDS ORDERED: CREON24 PO (10:20)
[2016-10-20] MEDS ORDERED: URSO300C2 PO (10:20)
--- NOTE | 2016-10-20 10:21 | HHI.DCPOC ---
Discharge Care Plan Diagnosis: (1) Elevated liver enzymes (2) MAUREEN (acute kidney injury) (3) DM (diabetes mellitus) (4) HTN (hypertension) (5) Pancreatitis Goals to Promote Your Health * To prevent worsening of your condition and complications * To maintain your health at the optimal level Directions to Meet Your Goals Take your medications as prescribed Follow your dietary instruction Follow activity as directed Keep your appointments as scheduled Take your immunizations and boosters as scheduled If your symptoms worsen call your PCP, if no PCP go to Urgent Care Center or Emergency Room Smoking is Dangerous to Your Health. Avoid second hand smoke Call the 24-hour hour crisis hotline for domestic abuse at Tin Gilbert MD Oct 20, 2016 10:21
--- NOTE | 2016-10-20 10:34 | HHI.DS ---
Discharge Summary Admission Date Oct 16, 2016 at 03:34 Discharge Date: Oct 20, 2016 Admitting Diagnosis acute pancreatitis (1) Pancreatitis ICD Code: K85.9 (2) MAUREEN (acute kidney injury) ICD Code: N17.9 (3) HTN (hypertension) ICD Code: I10 (4) Tobacco abuse ICD Code: Z72.0 (5) DM (diabetes mellitus) ICD Code: E11.9 Procedures 10/19/16 CT-guided liver biopsy Brief History - From Admission This is a 56-year-old female with a PMH of HTN, DM, CAD, h/o Pancreatitis, Tobacco Abuse and Noncompliance who presented to the ER with complaints of abdominal pain x2-3 days. Notes associated nausea, but no vomiting. Denies fever, chills or diarrhea. Previous admit 09/08-09/14/16 for similar complaints, found to be in DKA w/ Acute Pancreatitis, s/p ERCP by Dr. Osorio w/ dilated CBD, also eval by Hematology for apparent lytic lesion, however MRI w/ no evidence of lytic lesions and work up negative for multiple myeloma. Returns now w/ recurrent abdominal pain. On arrival, BP 177/95, HR 118, O2 sat 96% on RA, Afebrile. CBC unremarkable. Creatinine 1.29, previously 0.92 on 09/14/16. BS 610. Lactic Acid normal. Lipase 3394. UA negative. CT Abd/Pelvis w/ no acute intra-abdominal or pelvic pathology, stable chronic pancreatitis, stable left adrenal mass. CBC/BMP: 10/17/16 1913 10/18/16 0650 Significant Findings Laboratory Tests Test 10/17/16 10/18/16 10/19/16 10/19/16 19:13 06:50 06:47 11:52 Red Blood Count 3.85 MIL/MM3 (4.00-5.30) Hematocrit 33.8 % (35.0-46.0) Platelet Count 139 TH/MM3 (150-450) Random Glucose 224 MG/DL (74-106) Total Bilirubin 1.2 MG/DL (0.2-1.0) Aspartate Amino Transf 763 U/L (15-37) 618 U/L (15-37) 183 U/L (15-37) (AST/SGOT) Alanine Aminotransferase 362 U/L (10-53) 313 U/L (10-53) 206 U/L (10-53) (ALT/SGPT) Alkaline Phosphatase 838 U/L 840 U/L 749 U/L (45-117) (45-117) (45-117) Albumin 2.7 GM/DL 2.5 GM/DL 2.5 GM/DL (3.4-5.0) (3.4-5.0) (3.4-5.0) Chloride Level 108 MEQ/L (98-107) Estimat Glomerular Filtration 87 ML/MIN (>89) Rate Total Iron Binding Capacity 197 MCG/DL (250-450) Ferritin 513 NG/ML (8-252) Gamma Glutamyl Transpeptidase 1577 U/L (5-55) Total Protein 6.3 GM/DL (6.4-8.2) Direct Bilirubin 0.3 MG/DL (0.0-0.2) Prothrombin Time 11.7 SEC (9.8-11.6) Imaging Last Impressions Cholangiopancreatography MRI 10/17/16 0000 Signed Impressions: Service Date/Time: Monday, October 17, 2016 17:20 - CONCLUSION: The common bile duct is markedly dilated in a patient status post cholecystectomy. It's tortuous but I do not see any filling defects or solid masses. Hema Zarate MD Abdomen/Pelvis CT 10/15/16 0000 Signed Impressions: Service Date/Time: Sunday, October 16, 2016 02:53 - CONCLUSION: 1. No acute intra-abdominal or pelvic pathology. 2. Stable chronic pancreatitis. 3. Stable 4.4 cm right dermoid cyst. 4. Stable left adrenal mass measuring 1.9 cm. Most likely an adrenal adenoma. 5. Stable appearance of the liver, status post cholecystectomy James Herrera MD PE at Discharge General: No acute distress. Appears older than stated age. Heart: Regular rate and rhythm. No murmur. Lungs: Clear to auscultation bilaterally. No wheezes, rales, or rhonchi. Breathing is nonlabored. Abdomen: Soft, tender to palpation in the midepigastric region, nondistended. + bowel sounds Extremities: No lower extremity edema. Right hand with small area of erythema and swelling at prior IV site. No definite fluctuance. No drainage. Psych: Alert and oriented. Pt update on day of discharge The patient continues to report abdominal pain. She appears much more comfortable today. No nausea/vomiting. Hospital Course The patient was admitted for management of recurrent pancreatitis and uncontrolled diabetes. Gastroenterology was consulted. Patient was continued on IV fluids. She was restarted on her insulin. Glucose control improved. LFTs trended down throughout the hospitalization, but remained elevated. Liver biopsy was done. On the day of discharge she was noted to have erythema and swelling on the dorsum of her right hand. This was felt to be secondary to superficial thrombophlebitis as it was located at the site of a prior IV. She was advised to use warm compresses and to seek medical attention if the redness and swelling increased or if she developed fevers/chills/night sweats. Pt Condition on Discharge: Stable Discharge Disposition: Discharge Home Discharge Time: > 30 minutes Discharge Instructions DIET: Follow Instructions for: Heart Healthy Diet, Diabetic Diet Activities you can perform: Regular-No Restrictions Follow up Referrals: Gastroenterology - 1 Week with Annette Mcdowell MD PCP Follow-up - 2 Weeks New Medications: Ursodiol (Ursodiol) 300 Mg Cap 300 MG PO BID Gallstones #60 Ref 0 CAP Oxycodone (Oxycodone) 5 Mg Tab 5 MG PO Q6HR PRN PAIN SCALE 4 TO 10 #20 Ref 0 TAB Pancrelipase (Creon) 24,000-76,000-120,000 Units Cap 2 CAP PO TID Pancreatic insufficiency #90 Ref 0 CAP Continued Medications: Amlodipine (Norvasc) 5 Mg Tab 5 MG PO DAILY #30 TAB Insulin Detemir Inj (Levemir Inj) 1,000 unit/ 10 ML Vial 18 UNITS SQ BID glucose Days 30 INJECTION Metformin (Glucophage) 500 Mg Tab 1000 MG PO BIDPC #120 TAB Pantoprazole (Pantoprazole) 40 Mg Tab 40 MG PO DAILY Reflux #30 Ref 0 TAB Discontinued Medications: Atorvastatin (Lipitor) 20 Mg Tab 20 MG PO HS #30 TAB Tin Gilbert MD Oct 20, 2016 10:34
[2016-10-20 11:59] LABS: ALKALINE PHOSPHATASE 587 U/L (45-117); ALT (GPT) 121 U/L (10-53); ANION GAP 8 MEQ/L (5-15); AST (GOT) 62 U/L (15-37); BICARBONATE 24.1 MEQ/L (21.0-32.0); BLOOD UREA NITROGEN 8 MG/DL (7-18); CHLORIDE 103 MEQ/L (98-107); GLOMERULAR FILTRATION RATE 100 ML/MIN (>89); POTASSIUM 4.3 MEQ/L (3.5-5.1); SODIUM (NA) 135 MEQ/L (136-145); TOTAL BILIRUBIN ADULT 0.4 MG/DL (0.2-1.0)
[2016-10-20 12:00] VITALS: BP 104/64; PULSE 76; RESP 18; TEMP 99; O2SAT 98
--- NOTE | 2016-10-20 15:40 | RADRPT ---
EXAM DATE/TIME: 10/19/2016 15:09 [place] COMPARISON: No previous studies available for comparison. INDICATIONS : Pancreatitis. SEDATION TIME: 30 minutes BIOPSY SITE: Right upper quadrant MEDICATION(S): 1.) 2 mg midazolam (Versed) IV 2.) 100 mcg fentanyl (Sublimaze) IV DEVICE(S): 1.) 18 gauge Temno core biopsy needle MEDICAL HISTORY : Cardiovascular disease. Hypertension. Diabetes mellitus type 2. SURGICAL HISTORY : Coronary artery stent. Cholecystectomy. ENCOUNTER: Initial ACUITY: 1 day PAIN SCORE: 0/10 LOCATION: Right upper quadrant A total of one core specimen(s) were obtained and sent to the laboratory for pathologic evaluation. PROCEDURE: 1. CT guided liver biopsy. 2. Conscious sedation with continuous EKG and oximetry monitoring. 3. EKG and oximetry remained stable throughout the procedure. Prior to the procedure informed consent was obtained. Any appropriate prior imaging studies were rev iewed. Using automated exposure control and adjustment of the mA and/or kV according to patient size, radiat ion dose was kept as low as reasonably achievable to obtain optimal diagnostic quality images. DICOM format image data is available electronically for review and comparison. The site was prepped in a sterile fashion. Full sterile technique was used, including cap, mask, rupinder rile gloves and gown and a large sterile sheet. Hand hygiene and 2% chlorhexidine and/or betadine/al cohol prep was utilized per protocol for cutaneous antisepsis. The skin and subcutaneous tissues wer e infiltrated with local anesthetic solution. With CT guidance the previously identified target was localized. Biopsy was performed using the presc ribed needle as above. Adequate hemostasis was obtained with compression at the puncture site. Follow-up CT scan reveals no hemorrhage. The patient tolerated the procedure well and there were no complications. The patient was returned to the Radiology Outpatient Unit in stable condition. CONCLUSION: Uncomplicated CT guided biopsy. Sammy Francois MD on October 20, 2016 at 15:39 Board Certified Radiologist. This report was verified electronically.
[2016-10-20] MEDS ORDERED: PANTOPRAZOLE SOD 40 MG DELAYED RELEASE TAB PO SCH (21:00)
[2016-10-21 03:51] LABS: IGA SERUM 390 mg/dL (81-463); TISSUE TRANSGLUTAMINASE AB IGG ND U/mL (())
[2016-10-22 03:49] LABS: MITOCHONDRIAL ABS 76.8 U (())
[2016-10-23 03:50] LABS: ENDOMYSIAL AB TITER ND (<1:5); TISSUE TRANSGLUTAMINASE AB 1 U/mL (())
== END 2016-10-20 15:05 | disposition home or self-care (01) | DRG 438 ==
LOC: NEPC 22:08 → UNDOADMIN 10-16 03:34 → NEDA 10-16 03:34 → NEDH 10-16 03:34 → N06B 10-16 09:26
PROVIDERS: ADMIT Family Medicine; ATTEND Family Medicine
PROC: 0FB13ZX Excision of Right Lobe Liver, Percutaneous Approach, Diagnostic (ICD-10-PCS; principal; 2016-10-19)
DX: K85.90 Acute pancreatitis without necrosis or infection, unspecified (principal); E11.00 Type 2 diabetes mellitus with hyperosmolarity without nonketotic hyperglycemic-hyperosmolar coma (NKHHC); N17.9 Acute kidney failure, unspecified; J90 Pleural effusion, not elsewhere classified; I10 Essential (primary) hypertension; E78.5 Hyperlipidemia, unspecified; I25.10 Atherosclerotic heart disease of native coronary artery without angina pectoris; D35.00 Benign neoplasm of unspecified adrenal gland; I80.9 Phlebitis and thrombophlebitis of unspecified site; K86.1 Other chronic pancreatitis; Z79.4 Long term (current) use of insulin; F17.210 Nicotine dependence, cigarettes, uncomplicated; Z91.14 Patient's other noncompliance with medication regimen; Z95.5 Presence of coronary angioplasty implant and graft
CPT/HCPCS: 47000; 74176; 74181; 76377; 76937; 77012; 80053; 80076; 81001; 82010; 82103; 82390; 82728; 82784; 82948; 82977; 83516; 83520; 83540; 83550; 83605; 83690; 83735; 85025; 85610; 85730; 86038; 86255; 88307; 88313; 96361; 96374; 96375; C9113; J1170; J1815; J2250; J2270; J2405; J3010; J3480; J7030

== ENCOUNTER 2016-12-20 22:21 | Inpatient (IN) | payer OTHER ==
[~2016-12-20] VITALS: Ht 157.5 cm; Wt 56.0 kg
[~2016-12-20 22:21] MED LIST changes: -LIPI20TA PO; +OXYC-392 PO; -PERI8.6T PO; -TRAZ100T4 PO; +URSO300C2 PO
[2016-12-20 22:26] VITALS: BP 141/78; PULSE 95; RESP 15; TEMP 97.8; O2SAT 98
--- NOTE | 2016-12-20 22:30 | PD ---
Physical Exam Date Seen by Provider: Dec 20, 2016 Time Seen by Provider: 22:29 Narrative 56-year-old black female presents to the department with a skin infection to her left upper arm over the past week. She states that she is an insulin- dependent diabetic and had been using the same area to inject her insulin. She noticed an area develop over last several days which is open is started draining pus. She has not checked her sugars in several days. She denies any fever or chills. No nausea vomiting. Symptoms are moderate. Up-to-date with immunizations. Vital signs reviewed. Awaiting bed placement. Data Data Last Documented VS Vital Signs Date Time Temp Pulse Resp B/P (MAP) Pulse Ox O2 Delivery O2 Flow Rate FiO2 12/20/16 22:26 97.8 95 15 141/78 (99) 98 Room Air Orders Orders Blood Glucose (12/20/16 22:28) [facility] Medical Record Reviewed: No Supervised Visit with SHELBIE: Sincere Ricks Dec 20, 2016 22:30
[2016-12-20 22:45] VITALS: BP 125/78; PULSE 73; RESP 18; O2SAT 99
[2016-12-20] MEDS ORDERED: SODIUM CHLOR 0.9% 1000 ML INJ 1,000 ML IV ONE ×2 (22:50→23:20)
[2016-12-20] MEDS ORDERED: TETANUS/DIPHTHERIA TOXOID ADULT 0.5 ML VIAL IM ONE (23:00)
[2016-12-20] MEDS ORDERED: SODIUM CHLORIDE 0.9% FLUSH 10 ML FLUSH IVF PRN (23:00)
[2016-12-20] MEDS ORDERED: VANCOMYCIN INJ 850 MG in SODIUM CHLOR 0.9% 250 ML INJ 250 ML IV ONE (23:00)
--- NOTE | 2016-12-20 23:17 | PD ---
HPI Chief Complaint: Skin Problem Time Seen by Provider: 22:38 Travel History International Travel<30 days: No Contact w/Intl Traveler<30days: No Traveled to known affect area: No History of Present Illness HPI Patient is a 56-year-old female who presents to emergency room complaints of left upper arm skin infection. Reports that she is a type II diabetic currently on insulin, reports that she has been giving herself insulin in her left upper arm as this is more comfortable to her. Reports that for the past week, she has noticed an open infection with drainage of pus from the area. Patient reports that today, she had increased pus and pain from her left arm. Reports that she decided to come to the emergency room for evaluation. Patient denies any fevers or chills, reports that she does not check her blood sugars. Patient with no other complaint at this time. PFSH Past Medical History Arthritis: No Asthma: Yes (CHILDHOOD) Autoimmune Disease: No Blood Disorders: No Anxiety: No Heart Rhythm Problems: No Cancer: No Cardiac Catheterization: Yes Cardiovascular Problems: Yes (htn) High Cholesterol: Yes Chemotherapy: No Chest Pain: No Congestive Heart Failure: No COPD: No Cerebrovascular Accident: No Coronary Artery Disease: Yes Diabetes: Yes Patient Takes Glucophage: Yes (12/20/2016 @ 0930) Diminished Hearing: No Endocrine: No Gastrointestinal Disorders: Yes (HX. PANCREATITIS) GERD: No Glaucoma: No Genitourinary: No Headaches: No Hepatitis: No Hiatal Hernia: No Heparin Induced Thrombocytopen: No Hypertension: Yes Immune Disorder: No Implanted Vascular Access Dvce: No Kidney Stones: No Musculoskeletal: Yes Neurologic: No Psychiatric: No Reproductive: No Respiratory: Yes Immunizations Current: Yes Migraines: No Myocardial Infarction: No Pancreatitis: Yes Radiation Therapy: No Renal Failure: No Seizures: No Sickle Cell Disease: No Sleep Apnea: Yes Thyroid Disease: No Tetanus Vaccination: < 5 Years Influenza Vaccination: Yes ?: Not Menopausal: Yes : 9 Para: 9 Past Surgical History Abdominal Surgery: Yes (G-TUBE PLACEMENT AND REMOVAL ) AICD: No Appendectomy: No Arteriovenous Shunt: No Cardiac Surgery: Yes (CARDIAC CATH. WITH STENTS-,) Cholecystectomy: Yes Coronary Artery Bypass Graft: No Coronary Stent: Yes (2005) Ear Surgery: No Endocrine Surgery: No Eye Surgery: No Genitourinary Surgery: No Gynecologic Surgery: No Insulin Pump: No Joint Replacement: No Neurologic Surgery: No Oral Surgery: Yes (TEETH EXTRACTIONS) Pacemaker: No Thoracic Surgery: No Other Surgery: Yes (G-TUBE PLACEMENT AND REMOVAL ) Family History Family Myocardial Infarction: Yes (uncle and other family members) Social History Alcohol Use: No Tobacco Use: Yes (1 PPD) Substance Use: No Allergies-Medications (Allergen,Severity, Reaction): Coded Allergies: No Known Allergies (Verified , 12/20/16) NONE KNOWN Reported Meds & Prescriptions Reported Meds & Active Scripts Active Ursodiol 300 Mg Cap 300 Mg PO BID Creon (Amylase/Lipase/Protease) 24,000-76,000-120,000 Units Cap 2 Cap PO TID Oxycodone (Oxycodone HCl) 5 Mg Tab 5 Mg PO Q6HR PRN Glucophage (Metformin HCl) 500 Mg Tab 1,000 Mg PO BIDPC Norvasc (Amlodipine Besylate) 5 Mg Tab 5 Mg PO DAILY Pantoprazole (Pantoprazole Sodium) 40 Mg Tab 40 Mg PO DAILY Levemir Inj (Insulin Detemir) 1,000 unit/ 10 ML Vial 18 Units SQ BID 30 Days Review of Systems General / Constitutional: No: Fever Eyes: No: Visual changes HENT: No: Headaches Cardiovascular: No: Chest Pain or Discomfort Respiratory: No: Shortness of Breath Gastrointestinal: No: Abdominal Pain Genitourinary: No: Dysuria Musculoskeletal: No: Pain Skin: Positive Other (ulceration/infection to her left upper extremity), No Rash Neurologic: No: Weakness Psychiatric: No: Depression Endocrine: No: Polydipsia Hematologic/Lymphatic: No: Easy Bruising Physical Exam Narrative GENERAL: Mild distress SKIN: Focused skin assessment warm/dry. HEAD: Atraumatic. Normocephalic. EYES: Pupils equal and round. No scleral icterus. No injection or drainage. ENT: No nasal bleeding or discharge. Mucous membranes pink and moist. NECK: Trachea midline. No JVD. CARDIOVASCULAR: Regular rate and rhythm. No murmur appreciated. RESPIRATORY: No accessory muscle use. Clear to auscultation. Breath sounds equal bilaterally. GASTROINTESTINAL: Abdomen soft, non-tender, nondistended. Hepatic and splenic margins not palpable. MUSCULOSKELETAL: No obvious deformities. No clubbing. No cyanosis. No edema. LUE: patient with 2 1x1cm circumferential ulcerations with yellow pus and drainage from upper arm, there is no surrounding cellulitis, radial and ulnar pulses are intact, neurovascularly intact. RUE: normal exam NEUROLOGICAL: Awake and alert. No obvious cranial nerve deficits. Motor grossly within normal limits. Normal speech. PSYCHIATRIC: Appropriate mood and affect; insight and judgment normal. Data Data Last Documented VS Vital Signs Date Time Temp Pulse Resp B/P (MAP) Pulse Ox O2 Delivery O2 Flow Rate FiO2 12/21/16 01:09 79 18 168/61 (96) 98 Room Air 12/20/16 22:26 97.8 Orders Orders Blood Glucose (12/20/16 22:28) Complete Blood Count With Diff (12/20/16 22:50) Comprehensive Metabolic Panel (12/20/16 22:50) Beta Hydroxybutyrate (Acetone) (12/20/16 22:50) Urinalysis - C+S If Indicated (12/20/16 22:50) Ecg Monitoring (12/20/16 22:50) Iv Access Insert/Monitor (12/20/16 22:50) Oximetry (12/20/16 22:50) NPO (12/20/16 22:50) Sodium Chlor 0.9% 1000 Ml Inj (Ns 1000 M (12/20/16 22:50) Sodium Chlor 0.9% 1000 Ml Inj (Ns 1000 M (12/20/16 23:20) Sodium Chloride 0.9% Flush (Ns Flush) (12/20/16 23:00) Humerus (Min 2vws) (12/20/16 ) Vancomycin Inj (Vancomycin Inj) (12/20/16 23:00) Tetanus/Diphtheria Tox Adult (Tetanus/Di (12/20/16 23:00) Morphine Inj (Morphine Inj) (12/21/16 00:30) Insulin Human Regular Inj (Novolin R Inj (12/21/16 00:30) Admit Order (Ed Use Only) (12/21/16 01:15) Labs Laboratory Tests Test 12/20/16 23:16 White Blood Count 6.6 TH/MM3 Red Blood Count 3.86 MIL/MM3 Hemoglobin 11.3 GM/DL Hematocrit 35.4 % Mean Corpuscular Volume 91.6 FL Mean Corpuscular Hemoglobin 29.2 PG Mean Corpuscular Hemoglobin Concent 31.9 % Red Cell Distribution Width 15.1 % Platelet Count 189 TH/MM3 Mean Platelet Volume 8.9 FL Neutrophils (%) (Auto) 52.3 % Lymphocytes (%) (Auto) 39.5 % Monocytes (%) (Auto) 4.7 % Eosinophils (%) (Auto) 2.7 % Basophils (%) (Auto) 0.8 % Neutrophils # (Auto) 3.5 TH/MM3 Lymphocytes # (Auto) 2.6 TH/MM3 Monocytes # (Auto) 0.3 TH/MM3 Eosinophils # (Auto) 0.2 TH/MM3 Basophils # (Auto) 0.1 TH/MM3 CBC Comment DIFF FINAL Differential Comment Blood Urea Nitrogen 30 MG/DL Creatinine 1.25 MG/DL Random Glucose 583 MG/DL Total Protein 7.7 GM/DL Albumin 3.3 GM/DL Calcium Level 8.9 MG/DL Alkaline Phosphatase 172 U/L Aspartate Amino Transf (AST/SGOT) 16 U/L Alanine Aminotransferase (ALT/SGPT) 15 U/L Total Bilirubin 0.3 MG/DL Sodium Level 126 MEQ/L Potassium Level 4.3 MEQ/L Chloride Level 94 MEQ/L Carbon Dioxide Level 23.3 MEQ/L Anion Gap 9 MEQ/L Estimat Glomerular Filtration Rate 54 ML/MIN B-Hydroxybutyrate 0.14 MMOL/L MDM Medical Decision Making Medical Screen Exam Complete: Yes Emergency Medical Condition: Yes Medical Record Reviewed: Yes Interpretation(s) Vital Signs Date Time Temp Pulse Resp B/P (MAP) Pulse Ox O2 Delivery O2 Flow Rate FiO2 12/20/16 22:45 73 18 125/78 (94) 99 Room Air 12/20/16 22:26 97.8 95 15 141/78 (99) 98 Room Air Bedside blood glucose "high" Differential Diagnosis Differential includes ulceration with infection, hyperglycemia, electrolyte abnormality Narrative Course 56-year-old female who presents to emergency room with complaints of infection to her left upper extremity, reports that infection began after she injected herself with insulin. Reports increased pain with yellow discharge from her arm. Her blood sugar currently reading high CBC, BMP, UA, x-ray of the left humerus ordered. Plan to update patient's tetanus administered dose of IV vancomycin. Patient will require admission at this time. Vital Signs Date Time Temp Pulse Resp B/P (MAP) Pulse Ox O2 Delivery O2 Flow Rate FiO2 12/21/16 00:13 74 18 152/80 (104) 100 Room Air 12/20/16 22:45 73 18 125/78 (94) 99 Room Air 12/20/16 22:26 97.8 95 15 141/78 (99) 98 Room Air Laboratory Tests Test 12/20/16 23:16 White Blood Count 6.6 TH/MM3 (4.0-11.0) Red Blood Count 3.86 MIL/MM3 (4.00-5.30) Hemoglobin 11.3 GM/DL (11.6-15.3) Hematocrit 35.4 % (35.0-46.0) Mean Corpuscular Volume 91.6 FL (80.0-100.0) Mean Corpuscular Hemoglobin 29.2 PG (27.0-34.0) Mean Corpuscular Hemoglobin Concent 31.9 % (32.0-36.0) Red Cell Distribution Width 15.1 % (11.6-17.2) Platelet Count 189 TH/MM3 (150-450) Mean Platelet Volume 8.9 FL (7.0-11.0) Neutrophils (%) (Auto) 52.3 % (16.0-70.0) Lymphocytes (%) (Auto) 39.5 % (9.0-44.0) Monocytes (%) (Auto) 4.7 % (0.0-8.0) Eosinophils (%) (Auto) 2.7 % (0.0-4.0) Basophils (%) (Auto) 0.8 % (0.0-2.0) Neutrophils # (Auto) 3.5 TH/MM3 (1.8-7.7) Lymphocytes # (Auto) 2.6 TH/MM3 (1.0-4.8) Monocytes # (Auto) 0.3 TH/MM3 (0-0.9) Eosinophils # (Auto) 0.2 TH/MM3 (0-0.4) Basophils # (Auto) 0.1 TH/MM3 (0-0.2) CBC Comment DIFF FINAL Differential Comment Blood Urea Nitrogen 30 MG/DL (7-18) Creatinine 1.25 MG/DL (0.50-1.00) Random Glucose 583 MG/DL (74-106) Total Protein 7.7 GM/DL (6.4-8.2) Albumin 3.3 GM/DL (3.4-5.0) Calcium Level 8.9 MG/DL (8.5-10.1) Alkaline Phosphatase 172 U/L (45-117) Aspartate Amino Transf (AST/SGOT) 16 U/L (15-37) Alanine Aminotransferase (ALT/SGPT) 15 U/L (10-53) Total Bilirubin 0.3 MG/DL (0.2-1.0) Sodium Level 126 MEQ/L (136-145) Potassium Level 4.3 MEQ/L (3.5-5.1) Chloride Level 94 MEQ/L (98-107) Carbon Dioxide Level 23.3 MEQ/L (21.0-32.0) Anion Gap 9 MEQ/L (5-15) Estimat Glomerular Filtration Rate 54 ML/MIN (>89) B-Hydroxybutyrate 0.14 MMOL/L (0.00-0.39) Last Impressions Humerus X-Ray 12/20/16 0000 Signed Impressions: Service Date/Time: Tuesday, December 20, 2016 22:59 - CONCLUSION: Soft tissue swelling with air suggesting infection. Old proximal humeral fracture. Jay Lara Jr., MD Patient stabilized in the ER, IV vancomycin administered, Patient will be admitted to hospital for further workup. BS 583 - patient was given 10 units of SQ insulin as well as ivf, will continue to monitor Patient's pcp Dr. Dariel Johnson - will call for admission Case reviewed with Dr. Johnson who accepts pt for admission Diagnosis Primary Impression: Skin ulcer of upper arm Qualified Codes: L98.492 - Non-pressure chronic ulcer of skin of other sites with fat layer exposed Additional Impression: Hyperglycemia due to type 2 diabetes mellitus Qualified Codes: E11.65 - Type 2 diabetes mellitus with hyperglycemia; Z79.4 - termite control technician (current) use of insulin Admitting Information Admitting Physician Requests: Admit Mariam Martinez DO Dec 20, 2016 23:17
--- NOTE | 2016-12-20 23:21 | RADRPT ---
EXAM DATE/TIME: 12/20/2016 22:59 [facility] COMPARISON: HUMERUS LEFT (MIN 2VWS), August 19, 2015, 20:45. INDICATIONS : Left humerus pain and skin irritation from insulin shots. MEDICAL HISTORY : Cardiovascular disease. Hypertension. Diabetes mellitus type 2. SURGICAL HISTORY : Coronary artery stent. Cholecystectomy. ENCOUNTER: Initial ACUITY: 2 weeks PAIN SCORE: 4/10 LOCATION: Left mid humerus. FINDINGS: 2 views left humerus show soft tissue swelling involving the more proximal humerus with subcutaneous air. No radiopaque foreign body. No fractures or dislocations. Old trauma involving the proximal jesus heidi. CONCLUSION: Soft tissue swelling with air suggesting infection. Old proximal humeral fracture. Jay Lara Jr., MD on December 20, 2016 at 23:19 Board Certified Radiologist. This report was verified electronically.
[2016-12-20 23:26] LABS: AUTOMATED NEUTROPHIL # 3.5 TH/MM3 (1.8-7.7); BASOPHIL # 0.1 TH/MM3 (0-0.2); BASOPHIL % 0.8 % (0.0-2.0); EOSINOPHIL # 0.2 TH/MM3 (0-0.4); EOSINOPHIL % 2.7 % (0.0-4.0); HEMATOCRIT 35.4 % (35.0-46.0); HEMO FLAGS DIFF FINAL; LYMPH % 39.5 % (9.0-44.0); LYMPHOCYTE # 2.6 TH/MM3 (1.0-4.8); MEAN CELL VOLUME 91.6 FL (80.0-100.0); MEAN CORPUSCULAR HEMOGLOBIN 29.2 PG (27.0-34.0); MEAN CORPUSCULAR HGB CONC 31.9 % (32.0-36.0); MONO % 4.7 % (0.0-8.0); NEUT % 52.3 % (16.0-70.0); PLATELET COUNT 189 TH/MM3 (150-450); RED BLOOD COUNT 3.86 MIL/MM3 (4.00-5.30); RED CELL DISTRIBUTION WIDTH 15.1 % (11.6-17.2); WHITE BLOOD COUNT 6.6 TH/MM3 (4.0-11.0)
[2016-12-21] VITALS (8 sets, daily range): BP systolic 101–171; BP diastolic 55–80; PULSE 73–87; RESP 16–18; TEMP 97.4–98.6; O2SAT 98–100
[2016-12-21] LABS: ALKALINE PHOSPHATASE 172 U/L (45-117); ALT (GPT) 15 U/L (10-53); ANION GAP 9 MEQ/L (5-15); AST (GOT) 16 U/L (15-37); BETA-HYDROXYBUTYRATE 0.14 MMOL/L (0.00-0.39); BICARBONATE 23.3 MEQ/L (21.0-32.0); BLOOD UREA NITROGEN 30 MG/DL (7-18); CHLORIDE 94 MEQ/L (98-107); GLOMERULAR FILTRATION RATE 54 ML/MIN (>89); POTASSIUM 4.3 MEQ/L (3.5-5.1); SODIUM (NA) 126 MEQ/L (136-145); TOTAL BILIRUBIN ADULT 0.3 MG/DL (0.2-1.0)
[2016-12-21] MEDS ORDERED: INSULIN HUMAN REGULAR 1,000 UNITS/10 ML VIAL SQ ONE (00:30)
[2016-12-21] MEDS ORDERED: MORPHINE SULFATE 4 MG/ML INJ IV PUSH ONE (00:30)
[2016-12-21] MEDS: metFORMIN HCL 500 MG TAB PO SCH ×3 (01:30→17:07)
[2016-12-21] MEDS: DOCUSATE SODIUM 50 MG/SENNA 8.6 MG TAB PO SCH ×3 (01:30→21:39)
[2016-12-21] MEDS ORDERED: DEXTROSE 50% IN WATER 50 ML VIAL(D50) IV PUSH PRN (01:30)
[2016-12-21] MEDS: INSULIN DETEMIR 100 UNITS/ML VIAL SQ SCH ×3 (01:30→21:39)
[2016-12-21] MEDS: SODIUM CHLORIDE 0.9% FLUSH 10 ML FLUSH IV FLUSH SCH ×3 (01:30→21:39)
[2016-12-21] MEDS ORDERED: MAGNESIUM HYDROXIDE SUSP 30 ML CUP PO PRN (01:30)
[2016-12-21] MEDS ORDERED: ONDANSETRON HCL 4 MG/2 ML VIAL IVP PRN (01:30)
[2016-12-21] MEDS: URSODIOL 300 MG CAP PO SCH ×3 (01:30→21:39)
[2016-12-21] MEDS ORDERED: LACTULOSE SYRUP 20 GM/30 ML CUP PO PRN (01:30)
[2016-12-21] MEDS ORDERED: SODIUM CHLORIDE 0.9% FLUSH 10 ML FLUSH IV FLUSH PRN (01:30)
[2016-12-21] MEDS ORDERED: GLUCAGON 1 MG/ML VIAL OTHER PRN (01:30)
[2016-12-21] MEDS ORDERED: ACETAMINOPHEN 325 MG TAB PO PRN (01:30)
[2016-12-21] MEDS ORDERED: NALOXONE HCL 0.4 MG/ML AMP IV PUSH PRN (01:30)
[2016-12-21] MEDS ORDERED: SENNOSIDES 8.6 MG TAB PO PRN (01:30)
[2016-12-21] MEDS ORDERED: BISACODYL 10 MG SUPP RECTAL PRN (01:30)
[2016-12-21 01:32] LABS: BLOOD, URINE NEG (NEG); COMMENT (UR) CULT NOT INDICATED; CULTURE IF INDICATED CULT NOT INDICATED; GLUCOSE,URINE 1000 mg/dL (NEG); KETONE, URINE NEG (NEG); NITRITE,URINE NEG (NEG); URINE COLOR LIGHT-YELLOW (YELLW/STRAW)
[2016-12-21] MEDS ORDERED: LEVOFLOXACIN 500 MG PREMIX INJ 100 ML IV SCH (02:00)
[2016-12-21] MEDS: INSULIN ASPART SUPPLEMENTAL SCALE SQ SCH ×4 (08:00→21:40)
[2016-12-21] MEDS: PANTOPRAZOLE SOD 40 MG DELAYED RELEASE TAB PO SCH (09:01)
[2016-12-21] MEDS: LIPASE/PROTEASE/AMYLASE (24,000/76,000/120,000) CAP PO SCH ×3 (09:01→17:07)
[2016-12-21] MEDS: ENOXAPARIN SODIUM 40 MG/0.4 ML SYRINGE SQ SCH (09:02)
[2016-12-21] MEDS: amLODIPine BESYLATE 5 MG TAB PO SCH (09:02)
--- NOTE | 2016-12-21 11:15 | MH ---
cc: DARIEL MORENO MD DATE OF ADMISSION: 12/21/2016 CHIEF COMPLAINT Redness, pain and swelling of the left forearm, skin area. HISTORY OF PRESENT ILLNESS This is 56-year-old female with past medical-surgical history significant for asthma. History of hyperlipidemia. There is a history of coronary artery disease, history of diabetes mellitus, history of pancreatitis, had a G-tube placement and removal, cardiac catheterization done with stent placement on August of 2005 and 2006. He deep extraction, G-tube placement and removal. Came to the ER. At [facility] complaining of left upper arm skin infection. She is there has of type 2 diabetes mellitus using insulin and she with giving her insulin injections at the same spot at the left upper arm. She said that is from the past 1 week she has noticed an open infection, drainage pus from the area, and the patient decided to go to the ER at [facility]. When she was admitted her sugar was high, at the time of admission it was 583 with a low sodium 126, but her potassium was normal 4.3. When I examined the patient. The patient denies any complaint except for the wound at the left upper extremity and I advised her not to inject the insulin at the same spot which lead to sores and infection of the area. The patient verbalized understanding. Other than that there is a mild pain in the area. Mild pus coming out, other than that nothing significant, past medical-surgical history as dictated above. SOCIAL HISTORY AP denies drinking, smoked one pack a day. Advised to quit. Denies any drug abuse. Lives at home. FAMILY HISTORY: Family history significant for heart attack, and other family member has allergies. ALLERGIES NO KNOWN DRUG ALLERGIES. MEDICATIONS 1. <<3:07>> 300 mg p.o. b.i.d. 2. <<3:07>> 3. <<3:10>> 1. Lipase. 2. Protease 24,000 76,000 and [id number], capsules three times a day. 3. Oxycodone 5 mg p.o. q.6 h. 4. Glucophage 500 mg and 1000 mg p.o. b.i.d. 5. Norvasc 5 mg p.o. daily. 6. Protonix 40 mg p.o. daily. 7. Levemir injection 18 units subcutaneous twice a day. REVIEW OF SYSTEMS All review of systems negative except for infection on the left forearm with mild pain and pus coming out, all other review of systems negative. PHYSICAL EXAMINATION IN GENERAL: This is a 56-year female sitting on the bed not in acute distress. VITAL SIGNS: Temperature 97.4, heart rate 73, respirations 18, blood pressure 107/55, O2 saturation 98% room air. HEAD, EYES, EARS, NOSE, AND THROAT: Normocephalic, atraumatic. Extraocular muscles intact, Pupils equal, round, reactive to light and accommodation. Oral mucosa is moist. NECK: The neck is supple. No visible thyromegaly or neck mass. Trachea central. CARDIOVASCULAR SYSTEM: Regular rate and rhythm. LUNGS: Respirations clear to auscultation bilaterally. ABDOMEN: Soft, nontender. Bowel sounds. EXTREMITIES: Shows erythema, redness and wound on the left upper extremity with mild pus coming out. Full range of motion of all extremities. No cyanosis or clubbing. NEUROLOGIC: Awake, alert, oriented x4. No focal deficits. SKIN: Shows wound on the left upper extremity with pus coming out with mild erythema. PSYCHIATRIC: Psych the patient is cooperative. LABORATORY DATA Include CBC showed WBC count 126 low, potassium 4.3, chloride 94 low, BUN 30 high creatinine 1.25 high, GFR 54 low blood glucose 583 which is high alkaline phosphatase 172 high, albumin 3.3 low total protein 7.7. CBC totally unremarkable except for RBC count 3.86 low, hemoglobin 11.3 low, MCHC 31.9 low, retired oximeter rate 0.214. Urinalysis done showed trace of leukocyte is 1000, glucose in the urine. X-ray of the humerus was done shows soft tissue swelling with a suggesting infection or proximal humerus fracture. ASSESSMENT/PLAN 1. This is a 66-year female who came to the emergency room diagnosed with a wound and cellulitis of the left upper extremity. The patient got vancomycin, the patient started on Levaquin 500 mg IV daily. Infectious disease consulted. Further recommendation per infectious disease. 2. History of chronic pancreatitis. Continue the home medication. Creon. 3. History of hypertension. Continue home medication. Monitor blood pressure. 4. Diabetes mellitus ADA 1800 regular diet. NovoLog low-dose. Check blood sugars at bedtime, continue home medication. The patient blood sugar was high, which is improving. 5. History of gout. Continue home medications. 6. History of arthritis. Continue home medications. 7. Deep venous thrombosis prophylaxis Lovenox 40 mg subcutaneous daily. 8. Gastrointestinal prophylaxis Protonix 40 mg p.o. daily. 9. We are going to manage the patient on a daily basis and make the recommendations on a daily basis. Dariel Moreno MD EA/kathe /10:32 AM /10:47 AM
--- NOTE | 2016-12-21 13:39 | PD.ID.CON ---
History of Present Illness Service ID Consult Requested By Dr Johnson Reason for Consult cellulitis Primary Care Physician Dariel Johnson MD Diagnoses: History of Present Illness 56 yo female with obesity, chronic pancreatitis and diabetes presented with 1-2 weeks of L upper arm swelling, rendess and tenderness She developped 2 lesions in that area where she self administrating insuline The lesions opend and drained small amount of pus couple days ago, but have not seem to heal SHe denies fever, chills, nightsweats No leukocytosis Pt was started on levaquinw Review of Systems Except as stated in HPI: all other systems reviewed are Neg Past Family Social History Allergies: Coded Allergies: No Known Allergies (Verified , 12/20/16) NONE KNOWN Past Medical History Hypertension Diabetes Mellitus Hyperlipidemia Chronic pancreatitis Past Surgical History J-tube placement Coronary angiogram and stent placement Cholecystectomy May 2006 Active Ordered Medications Medications where reviewed in EMR Antibiotics Include: levaquine Family History Diabetes mellitus Social History Tobacco use 1/2 pack per day Prior heavy alcohol use, none currently Physical Exam Vital Signs Vital Signs Date Time Temp Pulse Resp B/P (MAP) Pulse Ox O2 Delivery O2 Flow Rate FiO2 12/21/16 11:36 98.5 85 18 122/61 (81) 99 12/21/16 08:48 97.4 73 18 107/55 (72) 98 12/21/16 05:15 98.0 74 18 101/55 (70) 98 12/21/16 02:06 77 18 171/68 (102) 96 12/21/16 01:09 79 18 168/61 (96) 98 Room Air 12/21/16 00:13 74 18 152/80 (104) 100 Room Air 12/20/16 22:45 73 18 125/78 (94) 99 Room Air 12/20/16 22:26 97.8 95 15 141/78 (99) 98 Room Air Physical Exam CONSTITUTIONAL/GENERAL: This is an obese middle aged female patient, in no apparent distress. TUBES/LINES/DRAINS: SKIN: No jaundice, rashes, or lesions. . Skin temperature appropriate. Not diaphoretic. HEAD: Atraumatic. Normocephalic. EYES: Pupils equal and round and reactive. Extraocular motions intact. No scleral icterus. No injection or drainage. Fundi not examined. ENT: Hearing grossly normal. Nose without bleeding or purulent drainage. Throat without visible erythema, exudates, masses, or lesions.edentulous NECK: Trachea midline. Supple, nontender. No palpable thyroid enlargement or nodularity. CARDIOVASCULAR: Regular rate and rhythm without murmurs, gallops, or rubs. No JVD. Peripheral pulses symmetric. RESPIRATORY/CHEST: Symmetric, unlabored respirations. Clear to auscultation. Breath sounds equal bilaterally. No wheezes, rales, or rhonchi. GASTROINTESTINAL: Abdomen soft, non-tender, nondistended. No hepato-splenomegaly , or palpable masses. No guarding. Bowel sounds present. MUSCULOSKELETAL: Extremities without clubbing, cyanosis, or edema. L arm with 2 open ulcerations, full thickness with some necrotic tissue present one of the ulcers has some odorless whitish pus, another is dry No joint tenderness or effusion noted. No calf tenderness. No mottling or clubbing. LYMPHATICS: No palpable cervical or supraclavicular adenopathy. NEUROLOGICAL: Awake and alert. Motor and sensory grossly within normal limits. Follows commands. Clear speech. Moves all extremities. PSYCHIATRIC: No obvious anxiety/depression. no apparent hallucinations or other psychotic thought process. Laboratory Laboratory Tests Test 12/20/16 23:16 12/21/16 01:00 White Blood Count 6.6 Red Blood Count 3.86 Hemoglobin 11.3 Hematocrit 35.4 Mean Corpuscular Volume 91.6 Mean Corpuscular Hemoglobin 29.2 Mean Corpuscular Hemoglobin Concent 31.9 Red Cell Distribution Width 15.1 Platelet Count 189 Mean Platelet Volume 8.9 Neutrophils (%) (Auto) 52.3 Lymphocytes (%) (Auto) 39.5 Monocytes (%) (Auto) 4.7 Eosinophils (%) (Auto) 2.7 Basophils (%) (Auto) 0.8 Neutrophils # (Auto) 3.5 Lymphocytes # (Auto) 2.6 Monocytes # (Auto) 0.3 Eosinophils # (Auto) 0.2 Basophils # (Auto) 0.1 CBC Comment DIFF FINAL Differential Comment Blood Urea Nitrogen 30 Creatinine 1.25 Random Glucose 583 Total Protein 7.7 Albumin 3.3 Calcium Level 8.9 Alkaline Phosphatase 172 Aspartate Amino Transf (AST/SGOT) 16 Alanine Aminotransferase (ALT/SGPT) 15 Total Bilirubin 0.3 Sodium Level 126 Potassium Level 4.3 Chloride Level 94 Carbon Dioxide Level 23.3 Anion Gap 9 Estimat Glomerular Filtration Rate 54 B-Hydroxybutyrate 0.14 Urine Color LIGHT-YELLOW Urine Turbidity CLEAR Urine pH 6.0 Urine Specific [place] 1.012 Urine Protein NEG Urine Glucose (UA) 1000 Urine Ketones NEG Urine Occult Blood NEG Urine Nitrite NEG Urine Bilirubin NEG Urine Urobilinogen LESS THAN 2.0 Urine Leukocyte Esterase TRACE Urine RBC 1 Urine WBC LESS THAN 1 Microscopic Urinalysis Comment CULT NOT INDICATED Result Diagram: 12/20/16 2316 12/20/16 2316 Imaging Last Impressions Humerus X-Ray 12/20/16 0000 Signed Impressions: Service Date/Time: Tuesday, December 20, 2016 22:59 - CONCLUSION: Soft tissue swelling with air suggesting infection. Old proximal humeral fracture. Jay Lara Jr., MD Assessment and Plan Assessment and Plan Skin and soft tissue infection, ODALIS (apper arm) DM Multiple med illnesses - dc levaquine start vancomycin obtaine clx - will consult surgeon if not imprivng or worse Breanne De MD Dec 21, 2016 13:39
[2016-12-21] MEDS ORDERED: Vancomycin Consult Pharmacy 1 EA OTHER SCH (23:00)
[2016-12-21] MEDS ORDERED: VANCOMYCIN 1,000 MG/NS 250 ML IV ONE ×2 (23:30)
[2016-12-22 01:40] VITALS: BP 122/71; PULSE 78; RESP 16; TEMP 98.1; O2SAT 98
[2016-12-22] MEDS ORDERED: LEVOFLOXACIN/DEXTROSE 250 MG/50 ML IV SCH (02:00)
[2016-12-22 05:54] VITALS: BP 116/78; PULSE 88; RESP 16; TEMP 98.1; O2SAT 98
[2016-12-22 06:56] LABS: AUTOMATED NEUTROPHIL # 2.5 TH/MM3 (1.8-7.7); BASOPHIL % 0.4 % (0.0-2.0); EOSINOPHIL # 0.1 TH/MM3 (0-0.4); EOSINOPHIL % 2.6 % (0.0-4.0); HEMATOCRIT 32.3 % (35.0-46.0); HEMO FLAGS DIFF FINAL; LYMPHOCYTE # 2.4 TH/MM3 (1.0-4.8); MEAN CORPUSCULAR HEMOGLOBIN 29.9 PG (27.0-34.0); MEAN CORPUSCULAR HGB CONC 32.8 % (32.0-36.0); PLATELET COUNT 157 TH/MM3 (150-450); RED BLOOD COUNT 3.55 MIL/MM3 (4.00-5.30); RED CELL DISTRIBUTION WIDTH 15.6 % (11.6-17.2); WHITE BLOOD COUNT 5.3 TH/MM3 (4.0-11.0)
[2016-12-22 07:18] LABS: ALT (GPT) 12 U/L (10-53); ANION GAP 8 MEQ/L (5-15); AST (GOT) 14 U/L (15-37); BICARBONATE 20.8 MEQ/L (21.0-32.0); BLOOD UREA NITROGEN 16 MG/DL (7-18); CHLORIDE 106 MEQ/L (98-107); GLOMERULAR FILTRATION RATE 91 ML/MIN (>89); POTASSIUM 4.3 MEQ/L (3.5-5.1); SODIUM (NA) 135 MEQ/L (136-145)
[2016-12-22 07:22] LABS: ALKALINE PHOSPHATASE 144 U/L (45-117); TOTAL BILIRUBIN ADULT 0.3 MG/DL (0.2-1.0)
[2016-12-22] MEDS: INSULIN ASPART SUPPLEMENTAL SCALE SQ SCH ×4 (08:00→20:28)
[2016-12-22 08:05] VITALS: BP 125/69; PULSE 79; RESP 18; TEMP 98.4; O2SAT 97
[2016-12-22] MEDS: amLODIPine BESYLATE 5 MG TAB PO SCH (08:43)
[2016-12-22] MEDS: LIPASE/PROTEASE/AMYLASE (24,000/76,000/120,000) CAP PO SCH ×3 (08:44→16:47)
[2016-12-22] MEDS: metFORMIN HCL 500 MG TAB PO SCH ×2 (08:44→16:47)
[2016-12-22] MEDS: URSODIOL 300 MG CAP PO SCH ×2 (08:44→20:27)
[2016-12-22] MEDS: PANTOPRAZOLE SOD 40 MG DELAYED RELEASE TAB PO SCH (08:44)
[2016-12-22] MEDS: SODIUM CHLORIDE 0.9% FLUSH 10 ML FLUSH IV FLUSH SCH ×2 (08:45→20:28)
[2016-12-22] MEDS: DOCUSATE SODIUM 50 MG/SENNA 8.6 MG TAB PO SCH ×2 (08:46→20:27)
[2016-12-22] MEDS: INSULIN DETEMIR 100 UNITS/ML VIAL SQ SCH ×2 (08:46→20:28)
[2016-12-22] MEDS: ENOXAPARIN SODIUM 40 MG/0.4 ML SYRINGE SQ SCH (08:46)
[2016-12-22 12:00] VITALS: BP 152/77; PULSE 97; RESP 20; TEMP 97.6; O2SAT 100
[2016-12-22 16:00] VITALS: BP 104/68; PULSE 88; RESP 20; TEMP 98.2; O2SAT 100
--- NOTE | 2016-12-22 16:00 | HHI.IDPN ---
Subjective Subjective Remarks doing OK afebrile growing MRSA from the wound Antibiotics vancomycin Allergies: Coded Allergies: No Known Allergies (Verified , 12/20/16) NONE KNOWN Objective . Vital Signs Date Time Temp Pulse Resp B/P (MAP) Pulse Ox O2 Delivery O2 Flow Rate FiO2 12/22/16 12:00 97.6 97 20 152/77 (102) 100 12/22/16 09:50 16 12/22/16 08:05 98.4 79 18 125/69 (87) 97 12/22/16 05:54 98.1 88 16 116/78 (91) 98 12/22/16 01:40 98.1 78 16 122/71 (88) 98 12/21/16 21:13 98.1 87 16 129/66 (87) 98 . Laboratory Tests Test 12/20/16 23:16 12/22/16 04:58 White Blood Count 6.6 TH/MM3 5.3 TH/MM3 Red Blood Count 3.86 MIL/MM3 3.55 MIL/MM3 Hemoglobin 11.3 GM/DL 10.6 GM/DL Hematocrit 35.4 % 32.3 % Mean Corpuscular Volume 91.6 FL 91.0 FL Mean Corpuscular Hemoglobin 29.2 PG 29.9 PG Mean Corpuscular Hemoglobin Concent 31.9 % 32.8 % Red Cell Distribution Width 15.1 % 15.6 % Platelet Count 189 TH/MM3 157 TH/MM3 Mean Platelet Volume 8.9 FL 9.3 FL Neutrophils (%) (Auto) 52.3 % 47.0 % Lymphocytes (%) (Auto) 39.5 % 46.0 % Monocytes (%) (Auto) 4.7 % 4.0 % Eosinophils (%) (Auto) 2.7 % 2.6 % Basophils (%) (Auto) 0.8 % 0.4 % Neutrophils # (Auto) 3.5 TH/MM3 2.5 TH/MM3 Lymphocytes # (Auto) 2.6 TH/MM3 2.4 TH/MM3 Monocytes # (Auto) 0.3 TH/MM3 0.2 TH/MM3 Eosinophils # (Auto) 0.2 TH/MM3 0.1 TH/MM3 Basophils # (Auto) 0.1 TH/MM3 0.0 TH/MM3 CBC Comment DIFF FINAL DIFF FINAL Differential Comment Laboratory Tests Test 12/20/16 23:16 12/22/16 04:58 Blood Urea Nitrogen 30 MG/DL 16 MG/DL Creatinine 1.25 MG/DL 0.79 MG/DL Random Glucose 583 MG/DL 192 MG/DL Total Protein 7.7 GM/DL 6.3 GM/DL Albumin 3.3 GM/DL 2.6 GM/DL Calcium Level 8.9 MG/DL 8.8 MG/DL Alkaline Phosphatase 172 U/L 144 U/L Aspartate Amino Transf (AST/SGOT) 16 U/L 14 U/L Alanine Aminotransferase (ALT/SGPT) 15 U/L 12 U/L Total Bilirubin 0.3 MG/DL 0.3 MG/DL Sodium Level 126 MEQ/L 135 MEQ/L Potassium Level 4.3 MEQ/L 4.3 MEQ/L Chloride Level 94 MEQ/L 106 MEQ/L Carbon Dioxide Level 23.3 MEQ/L 20.8 MEQ/L Anion Gap 9 MEQ/L 8 MEQ/L Estimat Glomerular Filtration Rate 54 ML/MIN 91 ML/MIN Microbiology Date/Time Source Procedure Growth Status 12/21/16 14:50 Wound Arm Gram Stain - Final Resulted 12/21/16 14:50 Wound Culture - Preliminary S. Aureus Mrsa Resulted Imaging Last Impressions Humerus X-Ray 12/20/16 0000 Signed Impressions: Service Date/Time: Tuesday, December 20, 2016 22:59 - CONCLUSION: Soft tissue swelling with air suggesting infection. Old proximal humeral fracture. Jay Lara Jr., MD Physical Exam CONSTITUTIONAL/GENERAL: This is an obese middle aged female patient, in no apparent distress. TUBES/LINES/DRAINS: SKIN: No jaundice, rashes, or lesions. . S CARDIOVASCULAR: Regular rate and rhythm without murmurs, gallops, or rubs. No JVD. Peripheral pulses symmetric. RESPIRATORY/CHEST: Symmetric, unlabored respirations. Clear to auscultation. Breath sounds equal bilaterally. No wheezes, rales, or rhonchi. GASTROINTESTINAL: Abdomen soft, non-tender, nondistended. No hepato-splenomegaly , or palpable masses. No guarding. Bowel sounds present. MUSCULOSKELETAL: Extremities without clubbing, cyanosis, or edema. L arm with 2 open ulcerations, full thickness with some necrotic tissue present novelty twister tender one of the ulcers has some odorless whitish pus, another is dry NEUROLOGICAL: Awake and alert. Motor and sensory grossly within normal limits. Follows commands. Clear speech. Moves all extremities. Assessment & Plan Remarks Skin and soft tissue infection, LUE (apper arm), MRSA DM Multiple med illnesses cont vancomycin obtaine clx - will consult surgeon Breanne De MD Dec 22, 2016 16:00
--- NOTE | 2016-12-22 18:13 | HHI.PR ---
Subjective History of Present Illness patient c/o lower back pain on pain medicine no acute issue getting IV Antibiotic for wound/ cellulitis left arm. Review of Systems Constitutional Constitutional: Fatigue, Weakness Musculoskeletal MS Remarks lower back pain. Integumentary Skin: Wounds Skin Remarks left arm redness and wound, Vitals/Results Vital Signs Vital Signs Date Time Temp Pulse Resp B/P (MAP) Pulse Ox O2 Delivery O2 Flow Rate FiO2 12/22/16 12:00 97.6 97 20 152/77 (102) 100 12/22/16 09:50 16 12/22/16 08:05 98.4 79 18 125/69 (87) 97 12/22/16 05:54 98.1 88 16 116/78 (91) 98 12/22/16 01:40 98.1 78 16 122/71 (88) 98 12/21/16 21:13 98.1 87 16 129/66 (87) 98 CBC/BMP: 12/22/16 0458 12/22/16 0458 Lab Results Laboratory Tests Test 12/22/16 04:58 White Blood Count 5.3 TH/MM3 Red Blood Count 3.55 MIL/MM3 Hemoglobin 10.6 GM/DL Hematocrit 32.3 % Mean Corpuscular Volume 91.0 FL Mean Corpuscular Hemoglobin 29.9 PG Mean Corpuscular Hemoglobin Concent 32.8 % Red Cell Distribution Width 15.6 % Platelet Count 157 TH/MM3 Mean Platelet Volume 9.3 FL Neutrophils (%) (Auto) 47.0 % Lymphocytes (%) (Auto) 46.0 % Monocytes (%) (Auto) 4.0 % Eosinophils (%) (Auto) 2.6 % Basophils (%) (Auto) 0.4 % Neutrophils # (Auto) 2.5 TH/MM3 Lymphocytes # (Auto) 2.4 TH/MM3 Monocytes # (Auto) 0.2 TH/MM3 Eosinophils # (Auto) 0.1 TH/MM3 Basophils # (Auto) 0.0 TH/MM3 CBC Comment DIFF FINAL Differential Comment Blood Urea Nitrogen 16 MG/DL Creatinine 0.79 MG/DL Random Glucose 192 MG/DL Total Protein 6.3 GM/DL Albumin 2.6 GM/DL Calcium Level 8.8 MG/DL Alkaline Phosphatase 144 U/L Aspartate Amino Transf (AST/SGOT) 14 U/L Alanine Aminotransferase (ALT/SGPT) 12 U/L Total Bilirubin 0.3 MG/DL Sodium Level 135 MEQ/L Potassium Level 4.3 MEQ/L Chloride Level 106 MEQ/L Carbon Dioxide Level 20.8 MEQ/L Anion Gap 8 MEQ/L Estimat Glomerular Filtration Rate 91 ML/MIN Physical Exam General General Appearance: Well Developed, Well Nourished, No Acute Distress, Comfortable Eyes Eye Exam: Sclera White, Extraocular Movement Intact Throat Throat Exam: Oral Mucosa [place] & Moist, Oral Pharynx Normal Neck Neck Exam: Neck Supple, Trachea Midline Pulmonary Resp Exam: Clear Bilaterally, Breath Sounds Equal, No Distress Cardiology CV Exam: Regular Gastrointestinal/Abdomen GI Exam: Soft, Non-Tender, Bowel Sounds Present Musculoskeletal MS Exam: Joints Intact Integumentary Skin Exam: Warm, Dry Skin Remarks Left arm wound and erythema. Neurologic Neuro Exam: Alert, Awake, Oriented, Speech Clear, Moving All Extremities, No Focal Deficits Psychiatric Psych Exam: Appropriate Responses VTE Prophylaxis VTE Prophylaxis Meds: Lovenox PUD Prophylasis PUD Prophylaxis: Protonix Assessment/Plan Assessment/Plan ASSESSMENT/PLAN 1. This is a 66-year female who came to the emergency room diagnosed with a wound and cellulitis of the left upper extremity. patient was started on Levaquin 500 mg IV daily. Infectious disease input noted. Further recommendation per infectious disease. 2. History of chronic pancreatitis. Continue the home medication. Creon. 3. History of hypertension. Continue home medication. Monitor blood pressure. 4. Diabetes mellitus ADA 1800 regular diet. NovoLog low-dose. Check blood sugars at bedtime, continue home medication. The patient blood sugar was high, which is improving. 5. History of gout. Continue home medications. 6. History of arthritis. Continue home medications. 7. Deep venous thrombosis prophylaxis Lovenox 40 mg subcutaneous daily. 8. Gastrointestinal prophylaxis Protonix 40 mg p.o. daily. 9. We are going to manage the patient on a daily basis and make the recommendations on a daily basis. Discussed Condition with: Patient Dariel Johnson MD Dec 22, 2016 18:13
[2016-12-22 20:00] VITALS: BP 128/77; PULSE 92; RESP 18; TEMP 97.8; O2SAT 98
[2016-12-23] VITALS: BP 117/61; PULSE 75; RESP 16; TEMP 99; O2SAT 99
[2016-12-23] MEDS ORDERED: VANCOMYCIN 1,000 MG/NS 250 ML IV SCH ×2
[2016-12-23 04:03] VITALS: BP 114/65; PULSE 80; RESP 18; TEMP 98.3; O2SAT 97
[2016-12-23 07:43] LABS: AUTOMATED NEUTROPHIL # 2.4 TH/MM3 (1.8-7.7); BASOPHIL % 0.5 % (0.0-2.0); EOSINOPHIL # 0.2 TH/MM3 (0-0.4); EOSINOPHIL % 2.8 % (0.0-4.0); HEMATOCRIT 33.3 % (35.0-46.0); HEMO FLAGS DIFF FINAL; LYMPHOCYTE # 2.5 TH/MM3 (1.0-4.8); MEAN CELL VOLUME 90.8 FL (80.0-100.0); MEAN CORPUSCULAR HEMOGLOBIN 29.1 PG (27.0-34.0); MONO % 5.3 % (0.0-8.0); NEUT % 44.4 % (16.0-70.0); PLATELET COUNT 164 TH/MM3 (150-450); RED BLOOD COUNT 3.67 MIL/MM3 (4.00-5.30); RED CELL DISTRIBUTION WIDTH 15.8 % (11.6-17.2); WHITE BLOOD COUNT 5.4 TH/MM3 (4.0-11.0)
[2016-12-23 08:00] VITALS: BP 105/59; PULSE 69; RESP 20; TEMP 98.7
[2016-12-23] MEDS: INSULIN ASPART SUPPLEMENTAL SCALE SQ SCH ×4 (08:00→22:39)
[2016-12-23 08:05] LABS: ANION GAP 8 MEQ/L (5-15); AST (GOT) 14 U/L (15-37); BICARBONATE 21.9 MEQ/L (21.0-32.0); BLOOD UREA NITROGEN 17 MG/DL (7-18); CHLORIDE 108 MEQ/L (98-107); GLOMERULAR FILTRATION RATE 94 ML/MIN (>89); POTASSIUM 4.3 MEQ/L (3.5-5.1); SODIUM (NA) 138 MEQ/L (136-145)
[2016-12-23 08:06] LABS: ALT (GPT) 12 U/L (10-53)
[2016-12-23 08:08] LABS: ALKALINE PHOSPHATASE 141 U/L (45-117); TOTAL BILIRUBIN ADULT 0.2 MG/DL (0.2-1.0)
[2016-12-23] MEDS: ENOXAPARIN SODIUM 40 MG/0.4 ML SYRINGE SQ SCH (09:00)
[2016-12-23] MEDS: SODIUM CHLORIDE 0.9% FLUSH 10 ML FLUSH IV FLUSH SCH ×2 (09:00→22:26)
[2016-12-23] MEDS: URSODIOL 300 MG CAP PO SCH ×2 (09:00→22:25)
[2016-12-23] MEDS: INSULIN DETEMIR 100 UNITS/ML VIAL SQ SCH ×2 (09:55→22:26)
[2016-12-23] MEDS: DOCUSATE SODIUM 50 MG/SENNA 8.6 MG TAB PO SCH ×2 (09:56→22:25)
[2016-12-23] MEDS: amLODIPine BESYLATE 5 MG TAB PO SCH (09:56)
[2016-12-23] MEDS: LIPASE/PROTEASE/AMYLASE (24,000/76,000/120,000) CAP PO SCH ×3 (09:56→18:41)
[2016-12-23] MEDS: PANTOPRAZOLE SOD 40 MG DELAYED RELEASE TAB PO SCH (09:56)
[2016-12-23] MEDS: metFORMIN HCL 500 MG TAB PO SCH ×2 (09:56→18:41)
--- NOTE | 2016-12-23 10:25 | PD.CONS ---
HPI Service General Surgery Consult Requested By Primary Care Physician Dariel Johnson MD Past Family Social History Allergies: Coded Allergies: No Known Allergies (Verified , 12/20/16) NONE KNOWN Active Ordered Medications Current Medications Medications (Trade) Dose Ordered Sig/Vini Route Start Time Stop Time Status Last Admin (NS Flush) 2 ml UNSCH PRN IV FLUSH 12/21/16 01:30 (NS Flush) 2 ml BID IV FLUSH 12/21/16 01:30 12/22/16 20:28 (Tylenol) 650 mg Q4H PRN PO 12/21/16 01:30 (Zofran Inj) 4 mg Q6H PRN IVP 12/21/16 01:30 (Lovenox Inj) 40 mg Q24H SQ 12/21/16 09:00 12/23/16 09:00 (Narcan Inj) 0.4 mg UNSCH PRN IV PUSH 12/21/16 01:30 (Mariah-Colace) 1 tab BID PO 12/21/16 01:30 12/23/16 09:56 (Milk Of Magnesia Liq) 30 ml Q12H PRN PO 12/21/16 01:30 (Senokot) 17.2 mg Q12H PRN PO 12/21/16 01:30 (Dulcolax Supp) 10 mg DAILY PRN RECTAL 12/21/16 01:30 (Lactulose Liq) 30 ml DAILY PRN PO 12/21/16 01:30 (D50w (Vial) Inj) 50 ml UNSCH PRN IV PUSH 12/21/16 01:30 (Glucagon Inj) 1 mg UNSCH PRN OTHER 12/21/16 01:30 (NovoLOG SUPPLEMENTAL SCALE) 1 ACHS SLIDING SCALE SQ 12/21/16 08:00 12/22/16 20:28 (Norvasc) 5 mg DAILY PO 12/21/16 09:00 12/23/16 09:56 (Levemir Inj) 18 units BID SQ 12/21/16 01:30 12/23/16 09:55 (Glucophage) 1,000 mg BIDPC PO 12/21/16 01:30 12/23/16 09:56 (Roxicodone) 5 mg Q6HR PRN PO 12/21/16 01:30 12/23/16 10:02 (Creon 24-76-120) 2 cap TID PO 12/21/16 09:00 12/23/16 09:56 (Protonix) 40 mg DAILY PO 12/21/16 09:00 12/23/16 09:56 (Actigall) 300 mg BID PO 12/21/16 01:30 12/22/16 20:27 Pharmacy Profile Note 0 ml @ 0 mls/hr UNSCH OTHER 12/21/16 23:00 Vancomycin HCl 1000 mg/Sodium Chloride 250 ml @ 250 mls/hr Q24H IV 12/23/16 00:00 12/23/16 00:23 Miscellaneous Information SPECIFIC LAB TO BE INGA... ONCE ONCE .XX 12/24/16 23:45 12/24/16 23:46 Physical Exam Vital Signs Vital Signs Date Time Temp Pulse Resp B/P (MAP) Pulse Ox O2 Delivery O2 Flow Rate FiO2 12/23/16 08:00 98.7 69 20 105/59 (74) 12/23/16 04:03 98.3 80 18 114/65 (81) 97 12/23/16 00:00 99.0 75 16 117/61 (79) 99 12/22/16 20:00 97.8 92 18 128/77 (94) 98 12/22/16 16:00 98.2 88 20 104/68 (80) 100 12/22/16 12:00 97.6 97 20 152/77 (102) 100 Laboratory Laboratory Tests Test 12/23/16 06:20 White Blood Count 5.4 Red Blood Count 3.67 Hemoglobin 10.7 Hematocrit 33.3 Mean Corpuscular Volume 90.8 Mean Corpuscular Hemoglobin 29.1 Mean Corpuscular Hemoglobin Concent 32.0 Red Cell Distribution Width 15.8 Platelet Count 164 Mean Platelet Volume 9.1 Neutrophils (%) (Auto) 44.4 Lymphocytes (%) (Auto) 47.0 Monocytes (%) (Auto) 5.3 Eosinophils (%) (Auto) 2.8 Basophils (%) (Auto) 0.5 Neutrophils # (Auto) 2.4 Lymphocytes # (Auto) 2.5 Monocytes # (Auto) 0.3 Eosinophils # (Auto) 0.2 Basophils # (Auto) 0.0 CBC Comment DIFF FINAL Differential Comment Blood Urea Nitrogen 17 Creatinine 0.77 Random Glucose 99 Total Protein 6.5 Albumin 2.7 Calcium Level 9.0 Alkaline Phosphatase 141 Aspartate Amino Transf (AST/SGOT) 14 Alanine Aminotransferase (ALT/SGPT) 12 Total Bilirubin 0.2 Sodium Level 138 Potassium Level 4.3 Chloride Level 108 Carbon Dioxide Level 21.9 Anion Gap 8 Estimat Glomerular Filtration Rate 94 Date/Time Source Procedure Growth Status 12/21/16 14:50 Wound Arm Gram Stain - Final Complete 12/21/16 14:50 Wound Culture - Final S. Aureus Mrsa Complete Result Diagram: 12/23/1661912/23/16619 Assessment and Plan Assessment and Plan Small wound LUE- scabs removed. Needs twice daily packing with iodoform guaze. Ok for dc from my standpoint. JhonathanSunil MD Dec 23, 2016 10:25
[2016-12-23 12:00] VITALS: BP 110/56; PULSE 76; RESP 20; TEMP 98; O2SAT 99
[2016-12-23] MEDS ORDERED: CLIN1CAP6 PO (14:22)
--- NOTE | 2016-12-23 14:22 | HHI.IDPN ---
Subjective Subjective Remarks doing OK afebrile growing MRSA from the wound S clindamycin s/p bedside debridement Antibiotics vancomycin Allergies: Coded Allergies: No Known Allergies (Verified , 12/20/16) NONE KNOWN Objective . Vital Signs Date Time Temp Pulse Resp B/P (MAP) Pulse Ox O2 Delivery O2 Flow Rate FiO2 12/23/16 08:00 98.7 69 20 105/59 (74) 12/23/16 04:03 98.3 80 18 114/65 (81) 97 12/23/16 00:00 99.0 75 16 117/61 (79) 99 12/22/16 20:00 97.8 92 18 128/77 (94) 98 12/22/16 16:00 98.2 88 20 104/68 (80) 100 . Laboratory Tests Test 12/22/16 04:58 12/23/16 06:20 White Blood Count 5.3 TH/MM3 5.4 TH/MM3 Red Blood Count 3.55 MIL/MM3 3.67 MIL/MM3 Hemoglobin 10.6 GM/DL 10.7 GM/DL Hematocrit 32.3 % 33.3 % Mean Corpuscular Volume 91.0 FL 90.8 FL Mean Corpuscular Hemoglobin 29.9 PG 29.1 PG Mean Corpuscular Hemoglobin Concent 32.8 % 32.0 % Red Cell Distribution Width 15.6 % 15.8 % Platelet Count 157 TH/MM3 164 TH/MM3 Mean Platelet Volume 9.3 FL 9.1 FL Neutrophils (%) (Auto) 47.0 % 44.4 % Lymphocytes (%) (Auto) 46.0 % 47.0 % Monocytes (%) (Auto) 4.0 % 5.3 % Eosinophils (%) (Auto) 2.6 % 2.8 % Basophils (%) (Auto) 0.4 % 0.5 % Neutrophils # (Auto) 2.5 TH/MM3 2.4 TH/MM3 Lymphocytes # (Auto) 2.4 TH/MM3 2.5 TH/MM3 Monocytes # (Auto) 0.2 TH/MM3 0.3 TH/MM3 Eosinophils # (Auto) 0.1 TH/MM3 0.2 TH/MM3 Basophils # (Auto) 0.0 TH/MM3 0.0 TH/MM3 CBC Comment DIFF FINAL DIFF FINAL Differential Comment Laboratory Tests Test 12/22/16 04:58 9/23/17 06:20 Blood Urea Nitrogen 16 MG/DL 17 MG/DL Creatinine 0.79 MG/DL 0.77 MG/DL Random Glucose 192 MG/DL 99 MG/DL Total Protein 6.3 GM/DL 6.5 GM/DL Albumin 2.6 GM/DL 2.7 GM/DL Calcium Level 8.8 MG/DL 9.0 MG/DL Alkaline Phosphatase 144 U/L 141 U/L Aspartate Amino Transf (AST/SGOT) 14 U/L 14 U/L Alanine Aminotransferase (ALT/SGPT) 12 U/L 12 U/L Total Bilirubin 0.3 MG/DL 0.2 MG/DL Sodium Level 135 MEQ/L 138 MEQ/L Potassium Level 4.3 MEQ/L 4.3 MEQ/L Chloride Level 106 MEQ/L 108 MEQ/L Carbon Dioxide Level 20.8 MEQ/L 21.9 MEQ/L Anion Gap 8 MEQ/L 8 MEQ/L Estimat Glomerular Filtration Rate 91 ML/MIN 94 ML/MIN Microbiology Date/Time Source Procedure Growth Status 12/21/16 14:50 Wound Arm Gram Stain - Final Complete 12/21/16 14:50 Wound Culture - Final S. Aureus Mrsa Complete Imaging Last Impressions Humerus X-Ray 12/20/16 0000 Signed Impressions: Service Date/Time: Tuesday, December 20, 2016 22:59 - CONCLUSION: Soft tissue swelling with air suggesting infection. Old proximal humeral fracture. Jay Lara Jr., MD Physical Exam CONSTITUTIONAL/GENERAL: This is an obese middle aged female patient, in no apparent distress. SKIN: No jaundice, rashes, or lesions. . S MUSCULOSKELETAL: L arm with intact dressing in place Assessment & Plan Remarks Skin and soft tissue infection, LUE (apper arm), MRSA S to clindamycin DM Multiple med illnesses dc vancomycin start clindamycin x 10 days script printed, given to RN OK to dc home from ID standpoint Breanne De MD Dec 23, 2016 14:22
[2016-12-23] MEDS: CLINDAMYCIN 150 MG CAP PO SCH ×2 (14:30→18:42)
[2016-12-23 16:00] VITALS: BP 125/59; PULSE 82; RESP 20; TEMP 98.7; O2SAT 100
[2016-12-23 20:00] VITALS: BP 106/56; PULSE 82; RESP 18; TEMP 98.5; O2SAT 97
[2016-12-24] VITALS: BP 108/61; PULSE 85; RESP 18; TEMP 98.6; O2SAT 99
[2016-12-24] MEDS: CLINDAMYCIN 150 MG CAP PO SCH ×4 (00:40→17:44)
[2016-12-24 04:00] VITALS: BP 112/59; PULSE 81; RESP 18; TEMP 98.3; O2SAT 97
[2016-12-24] MEDS: INSULIN ASPART SUPPLEMENTAL SCALE SQ SCH ×4 (08:00→20:59)
[2016-12-24 08:15] VITALS: BP 102/56; PULSE 77; RESP 20; TEMP 98.5; O2SAT 100
[2016-12-24] MEDS: amLODIPine BESYLATE 5 MG TAB PO SCH (09:00)
[2016-12-24] MEDS: SODIUM CHLORIDE 0.9% FLUSH 10 ML FLUSH IV FLUSH SCH ×2 (09:00→20:59)
[2016-12-24] MEDS: DOCUSATE SODIUM 50 MG/SENNA 8.6 MG TAB PO SCH ×2 (09:00→20:58)
[2016-12-24] MEDS: INSULIN DETEMIR 100 UNITS/ML VIAL SQ SCH ×2 (09:30→20:59)
[2016-12-24] MEDS: ENOXAPARIN SODIUM 40 MG/0.4 ML SYRINGE SQ SCH (09:32)
[2016-12-24] MEDS: LIPASE/PROTEASE/AMYLASE (24,000/76,000/120,000) CAP PO SCH ×3 (09:33→17:44)
[2016-12-24] MEDS: URSODIOL 300 MG CAP PO SCH ×2 (09:33→20:58)
[2016-12-24] MEDS: PANTOPRAZOLE SOD 40 MG DELAYED RELEASE TAB PO SCH (09:33)
[2016-12-24] MEDS: metFORMIN HCL 500 MG TAB PO SCH ×2 (09:35→17:44)
--- NOTE | 2016-12-24 09:50 | HHI.PR ---
Subjective History of Present Illness patient seen on 12/23/16 c/o lower back pain on pain medicine no acute issue on clindamycin for wound/ cellulitis left arm per infectious disease recommendation..General surgery input noted. Review of Systems Constitutional Constitutional: Fatigue, Weakness Musculoskeletal MS Remarks lower back pain. Integumentary Skin: Wounds Skin Remarks left arm redness and wound, Vitals/Results Vital Signs Vital Signs Date Time Temp Pulse Resp B/P (MAP) Pulse Ox O2 Delivery O2 Flow Rate FiO2 12/24/16 08:15 98.5 77 20 102/56 (71) 100 12/24/16 04:00 98.3 81 18 112/59 (76) 97 12/24/16 00:00 98.6 85 18 108/61 (77) 99 12/23/16 20:00 98.5 82 18 106/56 (73) 97 12/23/16 19:00 14 12/23/16 16:00 98.7 82 20 125/59 (81) 100 12/23/16 12:00 98.0 76 20 110/56 (74) 99 CBC/BMP: 12/23/16 0620 12/23/16 0620 Physical Exam General General Appearance: Well Developed, Well Nourished, No Acute Distress, Comfortable Eyes Eye Exam: Sclera White, Extraocular Movement Intact Throat Throat Exam: Oral Mucosa [place] & Moist, Oral Pharynx Normal Neck Neck Exam: Neck Supple, Trachea Midline Pulmonary Resp Exam: Clear Bilaterally, Breath Sounds Equal, No Distress Cardiology CV Exam: Regular Gastrointestinal/Abdomen GI Exam: Soft, Non-Tender, Bowel Sounds Present Musculoskeletal MS Exam: Joints Intact Integumentary Skin Exam: Warm, Dry Skin Remarks Left arm wound and erythema. Neurologic Neuro Exam: Alert, Awake, Oriented, Speech Clear, Moving All Extremities, No Focal Deficits Psychiatric Psych Exam: Appropriate Responses VTE Prophylaxis VTE Prophylaxis Meds: Lovenox PUD Prophylasis PUD Prophylaxis: Protonix Assessment/Plan Assessment/Plan ASSESSMENT/PLAN 1. This is a 66-year female who came to the emergency room diagnosed with a wound and cellulitis of the left upper extremity. patient started on Clindamycin PO per Infectious disease recommendation. General surgery input noted . Further recommendation per infectious disease. 2. History of chronic pancreatitis. Continue the home medication. Creon. 3. History of hypertension. Continue home medication. Monitor blood pressure. 4. Diabetes mellitus ADA 1800 regular diet. NovoLog low-dose. Check blood sugars at bedtime, continue home medication. The patient blood sugar was high, which is improving. 5. History of gout. Continue home medications. 6. History of arthritis. Continue home medications. 7. Deep venous thrombosis prophylaxis Lovenox 40 mg subcutaneous daily. 8. Gastrointestinal prophylaxis Protonix 40 mg p.o. daily. Low WBC Count. DC Plan soon. Check CBC with diff CMP in am. 9. We are going to manage the patient on a daily basis and make the recommendations on a daily basis. Discussed Condition with: Patient Dariel Johnson MD Dec 24, 2016 09:50
--- NOTE | 2016-12-24 09:51 | HHI.PR ---
Subjective History of Present Illness patient c/o lower back pain on pain medicine no acute issue on Clindamycin PO for wound/ cellulitis left arm per infectious disease recommendation. Patient refused discharge today. Review of Systems Constitutional Constitutional: Fatigue, Weakness Musculoskeletal MS Remarks lower back pain. Integumentary Skin: Wounds Skin Remarks left arm redness and wound, Vitals/Results Vital Signs Vital Signs Date Time Temp Pulse Resp B/P (MAP) Pulse Ox O2 Delivery O2 Flow Rate FiO2 12/24/16 08:15 98.5 77 20 102/56 (71) 100 12/24/16 04:00 98.3 81 18 112/59 (76) 97 12/24/16 00:00 98.6 85 18 108/61 (77) 99 12/23/16 20:00 98.5 82 18 106/56 (73) 97 12/23/16 19:00 14 12/23/16 16:00 98.7 82 20 125/59 (81) 100 12/23/16 12:00 98.0 76 20 110/56 (74) 99 CBC/BMP: 12/23/16 0620 12/23/16 0620 Physical Exam General General Appearance: Well Developed, Well Nourished, No Acute Distress, Comfortable Eyes Eye Exam: Sclera White, Extraocular Movement Intact Throat Throat Exam: Oral Mucosa [place] & Moist, Oral Pharynx Normal Neck Neck Exam: Neck Supple, Trachea Midline Pulmonary Resp Exam: Clear Bilaterally, Breath Sounds Equal, No Distress Cardiology CV Exam: Regular Gastrointestinal/Abdomen GI Exam: Soft, Non-Tender, Bowel Sounds Present Musculoskeletal MS Exam: Joints Intact Integumentary Skin Exam: Warm, Dry Skin Remarks Left arm wound and erythema... better. Neurologic Neuro Exam: Alert, Awake, Oriented, Speech Clear, Moving All Extremities, No Focal Deficits Psychiatric Psych Exam: Appropriate Responses VTE Prophylaxis VTE Prophylaxis Meds: Lovenox PUD Prophylasis PUD Prophylaxis: Protonix Assessment/Plan Assessment/Plan ASSESSMENT/PLAN 1. This is a 66-year female who came to the emergency room diagnosed with a wound and cellulitis of the left upper extremity. patient on Clindamycin PO per Infectious disease recommendation. General surgery input noted. Further recommendation per infectious disease. 2. History of chronic pancreatitis. Continue the home medication. Creon. 3. History of hypertension. Continue home medication. Monitor blood pressure. 4. Diabetes mellitus ADA 1800 regular diet. NovoLog low-dose. Check blood sugars at bedtime, continue home medication. The patient blood sugar was high, which is improving. 5. History of gout. Continue home medications. 6. History of arthritis. Continue home medications. 7. Deep venous thrombosis prophylaxis Lovenox 40 mg subcutaneous daily. 8. Gastrointestinal prophylaxis Protonix 40 mg p.o. daily. Check CBC weith diff CMP in AM. 9. We are going to manage the patient on a daily basis and make the recommendations on a daily basis. Discussed Condition with: Patient Dariel Johnson MD Dec 24, 2016 09:50
[2016-12-24 12:07] VITALS: BP 108/58; PULSE 76; RESP 20; TEMP 99.2; O2SAT 98
[2016-12-24 16:00] VITALS: BP 111/55; PULSE 71; RESP 20; TEMP 98.9; O2SAT 98
[2016-12-24 20:00] VITALS: BP 129/61; PULSE 77; RESP 18; TEMP 98; O2SAT 97
[2016-12-24] MEDS ORDERED: PHARMACY ORDERED LAB ONE (23:45)
[2016-12-25] VITALS: BP 125/60; PULSE 74; RESP 18; TEMP 98; O2SAT 98
[2016-12-25] MEDS: CLINDAMYCIN 150 MG CAP PO SCH ×3 (01:26→10:40)
[2016-12-25 04:00] VITALS: BP 104/52; PULSE 77; RESP 18; TEMP 98.2; O2SAT 98
[2016-12-25 08:28] VITALS: BP 154/91; PULSE 79; RESP 18; TEMP 98.2
[2016-12-25] MEDS: INSULIN ASPART SUPPLEMENTAL SCALE SQ SCH (08:40)
[2016-12-25] MEDS: amLODIPine BESYLATE 5 MG TAB PO SCH (08:42)
[2016-12-25] MEDS: metFORMIN HCL 500 MG TAB PO SCH (08:42)
[2016-12-25] MEDS: PANTOPRAZOLE SOD 40 MG DELAYED RELEASE TAB PO SCH (08:42)
[2016-12-25] MEDS: URSODIOL 300 MG CAP PO SCH (08:42)
[2016-12-25] MEDS: DOCUSATE SODIUM 50 MG/SENNA 8.6 MG TAB PO SCH (08:42)
[2016-12-25] MEDS: ENOXAPARIN SODIUM 40 MG/0.4 ML SYRINGE SQ SCH (08:42)
[2016-12-25] MEDS: LIPASE/PROTEASE/AMYLASE (24,000/76,000/120,000) CAP PO SCH (08:42)
[2016-12-25] MEDS: INSULIN DETEMIR 100 UNITS/ML VIAL SQ SCH (08:43)
[2016-12-25] MEDS: SODIUM CHLORIDE 0.9% FLUSH 10 ML FLUSH IV FLUSH SCH (08:43)
--- NOTE | 2016-12-25 08:50 | HHI.PR ---
Subjective History of Present Illness patient c/o lower back pain on pain medicine no acute issue on Clindamycin PO for wound/ cellulitis left arm per infectious disease recommendation. Ok to discharge home today. Review of Systems Constitutional Constitutional: Fatigue, Weakness Musculoskeletal MS Remarks lower back pain. Integumentary Skin: Wounds Skin Remarks left arm redness and wound, Vitals/Results Vital Signs Vital Signs Date Time Temp Pulse Resp B/P (MAP) Pulse Ox O2 Delivery O2 Flow Rate FiO2 12/25/16 08:28 98.2 79 18 154/91 (112) 12/25/16 04:00 98.2 77 18 104/52 (69) 98 12/25/16 00:00 98.0 74 18 125/60 (81) 98 12/24/16 20:00 98.0 77 18 129/61 (83) 97 12/24/16 16:00 98.9 71 20 111/55 (73) 98 12/24/16 12:07 99.2 76 20 108/58 (75) 98 CBC/BMP: 12/23/16 0620 12/23/16 0620 Physical Exam General General Appearance: Well Developed, Well Nourished, No Acute Distress, Comfortable Eyes Eye Exam: Sclera White, Extraocular Movement Intact Throat Throat Exam: Oral Mucosa [place] & Moist, Oral Pharynx Normal Neck Neck Exam: Neck Supple, Trachea Midline Pulmonary Resp Exam: Clear Bilaterally, Breath Sounds Equal, No Distress Cardiology CV Exam: Regular Gastrointestinal/Abdomen GI Exam: Soft, Non-Tender, Bowel Sounds Present Musculoskeletal MS Exam: Joints Intact Integumentary Skin Exam: Warm, Dry Skin Remarks Left arm wound and erythema... better. Neurologic Neuro Exam: Alert, Awake, Oriented, Speech Clear, Moving All Extremities, No Focal Deficits Psychiatric Psych Exam: Appropriate Responses VTE Prophylaxis VTE Prophylaxis Meds: Lovenox PUD Prophylasis PUD Prophylaxis: Protonix Assessment/Plan Assessment/Plan ASSESSMENT/PLAN 1. This is a 66-year female who came to the emergency room diagnosed with a wound and cellulitis of the left upper extremity. patient on Clindamycin PO per Infectious disease recommendation. General surgery input noted. Further recommendation per infectious disease. 2. History of chronic pancreatitis. Continue the home medication. Creon. 3. History of hypertension. Continue home medication. Monitor blood pressure. 4. Diabetes mellitus ADA 1800 regular diet. NovoLog low-dose. Check blood sugars at bedtime, continue home medication. The patient blood sugar was high, which is improving. 5. History of gout. Continue home medications. 6. History of arthritis. Continue home medications. 7. Deep venous thrombosis prophylaxis Lovenox 40 mg subcutaneous daily. 8. Gastrointestinal prophylaxis Protonix 40 mg p.o. daily. Ok to discharge home today. F/U with PCP/ Infectious disease 1 week. Discussed Condition with: Patient Dariel Johnson MD Dec 25, 2016 08:50
--- NOTE | 2016-12-25 09:34 | MD ---
cc: DARIEL MORENO MD ADMISSION DATE: 12/21/2016 DISCHARGE DATE: 12/25/2016 [place] Visit Search.Discharge Date DISPOSITION Okay to discharge patient. CONDITION AT THE TIME OF DISCHARGE Satisfactory. ACTIVITY As tolerated. DIET Cardiac diet ADA 1800 calorie, regular diet. ALLERGIES No known drug allergies. DISCHARGE MEDICATIONS 1. Clindamycin 300 mg p.o. every 6 hours for 10 days. 2. Amlodipine 5 mg daily. 3. Insulin, Levemir 80 units subcutaneous twice a day. 4. Metformin 1000 mg twice a day. 5. Oxycodone 5 mg p.o. q. 6 hours p.r.n. pain. 6. Pancrelipase 2 capsules t.i.d. 7. Protonix 40 mg p.o. daily. 8. Ursodiol 300 mg p.o. daily. FOLLOWUP The patient was advised to follow up with PCP and Infectious Disease in one week. ADMISSION DIAGNOSIS 1. Cellulitis of the left upper extremity with wound discharge and cellulitis, improved. The left upper extremity wound is improved. 2. History of chronic pancreatitis. 3. History of hypertension. 4. History of diabetes mellitus. 5. History of gout. 6. History of arthritis. HOSPITAL COURSE This is a 66-year-old female admitted with cellulitis of the left upper extremity. She continued to inject insulin injection at the same spot leading to deep two to three wounds in the left upper arm doctors. Dr. Adelaida De had seen the patient and she was started on clindamycin. The patient was given vancomycin and Levaquin during her hospital stay. The patient was also was seen by General Surgery who did in packing of the wound and okay to discharge from surgery as well as from Infectious Disease standpoint. The patient's wound culture grew Staph aureus. The patient had anemia with a hemoglobin of 10.7. The patient also had hyponatremia with sodium of 126 which became normal to 138 at the time of discharge. The patient also had alkaline phosphatase high at 141. The patient's blood sugar was high at 583, decreased down to 99 high. B-hydroxybutyrate is 0.14. Urine examination shows leukocyte esterase trace, 1 RBC, less than 1 WBC, glucose 1000 which is high. The patient had renal insufficiency with a BUN of 30 and creatinine 1.25 which resolved during the hospital stay. The BUN on 12/23/2016 is 17 and also creatinine was 0.77. Further details in the medical record. Dariel Moreno MD EA/RUMA /8:53 AM /9:17 AM
[2016-12-25 10:35] LABS: AUTOMATED NEUTROPHIL # 2.9 TH/MM3 (1.8-7.7); BASOPHIL % 0.9 % (0.0-2.0); EOSINOPHIL # 0.1 TH/MM3 (0-0.4); EOSINOPHIL % 2.7 % (0.0-4.0); HEMATOCRIT 34.6 % (35.0-46.0); HEMO FLAGS DIFF FINAL; LYMPH % 37.2 % (9.0-44.0); MEAN CELL VOLUME 90.7 FL (80.0-100.0); MEAN CORPUSCULAR HEMOGLOBIN 29.4 PG (27.0-34.0); MEAN CORPUSCULAR HGB CONC 32.5 % (32.0-36.0); MONO % 5.2 % (0.0-8.0); PLATELET COUNT 171 TH/MM3 (150-450); RED BLOOD COUNT 3.81 MIL/MM3 (4.00-5.30); RED CELL DISTRIBUTION WIDTH 15.7 % (11.6-17.2); WHITE BLOOD COUNT 5.3 TH/MM3 (4.0-11.0)
[2016-12-25] MEDS ORDERED: OXYC1CAP PO (11:17)
[2016-12-26 08:29] VITALS: BP 134/60; PULSE 134; RESP 20; TEMP 98.3; O2SAT 98
[2016-12-26 12:43] VITALS: BP 162/86; PULSE 48; RESP 18; TEMP 97.6; O2SAT 100
== END 2016-12-25 11:32 | disposition home or self-care (01) | DRG 603 ==
LOC: NEPE 22:21 → NEDA 12-21 01:16 → N05A 12-21 02:18
PROVIDERS: ADMIT Family Medicine; ATTEND Family Medicine
DX: L03.114 Cellulitis of left upper limb (principal); B95.62 Methicillin resistant Staphylococcus aureus infection as the cause of diseases classified elsewhere; E11.65 Type 2 diabetes mellitus with hyperglycemia; Z79.4 Long term (current) use of insulin; Z79.84 Long term (current) use of oral hypoglycemic drugs; I10 Essential (primary) hypertension; E87.1 Hypo-osmolality and hyponatremia; K86.1 Other chronic pancreatitis; N28.9 Disorder of kidney and ureter, unspecified; D64.9 Anemia, unspecified; M10.9 Gout, unspecified; M19.90 Unspecified osteoarthritis, unspecified site; J45.909 Unspecified asthma, uncomplicated; E78.5 Hyperlipidemia, unspecified; I25.10 Atherosclerotic heart disease of native coronary artery without angina pectoris; Z95.5 Presence of coronary angioplasty implant and graft; F17.210 Nicotine dependence, cigarettes, uncomplicated
CPT/HCPCS: 73060; 80053; 81001; 82010; 82948; 85025; 86403; 87070; 87147; 87186; 87205; 96365; 96372; 96375; J1650; J1815; J1956; J2270; J3370; J7030; J7050

== ENCOUNTER 2017-01-07 12:26 | Emergency (ER) | payer OTHER ==
[~2017-01-07] VITALS: Ht 162.6 cm; Wt 75.0 kg
[~2017-01-07 12:26] MED LIST changes: +CLIN1CAP6 PO; +OXYC1CAP PO
[2017-01-07 12:29] VITALS: BP 137/82; PULSE 109; PULSE 190; RESP 13; TEMP 98.9; O2SAT 97
[2017-01-07 13:15] LABS: BLOOD, URINE NEG (NEG); COMMENT (UR) CULT NOT INDICATED; CULTURE IF INDICATED CULT NOT INDICATED; GLUCOSE,URINE 1000 mg/dL (NEG); KETONE, URINE NEG (NEG); NITRITE,URINE NEG (NEG); PH, URINE 5.5 (5.0-8.5); SQUAMOUS EPITHELIAL CELL URINE 1 /hpf (0-5); URINE COLOR LIGHT-YELLOW (YELLW/STRAW)
[2017-01-07] MEDS ORDERED: SODIUM CHLOR 0.9% 1000 ML INJ 1,000 ML IV SCH ×2 (14:03→17:30)
--- NOTE | 2017-01-07 14:10 | PD ---
HPI Chief Complaint: Abdominal Pain Time Seen by Provider: 14:00 Travel History International Travel<30 days: No Contact w/Intl Traveler<30days: No Traveled to known affect area: No History of Present Illness HPI 56-year-old female with history of coronary artery disease, diabetes, hypertension, presents for evaluation of abdominal pain and back pain. Symptoms started 1 week ago. She describes it as a bilateral flank pain which radiates into the left upper quadrant of the abdomen. The pain is an aching pain which is constant with no alleviating factors. She denies any chest pain, shortness of breath, fevers, chills, dysuria, nausea, vomiting, diarrhea or constipation. She is currently on clindamycin for a left upper arm infection. No other complaints at this time. PFSH Past Medical History Arthritis: No Asthma: Yes (CHILDHOOD) Autoimmune Disease: No Blood Disorders: No Anxiety: No Depression: No Heart Rhythm Problems: No Cancer: No Cardiac Catheterization: Yes Cardiovascular Problems: Yes (htn) High Cholesterol: Yes Chemotherapy: No Chest Pain: No Congestive Heart Failure: No COPD: No Cerebrovascular Accident: No Coronary Artery Disease: Yes Diabetes: Yes Diminished Hearing: No Endocrine: No Gastrointestinal Disorders: Yes (HX. PANCREATITIS) GERD: No Glaucoma: No Genitourinary: No Headaches: No Hepatitis: No Hiatal Hernia: No Heparin Induced Thrombocytopen: No Hypertension: Yes Immune Disorder: No Implanted Vascular Access Dvce: No Kidney Stones: No Musculoskeletal: Yes Neurologic: No Psychiatric: No Reproductive: No Respiratory: Yes Immunizations Current: Yes Migraines: No Myocardial Infarction: No Pancreatitis: Yes Radiation Therapy: No Renal Failure: No Seizures: No Sickle Cell Disease: No Sleep Apnea: Yes Thyroid Disease: No Ulcer: No Menopausal: Yes : 9 Para: 9 Past Surgical History Abdominal Surgery: Yes (G-TUBE PLACEMENT AND REMOVAL ) AICD: No Appendectomy: No Arteriovenous Shunt: No Cardiac Surgery: Yes (CARDIAC CATH. WITH STENTS-,) Cholecystectomy: Yes Coronary Artery Bypass Graft: No Coronary Stent: Yes (2005) Ear Surgery: No Endocrine Surgery: No Eye Surgery: No Genitourinary Surgery: No Gynecologic Surgery: No Insulin Pump: No Joint Replacement: No Neurologic Surgery: No Oral Surgery: Yes (TEETH EXTRACTIONS) Pacemaker: No Thoracic Surgery: No Other Surgery: Yes (G-TUBE PLACEMENT AND REMOVAL ) Social History Alcohol Use: No Tobacco Use: Yes (1 PPD) Substance Use: No Allergies-Medications (Allergen,Severity, Reaction): Coded Allergies: No Known Allergies (Verified , 01/07/17) NONE KNOWN Reported Meds & Prescriptions Reported Meds & Active Scripts Active Oxycodone (Oxycodone HCl) 5 Mg Cap 5 Mg PO Q8H PRN 30 Days Clindamycin (Clindamycin HCl) 300 Mg Cap 300 Mg PO Q6H 10 Days Ursodiol 300 Mg Cap 300 Mg PO BID Creon (Amylase/Lipase/Protease) 24,000-76,000-120,000 Units Cap 2 Cap PO TID Glucophage (Metformin HCl) 500 Mg Tab 1,000 Mg PO BIDPC Norvasc (Amlodipine Besylate) 5 Mg Tab 5 Mg PO DAILY Pantoprazole (Pantoprazole Sodium) 40 Mg Tab 40 Mg PO DAILY Levemir Inj (Insulin Detemir) 1,000 unit/ 10 ML Vial 18 Units SQ BID 30 Days Review of Systems Except as stated in HPI: all other systems reviewed are Neg Physical Exam Narrative GENERAL: Well-developed well-nourished female in no acute distress SKIN: Warm and dry. 2 small superficial ulcerations noted to the left upper arm without surrounding cellulitic changes. HEAD: Atraumatic. Normocephalic. EYES: Pupils equal and round. No scleral icterus. No injection or drainage. ENT: No nasal bleeding or discharge. Mucous membranes pink and moist. NECK: Trachea midline. No JVD. CARDIOVASCULAR: Regular rate and rhythm. No murmur appreciated. RESPIRATORY: No accessory muscle use. Clear to auscultation. Breath sounds equal bilaterally. GASTROINTESTINAL: Abdomen soft, left upper quadrant and left lower quadrant tenderness to palpation, mild left and right CVA tenderness. No guarding. MUSCULOSKELETAL: No obvious deformities. No clubbing. No cyanosis. No edema. NEUROLOGICAL: Awake and alert. No obvious cranial nerve deficits. Motor grossly within normal limits. Normal speech. PSYCHIATRIC: Appropriate mood and affect; insight and judgment normal. Data Data Last Documented VS Vital Signs Date Time Temp Pulse Resp B/P (MAP) Pulse Ox O2 Delivery O2 Flow Rate FiO2 01/07/17 17:35 97.9 81 16 120/63 (82) 98 Room Air Orders Orders Urinalysis - C+S If Indicated (01/07/17 12:40) Complete Blood Count With Diff (01/07/17 14:03) Comprehensive Metabolic Panel (01/07/17 14:03) Lipase (01/07/17 14:03) Ct Abd/Pel W Iv Contrast(Rout) (01/07/17 14:03) Iv Access Insert/Monitor (01/07/17 14:03) Pantoprazole Inj (Protonix Inj) (01/07/17 14:15) Sodium Chlor 0.9% 1000 Ml Inj (Ns 1000 M (01/07/17 14:03) Electrocardiogram (01/07/17 14:03) Al-Mag Hy-Si 40-40-4 Mg/Ml Liq (Mag-Al P (01/07/17 14:15) Lidocaine 2% Viscous (Xylocaine 2% Visco (01/07/17 14:15) Iohexol 350 Inj (Omnipaque 350 Inj) (01/07/17 15:43) Insulin Human Regular Inj (Novolin R Inj (01/07/17 17:30) Sodium Chlor 0.9% 1000 Ml Inj (Ns 1000 M (01/07/17 17:30) Labs Laboratory Tests Test 01/07/17 12:47 01/07/17 14:17 01/07/17 16:00 Urine Color LIGHT-YELLOW Urine Turbidity CLEAR Urine pH 5.5 Urine Specific [place] 1.027 Urine Protein NEG mg/dL Urine Glucose (UA) 1000 mg/dL Urine Ketones NEG mg/dL Urine Occult Blood NEG Urine Nitrite NEG Urine Bilirubin NEG Urine Urobilinogen LESS THAN 2.0 MG/DL Urine Leukocyte Esterase TRACE Urine RBC 2 /hpf Urine WBC 3 /hpf Urine Squamous Epithelial Cells 1 /hpf Microscopic Urinalysis Comment CULT NOT INDICATED White Blood Count 6.1 TH/MM3 Red Blood Count 4.46 MIL/MM3 Hemoglobin 13.3 GM/DL Hematocrit 40.7 % Mean Corpuscular Volume 91.3 FL Mean Corpuscular Hemoglobin 29.8 PG Mean Corpuscular Hemoglobin Concent 32.6 % Red Cell Distribution Width 15.1 % Platelet Count 195 TH/MM3 Mean Platelet Volume 9.9 FL Neutrophils (%) (Auto) 64.6 % Lymphocytes (%) (Auto) 27.9 % Monocytes (%) (Auto) 4.1 % Eosinophils (%) (Auto) 2.8 % Basophils (%) (Auto) 0.6 % Neutrophils # (Auto) 4.0 TH/MM3 Lymphocytes # (Auto) 1.7 TH/MM3 Monocytes # (Auto) 0.3 TH/MM3 Eosinophils # (Auto) 0.2 TH/MM3 Basophils # (Auto) 0.0 TH/MM3 CBC Comment DIFF FINAL Differential Comment Blood Urea Nitrogen 30 MG/DL Creatinine 1.20 MG/DL Random Glucose 587 MG/DL Total Protein 7.8 GM/DL Albumin 3.4 GM/DL Calcium Level 9.0 MG/DL Alkaline Phosphatase 253 U/L Aspartate Amino Transf (AST/SGOT) 11 U/L Alanine Aminotransferase (ALT/SGPT) 24 U/L Total Bilirubin 0.3 MG/DL Sodium Level 131 MEQ/L Potassium Level 3.9 MEQ/L Chloride Level 101 MEQ/L Carbon Dioxide Level 21.1 MEQ/L Anion Gap 9 MEQ/L Estimat Glomerular Filtration Rate 56 ML/MIN Lipase 253 U/L [facility] Medical Decision Making Medical Screen Exam Complete: Yes Emergency Medical Condition: Yes Medical Record Reviewed: Yes Interpretation(s) CT abdomen and pelvis CONCLUSION: Long-term stable findings in the chest, abdomen and pelvis as described in detail above. No definite acute process CBC unremarkable CMP Urinalysis 1000 glucose trace leukocytes otherwise unremarkable EKG sinus rhythm Differential Diagnosis Gastritis, colitis, peptic ulcer disease, pancreatitis, renal stone, pyelonephritis, diverticulitis, mesenteric ischemia Narrative Course The patient will be placed on ECG monitoring pulse oximetry. Plan is for basic labwork, urinalysis, CT abdomen and pelvis, EKG. The patient will be given Protonix and GI cocktail, normal saline bolus. Lab work is notable for a random glucose of 587 with a GFR of 56 which appears to be consistent with her baseline GFR. The patient will be given additional liter plus of fluid, 8 unit insulin bolus. She is encouraged to check her blood sugar regularly and take her medications as prescribed. She feels improved after the administration of GI cocktail and Protonix. She is stable for discharge. Diagnosis Primary Impression: Abdominal pain Qualified Codes: R10.12 - Left upper quadrant pain Additional Impression: HYPERGLYCEMIA, UNSPECIFIED Additional Instructions: Monitor blood sugar on a regular basis and take medication as prescribed. Follow-up with primary care physician. Return for any emergent medical conditions. Med/Other Pt SpecificInfo: No Change to Meds Disposition: DISCHARGE HOME Condition: Stable Domenico Griffith Jan 07, 2017 14:10
[2017-01-07] MEDS ORDERED: PANTOPRAZOLE SODIUM 40 MG VIAL IVP ONE (14:15)
[2017-01-07] MEDS ORDERED: LIDOCAINE VISCOUS 2% SOLN 15 ML UDC PO ONE (14:15)
[2017-01-07] MEDS ORDERED: ALUMINUM/MAGNESIUM/SIMETH 30 ML CUP PO ONE (14:15)
[2017-01-07 14:44] VITALS: BP 122/83; PULSE 84; RESP 16; TEMP 97.8; O2SAT 100
[2017-01-07 14:49] LABS: BASOPHIL % 0.6 % (0.0-2.0); EOSINOPHIL # 0.2 TH/MM3 (0-0.4); EOSINOPHIL % 2.8 % (0.0-4.0); HEMATOCRIT 40.7 % (35.0-46.0); HEMO FLAGS DIFF FINAL; LYMPH % 27.9 % (9.0-44.0); LYMPHOCYTE # 1.7 TH/MM3 (1.0-4.8); MEAN CELL VOLUME 91.3 FL (80.0-100.0); MEAN CORPUSCULAR HEMOGLOBIN 29.8 PG (27.0-34.0); MEAN CORPUSCULAR HGB CONC 32.6 % (32.0-36.0); MONO % 4.1 % (0.0-8.0); NEUT % 64.6 % (16.0-70.0); PLATELET COUNT 195 TH/MM3 (150-450); RED BLOOD COUNT 4.46 MIL/MM3 (4.00-5.30); RED CELL DISTRIBUTION WIDTH 15.1 % (11.6-17.2); WHITE BLOOD COUNT 6.1 TH/MM3 (4.0-11.0)
[2017-01-07] MEDS ORDERED: IOHEXOL 350 MG/ML 10 ML VIAL (for RAD DIAG) IVCONTRAST ONE (15:43)
--- NOTE | 2017-01-07 16:03 | RADRPT ---
EXAM DATE/TIME: 01/07/2017 15:38 [place] COMPARISON: CT ABDOMEN & PELVIS W CONTRAST, January 23, 2012, 19:22. CT ABDOMEN & PELVIS W CONTRAST, October 28 16, 21:21. CT ABDOMEN & PELVIS W CONTRAST, September 13, 2016, 18:46. MRCP W/O CONTRAST, October 17, 2016, 17:20. INDICATIONS : Abdomen pain. IV CONTRAST: 75 cc Omnipaque 350 (iohexol) IV ORAL CONTRAST: No oral contrast ingested. RADIATION DOSE: 9.2 CTDIvol (mGy) MEDICAL HISTORY : Cardiovascular disease. Hypertension. SURGICAL HISTORY : Cholecystectomy. G-tube insertion/removal. ENCOUNTER: Initial ACUITY: 1 day PAIN SCALE: 5/10 LOCATION: Bilateral lower quadrant TECHNIQUE: Volumetric scanning of the abdomen and pelvis was performed. Using automated exposure control and ad justment of the mA and/or kV according to patient size, radiation dose was kept as low as reasonably achievable to obtain optimal diagnostic quality images. DICOM format image data is available electro nically for review and comparison. FINDINGS: LOWER LUNGS: Low density paraspinal mass in the low right chest is unchanged showing long-term stability. LIVER: Moderate intra-and extrahepatic biliary ductal dilatation is shown long-term stability with the commo n duct tapering abruptly into an abnormal appearing pancreatic head involving heterogeneous density a nd calcification, appearance consistent with sequela of chronic pancreatitis. There is no evidence of focal liver mass. The gallbladder is surgically absent. SPLEEN: Normal size without lesion. PANCREAS: Abnormal changes of chronic pancreatitis. Heterogeneous appearance of the pancreatic head possibly as sociated with stricturing of the distal CBD, however the appearance is unchanged. Mild dilatation of the pancreatic duct is unchanged. KIDNEYS: Upper pole cyst on the right. Lateral upper and lower pole cysts on the left. No hydronephrosis. No s tones ADRENAL GLANDS: Within normal limits. VASCULAR: Dense atherosclerotic vascular calcifications. No aneurysm. Retroaortic left renal vein BOWEL/MESENTERY: The stomach, small bowel, and colon demonstrate no acute abnormality. There is no free intraperitone al air or fluid. ABDOMINAL WALL: Within normal limits. RETROPERITONEUM: There is no lymphadenopathy. BLADDER: No wall thickening or mass. REPRODUCTIVE: Dermoid in the right adnexal region showing long-term stability. No evidence of free fluid. INGUINAL: There is no lymphadenopathy or hernia. MUSCULOSKELETAL: Within normal limits for patient age. CONCLUSION: Long-term stable findings in the chest, abdomen and pelvis as described in detail above. No definite acute process Chang Torres MD on January 07, 2017 at 15:52 Board Certified Radiologist. This report was verified electronically.
[2017-01-07 16:59] LABS: ANION GAP 9 MEQ/L (5-15)
[2017-01-07 17:20] LABS: ALKALINE PHOSPHATASE 253 U/L (45-117); ALT (GPT) 24 U/L (10-53); AST (GOT) 11 U/L (15-37); BICARBONATE 21.1 MEQ/L (21.0-32.0); BLOOD UREA NITROGEN 30 MG/DL (7-18); CHLORIDE 101 MEQ/L (98-107); GLOMERULAR FILTRATION RATE 56 ML/MIN (>89); POTASSIUM 3.9 MEQ/L (3.5-5.1); SODIUM (NA) 131 MEQ/L (136-145); TOTAL BILIRUBIN ADULT 0.3 MG/DL (0.2-1.0)
[2017-01-07] MEDS ORDERED: INSULIN HUMAN REGULAR 1,000 UNITS/10 ML VIAL IV PUSH ONE (17:30)
[2017-01-07 17:35] VITALS: BP 120/63; PULSE 81; RESP 16; TEMP 97.9; O2SAT 98
[2017-01-07 18:56] VITALS: BP 118/77; TEMP 97.8
--- NOTE | 2017-01-08 12:40 | EKG ---
Date Performed: 01/07/2017 Time Performed: 14:24:26 PTAGE: 56 years EKG: Sinus rhythm POSSIBLE LEFT ATRIAL ENLARGEMENT BORDERLINE ECG Compared to prior tracing no significant change PREVIOUS TRACING : 09/08/2016 06.27 DOCTOR: Matthew Palacios Interpretating Date/Time 01/08/2017 12:35:04
== END 2017-01-07 19:01 | disposition home or self-care (01) ==
LOC: NEPC 12:26
DX: R10.12 Left upper quadrant pain (principal); E11.65 Type 2 diabetes mellitus with hyperglycemia; R94.31 Abnormal electrocardiogram [ECG] [EKG]; I25.10 Atherosclerotic heart disease of native coronary artery without angina pectoris; F17.210 Nicotine dependence, cigarettes, uncomplicated; Z79.4 Long term (current) use of insulin
CPT/HCPCS: 74177; 80053; 81001; 83690; 85025; 93005; 96361; 96374; 96375; 99285; C9113; J1815; J7030; Q9967

== ENCOUNTER 2017-03-24 17:58 | Inpatient (IN) | payer OTHER ==
[~2017-03-24] VITALS: Ht 154.9 cm; Wt 79.4 kg
[~2017-03-24 17:58] MED LIST changes: -CLIN1CAP6 PO; +CLIN300C5 PO; -OXYC-392 PO
[2017-03-24 18:00] VITALS: BP 165/90; PULSE 113; RESP 16; TEMP 98.4; O2SAT 97
[2017-03-24 18:47] VITALS: BP 140/80; PULSE 92; RESP 18; O2SAT 98
[2017-03-24] MEDS ORDERED: SODIUM CHLOR 0.9% 1000 ML INJ 1,000 ML IV ONE ×2 (19:00→22:45)
[2017-03-24] MEDS ORDERED: MORPHINE SULFATE 2 MG/ML INJ IV PUSH ONE ×2 (19:00)
[2017-03-24] MEDS ORDERED: ONDANSETRON HCL 4 MG/2 ML VIAL IV PUSH ONE (19:00)
--- NOTE | 2017-03-24 19:01 | PD ---
HPI Chief Complaint: Diabetic Time Seen by Provider: 18:45 Travel History International Travel<30 days: No Contact w/Intl Traveler<30days: No Traveled to known affect area: No History of Present Illness HPI 57-year-old female presents to the emergency department for evaluation of left flank pain that radiates throughout the abdomen that started approximately one week ago. She currently rates the pain 9/10, sharp and stabbing with associated nausea. He is she denies any fevers. No chest pain or shortness of breath. She reports history of PEG tube that has since been removed. She states she has had this pain before, but back when she had her PEG tube and was associated to the PEG tube. Just reports history of pancreatitis, states she has not had alcohol in the past year. Patient also reports that she ran out of her Levemir this morning. She currently takes it twice daily. Her blood sugar is running high. She is unsure of any other medications that she is on and is a poor historian. Moderate severity. PFSH Past Medical History Arthritis: No Asthma: Yes (CHILDHOOD) Autoimmune Disease: No Blood Disorders: No Anxiety: No Depression: No Heart Rhythm Problems: No Cancer: No Cardiac Catheterization: Yes Cardiovascular Problems: Yes (htn) High Cholesterol: Yes Chemotherapy: No Chest Pain: No Congestive Heart Failure: No COPD: No Cerebrovascular Accident: No Coronary Artery Disease: Yes Diabetes: Yes Patient Takes Glucophage: No Diminished Hearing: No Endocrine: No Gastrointestinal Disorders: Yes (HX. PANCREATITIS) GERD: No Glaucoma: No Genitourinary: No Headaches: No Hepatitis: No Hiatal Hernia: No Heparin Induced Thrombocytopen: No Hypertension: Yes Immune Disorder: No Implanted Vascular Access Dvce: No Kidney Stones: No Musculoskeletal: Yes Neurologic: No Psychiatric: No Reproductive: No Respiratory: Yes Immunizations Current: Yes Migraines: No Myocardial Infarction: No Pancreatitis: Yes Radiation Therapy: No Renal Failure: No Seizures: No Sickle Cell Disease: No Sleep Apnea: Yes Thyroid Disease: No Ulcer: No ?: Not Menopausal: Yes : 9 Para: 9 Past Surgical History Abdominal Surgery: Yes (G-TUBE PLACEMENT AND REMOVAL ) AICD: No Appendectomy: No Arteriovenous Shunt: No Cardiac Surgery: Yes (CARDIAC CATH. WITH STENTS-,) Cholecystectomy: Yes Coronary Artery Bypass Graft: No Coronary Stent: Yes (2005) Ear Surgery: No Endocrine Surgery: No Eye Surgery: No Genitourinary Surgery: No Gynecologic Surgery: No Insulin Pump: No Joint Replacement: No Neurologic Surgery: No Oral Surgery: Yes (TEETH EXTRACTIONS) Pacemaker: No Thoracic Surgery: No Other Surgery: Yes (G-TUBE PLACEMENT AND REMOVAL ) Family History Family Myocardial Infarction: Yes (uncle and other family members) Social History Alcohol Use: No Tobacco Use: Yes (1 PPD) Substance Use: No Allergies-Medications (Allergen,Severity, Reaction): Coded Allergies: No Known Allergies (Verified Adverse Reaction, Unknown, 03/24/17) NONE KNOWN Reported Meds & Prescriptions Reported Meds & Active Scripts Active Oxycodone (Oxycodone HCl) 5 Mg Cap 5 Mg PO Q8H PRN 30 Days Ursodiol 300 Mg Cap 300 Mg PO BID Creon (Amylase/Lipase/Protease) 24,000-76,000-120,000 Units Cap 2 Cap PO TID Glucophage (Metformin HCl) 500 Mg Tab 1,000 Mg PO BIDPC Norvasc (Amlodipine Besylate) 5 Mg Tab 5 Mg PO DAILY Pantoprazole (Pantoprazole Sodium) 40 Mg Tab 40 Mg PO DAILY Levemir Inj (Insulin Detemir) 1,000 unit/ 10 ML Vial 18 Units SQ BID 30 Days Review of Systems Except as stated in HPI: all other systems reviewed are Neg Physical Exam Narrative GENERAL: Well-nourished, well-developed female patient, ambulatory. Afebrile. SKIN: Focused skin assessment warm/dry. HEAD: Normocephalic. Atraumatic. EYES: No scleral icterus. No injection or drainage. NECK: Supple, trachea midline. No JVD or lymphadenopathy. CARDIOVASCULAR: Regular rate and rhythm without murmurs, gallops, or rubs. RESPIRATORY: Breath sounds equal bilaterally. No accessory muscle use. Lungs sounds are clear to auscultation. GASTROINTESTINAL: Abdomen soft and nondistended. She has diffuse tenderness to palpation throughout. MUSCULOSKELETAL: No cyanosis, or edema. BACK: Nontender without obvious deformity. Left CVA tenderness. Data Data Last Documented VS Vital Signs Date Time Temp Pulse Resp B/P (MAP) Pulse Ox O2 Delivery O2 Flow Rate FiO2 03/24/17 18:47 92 18 140/80 (100) 98 Room Air 03/24/17 18:00 98.4 Orders Orders Complete Blood Count With Diff (03/24/17 18:17) Blood Glucose (03/24/17 18:17) Comprehensive Metabolic Panel (03/24/17 18:17) Iv Access Insert/Monitor (03/24/17 18:17) Urinalysis - C+S If Indicated (03/24/17 18:17) Act Partial Throm Time (Ptt) (03/24/17 18:17) Prothrombin Time / Inr (Pt) (03/24/17 18:17) Lipase (03/24/17 18:54) Beta Hydroxybutyrate (Acetone) (03/24/17 18:54) Blood Gas Venous (Vbg) (03/24/17 18:54) Sodium Chlor 0.9% 1000 Ml Inj (Ns 1000 M (03/24/17 19:00) Morphine Inj (Morphine Inj) (03/24/17 19:00) Morphine Inj (Morphine Inj) (03/24/17 19:00) Ct Abd/Pel W Iv Contrast(Rout) (03/24/17 ) Ondansetron Inj (Zofran Inj) (03/24/17 19:00) Electrocardiogram (03/24/17 ) Creatine Kinase (Cpk) (03/24/17 21:20) Troponin I (03/24/17 21:20) Insulin Human Regular Inj (Novolin R Inj (03/24/17 22:45) Sodium Chlor 0.9% 1000 Ml Inj (Ns 1000 M (03/24/17 22:45) Diet Npo (03/25/17 Breakfast) Sodium Chlor 0.9% 1000 Ml Inj (Ns 1000 M (03/24/17 22:55) Dext 5%-Nacl 0.9% 1000 Ml Inj (D5w-Ns 10 (03/24/17 22:55) Insulin Regular (Iv Infusion) (Novolin R (03/24/17 23:00) Potassium Chlor 40 Meq Premix (Kcl 40 Me (03/24/17 23:00) Potassium Chlor 40 Meq Premix (Kcl 40 Me (03/24/17 23:00) Potassium Chlor 20 Meq Premix (Kcl 20 Me (03/24/17 23:00) Potassium Chlor 20 Meq Premix (Kcl 20 Me (03/24/17 23:00) Potassium Chlor 20 Meq Premix (Kcl 20 Me (03/24/17 23:00) Potassium Chlor 20 Meq Premix (Kcl 20 Me (03/24/17 23:00) Potassium Chlor 20 Meq Premix (Kcl 20 Me (03/24/17 23:00) Potassium Chlor 20 Meq Premix (Kcl 20 Me (03/24/17 23:00) Sodium Bicarbonate 8.4% Inj (Sodium Bica (03/24/17 23:00) Sodium Bicarbonate 8.4% Inj (Sodium Bica (03/24/17 23:00) Sodium Phosphate Inj (Sodium Phosphate I (03/24/17 23:00) Admit Order (Ed Use Only) (03/24/17 22:55) Labs Laboratory Tests Test 03/24/17 18:50 03/24/17 19:05 03/24/17 19:20 03/24/17 21:20 White Blood Count 5.9 TH/MM3 Red Blood Count 4.40 MIL/MM3 Hemoglobin 13.3 GM/DL Hematocrit 42.5 % Mean Corpuscular Volume 96.5 FL Mean Corpuscular Hemoglobin 30.2 PG Mean Corpuscular Hemoglobin Concent 31.3 % Red Cell Distribution Width 15.5 % Platelet Count 176 TH/MM3 Mean Platelet Volume 10.3 FL Neutrophils (%) (Auto) 77.5 % Lymphocytes (%) (Auto) 15.9 % Monocytes (%) (Auto) 5.3 % Eosinophils (%) (Auto) 0.9 % Basophils (%) (Auto) 0.4 % Neutrophils # (Auto) 4.5 TH/MM3 Lymphocytes # (Auto) 0.9 TH/MM3 Monocytes # (Auto) 0.3 TH/MM3 Eosinophils # (Auto) 0.1 TH/MM3 Basophils # (Auto) 0.0 TH/MM3 CBC Comment DIFF FINAL Differential Comment Prothrombin Time 10.8 SEC Prothromb Time International Ratio 1.1 RATIO Activated Partial Thromboplast Time 25.0 SEC Lipase 621 U/L B-Hydroxybutyrate 2.17 MMOL/L Blood Gas Puncture Site BY RN Blood Gas Patient Temperature 98.6 Venous Blood pH 7.30 Venous Blood Partial Pressure CO2 43 mmHg Venous Blood Partial Pressure O2 34 mmHg Venous Blood HCO3 21 mmol/L Venous Blood Oxygen Saturation 53 % Venous Blood Oxygen Content 10.0 Vol % Venous Blood Base Excess -4.8 mmol/L Oxygen Delivery Device ROOM AIR Blood Gas Inspired Oxygen 21 % Urine Color LIGHT-YELLOW Urine Turbidity CLEAR Urine pH 6.5 Urine Specific [place] 1.022 Urine Protein NEG mg/dL Urine Glucose (UA) 1000 mg/dL Urine Ketones 10 mg/dL Urine Occult Blood NEG Urine Nitrite NEG Urine Bilirubin NEG Urine Urobilinogen LESS THAN 2.0 MG/DL Urine Leukocyte Esterase TRACE Urine RBC 1 /hpf Urine WBC 4 /hpf Urine Squamous Epithelial Cells <1 /hpf Urine Renal Epithelial Cells 2 /hpf Microscopic Urinalysis Comment CULT NOT INDICATED Blood Urea Nitrogen 68 MG/DL Creatinine 1.68 MG/DL Random Glucose 1119 MG/DL Total Protein 8.4 GM/DL Albumin 3.7 GM/DL Calcium Level 9.2 MG/DL Alkaline Phosphatase 256 U/L Aspartate Amino Transf (AST/SGOT) 9 U/L Alanine Aminotransferase (ALT/SGPT) 21 U/L Total Bilirubin 0.4 MG/DL Sodium Level 120 MEQ/L Potassium Level 6.5 MEQ/L Chloride Level 88 MEQ/L Carbon Dioxide Level 20.1 MEQ/L Anion Gap 12 MEQ/L Estimat Glomerular Filtration Rate 38 ML/MIN Total Creatine Kinase 65 U/L Troponin I LESS THAN 0.02 NG/ML [facility] Medical Decision Making Medical Screen Exam Complete: Yes Emergency Medical Condition: Yes Medical Record Reviewed: Yes Differential Diagnosis Hyperglycemia versus DKA versus electrolyte abnormality versus nephrolithiasis versus pancreatitis versus diverticulitis versus UTI versus pyelonephritis Narrative Course 57-year-old female presents to the emergency department for evaluation of left flank pain that radiates throughout the abdomen as well as hyperglycemia. She states she has been out of her Levemir since this morning. EKG, CBC, CMP, lipase, beta hydroxybutyrate, PTT, PTT/INR, UA are ordered and pending. ABG is ordered and pending. CT the abdomen/pelvis with IV contrast is ordered and pending. Patient is given morphine 4 mg IV, Zofran 4 mg IV, normal saline 1 L IV bolus. EKG shows ST depression in leads II, III, and, AVF. CK and troponin are added. CBC shows no acute abnormality. CMP shows hyponatremia 120, bicarbonate 20.1 , hyperkalemia 6.5, BUN 68, creatinine 1.68, hyperglycemia of 1119. Sodium correction for hyperglycemia reveals a corrected sodium of 144. Lipase is 621. CK is 65. Troponin is less than 0.02. Coags shows no acute abnormality. Beta hydroxybutyrate is 2.17. VBG shows PH of 7.299, CO2 of 43.2, HCO3 of 21. UA shows [address] abdomen/pelvis is pending. Patient is given second liter normal saline IV bolus. Patient is given 10 units IV regular insulin. Dr. Doyle accepted admission. Diagnosis Primary Impression: Hyperglycemia due to type 2 diabetes mellitus Qualified Codes: E11.65 - Type 2 diabetes mellitus with hyperglycemia Additional Impressions: Hyperkalemia Abdominal pain Qualified Codes: R10.84 - Generalized abdominal pain Admitting Information Admitting Physician Requests: Admit Carri Orozco Mar 24, 2017 19:01
[2017-03-24 19:28] LABS: AUTOMATED NEUTROPHIL # 4.5 TH/MM3 (1.8-7.7); BASOPHIL % 0.4 % (0.0-2.0); EOSINOPHIL # 0.1 TH/MM3 (0-0.4); EOSINOPHIL % 0.9 % (0.0-4.0); HEMATOCRIT 42.5 % (35.0-46.0); HEMOGLOBIN 13.3 GM/DL (11.6-15.3); LYMPH % 15.9 % (9.0-44.0); LYMPHOCYTE # 0.9 TH/MM3 (1.0-4.8); MEAN CELL VOLUME 96.5 FL (80.0-100.0); MEAN CORPUSCULAR HEMOGLOBIN 30.2 PG (27.0-34.0); MEAN CORPUSCULAR HGB CONC 31.3 % (32.0-36.0); MEAN PLATELET VOLUME 10.3 FL (7.0-11.0); MONO % 5.3 % (0.0-8.0); MONOCYTE # 0.3 TH/MM3 (0-0.9); NEUT % 77.5 % (16.0-70.0); PLATELET COUNT 176 TH/MM3 (150-450); RED CELL DISTRIBUTION WIDTH 15.5 % (11.6-17.2); WHITE BLOOD COUNT 5.9 TH/MM3 (4.0-11.0)
[2017-03-24 19:29] LABS: INTERNATIONAL NORMALIZED RATIO 1.1 RATIO; PROTHROMBIN TIME - PATIENT 10.8 SEC (9.8-11.6)
[2017-03-24 20:16] LABS: BILIRUBIN, URINE NEG (NEG); BLOOD, URINE NEG (NEG); GLUCOSE,URINE 1000 mg/dL (NEG); KETONE, URINE 10 mg/dL (NEG); NITRITE,URINE NEG (NEG); PH, URINE 6.5 (5.0-8.5); RENAL EPITHELIAL CELLS 2 /hpf; SQUAMOUS EPITHELIAL CELL URINE <1 /hpf (0-5); URINE COLOR LIGHT-YELLOW (YELLW/STRAW); URINE LEUKOCYTE ESTERASE TRACE (NEG)
[2017-03-24 22:31] LABS: ALBUMIN 3.7 GM/DL (3.4-5.0); ALKALINE PHOSPHATASE 256 U/L (45-117); ALT (GPT) 21 U/L (10-53); AST (GOT) 9 U/L (15-37); BICARBONATE 20.1 MEQ/L (21.0-32.0); BLOOD UREA NITROGEN 68 MG/DL (7-18); CALCIUM 9.2 MG/DL (8.5-10.1); CHLORIDE 88 MEQ/L (98-107); CREATININE 1.68 MG/DL (0.50-1.00); GLOMERULAR FILTRATION RATE 38 ML/MIN (>89); TOTAL BILIRUBIN ADULT 0.4 MG/DL (0.2-1.0); TOTAL PROTEIN 8.4 GM/DL (6.4-8.2)
[2017-03-24 22:34] LABS: SODIUM (NA) 120 MEQ/L (136-145)
[2017-03-24 22:38] LABS: TROPONIN I LESS THAN 0.02 NG/ML (0.02-0.05)
[2017-03-24 22:39] LABS: GLUCOSE,RANDOM 1119 MG/DL (74-106)
[2017-03-24] MEDS ORDERED: INSULIN HUMAN REGULAR 1,000 UNITS/10 ML VIAL IV PUSH ONE (22:45)
[2017-03-24] MEDS ORDERED: DEXT 5%-NACL 0.9% 1000 ML INJ 1,000 ML IV SCH (22:55)
[2017-03-24] MEDS ORDERED: SODIUM CHLOR 0.9% 1000 ML INJ 1,000 ML IV SCH ×2 (22:55→22:58)
[2017-03-24] MEDS ORDERED: POTASSIUM CHLOR 40 MEQ PREMIX 100 ML IV PRN ×4 (23:00)
[2017-03-24] MEDS ORDERED: POTASSIUM CHLOR 20 MEQ PREMIX 100 ML IV PRN ×12 (23:00)
[2017-03-24] MEDS ORDERED: SODIUM BICARBONATE 8.4% SOLN 50 MEQ/50 ML VIAL IV PUSH PRN ×4 (23:00)
[2017-03-24] MEDS ORDERED: MISCELLANEOUS NURSING INFORMATION XX SCH (23:00)
[2017-03-24] MEDS ORDERED: INSULIN REGULAR (IV INFUSION) 100 UNITS in SODIUM CHLORIDE 0.9% INJ 99 ML IV PRN (23:00)
[2017-03-24] MEDS ORDERED: CHLORHEXIDINE GLUCONATE 2 % 1 PACK (2 CLOTHS) TOP PRN (23:00)
[2017-03-24] MEDS ORDERED: SODIUM PHOSPHATE INJ 15 MMOL in SODIUM CHLORIDE 0.9% INJ 100 ML IV PRN ×4 (23:00)
--- NOTE | 2017-03-24 23:29 | RADRPT ---
EXAM DATE/TIME: 03/24/2017 23:03 [place] COMPARISON: CT ABDOMEN & PELVIS W CONTRAST, January 07, 2017, 15:38. CT ABDOMEN & PELVIS W CONTRAST, January 23, 2012, 19:22. INDICATIONS : Right sided abdomen and back pain. ORAL CONTRAST: No oral contrast ingested. RADIATION DOSE: 9.72 CTDIvol (mGy) MEDICAL HISTORY : Cardiovascular disease. Hypertension. Pancreatitis.Diabetes SURGICAL HISTORY : Cholecystectomy. ENCOUNTER: Initial ACUITY: 1 day PAIN SCALE: 9/10 LOCATION: Right abdomen TECHNIQUE: Volumetric scanning of the abdomen and pelvis was performed. Using automated exposure control and ad justment of the mA and/or kV according to patient size, radiation dose was kept as low as reasonably achievable to obtain optimal diagnostic quality images. DICOM format image data is available electro nically for review and comparison. FINDINGS: LOWER LUNGS: The visualized lower lungs are clear. LIVER: Biliary stent is present in good position crossing the ampulla into the second portion of the duodenu m. There is no evidence of focal liver mass. The ducts are not significantly dilated. The gallbladder surgically absent. SPLEEN: Normal size without lesion. PANCREAS: Multiple calcifications and ectasia of the pancreatic duct consistent with chronic pancreatitis. This has shown long-term stability KIDNEYS: Normal in size and shape. There is no mass, stone, or hydronephrosis. ADRENAL GLANDS: Within normal limits. VASCULAR: There is no aortic aneurysm. Retroaortic left renal vein BOWEL/MESENTERY: The stomach, small bowel, and colon demonstrate no acute abnormality. There is no free intraperitone al air or fluid. ABDOMINAL WALL: Within normal limits. RETROPERITONEUM: There is no lymphadenopathy. BLADDER: No wall thickening or mass. REPRODUCTIVE: 4.7 cm right adnexal dermoid has shown long-term stability. No evidence of free pelvic fluid. INGUINAL: There is no lymphadenopathy or hernia. MUSCULOSKELETAL: Within normal limits for patient age. CONCLUSION: Interval placement of a biliary stent which is in good position. Otherwise stable exam. No acute find ings. Chang Torres MD on March 24, 2017 at 23:21 Board Certified Radiologist. This report was verified electronically.
--- NOTE | 2017-03-24 23:35 | PD ---
Data Data Last Documented VS Vital Signs Date Time Temp Pulse Resp B/P (MAP) Pulse Ox O2 Delivery O2 Flow Rate FiO2 03/24/17 18:47 92 18 140/80 (100) 98 Room Air 03/24/17 18:00 98.4 Orders Orders Complete Blood Count With Diff (03/24/17 18:17) Blood Glucose (03/24/17 18:17) Comprehensive Metabolic Panel (03/24/17 18:17) Iv Access Insert/Monitor (03/24/17 18:17) Urinalysis - C+S If Indicated (03/24/17 18:17) Act Partial Throm Time (Ptt) (03/24/17 18:17) Prothrombin Time / Inr (Pt) (03/24/17 18:17) Lipase (03/24/17 18:54) Beta Hydroxybutyrate (Acetone) (03/24/17 18:54) Blood Gas Venous (Vbg) (03/24/17 18:54) Sodium Chlor 0.9% 1000 Ml Inj (Ns 1000 M (03/24/17 19:00) Morphine Inj (Morphine Inj) (03/24/17 19:00) Morphine Inj (Morphine Inj) (03/24/17 19:00) Ondansetron Inj (Zofran Inj) (03/24/17 19:00) Electrocardiogram (03/24/17 ) Creatine Kinase (Cpk) (03/24/17 21:20) Troponin I (03/24/17 21:20) Insulin Human Regular Inj (Novolin R Inj (03/24/17 22:45) Sodium Chlor 0.9% 1000 Ml Inj (Ns 1000 M (03/24/17 22:45) Diet Npo (03/25/17 Breakfast) Sodium Chlor 0.9% 1000 Ml Inj (Ns 1000 M (03/24/17 22:55) Dext 5%-Nacl 0.9% 1000 Ml Inj (D5w-Ns 10 (03/24/17 22:55) Insulin Regular (Iv Infusion) (Novolin R (03/24/17 23:00) Potassium Chlor 40 Meq Premix (Kcl 40 Me (03/24/17 23:00) Potassium Chlor 40 Meq Premix (Kcl 40 Me (03/24/17 23:00) Potassium Chlor 20 Meq Premix (Kcl 20 Me (03/24/17 23:00) Potassium Chlor 20 Meq Premix (Kcl 20 Me (03/24/17 23:00) Potassium Chlor 20 Meq Premix (Kcl 20 Me (03/24/17 23:00) Potassium Chlor 20 Meq Premix (Kcl 20 Me (03/24/17 23:00) Potassium Chlor 20 Meq Premix (Kcl 20 Me (03/24/17 23:00) Potassium Chlor 20 Meq Premix (Kcl 20 Me (03/24/17 23:00) Sodium Bicarbonate 8.4% Inj (Sodium Bica (03/24/17 23:00) Sodium Bicarbonate 8.4% Inj (Sodium Bica (03/24/17 23:00) Sodium Phosphate Inj (Sodium Phosphate I (03/24/17 23:00) Admit Order (Ed Use Only) (03/24/17 22:55) Ct Abd/Pel W/O Iv Contrast (03/24/17 ) Labs Laboratory Tests Test 03/24/17 18:50 03/24/17 19:05 03/24/17 19:20 03/24/17 21:20 White Blood Count 5.9 TH/MM3 Red Blood Count 4.40 MIL/MM3 Hemoglobin 13.3 GM/DL Hematocrit 42.5 % Mean Corpuscular Volume 96.5 FL Mean Corpuscular Hemoglobin 30.2 PG Mean Corpuscular Hemoglobin Concent 31.3 % Red Cell Distribution Width 15.5 % Platelet Count 176 TH/MM3 Mean Platelet Volume 10.3 FL Neutrophils (%) (Auto) 77.5 % Lymphocytes (%) (Auto) 15.9 % Monocytes (%) (Auto) 5.3 % Eosinophils (%) (Auto) 0.9 % Basophils (%) (Auto) 0.4 % Neutrophils # (Auto) 4.5 TH/MM3 Lymphocytes # (Auto) 0.9 TH/MM3 Monocytes # (Auto) 0.3 TH/MM3 Eosinophils # (Auto) 0.1 TH/MM3 Basophils # (Auto) 0.0 TH/MM3 CBC Comment DIFF FINAL Differential Comment Prothrombin Time 10.8 SEC Prothromb Time International Ratio 1.1 RATIO Activated Partial Thromboplast Time 25.0 SEC Lipase 621 U/L B-Hydroxybutyrate 2.17 MMOL/L Blood Gas Puncture Site BY RN Blood Gas Patient Temperature 98.6 Venous Blood pH 7.30 Venous Blood Partial Pressure CO2 43 mmHg Venous Blood Partial Pressure O2 34 mmHg Venous Blood HCO3 21 mmol/L Venous Blood Oxygen Saturation 53 % Venous Blood Oxygen Content 10.0 Vol % Venous Blood Base Excess -4.8 mmol/L Oxygen Delivery Device ROOM AIR Blood Gas Inspired Oxygen 21 % Urine Color LIGHT-YELLOW Urine Turbidity CLEAR Urine pH 6.5 Urine Specific [place] 1.022 Urine Protein NEG mg/dL Urine Glucose (UA) 1000 mg/dL Urine Ketones 10 mg/dL Urine Occult Blood NEG Urine Nitrite NEG Urine Bilirubin NEG Urine Urobilinogen LESS THAN 2.0 MG/DL Urine Leukocyte Esterase TRACE Urine RBC 1 /hpf Urine WBC 4 /hpf Urine Squamous Epithelial Cells <1 /hpf Urine Renal Epithelial Cells 2 /hpf Microscopic Urinalysis Comment CULT NOT INDICATED Blood Urea Nitrogen 68 MG/DL Creatinine 1.68 MG/DL Random Glucose 1119 MG/DL Total Protein 8.4 GM/DL Albumin 3.7 GM/DL Calcium Level 9.2 MG/DL Alkaline Phosphatase 256 U/L Aspartate Amino Transf (AST/SGOT) 9 U/L Alanine Aminotransferase (ALT/SGPT) 21 U/L Total Bilirubin 0.4 MG/DL Sodium Level 120 MEQ/L Potassium Level 6.5 MEQ/L Chloride Level 88 MEQ/L Carbon Dioxide Level 20.1 MEQ/L Anion Gap 12 MEQ/L Estimat Glomerular Filtration Rate 38 ML/MIN Total Creatine Kinase 65 U/L Troponin I LESS THAN 0.02 NG/ML MDM Supervised Visit with SHELBIE: Yes Narrative Course The history, exam, and medical decision-making in the associated mid-level provider note were completed with my assistance. I reviewed and agree with the findings presented. I attest that I had a [id number] encounter with the patient on the same day, and personally performed and documented my assessment and findings in the medical record. *My assessment and Findings: 57-year-old with abdominal pain, history of chronic pancreatitis. Blood sugars also markedly elevated. She benign exam. Lipase is low but elevated. CT scan was performed. Blood sugar is markedly elevated without evidence of HHS or DKA. She'll be started on IV insulin, admitted to the unit. Diagnosis Primary Impression: Hyperglycemia due to type 2 diabetes mellitus Qualified Codes: E11.65 - Type 2 diabetes mellitus with hyperglycemia Additional Impressions: Abdominal pain Qualified Codes: R10.84 - Generalized abdominal pain Hyperkalemia Hema Almaraz MD Mar 24, 2017 23:35
[2017-03-25] VITALS (13 sets, daily range): BP systolic 107–147; BP diastolic 66–85; PULSE 72–89; RESP 15–34; TEMP 97.4–98.6; O2SAT 98–100
[2017-03-25] MEDS: MORPHINE SULFATE 2 MG/ML INJ IM PRN ×3 (02:31→18:43)
[2017-03-25] MEDS: CHLORHEXIDINE GLUCONATE 2 % 1 PACK (2 CLOTHS) TOP SCH (03:36)
[2017-03-25] MEDS: DEXT 5%-NACL 0.9% 1000 ML INJ 1,000 ML IV SCH ×3 (03:37→08:00)
[2017-03-25] MEDS ORDERED: DEXTROSE 50% IN WATER 50 ML VIAL(D50) IV PUSH PRN (03:45)
[2017-03-25] MEDS ORDERED: GLUCAGON 1 MG/ML VIAL OTHER PRN (03:45)
[2017-03-25] MEDS ORDERED: DC Insulin drip 2 hrs post basal insulin dose ONE (03:45)
[2017-03-25] MEDS ORDERED: DC previous DKA orders (HMC 1917) ONE (03:45)
--- NOTE | 2017-03-25 04:04 | HHI.HP ---
[facility] Service [facility] Primary Care Physician Dariel Johnson MD Admission Diagnosis hyperglycemia, hyperkalemia, abdominal pain Diagnoses: Travel History International Travel<30 Days: No Contact w/Intl Traveler <30 Da: No Traveled to Known Affected Are: No History of Present Illness 57-year-old female with a past medical history significant for asthma, hyperlipidemia, coronary artery disease, insulin-dependent diabetes mellitus and pancreatic insufficiency presents to the emergency department complaining of low back pain. The patient states the pain has been steadily worsening 1 week. In the emergency department she was found to have a blood sugar of 1119 and a beta hydroxybutyrate of 2.17. Anion gap 12. The patient reports that she has been running out of insulin and that she has only been taking half as much in the morning when she is supposed to take it twice a day. She is unsure of the amount of units of insulin she takes on a daily basis. The patient's primary complaint at this time as her lower back pain and bilateral lower extremity weakness which she describes as intermittent and chronic. Review of Systems Denies fever or chills Denies blurry vision, otorrhea, rhinorrhea Denies sore throat and cough No chest pain, palpitations, shortness of breath No abdominal pain Denies constipation/diarrhea/nausea/vomiting Positive back and LE pain/weakness No rashes Past Family Social History Past Medical History Pancreatic insufficiency Hypertension Diabetes mellitus GERD CAD Past Surgical History Cardiac catheterization with stent placement in 2005 and 2006 G-tube placement and removal Reported Medications Reported Meds & Active Scripts Active Oxycodone (Oxycodone HCl) 5 Mg Cap 5 Mg PO Q8H PRN 30 Days Ursodiol 300 Mg Cap 300 Mg PO BID Creon (Amylase/Lipase/Protease) 24,000-76,000-120,000 Units Cap 2 Cap PO TID Glucophage (Metformin HCl) 500 Mg Tab 1,000 Mg PO BIDPC Norvasc (Amlodipine Besylate) 5 Mg Tab 5 Mg PO DAILY Pantoprazole (Pantoprazole Sodium) 40 Mg Tab 40 Mg PO DAILY Levemir Inj (Insulin Detemir) 1,000 unit/ 10 ML Vial 18 Units SQ BID 30 Days Allergies: Coded Allergies: No Known Allergies (Verified Allergy, Unknown, 03/24/17) NONE KNOWN Family History Family history significant for CAD. Social History Smokes one pack per day. Denies alcohol, illicit drugs. Physical Exam Vital Signs Vital Signs Date Time Temp Pulse Resp B/P (MAP) Pulse Ox O2 Delivery O2 Flow Rate FiO2 03/25/17 02:00 79 03/25/17 01:27 97.8 82 20 135/75 (95) 100 03/25/17 01:13 03/25/17 01:13 98 Room Air 03/25/17 01:02 85 15 147/85 (105) 98 Room Air 03/24/17 18:47 92 18 140/80 (100) 98 Room Air 03/24/17 18:00 98.4 113 16 165/90 (115) 97 Physical Exam GENERAL: female lying in bed SKIN: No rashes, ecchymoses or lesions. Cool and dry. HEAD: Atraumatic. Normocephalic. No temporal or scalp tenderness. EYES: Pupils equal round and reactive. Extraocular motions intact. No scleral icterus. No injection or drainage. ENT: Nose without bleeding, purulent drainage or septal hematoma. Throat without erythema, tonsillar hypertrophy or exudate. Uvula midline. Airway patent. NECK: Trachea midline. No JVD or lymphadenopathy. Supple, nontender, no meningeal signs. CARDIOVASCULAR: Regular rate and rhythm without murmurs, gallops, or rubs. RESPIRATORY: Clear to auscultation. Breath sounds equal bilaterally. No wheezes , rales, or rhonchi. GASTROINTESTINAL: Abdomen soft, non-tender, nondistended. No hepato-splenomegaly , or palpable masses. No guarding. MUSCULOSKELETAL: Extremities without clubbing, cyanosis, or edema. No joint tenderness, effusion, or edema noted. No calf tenderness. NEUROLOGICAL: Awake and alert. Cranial nerves II through XII intact. Motor and sensory grossly within normal limits. Normal speech. Laboratory Laboratory Tests Test 03/24/17 18:50 03/24/17 19:05 03/24/17 19:20 03/24/17 21:20 White Blood Count 5.9 Red Blood Count 4.40 Hemoglobin 13.3 Hematocrit 42.5 Mean Corpuscular Volume 96.5 Mean Corpuscular Hemoglobin 30.2 Mean Corpuscular Hemoglobin Concent 31.3 Red Cell Distribution Width 15.5 Platelet Count 176 Mean Platelet Volume 10.3 Neutrophils (%) (Auto) 77.5 Lymphocytes (%) (Auto) 15.9 Monocytes (%) (Auto) 5.3 Eosinophils (%) (Auto) 0.9 Basophils (%) (Auto) 0.4 Neutrophils # (Auto) 4.5 Lymphocytes # (Auto) 0.9 Monocytes # (Auto) 0.3 Eosinophils # (Auto) 0.1 Basophils # (Auto) 0.0 CBC Comment DIFF FINAL Differential Comment Prothrombin Time 10.8 Prothromb Time International Ratio 1.1 Activated Partial Thromboplast Time 25.0 Lipase 621 B-Hydroxybutyrate 2.17 Blood Gas Puncture Site BY RN Blood Gas Patient Temperature 98.6 Venous Blood pH 7.30 Venous Blood Partial Pressure CO2 43 Venous Blood Partial Pressure O2 34 Venous Blood HCO3 21 Venous Blood Oxygen Saturation 53 Venous Blood Oxygen Content 10.0 Venous Blood Base Excess -4.8 Oxygen Delivery Device ROOM AIR Blood Gas Inspired Oxygen 21 Urine Color LIGHT-YELLOW Urine Turbidity CLEAR Urine pH 6.5 Urine Specific [place] 1.022 Urine Protein NEG Urine Glucose (UA) 1000 Urine Ketones 10 Urine Occult Blood NEG Urine Nitrite NEG Urine Bilirubin NEG Urine Urobilinogen LESS THAN 2.0 Urine Leukocyte Esterase TRACE Urine RBC 1 Urine WBC 4 Urine Squamous Epithelial Cells <1 Urine Renal Epithelial Cells 2 Microscopic Urinalysis Comment CULT NOT INDICATED Blood Urea Nitrogen 68 Creatinine 1.68 Random Glucose 1119 Total Protein 8.4 Albumin 3.7 Calcium Level 9.2 Alkaline Phosphatase 256 Aspartate Amino Transf (AST/SGOT) 9 Alanine Aminotransferase (ALT/SGPT) 21 Total Bilirubin 0.4 Sodium Level 120 Potassium Level 6.5 Chloride Level 88 Carbon Dioxide Level 20.1 Anion Gap 12 Estimat Glomerular Filtration Rate 38 Total Creatine Kinase 65 Troponin I LESS THAN 0.02 Test 03/25/17 01:30 03/25/17 02:45 Nasal Screen MRSA (PCR) MRSA NOT DETECTED Random Glucose 215 Result Diagram: 03/24/17 1850 03/25/17 0245 Caprini VTE Risk Assessment Caprini VTE Risk Assessment: Mod/High Risk (score >= 2) Caprini Risk Assessment Model Point Value = 1 Point Value = 2 Point Value = 3 Point Value = 5 Age 41-60 Minor surgery BMI > 25 kg/m2 Swollen legs Varicose veins or History of unexplained or recurrent spontaneous Oral contraceptives or hormone replacement Sepsis (< 1 month) Serious lung disease, including pneumonia (< 1 month) Abnormal pulmonary function Acute myocardial infarction Congestive heart failure (< 1 month) History of inflammatory bowel disease Medical patient at bed rest Age 61-74 Arthroscopic surgery Major open surgery (> 45 min) Laparoscopic surgery (> 45 min) Malignancy Confined to bed (> 72 hours) Immobilizing plaster cast Central venous access Age >= 75 History of VTE Family history of VTE Factor V Leiden Prothrombin [id number] Lupus anticoagulant Anticardiolipin antibodies Elevated serum homocysteine Heparin-induced thrombocytopenia Other congenital or acquired thrombophilia Stroke (< 1 month) Elective arthroplasty Hip, pelvis, or leg fracture Acute spinal cord injury (< 1 month) Prophylaxis Regimen Total Risk Factor Score Risk Level Prophylaxis Regimen 0-1 Low Early ambulation 2 Moderate Order ONE of the following: *Sequential Compression Device (SCD) *Heparin 5000 units SQ BID 3-4 Higher Order ONE of the following medications: *Heparin 5000 units SQ TID *Enoxaparin/Lovenox 40 mg SQ daily (WT < 150 kg, CrCl > 30 mL/min) *Enoxaparin/Lovenox 30 mg SQ daily (WT < 150 kg, CrCl > 10-29 mL/min) *Enoxaparin/Lovenox 30 mg SQ BID (WT < 150 kg, CrCl > 30 mL/min) AND/OR *Sequential Compression Device (SCD) 5 or more Highest Order ONE of the following medications: *Heparin 5000 units SQ TID (Preferred with Epidurals) *Enoxaparin/Lovenox 40 mg SQ daily (WT < 150 kg, CrCl > 30 mL/min) *Enoxaparin/Lovenox 30 mg SQ daily (WT < 150 kg, CrCl > 10-29 mL/min) *Enoxaparin/Lovenox 30 mg SQ BID (WT < 150 kg, CrCl > 30 mL/min) AND *Sequential Compression Device (SCD) Assessment and Plan Assessment and Plan Assessment/plan: 1. Hyperglycemia Blood sugar on arrival to the emergency department 1118 Beta hydroxybutyrate 2.17 Anion gap 12 Pseudohyponatremia - corrected Na 144 Patient started on an insulin drip with appropriate drop in blood sugar She will be transitioned off the drip at this time with long-acting insulin and sliding scale Monitor for hypoglycemia Counseled patient as to the importance of taking all of her insulin 2. Back and leg pain Chronic Physical therapy consulted, appreciate recommendations Patient will need to follow-up with her primary care physician 3. Hypertension Continue home Norvasc FEN Diabetic diet Electrolytes: monitor and replete prn Heparin Case discussed with ER physician at length Physician Certification 2 Midnight Certification Type: Admission for Inpatient Services Order for Inpatient Services The services are ordered in accordance with Medicare regulations or non- Medicare payer requirements, as applicable. In the case of services not specified as inpatient-only, they are appropriately provided as inpatient services in accordance with the 2-midnight benchmark. Estimated LOS (days): 2 2 days is the estimated time the patient will need to remain in the hospital, assuming treatment plan goals are met and no additional complications. Post-Hospital Plan: Not yet determined Mariam Doyle MD Mar 25, 2017 04:04
[2017-03-25 05:11] LABS: BICARBONATE 20.9 MEQ/L (21.0-32.0); CALCIUM 8.6 MG/DL (8.5-10.1); CREATININE 1.03 MG/DL (0.50-1.00); MAGNESIUM 1.8 MG/DL (1.5-2.5)
[2017-03-25 05:12] LABS: PHOSPHORUS 1.7 MG/DL (2.5-4.9)
[2017-03-25] MEDS: INSULIN ASPART SUPPLEMENTAL SCALE SQ SCH ×4 (08:00→21:31)
--- NOTE | 2017-03-25 08:29 | HHI.PR ---
Subjective Remarks Follow up DKA. Patient reports back pain, which is chronic. No chest pain, dyspnea. Reports productive cough. No nausea/vomiting. Objective Vitals Vital Signs Date Time Temp Pulse Resp B/P (MAP) Pulse Ox O2 Delivery O2 Flow Rate FiO2 03/25/17 06:00 75 03/25/17 04:00 98.6 78 34 107/66 (80) 98 03/25/17 04:00 78 03/25/17 02:00 79 03/25/17 01:27 97.8 82 20 135/75 (95) 100 03/25/17 01:13 03/25/17 01:13 98 Room Air 03/25/17 01:02 85 15 147/85 (105) 98 Room Air 03/24/17 18:47 92 18 140/80 (100) 98 Room Air 03/24/17 18:00 98.4 113 16 165/90 (115) 97 I/O 03/24/17 03/24/17 03/24/17 03/25/17 03/25/17 03/25/17 07:00 15:00 23:00 07:00 15:00 23:00 Intake Total 1000 ml 1000 ml Balance 1000 ml 1000 ml Intake Oral 0 ml IV Total 1000 ml 1000 ml # Voids 1 Result Diagram: 03/24/17 1850 03/25/17 0343 Imaging Last Impressions Abdomen/Pelvis CT 03/24/17 0000 Signed Impressions: Service Date/Time: Friday, March 24, 2017 23:03 - CONCLUSION: Interval placement of a biliary stent which is in good position. Otherwise stable exam. No acute findings. Chang Torres MD Objective Remarks General: No acute distress. Appears older than stated age. Heart: Regular rate and rhythm. No murmur. Lungs: Clear to auscultation bilaterally. No wheezes, rales, or rhonchi. Breathing is nonlabored. Abdomen: Soft, nontender, nondistended. Extremities: No lower extremity edema. No calf tenderness. Psych: Alert and oriented. Urinary Catheter: No Vascular Central Line Catheter: No A/P Assessment and Plan 1. DKA: Patient presented with significant hyperglycemia. Beta hydroxybutyrate elevated upon presentation. Glucose is less than 100. DKA protocol initiated overnight. Now being transitioned to subcutaneous insulin. Diabetic diet ordered. 2. Back pain: Chronic. PT eval. 3. Hypertension: Continue Norvasc. 4. DVT prophylaxis: Heparin. 5. Hypokalemia: Supplement potassium per protocol. 6. Acute kidney injury: Creatinine improving. Continue IV fluids. 7. Pseudohyponatremia: Sodium is within normal limits. Tin Gilbert MD Mar 25, 2017 08:29
[2017-03-25] MEDS: PANTOPRAZOLE SOD 40 MG DELAYED RELEASE TAB PO SCH (08:47)
[2017-03-25] MEDS: HEPARIN SODIUM - SQ 10,000 UNITS/ML VIAL SQ SCH ×2 (08:47→21:31)
[2017-03-25] MEDS: amLODIPine BESYLATE 5 MG TAB PO SCH (08:47)
[2017-03-25] MEDS: URSODIOL 300 MG CAP PO SCH ×2 (08:52→21:31)
[2017-03-25] MEDS ORDERED: INSULIN DETEMIR 100 UNITS/ML VIAL SQ SCH (09:00)
[2017-03-25] MEDS: LIPASE/PROTEASE/AMYLASE (24,000/76,000/120,000) CAP PO SCH ×3 (09:20→17:11)
[2017-03-25 12:08] LABS: BICARBONATE 21.9 MEQ/L (21.0-32.0); CALCIUM 8.1 MG/DL (8.5-10.1); CREATININE 0.74 MG/DL (0.50-1.00); MAGNESIUM 1.7 MG/DL (1.5-2.5); PHOSPHORUS 2.1 MG/DL (2.5-4.9)
[2017-03-25 17:53] LABS: BICARBONATE 19.1 MEQ/L (21.0-32.0); CALCIUM 8.7 MG/DL (8.5-10.1); CREATININE 0.75 MG/DL (0.50-1.00); MAGNESIUM 1.7 MG/DL (1.5-2.5)
--- NOTE | 2017-03-25 21:53 | EKG ---
Date Performed: 03/24/2017 Time Performed: 19:33:28 PTAGE: 57 years EKG: Sinus rhythm POSSIBLE RIGHT ATRIAL ENLARGEMENT LEFT ATRIAL ENLARGEMENT MODERATE ST DEPRESSION ABNORMAL ECG Compar ed to the PREVIOUS TRACING ST depression present DOCTOR: Ericka Schulz Interpretating Date/Time 03/25/2017 21:52:47
[2017-03-25 23:17] LABS: BICARBONATE 19.1 MEQ/L (21.0-32.0); CALCIUM 8.5 MG/DL (8.5-10.1); CREATININE 0.92 MG/DL (0.50-1.00); MAGNESIUM 1.7 MG/DL (1.5-2.5); PHOSPHORUS 1.8 MG/DL (2.5-4.9)
[2017-03-26] VITALS (8 sets, daily range): BP systolic 104–145; BP diastolic 61–90; PULSE 64–94; RESP 18–31; TEMP 95.7–98.4; O2SAT 95–99
[2017-03-26] MEDS: MORPHINE SULFATE 2 MG/ML INJ IM PRN (00:34)
[2017-03-26] MEDS: CHLORHEXIDINE GLUCONATE 2 % 1 PACK (2 CLOTHS) TOP SCH (04:00)
[2017-03-26] MEDS ORDERED: INSULIN ASPART 1,000 UNITS/10 ML VIAL SQ ONE (05:45)
[2017-03-26 07:03] LABS: CALCIUM 8.5 MG/DL (8.5-10.1); CREATININE 0.73 MG/DL (0.50-1.00)
--- NOTE | 2017-03-26 08:27 | HHI.PR ---
Subjective Remarks Follow up DKA. Patient still reporting back pain. No chest pain, dyspnea. Objective Vitals Vital Signs Date Time Temp Pulse Resp B/P (MAP) Pulse Ox O2 Delivery O2 Flow Rate FiO2 03/26/17 06:00 64 03/26/17 04:00 74 03/26/17 04:00 98.4 74 22 120/66 (84) 97 03/26/17 02:00 72 03/26/17 00:00 94 03/26/17 00:00 98.2 94 31 120/66 (84) 99 03/25/17 22:00 73 03/25/17 20:00 98.0 82 28 139/74 (95) 99 03/25/17 20:00 82 03/25/17 18:00 89 03/25/17 16:00 98.0 85 28 143/84 (103) 100 03/25/17 16:00 85 03/25/17 14:00 88 03/25/17 12:00 97.6 72 15 141/77 (98) 100 03/25/17 12:00 72 03/25/17 10:00 79 03/25/17 09:37 20 I/O 03/25/17 03/25/17 03/25/17 03/26/17 03/26/17 03/26/17 06:59 14:59 22:59 06:59 14:59 22:59 Intake Total 1000 ml 900 ml 200 ml Balance 1000 ml 900 ml 200 ml Intake Oral 0 ml 200 ml IV Total 1000 ml 900 ml # Voids 1 3 2 # Bowel Movements 0 Result Diagram: 03/24/17 1850 03/26/17 0540 Imaging Last Impressions Abdomen/Pelvis CT 03/24/17 0000 Signed Impressions: Service Date/Time: Friday, March 24, 2017 23:03 - CONCLUSION: Interval placement of a biliary stent which is in good position. Otherwise stable exam. No acute findings. Chang Torres MD Objective Remarks General: No acute distress. Heart: Regular rate and rhythm. No murmur. Lungs: Clear to auscultation bilaterally. No wheezes, rales, or rhonchi. Breathing is nonlabored. Abdomen: Soft, mildly tender in LLQ without rebound/guarding, nondistended. Extremities: No lower extremity edema. No calf tenderness. Psych: Alert and oriented. Procedures None Urinary Catheter: No Vascular Central Line Catheter: No A/P Assessment and Plan 1. DKA: Resolved. Continue diabetic diet. Resume home dose of Levemir (18 Units BID). Monitor accuchecks and cover with sliding scale insulin. 2. Back pain: Chronic. PT eval. 3. Hypertension: Continue Norvasc. 4. DVT prophylaxis: Heparin. 5. Hypokalemia: Resolved. 6. Acute kidney injury: Creatinine improved. Continue IV fluids. 7. Pseudohyponatremia: Sodium is stable. Tin Gilbert MD Mar 26, 2017 08:27
[2017-03-26] MEDS ORDERED: ACETAMINOPHEN 500 MG CPLT PO PRN (08:30)
[2017-03-26] MEDS: HEPARIN SODIUM - SQ 10,000 UNITS/ML VIAL SQ SCH ×2 (09:40→21:37)
[2017-03-26] MEDS: PANTOPRAZOLE SOD 40 MG DELAYED RELEASE TAB PO SCH (09:40)
[2017-03-26] MEDS: amLODIPine BESYLATE 5 MG TAB PO SCH (09:40)
[2017-03-26] MEDS: LIPASE/PROTEASE/AMYLASE (24,000/76,000/120,000) CAP PO SCH ×3 (09:40→18:01)
[2017-03-26] MEDS: ACETAMINOPHEN/HYDROcodone 325 MG/7.5 MG TAB PO PRN ×3 (09:41→21:38)
[2017-03-26] MEDS: INSULIN DETEMIR 100 UNITS/ML VIAL SQ SCH ×2 (09:41→21:37)
[2017-03-26] MEDS: URSODIOL 300 MG CAP PO SCH ×2 (09:46→21:36)
[2017-03-26] MEDS: INSULIN ASPART SUPPLEMENTAL SCALE SQ SCH ×4 (09:46→21:38)
[2017-03-27] VITALS (7 sets, daily range): BP systolic 101–131; BP diastolic 55–75; PULSE 71–89; RESP 16–20; TEMP 97.5–98.2; O2SAT 94–99
[2017-03-27] MEDS: ACETAMINOPHEN/HYDROcodone 325 MG/7.5 MG TAB PO PRN ×3 (02:08→17:56)
[2017-03-27] MEDS: CHLORHEXIDINE GLUCONATE 2 % 1 PACK (2 CLOTHS) TOP SCH (04:00)
[2017-03-27 05:50] LABS: BICARBONATE 21.1 MEQ/L (21.0-32.0); CALCIUM 8.7 MG/DL (8.5-10.1); CREATININE 0.81 MG/DL (0.50-1.00)
[2017-03-27] MEDS: INSULIN ASPART SUPPLEMENTAL SCALE SQ SCH ×4 (08:00→21:00)
[2017-03-27] MEDS: amLODIPine BESYLATE 5 MG TAB PO SCH (08:43)
[2017-03-27] MEDS: LIPASE/PROTEASE/AMYLASE (24,000/76,000/120,000) CAP PO SCH ×3 (08:43→18:00)
[2017-03-27] MEDS: URSODIOL 300 MG CAP PO SCH ×2 (08:43→21:31)
[2017-03-27] MEDS: INSULIN DETEMIR 100 UNITS/ML VIAL SQ SCH ×2 (08:44→21:34)
[2017-03-27] MEDS: HEPARIN SODIUM - SQ 10,000 UNITS/ML VIAL SQ SCH ×2 (08:44→21:37)
[2017-03-27] MEDS: PANTOPRAZOLE SOD 40 MG DELAYED RELEASE TAB PO SCH (08:45)
--- NOTE | 2017-03-27 12:50 | HHI.PR ---
Subjective History of Present Illness Patient c/o lower back pain no other issue d/w RN on duty. Review of Systems Constitutional Constitutional: Fatigue, Weakness Musculoskeletal MS Remarks lower back pain. Vitals/Results Vital Signs Vital Signs Date Time Temp Pulse Resp B/P (MAP) Pulse Ox O2 Delivery O2 Flow Rate FiO2 03/27/17 11:34 97.5 82 18 109/55 (73) 94 03/27/17 09:45 16 03/27/17 07:19 97.8 86 18 122/56 (78) 95 03/27/17 04:00 98.2 74 20 101/58 (72) 97 03/27/17 00:49 98.0 71 18 126/61 (82) 96 03/27/17 00:10 79 03/26/17 20:00 96.8 84 18 127/73 (91) 97 03/26/17 20:00 69 03/26/17 16:00 96.2 81 19 104/61 (75) 95 CBC/BMP: 03/24/17 1850 03/27/17 0502 Lab Results Laboratory Tests Test 03/27/17 05:02 Blood Urea Nitrogen 17 MG/DL Creatinine 0.81 MG/DL Random Glucose 115 MG/DL Calcium Level 8.7 MG/DL Sodium Level 136 MEQ/L Potassium Level 4.4 MEQ/L Chloride Level 108 MEQ/L Carbon Dioxide Level 21.1 MEQ/L Anion Gap 7 MEQ/L Estimat Glomerular Filtration Rate 88 ML/MIN Physical Exam General General Appearance: Well Developed, Well Nourished, No Acute Distress, Comfortable Eyes Eye Exam: Pupils Equal, Pupils Reactive Throat Throat Exam: Oral Mucosa [place] & Moist, Oral Pharynx Normal Neck Neck Exam: Neck Supple, Trachea Midline Pulmonary Resp Exam: Clear Bilaterally, Breath Sounds Equal, No Distress Cardiology CV Exam: Regular, Normal Sinus Rhythm, Good Perfusion Gastrointestinal/Abdomen GI Exam: Soft, Non-Tender, Bowel Sounds Present Musculoskeletal MS Exam: Joints Intact Integumentary Skin Exam: Clear, Warm, Dry, Intact Extremeties Extremities Exam: No Edema Neurologic Neuro Exam: Alert, Awake, Oriented, Speech Clear, Moving All Extremities, No Focal Deficits Psychiatric Psych Exam: Appropriate Responses Assessment/Plan Assessment/Plan Assessment and Plan 1. DKA: Patient presented with significant hyperglycemia. Beta hydroxybutyrate elevated upon presentation. Glucose is less than 100. on subcutaneous insulin. Diabetic diet on ISS. 2. Back pain: Chronic. PT eval. Check MRI of Lumbosacral spine without contrast. 3. Hypertension: Continue Norvasc. 4. DVT prophylaxis: Heparin. 5. Hypokalemia: resolved. 6. Acute kidney injury: Creatinine improving. Continue IV fluids. 7. Pseudohyponatremia:... resolved. Sodium is within normal limits. 8. DVT/ GI Prophylaxis. Discussed Condition with: Patient Dariel Johnson MD Mar 27, 2017 12:50
[2017-03-27] MEDS: ACETAMINOPHEN/HYDROcodone 325 MG/5 MG TAB PO PRN (21:32)
[2017-03-28] VITALS: BP 121/66; PULSE 77; PULSE 81; RESP 20; TEMP 97.8; O2SAT 98
[2017-03-28] MEDS: ACETAMINOPHEN/HYDROcodone 325 MG/5 MG TAB PO PRN (03:08)
[2017-03-28] MEDS: CHLORHEXIDINE GLUCONATE 2 % 1 PACK (2 CLOTHS) TOP SCH (03:21)
[2017-03-28 04:00] VITALS: BP 119/57; PULSE 70; PULSE 86; RESP 20; TEMP 97.8; O2SAT 99
[2017-03-28 08:00] VITALS: BP 119/57; PULSE 74; RESP 16; TEMP 97.7; O2SAT 98
[2017-03-28] MEDS: INSULIN ASPART SUPPLEMENTAL SCALE SQ SCH ×4 (08:00→21:48)
[2017-03-28] MEDS: LIPASE/PROTEASE/AMYLASE (24,000/76,000/120,000) CAP PO SCH ×3 (08:24→17:22)
[2017-03-28] MEDS: PANTOPRAZOLE SOD 40 MG DELAYED RELEASE TAB PO SCH (08:24)
[2017-03-28] MEDS: amLODIPine BESYLATE 5 MG TAB PO SCH (08:24)
[2017-03-28] MEDS: HEPARIN SODIUM - SQ 10,000 UNITS/ML VIAL SQ SCH ×2 (08:24→21:37)
[2017-03-28] MEDS: URSODIOL 300 MG CAP PO SCH ×2 (08:24→21:36)
[2017-03-28] MEDS: INSULIN DETEMIR 100 UNITS/ML VIAL SQ SCH ×2 (08:25→21:48)
[2017-03-28 09:08] LABS: HEMATOCRIT 31.4 % (35.0-46.0); HEMOGLOBIN 10.4 GM/DL (11.6-15.3); MEAN CELL VOLUME 89.6 FL (80.0-100.0); MEAN CORPUSCULAR HEMOGLOBIN 29.6 PG (27.0-34.0); MEAN CORPUSCULAR HGB CONC 33.1 % (32.0-36.0); MEAN PLATELET VOLUME 10.6 FL (7.0-11.0); PLATELET COUNT 132 TH/MM3 (150-450); RED BLOOD COUNT 3.51 MIL/MM3 (4.00-5.30); RED CELL DISTRIBUTION WIDTH 15.6 % (11.6-17.2); WHITE BLOOD COUNT 5.2 TH/MM3 (4.0-11.0)
[2017-03-28 09:32] LABS: ALBUMIN 2.5 GM/DL (3.4-5.0); AST (GOT) 17 U/L (15-37); BICARBONATE 18.7 MEQ/L (21.0-32.0); BLOOD UREA NITROGEN 15 MG/DL (7-18); CALCIUM 8.6 MG/DL (8.5-10.1); CHLORIDE 107 MEQ/L (98-107); CREATININE 0.79 MG/DL (0.50-1.00); GLOMERULAR FILTRATION RATE 91 ML/MIN (>89); GLUCOSE,RANDOM 248 MG/DL (74-106); SODIUM (NA) 136 MEQ/L (136-145)
[2017-03-28 09:42] LABS: ALKALINE PHOSPHATASE 142 U/L (45-117); ALT (GPT) 14 U/L (10-53); TOTAL BILIRUBIN ADULT 0.1 MG/DL (0.2-1.0); TOTAL PROTEIN 6.1 GM/DL (6.4-8.2)
[2017-03-28 11:33] LABS: CORRECTED NUCLEATED RBC 7 /100 WBC (0-0); LYMPHOCYTES 42 % (9-44); MONOCYTES 3 % (0-8); NEUTROPHIL # MANUAL DIFF 2.8 TH/MM3 (1.8-7.7); NUCLEATED RED BLOOD CELL 7 (0-0); POLYS (SEG NEUTROPHILS) 54 % (16-70)
[2017-03-28 12:00] VITALS: BP 126/59; PULSE 83; RESP 16; TEMP 97.4; O2SAT 99
[2017-03-28] MEDS: ACETAMINOPHEN/HYDROcodone 325 MG/7.5 MG TAB PO PRN ×3 (12:12→21:36)
--- NOTE | 2017-03-28 16:48 | HHI.PR ---
Subjective History of Present Illness Patient c/o lower back pain no other issue blood sugar high increase Levemir dose. Review of Systems Constitutional Constitutional: Fatigue, Weakness Musculoskeletal MS Remarks lower back pain. Vitals/Results Vital Signs Vital Signs Date Time Temp Pulse Resp B/P (MAP) Pulse Ox O2 Delivery O2 Flow Rate FiO2 03/28/17 12:00 97.4 83 16 126/59 (81) 99 03/28/17 08:00 97.7 74 16 119/57 (77) 98 03/28/17 08:00 74 03/28/17 04:00 97.8 70 20 119/57 (77) 99 03/28/17 04:00 86 03/28/17 00:00 77 03/28/17 00:00 97.8 81 20 121/66 (84) 98 03/27/17 20:00 97.6 78 20 131/72 (91) 99 CBC/BMP: 03/28/17 0800 03/28/17 0800 Lab Results Laboratory Tests Test 03/28/17 08:00 White Blood Count 5.2 TH/MM3 Red Blood Count 3.51 MIL/MM3 Hemoglobin 10.4 GM/DL Hematocrit 31.4 % Mean Corpuscular Volume 89.6 FL Mean Corpuscular Hemoglobin 29.6 PG Mean Corpuscular Hemoglobin Concent 33.1 % Red Cell Distribution Width 15.6 % Platelet Count 132 TH/MM3 Mean Platelet Volume 10.6 FL CBC Comment AUTO DIFF Differential Total Cells Counted 100 Neutrophils % (Manual) 54 % Lymphocytes % 42 % Monocytes % 3 % Eosinophils % 1 % Neutrophils # (Manual) 2.8 TH/MM3 Nucleated Red Blood Cells 7 /100 WBC Differential Comment FINAL DIFF MANUAL Platelet Estimate LOW Platelet Morphology Comment NORMAL Red Cell Morphology Comment NORMAL Blood Urea Nitrogen 15 MG/DL Creatinine 0.79 MG/DL Random Glucose 248 MG/DL Total Protein 6.1 GM/DL Albumin 2.5 GM/DL Calcium Level 8.6 MG/DL Alkaline Phosphatase 142 U/L Aspartate Amino Transf (AST/SGOT) 17 U/L Alanine Aminotransferase (ALT/SGPT) 14 U/L Total Bilirubin 0.1 MG/DL Sodium Level 136 MEQ/L Potassium Level 4.1 MEQ/L Chloride Level 107 MEQ/L Carbon Dioxide Level 18.7 MEQ/L Anion Gap 10 MEQ/L Estimat Glomerular Filtration Rate 91 ML/MIN Physical Exam General General Appearance: Well Developed, Well Nourished, No Acute Distress, Comfortable Eyes Eye Exam: Pupils Equal, Pupils Reactive Throat Throat Exam: Oral Mucosa [place] & Moist, Oral Pharynx Normal Neck Neck Exam: Neck Supple, Trachea Midline Pulmonary Resp Exam: Clear Bilaterally, Breath Sounds Equal, No Distress Cardiology CV Exam: Regular, Normal Sinus Rhythm, Good Perfusion Gastrointestinal/Abdomen GI Exam: Soft, Non-Tender, Bowel Sounds Present Musculoskeletal MS Exam: Joints Intact Integumentary Skin Exam: Clear, Warm, Dry, Intact Extremeties Extremities Exam: No Edema Neurologic Neuro Exam: Alert, Awake, Oriented, Speech Clear, Moving All Extremities, No Focal Deficits Psychiatric Psych Exam: Appropriate Responses Assessment/Plan Assessment/Plan Assessment and Plan 1. DKA: Patient presented with significant hyperglycemia. Beta hydroxybutyrate elevated upon presentation. Glucose is less than 100. on subcutaneous insulin. Diabetic diet on ISS. 2. Back pain: Chronic. PT eval. Check MRI of Lumbosacral spine without contrast. 3. Hypertension: Continue Norvasc. 4. DVT prophylaxis: Heparin. 5. Hypokalemia: resolved. 6. Acute kidney injury: Creatinine improving. Continue IV fluids. 7. Pseudohyponatremia:... resolved. Sodium is within normal limits. 8. DVT/ GI Prophylaxis. Dariel Johnson MD Mar 28, 2017 16:47
--- NOTE | 2017-03-28 18:35 | RADRPT ---
EXAM DATE/TIME: 03/28/2017 17:58 [facility] COMPARISON: No previous studies available for comparison. INDICATIONS : Pain. MEDICAL HISTORY : Cardiovascular disease. Hypertension. Pancreatitis.Diabetes SURGICAL HISTORY : Cholecystectomy. ENCOUNTER: Subsequent ACUITY: 4-6 days PAIN SCORE: 0/10 LOCATION: LUMBAR TECHNIQUE: Multiplanar multisequence MRI of the lumbar spine was performed without contrast. FINDINGS: The most caudal appearing lumbar vertebra is numbered as L5. VERTEBRAE: Homogeneous signal. Normal alignment. CONUS: Normal level and configuration. Subcentimeter left renal cyst. T12-L1: The thecal sac has a normal diameter. No evidence of disc bulge or protrusion. The neural foramina are patent bilaterally. L1-L2: Mild disc desiccation with diffuse disc bulge, slightly eccentric to the left. Minimal left facet art hropathy. Mild effacement of the anterior thecal sac without significant central canal stenosis. Mild left caudal neural foraminal narrowing. L2-L3: Mild disc desiccation with mild diffuse disc bulge. Mild effacement of the anterior thecal sac withou t significant central canal narrowing. Mild caudal bilateral neural foraminal narrowing. L3-L4: Mild disc desiccation with diffuse disc bulge, mild ligamentum flavum hypertrophy. Effacement of the left anterolateral recess. Mild to moderate caudal bilateral neural foraminal narrowing. L4-L5: Diffuse disc desiccation and disc space narrowing with left eccentric diffuse disc bulge, ligamentum flavum hypertrophy and mild bilateral facet arthropathy. Mild central canal narrowing with mild effac ement of the left anterolateral recess. Moderate bilateral caudal neural foraminal narrowing. L5-S1: Mild disc desiccation with diffuse disc bulge and mild bilateral facet arthropathy. Mild effacement o f the left anterolateral recess. Moderate bilateral caudal neural foraminal narrowing. CONCLUSION: 1. Multilevel degenerative spondylosis most prominently at L2-S1 with moderate bilateral neural [place] inal narrowing. 2. Please see above for detailed description of each level. Dmitry Romero MD on March 28, 2017 at 18:28 Board Certified Radiologist. This report was verified electronically.
[2017-03-28 20:00] VITALS: BP 128/73; PULSE 87; RESP 22; TEMP 97.8; O2SAT 100
[2017-03-28 20:01] VITALS: PULSE 75
[2017-03-29] VITALS (7 sets, daily range): BP systolic 115–162; BP diastolic 59–84; PULSE 67–105; RESP 16–22; TEMP 97.2–99.1; O2SAT 95–100
[2017-03-29] MEDS: CHLORHEXIDINE GLUCONATE 2 % 1 PACK (2 CLOTHS) TOP SCH (01:22)
[2017-03-29] MEDS: ACETAMINOPHEN/HYDROcodone 325 MG/7.5 MG TAB PO PRN ×5 (03:20→22:24)
[2017-03-29 04:54] LABS: AUTOMATED NEUTROPHIL # 2.4 TH/MM3 (1.8-7.7); BASOPHIL % 0.6 % (0.0-2.0); EOSINOPHIL # 0.1 TH/MM3 (0-0.4); EOSINOPHIL % 2.4 % (0.0-4.0); HEMATOCRIT 33.5 % (35.0-46.0); HEMOGLOBIN 10.9 GM/DL (11.6-15.3); LYMPH % 47.1 % (9.0-44.0); LYMPHOCYTE # 2.5 TH/MM3 (1.0-4.8); MEAN CORPUSCULAR HEMOGLOBIN 29.2 PG (27.0-34.0); MEAN CORPUSCULAR HGB CONC 32.5 % (32.0-36.0); MEAN PLATELET VOLUME 10.4 FL (7.0-11.0); MONO % 4.8 % (0.0-8.0); MONOCYTE # 0.3 TH/MM3 (0-0.9); NEUT % 45.1 % (16.0-70.0); PLATELET COUNT 133 TH/MM3 (150-450); RED BLOOD COUNT 3.72 MIL/MM3 (4.00-5.30); RED CELL DISTRIBUTION WIDTH 15.6 % (11.6-17.2); WHITE BLOOD COUNT 5.3 TH/MM3 (4.0-11.0)
[2017-03-29 05:21] LABS: ALKALINE PHOSPHATASE 148 U/L (45-117); ALT (GPT) 15 U/L (10-53); TOTAL BILIRUBIN ADULT 0.1 MG/DL (0.2-1.0); TOTAL PROTEIN 6.7 GM/DL (6.4-8.2)
[2017-03-29 05:22] LABS: ALBUMIN 2.7 GM/DL (3.4-5.0); AST (GOT) 14 U/L (15-37); BICARBONATE 22.8 MEQ/L (21.0-32.0); BLOOD UREA NITROGEN 17 MG/DL (7-18); CALCIUM 8.7 MG/DL (8.5-10.1); CHLORIDE 109 MEQ/L (98-107); CREATININE 0.82 MG/DL (0.50-1.00); GLOMERULAR FILTRATION RATE 87 ML/MIN (>89); GLUCOSE,RANDOM 187 MG/DL (74-106); SODIUM (NA) 140 MEQ/L (136-145)
[2017-03-29] MEDS: INSULIN ASPART SUPPLEMENTAL SCALE SQ SCH ×4 (08:00→22:07)
[2017-03-29] MEDS: HEPARIN SODIUM - SQ 10,000 UNITS/ML VIAL SQ SCH ×2 (08:01→21:50)
[2017-03-29] MEDS: PANTOPRAZOLE SOD 40 MG DELAYED RELEASE TAB PO SCH (08:01)
[2017-03-29] MEDS: amLODIPine BESYLATE 5 MG TAB PO SCH (08:01)
[2017-03-29] MEDS: LIPASE/PROTEASE/AMYLASE (24,000/76,000/120,000) CAP PO SCH ×3 (08:01→17:53)
[2017-03-29] MEDS: URSODIOL 300 MG CAP PO SCH ×2 (08:01→21:47)
[2017-03-29] MEDS: INSULIN DETEMIR 100 UNITS/ML VIAL SQ SCH ×2 (08:02→22:07)
--- NOTE | 2017-03-29 10:50 | HHI.PR ---
Subjective History of Present Illness Patient c/o lower back pain s/p MRI of lumber spine consulted Neurosurgery. no other issue Review of Systems Constitutional Constitutional: Fatigue, Weakness Musculoskeletal MS Remarks lower back pain. Vitals/Results Vital Signs Vital Signs Date Time Temp Pulse Resp B/P (MAP) Pulse Ox O2 Delivery O2 Flow Rate FiO2 03/29/17 08:00 97.4 93 17 123/71 (88) 97 03/29/17 08:00 67 03/29/17 04:00 97.9 83 20 138/60 (86) 95 03/29/17 00:00 98.5 78 22 115/73 (87) 96 03/28/17 20:01 75 03/28/17 20:00 97.8 87 22 128/73 (91) 100 03/28/17 12:00 97.4 83 16 126/59 (81) 99 CBC/BMP: 03/29/17 0332 03/29/17 0331 Lab Results Laboratory Tests Test 03/29/17 03:31 03/29/17 03:32 Blood Urea Nitrogen 17 MG/DL Creatinine 0.82 MG/DL Random Glucose 187 MG/DL Total Protein 6.7 GM/DL Albumin 2.7 GM/DL Calcium Level 8.7 MG/DL Alkaline Phosphatase 148 U/L Aspartate Amino Transf (AST/SGOT) 14 U/L Alanine Aminotransferase (ALT/SGPT) 15 U/L Total Bilirubin 0.1 MG/DL Sodium Level 140 MEQ/L Potassium Level 4.1 MEQ/L Chloride Level 109 MEQ/L Carbon Dioxide Level 22.8 MEQ/L Anion Gap 8 MEQ/L Estimat Glomerular Filtration Rate 87 ML/MIN White Blood Count 5.3 TH/MM3 Red Blood Count 3.72 MIL/MM3 Hemoglobin 10.9 GM/DL Hematocrit 33.5 % Mean Corpuscular Volume 90.0 FL Mean Corpuscular Hemoglobin 29.2 PG Mean Corpuscular Hemoglobin Concent 32.5 % Red Cell Distribution Width 15.6 % Platelet Count 133 TH/MM3 Mean Platelet Volume 10.4 FL Neutrophils (%) (Auto) 45.1 % Lymphocytes (%) (Auto) 47.1 % Monocytes (%) (Auto) 4.8 % Eosinophils (%) (Auto) 2.4 % Basophils (%) (Auto) 0.6 % Neutrophils # (Auto) 2.4 TH/MM3 Lymphocytes # (Auto) 2.5 TH/MM3 Monocytes # (Auto) 0.3 TH/MM3 Eosinophils # (Auto) 0.1 TH/MM3 Basophils # (Auto) 0.0 TH/MM3 CBC Comment DIFF FINAL Differential Comment Physical Exam General General Appearance: Well Developed, Well Nourished, No Acute Distress, Comfortable Eyes Eye Exam: Pupils Equal, Pupils Reactive Throat Throat Exam: Oral Mucosa [place] & Moist, Oral Pharynx Normal Neck Neck Exam: Neck Supple, Trachea Midline Pulmonary Resp Exam: Clear Bilaterally, Breath Sounds Equal, No Distress Cardiology CV Exam: Regular, Normal Sinus Rhythm, Good Perfusion Gastrointestinal/Abdomen GI Exam: Soft, Non-Tender, Bowel Sounds Present Musculoskeletal MS Exam: Joints Intact Integumentary Skin Exam: Clear, Warm, Dry, Intact Extremeties Extremities Exam: No Edema Neurologic Neuro Exam: Alert, Awake, Oriented, Speech Clear, Moving All Extremities, No Focal Deficits Psychiatric Psych Exam: Appropriate Responses Assessment/Plan Assessment/Plan Assessment and Plan 1. DKA: Patient presented with significant hyperglycemia. Beta hydroxybutyrate elevated upon presentation. Glucose is less than 100. on subcutaneous insulin. Diabetic diet on ISS. 2. Back pain: Chronic. PT eval. Check MRI of Lumbosacral spine without contrast. 3. Hypertension: Continue Norvasc. 4. DVT prophylaxis: Heparin. 5. Hypokalemia: resolved. 6. Acute kidney injury: Creatinine improving. Continue IV fluids. 7. Pseudohyponatremia:... resolved. Sodium is within normal limits. 8. DVT/ GI Prophylaxis. 9. Lower back pain s/p MRI of Lumber spine without contrast consulted Neurosurgery. Discussed Condition with: Patient Dariel Johnson MD Mar 29, 2017 10:50
--- NOTE | 2017-03-29 21:27 | MB ---
cc: [facility] SNOW DATE OF CONSULTATION 03/29/2017 REASON FOR CONSULTATION Low back pain. HISTORY OF PRESENT ILLNESS A 57-year-old obese lady with a three-week history of mid back pain more in the left paraspinal aspect. She also complains of pain in a stocking format in the lower extremities, although denies any weakness, numbness or giulia incontinence. She relates that she had a similar episode last year which eventually cleared out. Workup included an MRI scan of the lumbar spine which reveals some degenerate changes along with mild disk protrusions without any significant spinal stenosis. Neurosurgery has been consulted for further treatment recommendations. The patient is sitting up in the bed eating dinner and does not appear to be in any significant discomfort with movement. PAST MEDICAL HISTORY 1. Diabetes mellitus and presented with diabetic ketoacidosis, 2. Hypertension, 3. Kidney disease. MEDICATIONS Current, 1. Insulin. 2. [place] 5/325 p.r.n. 3. Norvasc, 4. Creon. 5. Protonix, 6. Actigall 7. Subcu heparin. ALLERGIES NO KNOWN DRUG ALLERGIES. SOCIAL HISTORY She is single and is disabled. Smokes a pack of cigarettes a day and denies alcohol use. LABORATORY FINDINGS White blood cell count 5.3, hemoglobin 10.9, platelet count 133, PT 10.8, INR 1.1, PTT 25. Sodium 140, potassium 4.1, BUN 17, creatinine 0.82, glucose 187. PHYSICAL EXAMINATION VITAL SIGNS: Temperature 97.2, pulse 78, respiratory rate 18, blood pressure 119/84, oxygen saturation 99% on room air. HEAD: Normocephalic, atraumatic. NECK: Supple with no guarding or rigidity. CHEST: Clear to incision bilaterally HEART: Regular rate rhythm, normal S1-S2. ABDOMEN: Soft, nontender. No hepatosplenomegaly. EXTREMITIES: No cyanosis or edema. GENERAL: A well developed obese black female in no acute distress. SKIN: Warm and dry with no rashes, erythema or ecchymosis noted. NEUROLOGIC: She is awake, alert. She is oriented x3. Speech is fluent. Cranial nerves are grossly intact. Motor strength in all four extremities is 5/5. Negative Babinski. Light touch sensation is intact. IMPRESSION 1. Low back pain without any radiculopathy with complaints of distal stocking format pain in the lower extremities over the past three weeks. She has mild disk protrusion along with degenerative changes without any significant spinal stenosis. 2. Diabetes mellitus with likely diabetic neuropathy. PLAN The patient does not require any neurosurgical intervention for her lumbar spine. Recommend continued conservative pain management and referral to physical therapy as well as interventional pain management for a course of epidural steroid injections if she does not improve. Discussed with the patient who understands and is in agreement. MD LALY Mittal/ /7:25 PM /9:00 PM
[2017-03-30] MEDS: CHLORHEXIDINE GLUCONATE 2 % 1 PACK (2 CLOTHS) TOP SCH (01:36)
[2017-03-30 04:00] VITALS: BP 113/58; PULSE 75; RESP 18; TEMP 97.3; O2SAT 98
[2017-03-30 08:00] VITALS: BP 109/55; PULSE 75; RESP 17; TEMP 96.7; O2SAT 99
[2017-03-30] MEDS: INSULIN ASPART SUPPLEMENTAL SCALE SQ SCH ×4 (08:00→20:36)
[2017-03-30 08:13] LABS: AUTOMATED NEUTROPHIL # 2.4 TH/MM3 (1.8-7.7); BASOPHIL % 0.7 % (0.0-2.0); EOSINOPHIL # 0.2 TH/MM3 (0-0.4); EOSINOPHIL % 2.9 % (0.0-4.0); HEMATOCRIT 32.5 % (35.0-46.0); HEMOGLOBIN 10.5 GM/DL (11.6-15.3); LYMPH % 48.8 % (9.0-44.0); LYMPHOCYTE # 2.8 TH/MM3 (1.0-4.8); MEAN CELL VOLUME 90.1 FL (80.0-100.0); MEAN CORPUSCULAR HEMOGLOBIN 29.1 PG (27.0-34.0); MEAN CORPUSCULAR HGB CONC 32.3 % (32.0-36.0); MEAN PLATELET VOLUME 10.5 FL (7.0-11.0); MONO % 4.8 % (0.0-8.0); MONOCYTE # 0.3 TH/MM3 (0-0.9); NEUT % 42.8 % (16.0-70.0); PLATELET COUNT 147 TH/MM3 (150-450); RED BLOOD COUNT 3.61 MIL/MM3 (4.00-5.30); RED CELL DISTRIBUTION WIDTH 15.8 % (11.6-17.2); WHITE BLOOD COUNT 5.7 TH/MM3 (4.0-11.0)
[2017-03-30] MEDS: URSODIOL 300 MG CAP PO SCH (08:23)
[2017-03-30] MEDS: ACETAMINOPHEN/HYDROcodone 325 MG/7.5 MG TAB PO PRN ×3 (08:23→19:22)
[2017-03-30] MEDS: LIPASE/PROTEASE/AMYLASE (24,000/76,000/120,000) CAP PO SCH ×3 (08:24→17:08)
[2017-03-30] MEDS: HEPARIN SODIUM - SQ 10,000 UNITS/ML VIAL SQ SCH (08:24)
[2017-03-30] MEDS: INSULIN DETEMIR 100 UNITS/ML VIAL SQ SCH ×2 (08:24→20:32)
[2017-03-30] MEDS: PANTOPRAZOLE SOD 40 MG DELAYED RELEASE TAB PO SCH (08:24)
[2017-03-30] MEDS: amLODIPine BESYLATE 5 MG TAB PO SCH (08:24)
[2017-03-30 08:40] LABS: ALKALINE PHOSPHATASE 129 U/L (45-117); TOTAL BILIRUBIN ADULT 0.1 MG/DL (0.2-1.0); TOTAL PROTEIN 6.3 GM/DL (6.4-8.2)
[2017-03-30 08:41] LABS: ALBUMIN 2.5 GM/DL (3.4-5.0); ALT (GPT) 13 U/L (10-53); AST (GOT) 14 U/L (15-37); BICARBONATE 23.3 MEQ/L (21.0-32.0); BLOOD UREA NITROGEN 19 MG/DL (7-18); CHLORIDE 107 MEQ/L (98-107); CREATININE 0.68 MG/DL (0.50-1.00); GLOMERULAR FILTRATION RATE 108 ML/MIN (>89); GLUCOSE,RANDOM 158 MG/DL (74-106); SODIUM (NA) 140 MEQ/L (136-145)
[2017-03-30 12:00] VITALS: BP 110/56; PULSE 80; RESP 17; TEMP 97.6; O2SAT 99
[2017-03-30 16:00] VITALS: BP 133/70; PULSE 91; RESP 17; TEMP 97.5; O2SAT 97
[2017-03-30 16:21] VITALS: RESP 16
--- NOTE | 2017-03-30 17:38 | HHI.PR ---
Subjective History of Present Illness Patient c/o lower back pain s/p MRI of lumber spine Neurosurgery input noted no surgical intervention needed. no other issue ok to discharge home today, Review of Systems Constitutional Constitutional: Fatigue, Weakness Musculoskeletal MS Remarks lower back pain. Vitals/Results Vital Signs Vital Signs Date Time Temp Pulse Resp B/P (MAP) Pulse Ox O2 Delivery O2 Flow Rate FiO2 03/30/17 16:21 16 03/30/17 16:00 97.5 91 17 133/70 (91) 97 03/30/17 12:00 97.6 80 17 110/56 (74) 99 03/30/17 08:00 96.7 75 17 109/55 (73) 99 03/30/17 04:00 97.3 75 18 113/58 (76) 98 03/29/17 23:46 98.9 79 18 117/59 (78) 98 03/29/17 20:00 99.1 81 20 131/68 (89) 100 03/29/17 20:00 105 CBC/BMP: 03/30/17 0640 03/30/17 0640 Lab Results Laboratory Tests Test 03/30/17 06:40 White Blood Count 5.7 TH/MM3 Red Blood Count 3.61 MIL/MM3 Hemoglobin 10.5 GM/DL Hematocrit 32.5 % Mean Corpuscular Volume 90.1 FL Mean Corpuscular Hemoglobin 29.1 PG Mean Corpuscular Hemoglobin Concent 32.3 % Red Cell Distribution Width 15.8 % Platelet Count 147 TH/MM3 Mean Platelet Volume 10.5 FL Neutrophils (%) (Auto) 42.8 % Lymphocytes (%) (Auto) 48.8 % Monocytes (%) (Auto) 4.8 % Eosinophils (%) (Auto) 2.9 % Basophils (%) (Auto) 0.7 % Neutrophils # (Auto) 2.4 TH/MM3 Lymphocytes # (Auto) 2.8 TH/MM3 Monocytes # (Auto) 0.3 TH/MM3 Eosinophils # (Auto) 0.2 TH/MM3 Basophils # (Auto) 0.0 TH/MM3 CBC Comment AUTO DIFF Differential Comment AUTO DIFF CONFIRMED Platelet Estimate LOW Platelet Morphology Comment ENLARGED Red Cell Morphology Comment NORMAL Blood Urea Nitrogen 19 MG/DL Creatinine 0.68 MG/DL Random Glucose 158 MG/DL Total Protein 6.3 GM/DL Albumin 2.5 GM/DL Calcium Level 9.0 MG/DL Alkaline Phosphatase 129 U/L Aspartate Amino Transf (AST/SGOT) 14 U/L Alanine Aminotransferase (ALT/SGPT) 13 U/L Total Bilirubin 0.1 MG/DL Sodium Level 140 MEQ/L Potassium Level 4.3 MEQ/L Chloride Level 107 MEQ/L Carbon Dioxide Level 23.3 MEQ/L Anion Gap 10 MEQ/L Estimat Glomerular Filtration Rate 108 ML/MIN Physical Exam General General Appearance: Well Developed, Well Nourished, No Acute Distress, Comfortable Eyes Eye Exam: Pupils Equal, Pupils Reactive Throat Throat Exam: Oral Mucosa [place] & Moist, Oral Pharynx Normal Neck Neck Exam: Neck Supple, Trachea Midline Pulmonary Resp Exam: Clear Bilaterally, Breath Sounds Equal, No Distress Cardiology CV Exam: Regular, Normal Sinus Rhythm, Good Perfusion Gastrointestinal/Abdomen GI Exam: Soft, Non-Tender, Bowel Sounds Present Musculoskeletal MS Exam: Joints Intact Integumentary Skin Exam: Clear, Warm, Dry, Intact Extremeties Extremities Exam: No Edema Neurologic Neuro Exam: Alert, Awake, Oriented, Speech Clear, Moving All Extremities, No Focal Deficits Psychiatric Psych Exam: Appropriate Responses Assessment/Plan Assessment/Plan Assessment and Plan 1. DKA: Patient presented with significant hyperglycemia. Beta hydroxybutyrate elevated upon presentation. Glucose is less than 100. on subcutaneous insulin. Diabetic diet on ISS. 2. Back pain: Chronic. PT eval. Check MRI of Lumbosacral spine without contrast. 3. Hypertension: Continue Norvasc. 4. DVT prophylaxis: Heparin. 5. Hypokalemia: resolved. 6. Acute kidney injury: Creatinine improving. Continue IV fluids. 7. Pseudohyponatremia:... resolved. Sodium is within normal limits. 8. DVT/ GI Prophylaxis. 9. Lower back pain s/p MRI of Lumber spine without contrast Neurosurgery input noted no surgical intervention needed. ok to discharge home today. f/u with pcp 1 week. Discussed Condition with: Patient Dariel Johnson MD Mar 30, 2017 17:38
[2017-03-30] MEDS ORDERED: HYDR-3516 PO (17:44)
--- NOTE | 2017-03-30 21:52 | MD ---
cc: DARIEL MORENO MD ADMISSION DATE: 03/24/2017 DISCHARGE DATE: 03/30/2017 DISPOSITION: Okay to discharge the patient home. CONDITION AT THE TIME OF DISCHARGE: Satisfactory. DISCHARGE ACTIVITY: As tolerated. DISCHARGE DIET: Cardiac diet. ALLERGIES: NO KNOWN DRUG ALLERGIES. DISCHARGE MEDICATIONS: 1. Lortab 5/325 q. 4 hours PRN pain. 2. Amlodipine 5 milligrams p.o. daily. 3. Insulin Levemir 18 units subcutaneous twice a day. 4. Metformin 1000 milligrams twice a day. 5. Oxycodone 5 milligrams p.o. q. 8 hours PRN pain. 6. Pancrelipase two capsules three times a day. 7. Protonix 40 milligrams p.o. daily. 8. Ursodiol 300 milligrams p.o. twice a day. DISCHARGE FOLLOW UP: The patient was advised to follow up with her primary care physician in one week. ADMITTING DIAGNOSIS: 1. Hyperglycemia, which has resolved. 2. Low back pain. Imaging was done of the lower back and shows multilevel degenerative spondylosis most prominently at L2-S1 with moderate bilateral neural foraminal narrowing. The patient was seen by Dr. Magana, neurosurgeon. No intervention needed surgically. The patient also had a CT of the abdomen and pelvis done that shows interval placement of a biliary stent which is in good position, otherwise a stable examination. No acute findings. The patient remained stable and no acute event happened. HOSPITAL COURSE: This is a 57-year-old female admitted with hyperglycemia and also having anemia with a hemoglobin of 10.4 and 10.5 and lower back pain. MRI done showed the above findings. Neurosurgeon, Dr. Magana, saw the patient. No surgical intervention needed by Dr. Magana. The patient needed consult with pain management and was referred for physical therapy. Most likely epidural steroid injections if it does not improve. The patient remained stable. The patient's blood sugar improved. The patient had blood sugar up and down during the hospital stay. The patient also had mild hypokalemia which resolved and replaced. The patient also had mild hyponatremia which resolved. The patient had an alkaline phosphatase of 129 and total protein was 6.3, albumin was 2.5. The patient had a high beta- hydroxybutyrate at 2.17. The patient's PT 10.8, INR 0.0, APTT 25.0. The patient's MRSA screen was negative. Please see further details in the medical record. Dariel Moreno MD EA/MATTIE /6:33 PM /9:27 PM
== END 2017-03-30 20:39 | disposition home or self-care (01) | DRG 638 ==
LOC: NEPE 17:58 → NEDA 22:58 → HIMN 03-25 01:05 → N07A 03-26 11:58
PROVIDERS: ADMIT Family Medicine; ATTEND Family Medicine
DX: E11.10 Type 2 diabetes mellitus with ketoacidosis without coma (principal); N17.9 Acute kidney failure, unspecified; E87.1 Hypo-osmolality and hyponatremia; K86.89 Other specified diseases of pancreas; I10 Essential (primary) hypertension; F17.210 Nicotine dependence, cigarettes, uncomplicated; K21.9 Gastro-esophageal reflux disease without esophagitis; I25.10 Atherosclerotic heart disease of native coronary artery without angina pectoris; M79.606 Pain in leg, unspecified; G89.29 Other chronic pain; J45.909 Unspecified asthma, uncomplicated; E78.5 Hyperlipidemia, unspecified; Z79.4 Long term (current) use of insulin; M54.5 Low back pain; M47.9 Spondylosis, unspecified; D64.9 Anemia, unspecified; E87.6 Hypokalemia; E66.9 Obesity, unspecified; Z68.33 Body mass index [BMI] 33.0-33.9, adult
CPT/HCPCS: 72148; 74176; 80048; 80053; 81001; 82010; 82550; 82805; 82947; 82948; 83690; 83735; 84100; 84484; 85007; 85025; 85027; 85610; 85730; 87641; 93005; 94003; 96361; 96374; 96375; J1644; J1815; J1817; J2270; J2405; J7030; J7042

== ENCOUNTER 2017-07-01 17:25 | Emergency (ER) | payer OTHER ==
[~2017-07-01] VITALS: Ht 154.9 cm; Wt 60.0 kg
[~2017-07-01 17:25] MED LIST changes: -CLIN300C5 PO; +HYDR-3516 PO
[2017-07-01 17:27] VITALS: BP 188/89; PULSE 94; RESP 16; TEMP 97.6; O2SAT 97
[2017-07-01] MEDS ORDERED: oxyCODONE/ACETAMINOPHEN 5 MG/325 MG TAB PO ONE (17:45)
--- NOTE | 2017-07-01 18:00 | RADRPT ---
EXAM DATE/TIME: 07/01/2017 17:50 [facility] COMPARISON: No previous studies available for comparison. INDICATIONS : Pain in lower back. No known injury. MEDICAL HISTORY : None. SURGICAL HISTORY : Cholecystectomy. ENCOUNTER: Initial ACUITY: 2 months PAIN SCORE: 5/10 LOCATION: Lumbar. FINDINGS: Biliary stent and surgical clips are noted. There is atherosclerotic calcification of the aorta and i liac vessels. Mild to moderate disc space narrowing with vacuum disc phenomenon, osteophytosis and en dplate sclerosis identified. No compression deformities. Alignment normal. Moderate facet hypertrophi c changes are seen. CONCLUSION: Moderate degenerative changes. Atherosclerosis. Greg Bower MD on July 01, 2017 at 17:57 Board Certified Radiologist. This report was verified electronically.
[2017-07-01] MEDS ORDERED: LEVEMIR SQ (18:05)
[2017-07-01] MEDS ORDERED: TIZA2CAP3 PO (18:50)
--- NOTE | 2017-07-01 18:51 | PD ---
HPI Chief Complaint: Back/ Neck Pain or Injury Time Seen by Provider: 17:31 Travel History International Travel<30 days: No Contact w/Intl Traveler<30days: No Traveled to known affect area: No History of Present Illness HPI 57-year-old female complains of low back pain for months. Pain has been gradually worsening. She denies trauma. No numbness tingling weakness. No incontinence of urine or stool. No fever. Patient has known history of chronic pain. She denies any cancer history. No history of immunomodulation. Positive history diabetes. Patient reports that ever since her G-tube was removed she has had worsening pains. No radiation of pain. No hematuria. Ibuprofen at home has not been helpful. PFSH Past Medical History Arthritis: No Asthma: Yes (CHILDHOOD) Autoimmune Disease: No Blood Disorders: No Anxiety: No Depression: No Heart Rhythm Problems: No Cancer: No Cardiac Catheterization: Yes Cardiovascular Problems: Yes (htn) High Cholesterol: Yes Chemotherapy: No Chest Pain: No Congestive Heart Failure: No COPD: No Cerebrovascular Accident: Yes Coronary Artery Disease: Yes Diabetes: Yes Patient Takes Glucophage: Yes Diminished Hearing: No Endocrine: No Gastrointestinal Disorders: Yes (HX. PANCREATITIS) GERD: No Glaucoma: No Genitourinary: No Headaches: No Hepatitis: No Hiatal Hernia: No Heparin Induced Thrombocytopen: No Hypertension: Yes Immune Disorder: No Implanted Vascular Access Dvce: No Kidney Stones: No Musculoskeletal: Yes Neurologic: No Psychiatric: No Reproductive: No Respiratory: Yes Immunizations Current: Yes Migraines: No Myocardial Infarction: No Pancreatitis: Yes Radiation Therapy: No Renal Failure: No Seizures: No Sickle Cell Disease: No Sleep Apnea: Yes Thyroid Disease: No Ulcer: No Influenza Vaccination: No Menopausal: Yes : 9 Para: 9 Past Surgical History Abdominal Surgery: Yes (G-TUBE PLACEMENT AND REMOVAL ) AICD: No Appendectomy: No Arteriovenous Shunt: No Cardiac Surgery: Yes (CARDIAC CATH. WITH STENTS-,) Cholecystectomy: Yes Coronary Artery Bypass Graft: No Coronary Stent: Yes (2005) Ear Surgery: No Endocrine Surgery: No Eye Surgery: No Genitourinary Surgery: No Gynecologic Surgery: No Insulin Pump: No Joint Replacement: No Neurologic Surgery: No Oral Surgery: Yes (TEETH EXTRACTIONS) Pacemaker: No Thoracic Surgery: No Other Surgery: Yes (G-TUBE PLACEMENT AND REMOVAL ) Family History Family Myocardial Infarction: Yes (uncle and other family members) Social History Alcohol Use: No Tobacco Use: Yes (1 PPD) Substance Use: No Allergies-Medications (Allergen,Severity, Reaction): Coded Allergies: No Known Allergies (Verified Allergy, Unknown, 07/01/17) NONE KNOWN Reported Meds & Prescriptions Reported Meds & Active Scripts Active Ursodiol 300 Mg Cap 300 Mg PO BID Creon (Amylase/Lipase/Protease) 24,000-76,000-120,000 Units Cap 2 Cap PO TID Glucophage (Metformin HCl) 500 Mg Tab 1,000 Mg PO BIDPC Norvasc (Amlodipine Besylate) 5 Mg Tab 5 Mg PO DAILY Pantoprazole (Pantoprazole Sodium) 40 Mg Tab 40 Mg PO DAILY Reported Levemir Inj (Insulin Detemir) 1,000 unit/ 10 ML Vial 20 Units SQ BID Do not mix with any other Insulin. Review of Systems Eyes: No: Blurred Vision HENT: No: Lightheadedness Respiratory: No: Cough Gastrointestinal: No: Nausea Physical Exam Narrative GENERAL: 57-year-old female no acute distress resting comfortably in bed ambulatory Vital Signs Date Time Temp Pulse Resp B/P (MAP) Pulse Ox O2 Delivery O2 Flow Rate FiO2 07/01/17 17:27 97.6 94 16 188/89 (122) 97 SKIN: Warm and dry. HEAD: Atraumatic. Normocephalic. EYES: Pupils equal and round. No scleral icterus. No injection or drainage. ENT: No nasal bleeding or discharge. Mucous membranes pink and moist. MUSCULOSKELETAL: Extremities without clubbing, cyanosis, or edema. No obvious deformities. Minimal tenderness palpation in the left paralumbar musculature. No focal spinal tenderness. NEUROLOGICAL: Awake and alert. No obvious cranial nerve deficits. Motor grossly within normal limits. Five out of 5 muscle strength in the arms and legs. Normal speech. PSYCHIATRIC: Appropriate mood and affect; insight and judgment normal. Data Data Last Documented VS Vital Signs Date Time Temp Pulse Resp B/P (MAP) Pulse Ox O2 Delivery O2 Flow Rate FiO2 07/01/17 17:27 97.6 94 16 188/89 (122) 97 Orders Orders Oxycodone-Acetamin 5-325 Mg (Percocet (07/01/17 17:45) Spine, Lumbar - Ltd (Ap & Lat) (07/01/17 ) MDM Medical Decision Making Medical Screen Exam Complete: Yes Emergency Medical Condition: Yes Medical Record Reviewed: Yes Differential Diagnosis Vertebral body fracture, epidural abscess, paraspinal hematoma, aneurysm, osteomyelitis, myofascial strain, osteoarthritis Narrative Course Last Impressions Lumbar Spine X-Ray 07/01/17 0000 Signed Impressions: Service Date/Time: Saturday, July 01, 2017 17:50 - CONCLUSION: Moderate degenerative changes. Atherosclerosis. Greg Bower MD Pain controlled Pt to follow up with PMD Diagnosis Primary Impression: Low back ache Qualified Codes: M54.5 - Low back pain; G89.29 - Other chronic pain Med/Other Pt SpecificInfo: Prescription(s) given Scripts Tizanidine (Tizanidine) 2 Mg Cap 2 MG PO TID for Muscle Spasm, #12 CAP 0 Refills Prov: George Butler MD 07/01/17 Disposition: 01 DISCHARGE HOME Condition: Stable George Butler MD Jul 01, 2017 18:51
== END 2017-07-01 19:38 | disposition home or self-care (01) ==
LOC: NEPD 17:25
DX: M54.5 Low back pain (principal); G89.29 Other chronic pain; E11.9 Type 2 diabetes mellitus without complications; I10 Essential (primary) hypertension; E78.00 Pure hypercholesterolemia, unspecified; I25.10 Atherosclerotic heart disease of native coronary artery without angina pectoris; F17.200 Nicotine dependence, unspecified, uncomplicated; Z86.73 Personal history of transient ischemic attack (TIA), and cerebral infarction without residual deficits
CPT/HCPCS: 72100; 99283

== ENCOUNTER 2017-07-10 17:36 | Observation (INO) | payer OTHER ==
[~2017-07-10] VITALS: Ht 157.5 cm; Wt 80.0 kg
[~2017-07-10 17:36] MED LIST changes: -HYDR-3516 PO; -OXYC1CAP PO; +TIZA2CAP3 PO
[2017-07-10 17:57] VITALS: BP 126/62; PULSE 106; RESP 16; TEMP 98.7; O2SAT 97
[2017-07-10 20:49] LABS: BACTERIA, URINE RARE /hpf; BILIRUBIN, URINE NEG (NEG); BLOOD, URINE NEG (NEG); GLUCOSE,URINE 1000 mg/dL (NEG); KETONE, URINE NEG (NEG); NITRITE,URINE NEG (NEG); PH, URINE 5.5 (5.0-8.5); SQUAMOUS EPITHELIAL CELL URINE <1 /hpf (0-5); URINE COLOR LIGHT-YELLOW (YELLW/STRAW); URINE LEUKOCYTE ESTERASE NEG (NEG)
[2017-07-10 21:31] VITALS: BP 154/82; PULSE 105; RESP 18; TEMP 98.5; O2SAT 100
--- NOTE | 2017-07-10 21:41 | PD ---
HPI Chief Complaint: Back/ Neck Pain or Injury Time Seen by Provider: 21:36 Travel History International Travel<30 days: No Contact w/Intl Traveler<30days: No Traveled to known affect area: No History of Present Illness HPI 57-year-old female presents to the emergency department by private transportation for evaluation of back pain. Patient has had left-sided flank pain 2 months. Patient was just seen in the emergency department 07/01/17 for same complaint. Patient was given a blue pill and states it is not providing relief. Patient was told by her primary care provider that she should follow- up with a specialist to manage her pain and to evaluate her back. Patient has attempted to have a new appointment with her primary care but cannot be seen until next month. Patient denies any lower extremity numbness tingling weakness bladder or bowel dysfunction or saddle anesthesia. Patient's had no fever chills nausea vomiting or abdominal pain. Patient has had some mild chest pain but does not have any chest pain at this time he denies any shortness of breath referred neck jaw back shoulder arm pain. Patient is diabetic. Pain is reportedly constant. PFSH Past Medical History Narrative Medical Asthma diabetes dyslipidemia CVA CAD hypertension pancreatitis gastrostomy tube status post removal cholecystectomy cardiac cath with stents dental extraction; tobacco use; nursing notes reviewed Arthritis: No Asthma: Yes (CHILDHOOD) Autoimmune Disease: No Blood Disorders: No Anxiety: No Depression: No Heart Rhythm Problems: No Cancer: No Cardiac Catheterization: Yes Cardiovascular Problems: Yes (htn) High Cholesterol: Yes Chemotherapy: No Chest Pain: No Congestive Heart Failure: No COPD: No Cerebrovascular Accident: Yes Coronary Artery Disease: Yes Diabetes: Yes Diminished Hearing: No Endocrine: No Gastrointestinal Disorders: Yes (HX. PANCREATITIS) GERD: No Glaucoma: No Genitourinary: No Headaches: No Hepatitis: No Hiatal Hernia: No Heparin Induced Thrombocytopen: No Hypertension: Yes Immune Disorder: No Implanted Vascular Access Dvce: No Kidney Stones: No Musculoskeletal: Yes Neurologic: No Psychiatric: No Reproductive: No Respiratory: Yes Immunizations Current: Yes Migraines: No Myocardial Infarction: No Pancreatitis: Yes Radiation Therapy: No Renal Failure: No Seizures: No Sickle Cell Disease: No Sleep Apnea: Yes Thyroid Disease: No Ulcer: No Menopausal: Yes : 9 Para: 9 Past Surgical History Abdominal Surgery: Yes (G-TUBE PLACEMENT AND REMOVAL ) AICD: No Appendectomy: No Arteriovenous Shunt: No Cardiac Surgery: Yes (CARDIAC CATH. WITH STENTS-,) Cholecystectomy: Yes Coronary Artery Bypass Graft: No Coronary Stent: Yes (2005) Ear Surgery: No Endocrine Surgery: No Eye Surgery: No Genitourinary Surgery: No Gynecologic Surgery: No Insulin Pump: No Joint Replacement: No Neurologic Surgery: No Oral Surgery: Yes (TEETH EXTRACTIONS) Pacemaker: No Thoracic Surgery: No Other Surgery: Yes (G-TUBE PLACEMENT AND REMOVAL ) Social History Alcohol Use: No Tobacco Use: Yes (1 PPD) Substance Use: No Allergies-Medications (Allergen,Severity, Reaction): Coded Allergies: No Known Allergies (Verified Allergy, Unknown, 07/01/17) NONE KNOWN Reported Meds & Prescriptions Reported Meds & Active Scripts Active Creon (Amylase/Lipase/Protease) 24,000-76,000-120,000 Units Cap 2 Cap PO TID Glucophage (Metformin HCl) 500 Mg Tab 1,000 Mg PO BIDPC Norvasc (Amlodipine Besylate) 5 Mg Tab 5 Mg PO DAILY Pantoprazole (Pantoprazole Sodium) 40 Mg Tab 40 Mg PO DAILY Reported Levemir Inj (Insulin Detemir) 1,000 unit/ 10 ML Vial 20 Units SQ BID Do not mix with any other Insulin. Review of Systems Except as stated in HPI: all other systems reviewed are Neg General / Constitutional: No: Fever, Chills HENT: No: Congestion Cardiovascular: No: Chest Pain or Discomfort Respiratory: Positive: Cough (chronic) Gastrointestinal: No: Nausea, Vomiting Genitourinary: Positive: Flank Pain (left), No: Urgency, Frequency, Dysuria Skin: No Rash Neurologic: No: Weakness, Dizziness, Syncope Psychiatric: No: Anxiety, Depression Endocrine: No: Heat Intolerance Hematologic/Lymphatic: No: Easy Bruising Physical Exam Narrative GENERAL: Well-developed well-nourished female no acute distress no respiratory distress no antalgic movement SKIN: Warm and dry. HEAD: Normocephalic. EYES: No scleral icterus. No injection or drainage. NECK: Supple, trachea midline. No JVD or lymphadenopathy. CARDIOVASCULAR: Regular rate and rhythm without murmurs, gallops, or rubs. RESPIRATORY: Breath sounds equal bilaterally. No accessory muscle use. GASTROINTESTINAL: Abdomen soft, non-tender, nondistended. MUSCULOSKELETAL: No cyanosis, or edema. BACK: Nontender without obvious deformity. Nontender to palpation along the thoracic and lumbar spine. No CVA tenderness to palpation or percussion; no vesicular rash. Data Data Last Documented VS Vital Signs Date Time Temp Pulse Resp B/P (MAP) Pulse Ox O2 Delivery O2 Flow Rate FiO2 07/10/17 23:23 89 16 157/75 (102) 98 Room Air 07/10/17 21:31 98.5 Orders Orders Complete Blood Count With Diff (07/10/17 18:00) Comprehensive Metabolic Panel (07/10/17 18:00) Urinalysis - C+S If Indicated (07/10/17 18:00) Ct Abd/Pel W/O Iv Contrast (07/10/17 ) Sodium Chlor 0.9% 1000 Ml Inj (Ns 1000 M (07/10/17 22:30) Insulin Human Regular Inj (Novolin R Inj (07/10/17 22:30) Ketorolac Inj (Toradol Inj) (07/10/17 22:30) Beta Hydroxybutyrate (Acetone) (07/10/17 22:34) Admit Order (Ed Use Only) (07/10/17 ) Policy Adviser / Telemetry [email or web address] (07/10/17 23:31) Activity Oob With Assistance (07/10/17 23:31) Notify Dr: Other (07/10/17 23:31) Labs Laboratory Tests Test 07/10/17 19:50 07/10/17 21:41 Urine Color LIGHT-YELLOW Urine Turbidity CLEAR Urine pH 5.5 Urine Specific [place] 1.027 Urine Protein NEG mg/dL Urine Glucose (UA) 1000 mg/dL Urine Ketones NEG mg/dL Urine Occult Blood NEG Urine Nitrite NEG Urine Bilirubin NEG Urine Urobilinogen LESS THAN 2.0 MG/DL Urine Leukocyte Esterase NEG Urine WBC LESS THAN 1 /hpf Urine Squamous Epithelial Cells <1 /hpf Urine Bacteria RARE /hpf Microscopic Urinalysis Comment CULT NOT INDICATED White Blood Count 7.4 TH/MM3 Red Blood Count 4.36 MIL/MM3 Hemoglobin 13.0 GM/DL Hematocrit 40.0 % Mean Corpuscular Volume 91.8 FL Mean Corpuscular Hemoglobin 29.8 PG Mean Corpuscular Hemoglobin Concent 32.4 % Red Cell Distribution Width 17.1 % Platelet Count 204 TH/MM3 Mean Platelet Volume 10.0 FL Neutrophils (%) (Auto) 63.9 % Lymphocytes (%) (Auto) 26.8 % Monocytes (%) (Auto) 6.9 % Eosinophils (%) (Auto) 1.8 % Basophils (%) (Auto) 0.6 % Neutrophils # (Auto) 4.8 TH/MM3 Lymphocytes # (Auto) 2.0 TH/MM3 Monocytes # (Auto) 0.5 TH/MM3 Eosinophils # (Auto) 0.1 TH/MM3 Basophils # (Auto) 0.0 TH/MM3 CBC Comment DIFF FINAL Differential Comment Blood Urea Nitrogen 23 MG/DL Creatinine 1.43 MG/DL Random Glucose 738 MG/DL Total Protein 8.5 GM/DL Albumin 3.7 GM/DL Calcium Level 9.0 MG/DL Alkaline Phosphatase 198 U/L Aspartate Amino Transf (AST/SGOT) 9 U/L Alanine Aminotransferase (ALT/SGPT) 16 U/L Total Bilirubin 0.4 MG/DL Sodium Level 130 MEQ/L Potassium Level 4.0 MEQ/L Chloride Level 95 MEQ/L Carbon Dioxide Level 22.1 MEQ/L Anion Gap 13 MEQ/L Estimat Glomerular Filtration Rate 46 ML/MIN B-Hydroxybutyrate 0.13 MMOL/L MDM Medical Decision Making Medical Screen Exam Complete: Yes Emergency Medical Condition: Yes Medical Record Reviewed: Yes Interpretation(s) Last Impressions Abdomen/Pelvis CT 07/10/17 0000 Signed Impressions: Service Date/Time: Monday, July 10, 2017 21:56 - CONCLUSION: 1. The left kidney remains unremarkable appearance with no renal calculi or obstruction. 2. Chronic pancreatitis again noted with multiple calculi. 3. 2 a stent catheter remains in place with air now noted throughout the central biliary system. 4. Stable right adnexal dermoid tumor with fat. 5. Subtle low attenuation masslike area in the posterior right lobe of the liver Sandor Ramos MD CBC & BMP Diagram 07/10/17 21:41 Total Protein 8.5 H, Albumin 3.7, Calcium Level 9.0, Alkaline Phosphatase 198 H , Aspartate Amino Transf (AST/SGOT) 9 L, Alanine Aminotransferase (ALT/SGPT) 16 , Total Bilirubin 0.4 Vital Signs Date Time Temp Pulse Resp B/P (MAP) Pulse Ox O2 Delivery O2 Flow Rate FiO2 07/10/17 23:23 89 16 157/75 (102) 98 Room Air 07/10/17 21:31 98.5 105 18 154/82 (106) 100 07/10/17 17:57 98.7 106 16 126/62 (83) 97 Differential Diagnosis Chronic pain syndrome, UTI, renal colic, diverticulitis, diverticulosis, adhesions Narrative Course IV access obtained specimens collected and sent for resulting imaging study ordered Lab values found to be remarkable for marked hyperglycemia with mild factitious hyponatremia; imaging study reveals no acute abnormality evidence of chronic pancreatitis and stent in place no bowel obstruction no bony abnormality no hydronephrosis or hydroureter. Marked hyperglycemia managed with IV fluid bolus and weight-based regular insulin IV 8 units At 1 hour blood sugar has decreased to 520; patient feels some improved beta hydroxybutyric acid is found not to be elevated patient's bicarb and anion gap are not abnormal Patient's case discussed with medicine service as patient frequently comes to the emergency department with poorly controlled diabetes and borderline DKA. At this time patient's vital signs are stable blood sugars responding to insulin however remains quite elevated and additional insulin may be required patient will be discussed with on-call hospice physician patient patient is not in DKA Per Dr. Doyle will admit to OBS Patient being assessed by admitting hospitalist patient's blood sugar is now down to 326 and patient is desirous of being discharged home observation admission has been canceled and patient will be discharged from the emergency department. Patient is now stable for outpatient management. Physician Communication Physician Communication discussed with [facility] ---OBS; d/c Diagnosis Primary Impression: Chronic low back pain Additional Impressions: Hyperglycemia Hyperglycemia due to type 2 diabetes mellitus Referrals: Primary Care Physician 1 day Patient Instructions: General Instructions Additional Instructions: Take your diabetic medication as prescribed Follow-up with your primary care provider 1 day call office in a.m. to schedule appointment Take as needed ibuprofen/Advil/Motrin may take 800 mg as often as every 8 hours as needed for pain associated with inflammation as tolerated or for fever 100.4 F or greater Apply moist heat to low back as needed for comfort Return to the emergency department concerns or change in condition Disposition: 01 DISCHARGE HOME Condition: Stable Liliana Corbett MD Jul 10, 2017 21:41
[2017-07-10 21:58] LABS: AUTOMATED NEUTROPHIL # 4.8 TH/MM3 (1.8-7.7); BASOPHIL % 0.6 % (0.0-2.0); EOSINOPHIL # 0.1 TH/MM3 (0-0.4); EOSINOPHIL % 1.8 % (0.0-4.0); LYMPH % 26.8 % (9.0-44.0); MEAN CELL VOLUME 91.8 FL (80.0-100.0); MEAN CORPUSCULAR HEMOGLOBIN 29.8 PG (27.0-34.0); MEAN CORPUSCULAR HGB CONC 32.4 % (32.0-36.0); MONO % 6.9 % (0.0-8.0); MONOCYTE # 0.5 TH/MM3 (0-0.9); NEUT % 63.9 % (16.0-70.0); PLATELET COUNT 204 TH/MM3 (150-450); RED BLOOD COUNT 4.36 MIL/MM3 (4.00-5.30); RED CELL DISTRIBUTION WIDTH 17.1 % (11.6-17.2); WHITE BLOOD COUNT 7.4 TH/MM3 (4.0-11.0)
[2017-07-10 22:19] LABS: ALBUMIN 3.7 GM/DL (3.4-5.0); ALT (GPT) 16 U/L (10-53); AST (GOT) 9 U/L (15-37); BICARBONATE 22.1 MEQ/L (21.0-32.0); BLOOD UREA NITROGEN 23 MG/DL (7-18); CHLORIDE 95 MEQ/L (98-107); CREATININE 1.43 MG/DL (0.50-1.00); GLOMERULAR FILTRATION RATE 46 ML/MIN (>89); SODIUM (NA) 130 MEQ/L (136-145)
[2017-07-10 22:23] LABS: ALKALINE PHOSPHATASE 198 U/L (45-117); TOTAL BILIRUBIN ADULT 0.4 MG/DL (0.2-1.0); TOTAL PROTEIN 8.5 GM/DL (6.4-8.2)
[2017-07-10 22:24] LABS: GLUCOSE,RANDOM 738 MG/DL (74-106)
--- NOTE | 2017-07-10 22:27 | RADRPT ---
EXAM DATE/TIME: 07/10/2017 21:56 [facility] COMPARISON: MRCP W/O CONTRAST, October 17, 2016, 17:20. CT ABDOMEN & PELVIS W CONTRAST, January 07, 2017, 15:38. C T ABDOMEN & PELVIS W/O CONTRAST, March 24, 2017, 23:03. INDICATIONS : Left flank pain. Known right dermoid tumor ORAL CONTRAST: No oral contrast ingested. RADIATION DOSE: 11.56 CTDIvol (mGy) MEDICAL HISTORY : Hypertension. Pancreatitis. CAD. Diabetes. SURGICAL HISTORY : Cholecystectomy. Coronary artery stent.G tube. ENCOUNTER: Initial ACUITY: 2 months PAIN SCALE: 7/10 LOCATION: Left flank TECHNIQUE: Volumetric scanning of the abdomen and pelvis was performed. Using automated exposure control and ad justment of the mA and/or kV according to patient size, radiation dose was kept as low as reasonably achievable to obtain optimal diagnostic quality images. DICOM format image data is available electro nically for review and comparison. FINDINGS: LOWER LUNGS: The visualized lower lungs are clear. LIVER: Stable appearance of biliary stent catheter present. Extensive air is now noted through the central b iliary system extending into the right and left lobes. There is a subtle ill defined low attenuation masslike area in the posterior right lobe of the liver. SPLEEN: Normal size without lesion. PANCREAS: Chronic pancreatitis is again noted with multiple punctate calcifications again noted greatest in the region of the head of the pancreas. Pancreatic ductal dilatation again noted measuring up to approxi mately 6 mm. The findings do not appear significantly changed. There is no new inflammatory change or fluid collection in this region. KIDNEYS: Normal in size and shape. There is no mass, stone, or hydronephrosis. ADRENAL GLANDS: Within normal limits. VASCULAR: There is no aortic aneurysm. BOWEL/MESENTERY: No oral contrast was given limiting the sensitivity of the exam. The stomach, small bowel, and colon demonstrate no acute abnormality. There is no free intraperitoneal air or fluid. ABDOMINAL WALL: Within normal limits. RETROPERITONEUM: There is no lymphadenopathy. BLADDER: No wall thickening or mass. REPRODUCTIVE: A stable complex dermoid tumor is again noted in the right adnexa measuring up to approximately 4 cm in diameter. This contains areas of fat and soft tissue density. INGUINAL: There is no lymphadenopathy or hernia. MUSCULOSKELETAL: Within normal limits for patient age. CONCLUSION: 1. The left kidney remains unremarkable appearance with no renal calculi or obstruction. 2. Chronic pancreatitis again noted with multiple calculi. 3. 2 a stent catheter remains in place with air now noted throughout the central biliary system. 4. Stable right adnexal dermoid tumor with fat. 5. Subtle low attenuation masslike area in the posterior right lobe of the liver Sandor Ramos MD on July 10, 2017 at 22:17 Board Certified Radiologist. This report was verified electronically.
[2017-07-10] MEDS ORDERED: SODIUM CHLOR 0.9% 1000 ML INJ 1,000 ML IV ONE (22:30)
[2017-07-10] MEDS ORDERED: INSULIN HUMAN REGULAR 1,000 UNITS/10 ML VIAL IV PUSH ONE (22:30)
[2017-07-10] MEDS ORDERED: KETOROLAC TROMETHAMINE 30 MG/ML (IVP) VIAL IV PUSH ONE (22:30)
[2017-07-10 23:23] VITALS: BP 157/75; PULSE 89; RESP 16; O2SAT 98
[2017-07-11] MEDS ORDERED: SENNOSIDES 8.6 MG TAB PO PRN (00:30)
[2017-07-11] MEDS ORDERED: NALOXONE HCL 0.4 MG/ML AMP IV PUSH PRN (00:30)
[2017-07-11] MEDS ORDERED: GLUCAGON 1 MG/ML VIAL OTHER PRN (00:30)
[2017-07-11] MEDS ORDERED: SODIUM CHLORIDE 0.9% FLUSH 10 ML FLUSH IV FLUSH PRN (00:30)
[2017-07-11] MEDS ORDERED: MAGNESIUM HYDROXIDE SUSP 30 ML CUP PO PRN (00:30)
[2017-07-11] MEDS ORDERED: ONDANSETRON HCL 4 MG/2 ML VIAL IVP PRN (00:30)
[2017-07-11] MEDS ORDERED: LACTULOSE SYRUP 20 GM/30 ML CUP PO PRN (00:30)
[2017-07-11] MEDS ORDERED: DEXTROSE 50% IN WATER 50 ML VIAL(D50) IV PUSH PRN (00:30)
[2017-07-11] MEDS ORDERED: ACETAMINOPHEN 325 MG TAB PO PRN (00:30)
[2017-07-11] MEDS ORDERED: BISACODYL 10 MG SUPP RECTAL PRN (00:30)
[2017-07-11] MEDS ORDERED: SODIUM CHLOR 0.9% 1000 ML INJ 1,000 ML IV SCH (01:00)
[2017-07-11] MEDS ORDERED: SODIUM CHLORID 0.9% 500 ML INJ 500 ML IV ONE (01:15)
[2017-07-11] MEDS ORDERED: INSULIN ASPART SUPPLEMENTAL SCALE SQ SCH (08:00)
[2017-07-11] MEDS ORDERED: SODIUM CHLORIDE 0.9% FLUSH 10 ML FLUSH IV FLUSH SCH (09:00)
[2017-07-11] MEDS ORDERED: DOCUSATE SODIUM 50 MG/SENNA 8.6 MG TAB PO SCH (09:00)
== END 2017-07-11 01:50 | disposition home or self-care (01) ==
LOC: NEPC 17:36 → NEDA 23:33
PROVIDERS: ADMIT Family Medicine; ATTEND Family Medicine
DX: E11.65 Type 2 diabetes mellitus with hyperglycemia (principal); R07.9 Chest pain, unspecified; I25.10 Atherosclerotic heart disease of native coronary artery without angina pectoris; I10 Essential (primary) hypertension; E78.00 Pure hypercholesterolemia, unspecified; G47.30 Sleep apnea, unspecified; J45.909 Unspecified asthma, uncomplicated; M54.5 Low back pain; G89.29 Other chronic pain; F17.200 Nicotine dependence, unspecified, uncomplicated; Z79.899 Other long term (current) drug therapy; Z86.73 Personal history of transient ischemic attack (TIA), and cerebral infarction without residual deficits; Z93.1 Gastrostomy status
CPT/HCPCS: 74176; 80053; 81001; 82010; 85025; 96361; 96374; 96375; 99285; G0378; J1815; J1885; J7030

== ENCOUNTER 2017-08-14 19:16 | Inpatient (IN) | payer OTHER ==
[~2017-08-14] VITALS: Ht 157.5 cm; Wt 77.6 kg
[~2017-08-14 19:16] MED LIST changes: -TIZA2CAP3 PO; -URSO300C2 PO
[2017-08-14 19:21] VITALS: BP 172/69; PULSE 105; RESP 17; TEMP 97.3
[2017-08-14] MEDS ORDERED: MORPHINE SULFATE 4 MG/ML INJ IV PUSH ONE (19:45)
[2017-08-14] MEDS ORDERED: ONDANSETRON ODT 4 MG TAB PO ONE (19:45)
--- NOTE | 2017-08-14 19:58 | PD ---
HPI Chief Complaint: Flank/Kidney Pain Time Seen by Provider: 19:36 Travel History International Travel<30 days: No Contact w/Intl Traveler<30days: No Traveled to known affect area: No History of Present Illness HPI 57yo F with PMH of HTN, DM, CAD, chronic back pain that follows pain management presents to the ED with c/o left sided back pain that is radiating to the left abdomen for a few days. Said she had vomiting yesterday. +Nausea. Denies any fever, chest pain, sob, focal weakness or numbness, fall. Pt said this is new but as per review of her previous records, pt has been here multiple times for back and abdominal pain. Pt had previous CT scan that showed chronic pancreatitis. Said she lose her prescription for pain medication for her back and her doctor wont write her a new one. PFSH Past Medical History Arthritis: No Asthma: Yes (CHILDHOOD) Autoimmune Disease: No Blood Disorders: No Anxiety: No Depression: No Heart Rhythm Problems: No Cancer: No Cardiac Catheterization: Yes Cardiovascular Problems: Yes (htn) High Cholesterol: Yes Chemotherapy: No Chest Pain: No Congestive Heart Failure: No COPD: No Cerebrovascular Accident: Yes Coronary Artery Disease: Yes Diabetes: Yes Patient Takes Glucophage: No Diminished Hearing: No Endocrine: No Gastrointestinal Disorders: Yes (HX. PANCREATITIS) GERD: No Glaucoma: No Genitourinary: No Headaches: No Hepatitis: No Hiatal Hernia: No Heparin Induced Thrombocytopen: No Hypertension: Yes Immune Disorder: No Implanted Vascular Access Dvce: No Kidney Stones: No Musculoskeletal: Yes Neurologic: No Psychiatric: No Reproductive: No Respiratory: Yes Immunizations Current: Yes Migraines: No Myocardial Infarction: No Pancreatitis: Yes Radiation Therapy: No Renal Failure: No Seizures: No Sickle Cell Disease: No Sleep Apnea: Yes Thyroid Disease: No Ulcer: No Tetanus Vaccination: < 5 Years Menopausal: Yes : 9 Para: 9 Past Surgical History Abdominal Surgery: Yes (G-TUBE PLACEMENT AND REMOVAL ) AICD: No Appendectomy: No Arteriovenous Shunt: No Cardiac Surgery: Yes (CARDIAC CATH. WITH STENTS-,) Cholecystectomy: Yes Coronary Artery Bypass Graft: No Coronary Stent: Yes (2005) Ear Surgery: No Endocrine Surgery: No Eye Surgery: No Genitourinary Surgery: No Gynecologic Surgery: No Hysterectomy: Yes Insulin Pump: No Joint Replacement: No Neurologic Surgery: No Oral Surgery: Yes (TEETH EXTRACTIONS) Pacemaker: No Thoracic Surgery: No Other Surgery: Yes (G-TUBE PLACEMENT AND REMOVAL ) Family History Family Myocardial Infarction: Yes (uncle and other family members) Social History Alcohol Use: No Tobacco Use: Yes (1 PPD) Substance Use: No Allergies-Medications (Allergen,Severity, Reaction): Coded Allergies: No Known Allergies (Verified Allergy, Unknown, 07/01/17) NONE KNOWN Reported Meds & Prescriptions Reported Meds & Active Scripts Active Creon (Amylase/Lipase/Protease) 24,000-76,000-120,000 Units Cap 2 Cap PO TID Glucophage (Metformin HCl) 500 Mg Tab 1,000 Mg PO BIDPC Norvasc (Amlodipine Besylate) 5 Mg Tab 5 Mg PO DAILY Pantoprazole (Pantoprazole Sodium) 40 Mg Tab 40 Mg PO DAILY Reported Levemir Inj (Insulin Detemir) 1,000 unit/ 10 ML Vial 20 Units SQ BID Do not mix with any other Insulin. Review of Systems Except as stated in HPI: all other systems reviewed are Neg Physical Exam Narrative GENERAL: 57yo F in mild distress. SKIN: Focused skin assessment warm/dry. HEAD: Atraumatic. Normocephalic. EYES: Pupils equal and round. No scleral icterus. No injection or drainage. ENT: No nasal bleeding or discharge. Mucous membranes pink and moist. NECK: Trachea midline. No JVD. CARDIOVASCULAR: Regular rate and rhythm. No murmur appreciated. RESPIRATORY: No accessory muscle use. Clear to auscultation. Breath sounds equal bilaterally. GASTROINTESTINAL: Abdomen soft, diffuse ttp epigastric, left upper, right upper and left lower abdomen. No rebound tenderness or guarding. MUSCULOSKELETAL: No obvious deformities. No clubbing. No cyanosis. No edema. NEUROLOGICAL: Awake and alert. No obvious cranial nerve deficits. Motor grossly within normal limits in all extremities. Sensation equal bilaterally. Normal speech. PSYCHIATRIC: Appropriate mood and affect; insight and judgment normal. Data Data Last Documented VS Vital Signs Date Time Temp Pulse Resp B/P (MAP) Pulse Ox O2 Delivery O2 Flow Rate FiO2 08/14/17 19:21 97.3 105 17 172/69 (103) Orders Orders Complete Blood Count With Diff (08/14/17 19:44) Comprehensive Metabolic Panel (08/14/17 19:44) Lipase (08/14/17 19:44) Urinalysis - C+S If Indicated (08/14/17 19:44) Morphine Inj (Morphine Inj) (08/14/17 19:45) Electrocardiogram (08/14/17 19:44) Ondansetron Odt (Zofran Odt) (08/14/17 19:45) Troponin I (08/14/17 20:45) Sodium Chlor 0.9% 1000 Ml Inj (Ns 1000 M (08/14/17 21:00) Beta Hydroxybutyrate (Acetone) (08/14/17 20:52) Blood Glucose (08/14/17 20:54) Arterial Blood Gas (Abg) (08/14/17 21:13) Potassium, Serum (K) (08/14/17 21:40) Calcium Gluconate Inj (Calcium Gluconate (08/14/17 21:45) Sodium Chlor 0.9% 1000 Ml Inj (Ns 1000 M (08/14/17 21:42) Sodium Chlor 0.9% 1000 Ml Inj (Ns 1000 M (08/14/17 21:42) Dext 5%-Nacl 0.9% 1000 Ml Inj (D5w-Ns 10 (08/14/17 21:42) Insulin Human Regular Inj (Novolin R Inj (08/14/17 21:45) Insulin Regular (Iv Infusion) (Novolin R (08/14/17 21:45) Ct Abd/Pel W/O Iv Contrast (08/14/17 ) Admit Order (Ed Use Only) (08/14/17 22:14) Labs Laboratory Tests Test 08/14/17 20:00 08/14/17 20:43 08/14/17 20:45 08/14/17 21:13 White Blood Count 4.9 TH/MM3 Red Blood Count 4.53 MIL/MM3 Hemoglobin 13.4 GM/DL Hematocrit 46.3 % Mean Corpuscular Volume 102.2 FL Mean Corpuscular Hemoglobin 29.7 PG Mean Corpuscular Hemoglobin Concent 29.0 % Red Cell Distribution Width 16.7 % Platelet Count 188 TH/MM3 Mean Platelet Volume 10.6 FL Neutrophils (%) (Auto) 78.4 % Lymphocytes (%) (Auto) 15.7 % Monocytes (%) (Auto) 5.2 % Eosinophils (%) (Auto) 0.1 % Basophils (%) (Auto) 0.6 % Neutrophils # (Auto) 3.9 TH/MM3 Lymphocytes # (Auto) 0.8 TH/MM3 Monocytes # (Auto) 0.3 TH/MM3 Eosinophils # (Auto) 0.0 TH/MM3 Basophils # (Auto) 0.0 TH/MM3 CBC Comment DIFF FINAL Differential Comment Urine Color COLORLESS Urine Turbidity CLEAR Urine pH 6.5 Urine Specific [place] 1.023 Urine Protein NEG mg/dL Urine Glucose (UA) 1000 mg/dL Urine Ketones 10 mg/dL Urine Occult Blood NEG Urine Nitrite NEG Urine Bilirubin NEG Urine Urobilinogen LESS THAN 2.0 MG/DL Urine Leukocyte Esterase NEG Urine RBC LESS THAN 1 /hpf Urine WBC LESS THAN 1 /hpf Microscopic Urinalysis Comment CULT NOT INDICATED Blood Urea Nitrogen 59 MG/DL Creatinine 2.00 MG/DL Random Glucose 1642 MG/DL Total Protein 8.5 GM/DL Albumin 3.6 GM/DL Calcium Level 9.8 MG/DL Alkaline Phosphatase 211 U/L Aspartate Amino Transf (AST/SGOT) 18 U/L Alanine Aminotransferase (ALT/SGPT) 21 U/L Total Bilirubin 0.7 MG/DL Sodium Level 115 MEQ/L Potassium Level 7.4 MEQ/L Chloride Level 74 MEQ/L Carbon Dioxide Level 17.1 MEQ/L Anion Gap 24 MEQ/L Estimat Glomerular Filtration Rate 31 ML/MIN Lipase 762 U/L Troponin I LESS THAN 0.02 NG/ML B-Hydroxybutyrate 7.00 MMOL/L Blood Gas Puncture Site LT RADIAL Blood Gas Patient Temperature 98.6 Blood Gas HCO3 16 mmol/L Blood Gas Base Excess -8.4 mmol/L Blood Gas Oxygen Saturation 93 % Arterial Blood pH 7.34 Arterial Blood Partial Pressure CO2 31 mmHg Arterial Blood Partial Pressure O2 84 mmHG Arterial Blood Oxygen Content 18.4 Vol % Arterial Blood Carboxyhemoglobin 2.2 % Arterial Blood Methemoglobin 0.6 % Blood Gas Hemoglobin 14.1 G/DL Oxygen Delivery Device ROOM AIR Blood Gas Inspired Oxygen 21 % Test 08/14/17 21:46 Potassium Level 7.5 MEQ/L [facility] Medical Decision Making Medical Screen Exam Complete: Yes Emergency Medical Condition: Yes Interpretation(s) EKG: NSR 94bpm. Normal axis. 1mm ST elevation in V1, V2. ST depression diffusely. This is unchanged from previous EKG on 03/24/17. Differential Diagnosis Acute on chronic back pain vs. acute on chronic abdominal pain vs. pyelonephritis vs. nephrolithiasis vs. colitis vs. pancreatitis Narrative Course 57yo F with DM, CAD, chronic back pain here with c/o abdominal pain, nausea, vomiting. Pt said she is compliant with her insulin which she took this morning. Labs reviewed, no leukocytosis. H/H elevated at 13.4/46.3. Pt appears dehydrated and given NS IVF. Glucose is markedly elevated at 1642. This is the second blood that was sent since lab said the glucose was 1600 on the first one and wanted repeat blood draw. Hyponatremic at 115 secondary to hyperglycemia. K is elevated at 7.4, but it is slightly hemolyzed. Pt given calcium gluconate and insulin bolus and drip, patient likely have total body depletion of potassium given that she is in hyperosmotic hyperglycermic state but will repeat K since it was hemolyzed. CO2 low at 17.1. BUN/creatinine elevated at 59/2.0. Anion gap increased at 24. Pt given another 2 liters of NS IVF. Troponin negative. Another large bore peripheral IV placed. Lipase is also elevated at 762. CT a/p pending. UA negative for leukocyte. Discussed with Dr. Queen and accepted to the ICU. CTa/p showed 2.4cm right lobe liver mass and contrasted hepatic MRI suggested on an elective basis for follow up. Informed pt of this and she knows to follow up as outpatient. Repeat K is 7.5 but hemolysis is again noted. Pt is on insulin drip and will have repeat labs after correction of hyperglycemia. Critical Care Narrative Aggregate critical care time was 45 minutes. Time to perform other separately billable procedures was not included in the critical care time. My time did not include minutes spent treating any other patients simultaneously or on activities that did not directly contribute to the patient's treatment. The services I provided to this patient were to treat and/or prevent clinically significant deterioration that could result in: cardiovascular collapse or . I provided critical care services requiring my management, as noted below: Chart data review, documentation time, medication orders and management, vital sign assessments/reviewing monitor data, ordering and reviewing lab tests, ordering and interpreting/reviewing x-rays and diagnostic studies, care of the patient and discussion of the patient with the admitting physicians. Diagnosis Primary Impression: Hyperglycemic crisis in diabetes mellitus Admitting Information Admitting Physician Requests: Dejah Humphries DO August 14, 2017 19:58
[2017-08-14 20:08] LABS: AUTOMATED NEUTROPHIL # 3.9 TH/MM3 (1.8-7.7); BASOPHIL % 0.6 % (0.0-2.0); EOSINOPHIL % 0.1 % (0.0-4.0); HEMATOCRIT 46.3 % (35.0-46.0); HEMOGLOBIN 13.4 GM/DL (11.6-15.3); LYMPH % 15.7 % (9.0-44.0); LYMPHOCYTE # 0.8 TH/MM3 (1.0-4.8); MEAN CELL VOLUME 102.2 FL (80.0-100.0); MEAN CORPUSCULAR HEMOGLOBIN 29.7 PG (27.0-34.0); MEAN PLATELET VOLUME 10.6 FL (7.0-11.0); MONO % 5.2 % (0.0-8.0); MONOCYTE # 0.3 TH/MM3 (0-0.9); NEUT % 78.4 % (16.0-70.0); PLATELET COUNT 188 TH/MM3 (150-450); RED BLOOD COUNT 4.53 MIL/MM3 (4.00-5.30); RED CELL DISTRIBUTION WIDTH 16.7 % (11.6-17.2); WHITE BLOOD COUNT 4.9 TH/MM3 (4.0-11.0)
[2017-08-14 20:14] LABS: BILIRUBIN, URINE NEG (NEG); BLOOD, URINE NEG (NEG); GLUCOSE,URINE 1000 mg/dL (NEG); KETONE, URINE 10 mg/dL (NEG); NITRITE,URINE NEG (NEG); PH, URINE 6.5 (5.0-8.5); URINE COLOR COLORLESS (YELLW/STRAW); URINE LEUKOCYTE ESTERASE NEG (NEG)
[2017-08-14] MEDS ORDERED: SODIUM CHLOR 0.9% 1000 ML INJ 1,000 ML IV ONE (21:00)
[2017-08-14 21:29] LABS: BLOOD UREA NITROGEN 59 MG/DL (7-18); GLOMERULAR FILTRATION RATE 31 ML/MIN (>89)
[2017-08-14 21:30] LABS: ALBUMIN 3.6 GM/DL (3.4-5.0); ALKALINE PHOSPHATASE 211 U/L (45-117); ALT (GPT) 21 U/L (10-53); AST (GOT) 18 U/L (15-37); CALCIUM 9.8 MG/DL (8.5-10.1); TOTAL BILIRUBIN ADULT 0.7 MG/DL (0.2-1.0); TOTAL PROTEIN 8.5 GM/DL (6.4-8.2)
[2017-08-14 21:31] LABS: BICARBONATE 17.1 MEQ/L (21.0-32.0); CHLORIDE 74 MEQ/L (98-107)
[2017-08-14 21:34] LABS: GLUCOSE,RANDOM 1642 MG/DL (74-106); SODIUM (NA) 115 MEQ/L (136-145)
[2017-08-14] MEDS ORDERED: SODIUM CHLOR 0.9% 1000 ML INJ 1,000 ML IV SCH (21:42)
[2017-08-14] MEDS ORDERED: DEXT 5%-NACL 0.9% 1000 ML INJ 1,000 ML IV SCH (21:42)
[2017-08-14] MEDS ORDERED: INSULIN HUMAN REGULAR 1,000 UNITS/10 ML VIAL IV PUSH ONE (21:45)
[2017-08-14] MEDS ORDERED: CALCIUM GLUCONATE INJ 1 GM in DEXTROSE 5% IN WATER 100ML INJ 100 ML IV ONE ×2 (21:45)
[2017-08-14] MEDS ORDERED: INSULIN REGULAR (IV INFUSION) 100 UNITS in SODIUM CHLORIDE 0.9% INJ 99 ML IV PRN ×2 (21:45→22:45)
[2017-08-14] MEDS: SODIUM CHLOR 0.9% 1000 ML INJ 1,000 ML IV SCH ×2 (22:15→23:06)
[2017-08-14] MEDS ORDERED: LACTULOSE SYRUP 20 GM/30 ML CUP PO PRN (22:45)
[2017-08-14] MEDS ORDERED: NURSING INFORMATION XX SCH (22:45)
[2017-08-14] MEDS ORDERED: POTASSIUM CHLOR 20 MEQ PREMIX 100 ML IV PRN ×5 (22:45)
[2017-08-14] MEDS ORDERED: POTASSIUM CHLOR 40 MEQ PREMIX 100 ML IV PRN ×2 (22:45)
[2017-08-14] MEDS ORDERED: TEMAZEPAM 15 MG CAP PO PRN (22:45)
[2017-08-14] MEDS ORDERED: SENNOSIDES 8.6 MG TAB PO PRN (22:45)
[2017-08-14] MEDS ORDERED: CHLORHEXIDINE GLUCONATE 2 % 1 PACK (2 CLOTHS) TOP PRN (22:45)
[2017-08-14] MEDS ORDERED: MAGNESIUM HYDROXIDE SUSP 30 ML CUP PO PRN (22:45)
[2017-08-14] MEDS ORDERED: RESP: ALBUTEROL 2.5 MG/IPRATROPIUM 0.5 MG NEB (PRN) INH (22:45)
[2017-08-14] MEDS ORDERED: BISACODYL 10 MG SUPP RECTAL PRN (22:45)
[2017-08-14] MEDS ORDERED: SODIUM BICARBONATE 8.4% SOLN 50 MEQ/50 ML VIAL IV PUSH PRN ×2 (22:45)
[2017-08-14] MEDS ORDERED: ONDANSETRON HCL 4 MG/2 ML VIAL IV PUSH PRN (22:45)
[2017-08-14] MEDS ORDERED: ACETAMINOPHEN 325 MG TAB PO PRN (22:45)
--- NOTE | 2017-08-14 22:47 | HHI.HP ---
[facility] Service Critical Care Medicine Primary Care Physician Non-Staff Admission Diagnosis Hyperosmolar hyperglycemic state Diagnosis: Travel History International Travel<30 Days: No Contact w/Intl Traveler <30 Da: No Traveled to Known Affected Are: No History of Present Illness 57-year-old -Welsh female with past medical history of hypertension, diabetes, coronary artery disease, chronic back pain, presents complaints of left sided back pain that is radiating to the left abdomen for a few days. She also complains of some nausea and vomiting. Denies any fever, chest pain, sob, focal weakness or numbness, fall. The CT of the abdomen obtained in the emergency department shows stable calcifications and pancreatic ductal dilatation consistent with chronic pancreatitis. and 2.4 cm right lobe liver mass. She also says that she has lost her prescription for pain medication for her back and her doctor wont write her a new one. The initial lab work in the emergency department also shows her glucose of 1600, potassium 7.5 and sodium of 115. She has been admitted to ICU on insulin drip per a DKA protocol. Review of Systems Constitutional: DENIES: Diaphoretic episodes, Fatigue, Fever, Weight gain, Weight loss, Chills, Dizziness, Change in appetite, Night Sweats Endocrine: DENIES: Abnorml menstrual pattern, Heat/cold intolerance, Polydipsia , Polyuria, Polyphagia Eyes: DENIES: Blurred vision, Diplopia, Eye inflammation, Eye pain, Vision loss , Photosensitivity, Double Vision Ears, nose, mouth, throat: DENIES: Tinnitus, Hearing loss, Vertigo, Nasal discharge, Oral lesions, Throat pain, Hoarseness, Ear Pain, Running Nose, Epistaxis, Sinus Pain, Toothache, Odynophagia Respiratory: DENIES: Apneas, Cough, Snoring, Wheezing, Hemoptysis, Sputum production, Shortness of breath Cardiovascular: DENIES: Chest pain, Palpitations, Syncope, Dyspnea on Exertion , PND, Lower Extremity Edema, Orthopnea, Claudication Gastrointestinal: COMPLAINS OF: Abdominal pain, Nausea, Vomiting, DENIES: Black stools, Bloody stools, Constipation, Diarrhea, Difficulty Swallowing, Anorexia Genitourinary: DENIES: Abnormal vaginal bleeding, Dysmenorrhea, Dyspareunia, Sexual dysfunction, Urinary frequency, Urinary incontinence, Urgency, Hematuria , Dysuria, Nocturia, Vaginal discharge Musculoskeletal: COMPLAINS OF: Back pain, DENIES: Joint pain, Muscle aches, Stiffness, Joint Swelling, Neck pain Integumentary: DENIES: Abnormal pigmentation, Pruritus, Rash, Nail changes, Breast masses, Breast skin changes, Nipple discharge Hematologic/lymphatic: DENIES: Bruising, Lymphadenopathy Immunologic/allergic: DENIES: Eczema, Urticaria Neurologic: DENIES: Abnormal gait, Headache, Localized weakness, Paresthesias, Seizures, Speech Problems, Tremor, Poor Balance Psychiatric: DENIES: Anxiety, Confusion, Mood changes, Depression, Hallucinations, Agitation, Suicidal Ideation, Homicidal Ideation, Delusions Past Family Social History Allergies: Coded Allergies: No Known Allergies (Verified Allergy, Unknown, 07/01/17) NONE KNOWN Past Medical History Pancreatic insufficiency Hypertension Diabetes mellitus GERD CAD Past Surgical History Cardiac catheterization with stent placement in 2005 and 2006 G-tube placement and removal Reported Medications Reported Meds & Active Scripts Active Creon (Amylase/Lipase/Protease) 24,000-76,000-120,000 Units Cap 2 Cap PO TID Glucophage (Metformin HCl) 500 Mg Tab 1,000 Mg PO BIDPC Norvasc (Amlodipine Besylate) 5 Mg Tab 5 Mg PO DAILY Pantoprazole (Pantoprazole Sodium) 40 Mg Tab 40 Mg PO DAILY Reported Levemir Inj (Insulin Detemir) 1,000 unit/ 10 ML Vial 20 Units SQ BID Do not mix with any other Insulin. Active Ordered Medications Current Medications Medications (Trade) Dose Ordered Sig/Vini Route PRN Reason Start Time Stop Time Status Last Admin Dose Admin Amlodipine Besylate (Norvasc) 5 mg DAILY PO 08/15/17 09:00 Amylase/Lipase/ Protease (Creon 24-76-120) 2 cap TID PO 08/15/17 09:00 Pantoprazole Sodium (Protonix) 40 mg DAILY PO 08/15/17 09:00 Acetaminophen (Tylenol) 650 mg Q6H PRN PO PAIN 1-5 AND/OR FEVER >101F 08/14/17 22:45 Morphine Sulfate (Morphine Inj) 2 mg Q2H PRN IV PUSH PAIN SCALE 6 TO 10 08/14/17 22:45 Ondansetron HCl (Zofran Inj) 4 mg Q6H PRN IV PUSH NAUSEA OR VOMITING 08/14/17 22:45 Temazepam (Restoril) 15 mg HS PRN PO INSOMNIA 08/14/17 22:45 Albuterol/ Ipratropium (Duoneb Neb) 1 ampule Q2HR NEB PRN INH WHEEZING 08/14/17 22:45 Enoxaparin Sodium (Lovenox Inj) 40 mg Q24H SQ 08/14/17 23:00 08/15/17 00:27 Miscellaneous Information ([facility] Nursing Information) 1 [id number] XX 08/14/17 22:45 Chlorhexidine Gluconate (Chlorhexidine 2% Cloth) 3 pack Taper DAILY@04 TOP 08/15/17 04:00 08/11/18 03:59 Chlorhexidine Gluconate (Chlorhexidine 2% Cloth) 3 pack UNSCH PRN TOP HYGIENIC CARE 08/14/17 22:45 Senna/Docusate Sodium (Mariah-Colace) 1 tab BID PO 08/15/17 09:00 Magnesium Hydroxide (Milk Of Magnesia Liq) 30 ml Q12H PRN PO Mild constipation 08/14/17 22:45 Sennosides (Senokot) 17.2 mg Q12H PRN PO Moderate constipation 08/14/17 22:45 Bisacodyl (Dulcolax Supp) 10 mg DAILY PRN RECTAL SEVERE CONSITIPATION 08/14/17 22:45 Lactulose (Lactulose Liq) 30 ml DAILY PRN PO SEVERE CONSITIPATION 08/14/17 22:45 Sodium Chloride 1,000 ml @ 250 mls/hr Q4H IV 08/14/17 22:36 08/15/17 00:26 Dextrose/Sodium Chloride 1,000 ml @ 200 mls/hr Q5H IV 08/14/17 22:36 Insulin Human Regular 100 units/ Sodium Chloride 100 ml @ 6 mls/hr TITRATE PRN IV Blood Glucose Control 08/14/17 22:45 08/14/17 23:13 Potassium Chloride 100 ml @ 100 mls/hr Q1H PRN IV SEE LABEL COMMENTS 08/14/17 22:45 Potassium Chloride 100 ml @ 50 mls/hr Q2H PRN IV SEE LABEL COMMENTS 08/14/17 22:45 Potassium Chloride 100 ml @ 100 mls/hr Q1H PRN IV SEE LABEL COMMENTS 08/14/17 22:45 Potassium Chloride 100 ml @ 100 mls/hr Q1H PRN IV SEE LABEL COMMENTS 08/14/17 22:45 Potassium Chloride 100 ml @ 50 mls/hr Q2H PRN IV SEE LABEL COMMENTS 08/14/17 22:45 Potassium Chloride 100 ml @ 50 mls/hr Q2H PRN IV SEE LABEL COMMENTS 08/14/17 22:45 Potassium Chloride 100 ml @ 50 mls/hr Q2H PRN IV SEE LABEL COMMENTS 08/14/17 22:45 Potassium Chloride 100 ml @ 50 mls/hr Q2H PRN IV SEE LABEL COMMENTS 08/14/17 22:45 Sodium Bicarbonate (Sodium Bicarbonate 8.4% Inj) 100 meq UNSCH PRN IV PUSH SEE LABEL COMMENTS 08/14/17 22:45 Sodium Bicarbonate (Sodium Bicarbonate 8.4% Inj) 50 meq UNSCH PRN IV PUSH SEE LABEL COMMENTS 08/14/17 22:45 Sodium Phosphate 15 mmol/Sodium Chloride 105 ml @ 25 mls/hr UNSCH PRN IV SEE LABEL COMMENTS 08/14/17 22:45 Family History Family history significant for CAD. Social History Smokes one pack per day. Denies alcohol, illicit drugs. Physical Exam Vital Signs Vital Signs Date Time Temp Pulse Resp B/P (MAP) Pulse Ox O2 Delivery O2 Flow Rate FiO2 08/14/17 19:21 97.3 105 17 172/69 (103) Physical Exam GENERAL: Well-nourished, well-developed patient. SKIN: Warm and dry. HEAD: Normocephalic. EYES: No scleral icterus. No injection or drainage. NECK: Supple, trachea midline. No JVD or lymphadenopathy. CARDIOVASCULAR: Regular rate and rhythm without murmurs, gallops, or rubs. RESPIRATORY: Breath sounds equal bilaterally. No accessory muscle use. GASTROINTESTINAL: Abdomen soft, non-tender, nondistended. MUSCULOSKELETAL: No cyanosis, or edema. BACK: Nontender without obvious deformity. NEURO EXAM: GCS: 15 Mental Status: The patient is alert and oriented to person, place, and time with normal speech. Cranial Nerves: Visual acuity intact bilaterally. Visual [place] normal in all quadrants. Pupils are round, reactive to light. Extraocular movements are intact without ptosis. Hearing is normal bilaterally. Voice is normal. Tongue protrudes midline and moves symmetrically. Reflexes: Biceps, patellar, and Achilles are 2/4 bilaterally. No clonus. Sensation: Sensation is intact bilaterally to pain and light touch. Two-point discrimination is intact. Motor: Good muscle tone. Strength is 5/5 bilaterally. Cerebellar: [id number] and [id number] test normal bilaterally. Laboratory Laboratory Tests Test 08/14/17 20:00 08/14/17 20:43 08/14/17 20:45 08/14/17 21:13 White Blood Count 4.9 Red Blood Count 4.53 Hemoglobin 13.4 Hematocrit 46.3 Mean Corpuscular Volume 102.2 Mean Corpuscular Hemoglobin 29.7 Mean Corpuscular Hemoglobin Concent 29.0 Red Cell Distribution Width 16.7 Platelet Count 188 Mean Platelet Volume 10.6 Neutrophils (%) (Auto) 78.4 Lymphocytes (%) (Auto) 15.7 Monocytes (%) (Auto) 5.2 Eosinophils (%) (Auto) 0.1 Basophils (%) (Auto) 0.6 Neutrophils # (Auto) 3.9 Lymphocytes # (Auto) 0.8 Monocytes # (Auto) 0.3 Eosinophils # (Auto) 0.0 Basophils # (Auto) 0.0 CBC Comment DIFF FINAL Differential Comment Urine Color COLORLESS Urine Turbidity CLEAR Urine pH 6.5 Urine Specific [place] 1.023 Urine Protein NEG Urine Glucose (UA) 1000 Urine Ketones 10 Urine Occult Blood NEG Urine Nitrite NEG Urine Bilirubin NEG Urine Urobilinogen LESS THAN 2.0 Urine Leukocyte Esterase NEG Urine RBC LESS THAN 1 Urine WBC LESS THAN 1 Microscopic Urinalysis Comment CULT NOT INDICATED Blood Urea Nitrogen 59 Creatinine 2.00 Random Glucose 1642 Total Protein 8.5 Albumin 3.6 Calcium Level 9.8 Alkaline Phosphatase 211 Aspartate Amino Transf (AST/SGOT) 18 Alanine Aminotransferase (ALT/SGPT) 21 Total Bilirubin 0.7 Sodium Level 115 Potassium Level 7.4 Chloride Level 74 Carbon Dioxide Level 17.1 Anion Gap 24 Estimat Glomerular Filtration Rate 31 Lipase 762 Troponin I LESS THAN 0.02 B-Hydroxybutyrate 7.00 Blood Gas Puncture Site LT RADIAL Blood Gas Patient Temperature 98.6 Blood Gas HCO3 16 Blood Gas Base Excess -8.4 Blood Gas Oxygen Saturation 93 Arterial Blood pH 7.34 Arterial Blood Partial Pressure CO2 31 Arterial Blood Partial Pressure O2 84 Arterial Blood Oxygen Content 18.4 Arterial Blood Carboxyhemoglobin 2.2 Arterial Blood Methemoglobin 0.6 Blood Gas Hemoglobin 14.1 Oxygen Delivery Device ROOM AIR Blood Gas Inspired Oxygen 21 Test 08/14/17 21:46 Potassium Level 7.5 Result Diagram: 08/14/17199908/14/172145 Caprini VTE Risk Assessment Caprini VTE Risk Assessment: Mod/High Risk (score >= 2) Caprini Risk Assessment Model Point Value = 1 Point Value = 2 Point Value = 3 Point Value = 5 Age 41-60 Minor surgery BMI > 25 kg/m2 Swollen legs Varicose veins or History of unexplained or recurrent spontaneous Oral contraceptives or hormone replacement Sepsis (< 1 month) Serious lung disease, including pneumonia (< 1 month) Abnormal pulmonary function Acute myocardial infarction Congestive heart failure (< 1 month) History of inflammatory bowel disease Medical patient at bed rest Age 61-74 Arthroscopic surgery Major open surgery (> 45 min) Laparoscopic surgery (> 45 min) Malignancy Confined to bed (> 72 hours) Immobilizing plaster cast Central venous access Age >= 75 History of VTE Family history of VTE Factor V Leiden Prothrombin [id number] Lupus anticoagulant Anticardiolipin antibodies Elevated serum homocysteine Heparin-induced thrombocytopenia Other congenital or acquired thrombophilia Stroke (< 1 month) Elective arthroplasty Hip, pelvis, or leg fracture Acute spinal cord injury (< 1 month) Prophylaxis Regimen Total Risk Factor Score Risk Level Prophylaxis Regimen 0-1 Low Early ambulation 2 Moderate Order ONE of the following: *Sequential Compression Device (SCD) *Heparin 5000 units SQ BID 3-4 Higher Order ONE of the following medications: *Heparin 5000 units SQ TID *Enoxaparin/Lovenox 40 mg SQ daily (WT < 150 kg, CrCl > 30 mL/min) *Enoxaparin/Lovenox 30 mg SQ daily (WT < 150 kg, CrCl > 10-29 mL/min) *Enoxaparin/Lovenox 30 mg SQ BID (WT < 150 kg, CrCl > 30 mL/min) AND/OR *Sequential Compression Device (SCD) 5 or more Highest Order ONE of the following medications: *Heparin 5000 units SQ TID (Preferred with Epidurals) *Enoxaparin/Lovenox 40 mg SQ daily (WT < 150 kg, CrCl > 30 mL/min) *Enoxaparin/Lovenox 30 mg SQ daily (WT < 150 kg, CrCl > 10-29 mL/min) *Enoxaparin/Lovenox 30 mg SQ BID (WT < 150 kg, CrCl > 30 mL/min) AND *Sequential Compression Device (SCD) Assessment and Plan Assessment and Plan DKA -Insulin drip per ICU protocol -N.p.o. -IV fluid hydration Pancreatic insufficiency -Continue Amylase/Lipase/ Protease Chronic back pain -Morphine and Tylenol as needed Liver mass -Workup per gastroenterology consultation Hypertension -Norvasc Acute kidney injury Hyperkalemia -Aggressive IV fluid hydration -Received calcium gluconate and bicarb in the ED -Monitor trend -Strict I's and O's GERD -Pantoprazole DVT GI prophylaxis -Artemio's and SCDs -Subcu heparin -Pantoprazole Critical Care: The total critical care time was 35 minutes. Time to perform other separately billable procedures was not included in the critical care time. James Queen MD August 14, 2017 10:47 pm
--- NOTE | 2017-08-14 23:02 | RADRPT ---
EXAM DATE/TIME: 08/14/2017 22:43 [place] COMPARISON: MRCP W/O CONTRAST, July 14, 2015, 19:50. CT ABDOMEN & PELVIS W CONTRAST, September 09, 2016, 19:15. CT ABDOMEN & PELVIS W CONTRAST, January 07, 2017, 15:38. CT ABDOMEN & PELVIS W/O CONTRAST, July 10 18, 21:56. INDICATIONS : Left abdomen pain. ORAL CONTRAST: No oral contrast ingested. RADIATION DOSE: 4.2 CTDIvol (mGy) MEDICAL HISTORY : Hypertension. Diabetes mellitus type 2. Pancreatitis. SURGICAL HISTORY : None. ENCOUNTER: Initial ACUITY: 1 day PAIN SCALE: 5/10 LOCATION: Left abdomen TECHNIQUE: Volumetric scanning of the abdomen and pelvis was performed. Using automated exposure control and ad justment of the mA and/or kV according to patient size, radiation dose was kept as low as reasonably achievable to obtain optimal diagnostic quality images. DICOM format image data is available electro nically for review and comparison. FINDINGS: LOWER LUNGS: The visualized lower lungs are clear. LIVER: 2.4 cm low-density area in the posterior segment of the right lobe of the liver should be further shailesh luated with dynamic contrast-enhanced MRI on an elective basis. Biliary stent is stable in position. SPLEEN: Normal size without lesion. PANCREAS: Stable calcifications and pancreatic ductal dilatation consistent with chronic pancreatitis. KIDNEYS: Normal in size and shape. There is no mass, stone, or hydronephrosis. ADRENAL GLANDS: Within normal limits. VASCULAR: There is no aortic aneurysm. BOWEL/MESENTERY: The stomach, small bowel, and colon demonstrate no acute abnormality. There is no free intraperitone al air or fluid. ABDOMINAL WALL: Within normal limits. RETROPERITONEUM: There is no lymphadenopathy. BLADDER: No wall thickening or mass. REPRODUCTIVE: 4 cm dermoid on the right again noted. INGUINAL: There is no lymphadenopathy or hernia. MUSCULOSKELETAL: Within normal limits for patient age. CONCLUSION: 2.4 cm right lobe liver mass does not appear to have been previously evaluated. Contrasted hepatic MR I suggested on an elective basis for followup. Otherwise stable study Chang Torres MD on August 14, 2017 at 22:52 Board Certified Radiologist. This report was verified electronically.
[2017-08-14 23:23] VITALS: BP 137/64; PULSE 90; RESP 18; O2SAT 95
[2017-08-14 23:45] VITALS: BP 150/89; PULSE 93; RESP 14; TEMP 97.9; O2SAT 98
[2017-08-15] VITALS (22 sets, daily range): BP systolic 87–137; BP diastolic 53–78; PULSE 74–94; RESP 14–31; TEMP 97.6–98.8; O2SAT 83–100
[2017-08-15] MEDS: SODIUM CHLOR 0.9% 1000 ML INJ 1,000 ML IV SCH ×5 (00:26→17:32)
[2017-08-15] MEDS: ENOXAPARIN SODIUM 40 MG/0.4 ML SYRINGE SQ SCH ×2 (00:27→23:52)
[2017-08-15] MEDS: MORPHINE SULFATE 4 MG/ML INJ IV PUSH PRN ×4 (01:19→23:58)
[2017-08-15] MEDS ORDERED: SODIUM CHLOR 0.9% 1000 ML INJ 1,000 ML IV ONE ×2 (01:30)
[2017-08-15 03:44] LABS: AUTOMATED NEUTROPHIL # 3.1 TH/MM3 (1.8-7.7); BASOPHIL % 0.5 % (0.0-2.0); EOSINOPHIL % 0.9 % (0.0-4.0); HEMATOCRIT 38.6 % (35.0-46.0); HEMOGLOBIN 12.6 GM/DL (11.6-15.3); LYMPHOCYTE # 1.7 TH/MM3 (1.0-4.8); MEAN CELL VOLUME 89.6 FL (80.0-100.0); MEAN CORPUSCULAR HEMOGLOBIN 29.3 PG (27.0-34.0); MEAN CORPUSCULAR HGB CONC 32.7 % (32.0-36.0); MEAN PLATELET VOLUME 10.1 FL (7.0-11.0); MONO % 4.5 % (0.0-8.0); MONOCYTE # 0.2 TH/MM3 (0-0.9); NEUT % 61.1 % (16.0-70.0); PLATELET COUNT 96 TH/MM3 (150-450); RED BLOOD COUNT 4.31 MIL/MM3 (4.00-5.30); RED CELL DISTRIBUTION WIDTH 15.4 % (11.6-17.2); WHITE BLOOD COUNT 5.1 TH/MM3 (4.0-11.0)
[2017-08-15 03:47] LABS: INTERNATIONAL NORMALIZED RATIO 1.2 RATIO; PROTHROMBIN TIME - PATIENT 11.7 SEC (9.8-11.6)
[2017-08-15] MEDS: CHLORHEXIDINE GLUCONATE 2 % 1 PACK (2 CLOTHS) TOP SCH (04:00)
[2017-08-15 04:25] LABS: ALKALINE PHOSPHATASE 170 U/L (45-117); ALT (GPT) 17 U/L (10-53); AST (GOT) 13 U/L (15-37); BICARBONATE 22.1 MEQ/L (21.0-32.0); BLOOD UREA NITROGEN 47 MG/DL (7-18); CALCIUM 8.6 MG/DL (8.5-10.1); CHLORIDE 106 MEQ/L (98-107); CREATININE 1.26 MG/DL (0.50-1.00); GLOMERULAR FILTRATION RATE 53 ML/MIN (>89); MAGNESIUM 1.6 MG/DL (1.5-2.5); PHOSPHORUS 1.5 MG/DL (2.5-4.9); SODIUM (NA) 139 MEQ/L (136-145); TOTAL BILIRUBIN ADULT 0.3 MG/DL (0.2-1.0); TOTAL PROTEIN 7.2 GM/DL (6.4-8.2); TROPONIN I 0.03 NG/ML (0.02-0.05)
[2017-08-15 04:31] LABS: GLUCOSE,RANDOM 548 MG/DL (74-106)
[2017-08-15] MEDS: POTASSIUM CHLOR 20 MEQ PREMIX 100 ML IV PRN ×2 (05:21→07:38)
[2017-08-15] MEDS: SODIUM PHOSPHATE INJ 15 MMOL in SODIUM CHLORIDE 0.9% INJ 100 ML IV PRN (05:35)
[2017-08-15] MEDS: DEXT 5%-NACL 0.9% 1000 ML INJ 1,000 ML IV SCH ×3 (07:10→17:32)
[2017-08-15] MEDS: PANTOPRAZOLE SOD 40 MG DELAYED RELEASE TAB PO SCH (07:38)
[2017-08-15] MEDS: DOCUSATE SODIUM 50 MG/SENNA 8.6 MG TAB PO SCH ×2 (07:38→20:40)
[2017-08-15] MEDS: LIPASE/PROTEASE/AMYLASE (24,000/76,000/120,000) CAP PO SCH ×4 (09:10→17:31)
[2017-08-15] MEDS: amLODIPine BESYLATE 5 MG TAB PO SCH (09:10)
--- NOTE | 2017-08-15 13:31 | PD.CONS ---
HPI History of Present Illness This is a 57 year old female who presented with elevated blood glucose, abd pain , n/v. GI is consulted for liver mass. pt has chronic back pain which recently worsened. Pain is in the left mid back region and radiates around front to the left quadrants. She had 2-3 episodes of n/v with nonbloody emesis in the last 2 days, none today. She denies unintended weight loss, blood in stool, black tarry stool. Denies ever having EGD or colonoscopy. She was evaluated by our last year and had ERCP 08/[address] Osorio which revealed dilated CBD, pancreatitis. She had a complete liver work up 09/2016 unremarkable other than Mitochondrial M2 elevated 76.8. She hx heavy drinking but does not drink currently. CT showed chronic pancreatitis and 2.4cm right liver lobe mass. (Hanna Hernandez) PFSH Past Medical History HTN DM CAD back pain pancreatitis, chornic Past Surgical History cardiac cath with stent g tube (Hanna Hernandez) Coded Allergies: No Known Allergies (Verified Allergy, Unknown, 07/01/17) NONE KNOWN Family History CAD Social History denies etoh currently, formerly was heavy drinker smokes 1ppd denies illicit drug use (Hanna Hernandez) Review of Systems Constitutional: DENIES: Weight loss Endocrine: DENIES: Polydipsia Eyes: DENIES: Blurred vision Ears, nose, mouth, throat: DENIES: Hearing loss Respiratory: DENIES: Cough Cardiovascular: DENIES: Chest pain Gastrointestinal: COMPLAINS OF: Abdominal pain, Nausea, Vomiting, DENIES: Black stools, Bloody stools Genitourinary: DENIES: Urinary incontinence Musculoskeletal: COMPLAINS OF: Back pain, DENIES: Muscle aches Integumentary: DENIES: Abnormal pigmentation Hematologic/lymphatic: DENIES: Bruising Immunologic/allergic: DENIES: Eczema Neurologic: DENIES: Abnormal gait Psychiatric: DENIES: Confusion (Hanna Hernandez) GI Exam Vitals I&O Vital Signs Date Time Temp Pulse Resp B/P (MAP) Pulse Ox O2 Delivery O2 Flow Rate FiO2 08/15/17 11:00 80 17 100 08/15/17 10:00 74 18 08/15/17 10:00 74 08/15/17 09:00 80 20 118/72 (87) 99 08/15/17 08:00 80 08/15/17 08:00 98.7 80 18 128/77 (94) 08/15/17 07:00 82 15 98/67 (77) 99 08/15/17 06:00 79 08/15/17 06:00 79 20 100/58 (72) 96 08/15/17 05:00 80 18 93/58 (70) 99 08/15/17 04:00 97.6 78 14 87/53 (64) 97 08/15/17 04:00 78 08/15/17 03:00 82 15 105/61 (76) 97 08/15/17 02:00 85 17 100/59 (73) 97 08/15/17 02:00 82 08/15/17 01:00 85 16 110/63 (79) 96 08/15/17 00:00 91 08/15/17 00:00 92 20 130/78 (95) 98 08/14/17 23:45 97.9 93 14 150/89 (109) 98 08/14/17 23:30 08/14/17 23:23 90 18 137/64 (88) 95 Room Air 08/14/17 19:21 97.3 105 17 172/69 (103) I/O 08/14/17 08/14/17 08/14/17 08/15/17 08/15/17 08/15/17 07:00 15:00 23:00 07:00 15:00 23:00 Intake Total 5153 ml Output Total 1200 ml Balance 3953 ml Intake IV Total 5153 ml Output Urine Total 1200 ml Imaging Last Impressions Abdomen/Pelvis CT 08/14/17 0000 Signed Impressions: Service Date/Time: Monday, August 14, 2017 22:43 - CONCLUSION: 2.4 cm right lobe liver mass does not appear to have been previously evaluated. Contrasted hepatic MRI suggested on an elective basis for followup. Otherwise stable study Chang Torres MD Laboratory Test 08/14/17 20:00 08/14/17 20:43 08/14/17 20:45 08/14/17 21:13 White Blood Count 4.9 TH/MM3 Red Blood Count 4.53 MIL/MM3 Hemoglobin 13.4 GM/DL Hematocrit 46.3 % Mean Corpuscular Volume 102.2 FL Mean Corpuscular Hemoglobin 29.7 PG Mean Corpuscular Hemoglobin Concent 29.0 % Red Cell Distribution Width 16.7 % Platelet Count 188 TH/MM3 Mean Platelet Volume 10.6 FL Neutrophils (%) (Auto) 78.4 % Lymphocytes (%) (Auto) 15.7 % Monocytes (%) (Auto) 5.2 % Eosinophils (%) (Auto) 0.1 % Basophils (%) (Auto) 0.6 % Neutrophils # (Auto) 3.9 TH/MM3 Lymphocytes # (Auto) 0.8 TH/MM3 Monocytes # (Auto) 0.3 TH/MM3 Eosinophils # (Auto) 0.0 TH/MM3 Basophils # (Auto) 0.0 TH/MM3 CBC Comment DIFF FINAL Differential Comment Urine Color COLORLESS Urine Turbidity CLEAR Urine pH 6.5 Urine Specific [place] 1.023 Urine Protein NEG mg/dL Urine Glucose (UA) 1000 mg/dL Urine Ketones 10 mg/dL Urine Occult Blood NEG Urine Nitrite NEG Urine Bilirubin NEG Urine Urobilinogen LESS THAN 2.0 MG/DL Urine Leukocyte Esterase NEG Urine RBC LESS THAN 1 /hpf Urine WBC LESS THAN 1 /hpf Microscopic Urinalysis Comment CULT NOT INDICATED Blood Urea Nitrogen 59 MG/DL Creatinine 2.00 MG/DL Random Glucose 1642 MG/DL Total Protein 8.5 GM/DL Albumin 3.6 GM/DL Calcium Level 9.8 MG/DL Alkaline Phosphatase 211 U/L Aspartate Amino Transf (AST/SGOT) 18 U/L Alanine Aminotransferase (ALT/SGPT) 21 U/L Total Bilirubin 0.7 MG/DL Sodium Level 115 MEQ/L Potassium Level 7.4 MEQ/L Chloride Level 74 MEQ/L Carbon Dioxide Level 17.1 MEQ/L Anion Gap 24 MEQ/L Estimat Glomerular Filtration Rate 31 ML/MIN Lipase 762 U/L Troponin I LESS THAN 0.02 NG/ML B-Hydroxybutyrate 7.00 MMOL/L Blood Gas Puncture Site LT RADIAL Blood Gas Patient Temperature 98.6 Blood Gas HCO3 16 mmol/L Blood Gas Base Excess -8.4 mmol/L Blood Gas Oxygen Saturation 93 % Arterial Blood pH 7.34 Arterial Blood Partial Pressure CO2 31 mmHg Arterial Blood Partial Pressure O2 84 mmHG Arterial Blood Oxygen Content 18.4 Vol % Arterial Blood Carboxyhemoglobin 2.2 % Arterial Blood Methemoglobin 0.6 % Blood Gas Hemoglobin 14.1 G/DL Oxygen Delivery Device ROOM AIR Blood Gas Inspired Oxygen 21 % Test 5/15/18 21:46 08/14/17 23:40 08/15/17 01:41 08/15/17 03:25 Potassium Level 7.5 MEQ/L 4.3 MEQ/L Nasal Screen MRSA (PCR) MRSA NOT DETECTED Random Glucose 806 MG/DL 548 MG/DL White Blood Count 5.1 TH/MM3 Red Blood Count 4.31 MIL/MM3 Hemoglobin 12.6 GM/DL Hematocrit 38.6 % Mean Corpuscular Volume 89.6 FL Mean Corpuscular Hemoglobin 29.3 PG Mean Corpuscular Hemoglobin Concent 32.7 % Red Cell Distribution Width 15.4 % Platelet Count 96 TH/MM3 Mean Platelet Volume 10.1 FL Neutrophils (%) (Auto) 61.1 % Lymphocytes (%) (Auto) 33.0 % Monocytes (%) (Auto) 4.5 % Eosinophils (%) (Auto) 0.9 % Basophils (%) (Auto) 0.5 % Neutrophils # (Auto) 3.1 TH/MM3 Lymphocytes # (Auto) 1.7 TH/MM3 Monocytes # (Auto) 0.2 TH/MM3 Eosinophils # (Auto) 0.0 TH/MM3 Basophils # (Auto) 0.0 TH/MM3 CBC Comment AUTO DIFF Differential Comment AUTO DIFF CONFIRMED Platelet Estimate LOW Platelet Morphology Comment NORMAL Red Cell Morphology Comment NORMAL Hematology Comments Prothrombin Time 11.7 SEC Prothromb Time International Ratio 1.2 RATIO Activated Partial Thromboplast Time 24.0 SEC Blood Urea Nitrogen 47 MG/DL Creatinine 1.26 MG/DL Total Protein 7.2 GM/DL Albumin 3.0 GM/DL Calcium Level 8.6 MG/DL Phosphorus Level 1.5 MG/DL Magnesium Level 1.6 MG/DL Alkaline Phosphatase 170 U/L Aspartate Amino Transf (AST/SGOT) 13 U/L Alanine Aminotransferase (ALT/SGPT) 17 U/L Total Bilirubin 0.3 MG/DL Sodium Level 139 MEQ/L Chloride Level 106 MEQ/L Carbon Dioxide Level 22.1 MEQ/L Anion Gap 11 MEQ/L Estimat Glomerular Filtration Rate 53 ML/MIN Troponin I 0.03 NG/ML Date/Time Source Procedure Growth Status 08/14/17 20:00 Urine Catheterized Urine Urine Culture Pending Received Physical Examination HEENT: PERRL; normocephalic; atraumatic; no jaundice. CHEST: CTA CARDIAC: RRR ABDOMEN: Soft, mildly distended, LUQ and left flank TTP; no hepatosplenomegaly ; bowel sounds are present in all four quadrants. EXTREMITIES: No clubbing, cyanosis, or edema. SKIN: Normal; no rash; no jaundice. 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 (Hanna Hernandez) Assessment and Plan Plan ASSESSMENT - left quadrant pain - unclear etiology. lipase 762. presented with elevated BG. ?chronic pancreatitis - abnormal imaging - liver mass 2.4cm seen on CT, along with chronic pancreatitis. has previously had liver w/u 09/2016 and unremarkable other than elevated mitochondrial m2 76.8. ALP is elevated . PLAN - consider MRI liver - consider liver bx - tumor markers - further recs after Dr Mcdowell sees pt pt seen by myself and Dr Mcdowell and this note is on her behalf (Hanna Hernandez) Physician Comments patient had liver biopsy last year-cirrhosis no specific cause elevated ama -suggesting primary biliary cirrhosis mri liver when better iig4 level may need liver biopsy of the mass depending on bx result we will repeat tumor markers creon when po intake started ct abdomen mentioned presence of biliary stent, ercp done in august 2016 did not mention stent we will review [facility] records in case she had eus /ercp there may need removal/replacement of biliary stent eventually (Annette Mcdowell MD) Hanna Hernandez August 15, 2017 13:31 Annette Mcdowell MD August 15, 2017 15:47
[2017-08-15] MEDS ORDERED: INSULIN HUMAN NPH/R 70/30 1,000 UNITS/10 ML VIAL SQ ONE (14:45)
[2017-08-15 16:54] LABS: CALCIUM 8.3 MG/DL (8.5-10.1); CREATININE 0.78 MG/DL (0.50-1.00); MAGNESIUM 1.3 MG/DL (1.5-2.5); PHOSPHORUS 1.1 MG/DL (2.5-4.9)
[2017-08-15 16:55] LABS: CARCINOEMBRYONIC ANTIGEN 10.4 NG/ML (0.2-5.0)
--- NOTE | 2017-08-15 18:27 | HHI.PR ---
Subjective Remarks Resting comfortably in bed No event overnight Denied chest and or short of breath No fever or chills Objective Vitals Vital Signs Date Time Temp Pulse Resp B/P (MAP) Pulse Ox O2 Delivery O2 Flow Rate FiO2 08/15/17 18:00 87 19 125/75 (92) 08/15/17 18:00 87 08/15/17 17:00 81 18 118/72 (87) 98 08/15/17 16:00 98.7 80 18 118/75 (89) 98 08/15/17 16:00 80 08/15/17 15:00 84 17 111/73 (86) 99 08/15/17 14:15 14 08/15/17 14:00 84 08/15/17 14:00 84 16 117/73 (88) 100 08/15/17 13:00 88 31 112/67 (82) 83 08/15/17 12:00 98.6 79 14 123/76 (92) 97 08/15/17 12:00 79 08/15/17 11:00 80 17 100 08/15/17 10:00 74 18 08/15/17 10:00 74 08/15/17 09:00 80 20 118/72 (87) 99 08/15/17 08:00 80 08/15/17 08:00 98.7 80 18 128/77 (94) 08/15/17 07:00 82 15 98/67 (77) 99 08/15/17 06:00 79 08/15/17 06:00 79 20 100/58 (72) 96 08/15/17 05:00 80 18 93/58 (70) 99 08/15/17 04:00 97.6 78 14 87/53 (64) 97 08/15/17 04:00 78 08/15/17 03:00 82 15 105/61 (76) 97 08/15/17 02:00 85 17 100/59 (73) 97 08/15/17 02:00 82 08/15/17 01:00 85 16 110/63 (79) 96 08/15/17 00:00 91 08/15/17 00:00 92 20 130/78 (95) 98 08/14/17 23:45 97.9 93 14 150/89 (109) 98 08/14/17 23:30 5/15/18 23:23 90 18 137/64 (88) 95 Room Air 08/14/17 19:21 97.3 105 17 172/69 (103) I/O 08/14/17 08/14/17 08/14/17 08/15/17 08/15/17 08/15/17 06:59 14:59 22:59 06:59 14:59 22:59 Intake Total 5153 ml 1000 ml 1024 ml Output Total 1200 ml 900 ml Balance 3953 ml 1000 ml 124 ml Intake Oral 120 ml IV Total 5153 ml 1000 ml 904 ml Output Urine Total 1200 ml 900 ml # Bowel Movements 0 Result Diagram: 08/15/17 0325 08/15/17 1550 Objective Remarks GENERAL: This is a well-nourished, well-developed patient, in no apparent distress. CARDIOVASCULAR: RRR, no gallops, or rubs. RESPIRATORY: Fair air entry bilaterally. No W, R, or R GASTROINTESTINAL: Abdomen soft, non-tender, nondistended. Positive bowel sounds MUSCULOSKELETAL: Extremities without clubbing, cyanosis, or edema. Pedal pulses appreciated NEUROLOGICAL: Awake and alert. Moves all extremity. Normal speech.no focal neurological deficit A/P Assessment and Plan 08/15: DC IV fluids start Levemir 20 units twice daily tonight, for now start diet diabetic ADA 1800 and give 10 units of 7030 insulin, discussed with the nurse, check Accu-Chek every 4 hours Appreciate GI consultation for pancreatic insufficiency and liver mass, elevated CEA, A/P: DKA -Insulin drip per ICU protocol -N.p.o. -IV fluid hydration Pancreatic insufficiency -Continue Amylase/Lipase/ Protease Chronic back pain -Morphine and Tylenol as needed Liver mass -Workup per gastroenterology consultation Hypertension -Norvasc Acute kidney injury Hyperkalemia -Aggressive IV fluid hydration -Received calcium gluconate and bicarb in the ED -Monitor trend -Strict I's and O's GERD -Pantoprazole DVT GI prophylaxis -Artemio's and SCDs -Subcu heparin -Pantoprazole Meredith Damon MD August 15, 2017 18:27
[2017-08-15] MEDS ORDERED: DEXTROSE 50% IN WATER 50 ML VIAL(D50) IV PUSH PRN (20:00)
[2017-08-15] MEDS ORDERED: GLUCAGON 1 MG/ML VIAL OTHER PRN (20:00)
[2017-08-15] MEDS: URSODIOL 300 MG CAP PO SCH (20:40)
[2017-08-15] MEDS: LOW DOSE INSULIN NOVOLIN REGULAR SUPPLEMENTAL SCALE SQ SCH ×2 (20:40→23:52)
[2017-08-15] MEDS: INSULIN DETEMIR 100 UNITS/ML VIAL SQ SCH (20:42)
--- NOTE | 2017-08-15 22:23 | EKG ---
Date Performed: 08/14/2017 Time Performed: 23:28:38 PTAGE: 57 years EKG: Sinus rhythm LEFT ATRIAL ENLARGEMENT SEPTAL MYOCARDIAL INFARCTION ABNORMAL ECG NO PREVIOUS TRACING DOCTOR: Kin Escalante Interpretating Date/Time 08/15/2017 22:21:31
--- NOTE | 2017-08-15 22:26 | EKG ---
Date Performed: 08/14/2017 Time Performed: 20:41:42 PTAGE: 57 years EKG: Sinus rhythm POSSIBLE RIGHT ATRIAL ENLARGEMENT LEFT ATRIAL ENLARGEMENT SEPTAL MYOCARDIAL INFARCTION ACUTE CA * NO PREVIOUS TRACING DOCTOR: Kin Escalante Interpretating Date/Time 08/15/2017 22:24:59
[2017-08-16] VITALS (14 sets, daily range): BP systolic 93–128; BP diastolic 51–67; PULSE 84–113; RESP 18–24; TEMP 93–101.1; O2SAT 86–100
[2017-08-16 03:53] LABS: BICARBONATE 22.5 MEQ/L (21.0-32.0); CALCIUM 8.2 MG/DL (8.5-10.1); CREATININE 0.75 MG/DL (0.50-1.00); MAGNESIUM 1.1 MG/DL (1.5-2.5); PHOSPHORUS 0.9 MG/DL (2.5-4.9)
[2017-08-16] MEDS: CHLORHEXIDINE GLUCONATE 2 % 1 PACK (2 CLOTHS) TOP SCH (04:00)
[2017-08-16 04:17] LABS: CARCINOEMBRYONIC ANTIGEN 9.3 NG/ML (0.2-5.0)
[2017-08-16 04:41] LABS: CA 19-9 532.1 U/ML (0.0-35.0)
[2017-08-16] MEDS: LOW DOSE INSULIN NOVOLIN REGULAR SUPPLEMENTAL SCALE SQ SCH ×6 (06:05→23:24)
[2017-08-16] MEDS: SODIUM CHLOR 0.9% 1000 ML INJ 1,000 ML IV SCH ×5 (06:36→22:36)
[2017-08-16] MEDS: DOCUSATE SODIUM 50 MG/SENNA 8.6 MG TAB PO SCH ×2 (07:40→20:37)
[2017-08-16] MEDS: PANTOPRAZOLE SOD 40 MG DELAYED RELEASE TAB PO SCH (07:40)
[2017-08-16] MEDS: URSODIOL 300 MG CAP PO SCH ×2 (07:40→20:37)
[2017-08-16] MEDS: amLODIPine BESYLATE 5 MG TAB PO SCH (07:40)
[2017-08-16] MEDS: INSULIN DETEMIR 100 UNITS/ML VIAL SQ SCH ×2 (07:41→20:38)
[2017-08-16] MEDS: LIPASE/PROTEASE/AMYLASE (24,000/76,000/120,000) CAP PO SCH ×6 (07:41→17:12)
[2017-08-16] MEDS: DEXT 5%-NACL 0.9% 1000 ML INJ 1,000 ML IV SCH ×4 (07:49→23:24)
[2017-08-16] MEDS: SODIUM PHOSPHATE INJ 15 MMOL in SODIUM CHLORIDE 0.9% INJ 100 ML IV PRN (08:41)
[2017-08-16] MEDS: MORPHINE SULFATE 4 MG/ML INJ IV PUSH PRN ×3 (09:44→21:54)
--- NOTE | 2017-08-16 11:33 | HHI.GIFU ---
Subjective Remarks Pt in bed in NAD. tolerating diet. going for MRI shortly. complains of persistent left quadrant and flank pain. No n/v. (Hanna Hernandez) Objective Vitals I&O Vital Signs Date Time Temp Pulse Resp B/P (MAP) Pulse Ox O2 Delivery O2 Flow Rate FiO2 08/16/17 10:12 17 08/16/17 10:00 92 08/16/17 08:00 85 08/16/17 08:00 98.6 85 19 105/51 (69) 100 08/16/17 06:00 90 08/16/17 04:00 93.0 90 18 93/54 (67) 97 08/16/17 04:00 90 08/16/17 02:00 92 08/16/17 00:00 93 08/16/17 00:00 99.5 92 22 107/57 (74) 96 08/15/17 22:00 92 08/15/17 20:00 98.8 94 20 137/75 (95) 96 08/15/17 20:00 93 08/15/17 19:00 88 20 125/73 (90) 98 08/15/17 18:00 87 19 125/75 (92) 08/15/17 18:00 87 08/15/17 17:00 81 18 118/72 (87) 98 08/15/17 16:00 98.7 80 18 118/75 (89) 98 08/15/17 16:00 80 08/15/17 15:00 84 17 111/73 (86) 99 08/15/17 14:00 84 08/15/17 14:00 84 16 117/73 (88) 100 08/15/17 13:00 88 31 112/67 (82) 83 08/15/17 12:00 98.6 79 14 123/76 (92) 97 08/15/17 12:00 79 I/O 08/15/17 08/15/17 08/15/17 08/16/17 08/16/17 08/16/17 07:00 15:00 23:00 07:00 15:00 23:00 Intake Total 5153 ml 1000 ml 1024 ml 400 ml Output Total 1200 ml 1350 ml Balance 3953 ml 1000 ml -326 ml 400 ml Intake Oral 120 ml 400 ml IV Total 5153 ml 1000 ml 904 ml Output Urine Total 1200 ml 1350 ml # Bowel Movements 0 Laboratory Laboratory Tests Test 08/15/17 15:50 08/15/17 16:08 08/16/17 03:11 Blood Urea Nitrogen 23 15 Creatinine 0.78 0.75 Random Glucose 171 127 Calcium Level 8.3 8.2 Phosphorus Level 1.1 0.9 Magnesium Level 1.3 1.1 Sodium Level 145 141 Potassium Level 3.7 3.6 Chloride Level 115 110 Carbon Dioxide Level 23.0 22.5 Anion Gap 7 9 Estimat Glomerular Filtration Rate 92 96 Troponin I 0.02 Tumor Marker Alpha Fetoprotein 4.9 4.4 Carcinoembryonic Antigen 10.4 9.3 CA 19-9 Antigen 566.0 532.1 B-Hydroxybutyrate 0.09 Date/Time Source Procedure Growth Status 08/14/17 20:00 Urine Catheterized Urine Urine Culture Pending Received Imaging Last Impressions Abdomen/Pelvis CT 08/14/17 0000 Signed Impressions: Service Date/Time: Monday, August 14, 2017 22:43 - CONCLUSION: 2.4 cm right lobe liver mass does not appear to have been previously evaluated. Contrasted hepatic MRI suggested on an elective basis for followup. Otherwise stable study Chang Torres MD Physical Exam HEENT: PERRL normocephalic; atraumatic; no jaundice. CHEST: CTA CARDIAC: RRR ABDOMEN: Soft, nondistended, left flank TTP; no hepatosplenomegaly; bowel sounds are present in all four quadrants. EXTREMITIES: No clubbing, cyanosis, or edema. SKIN: Normal; no rash; no jaundice. SPEED WINDER: No focal deficits; alert and oriented times three. (Hanna Hernandez [facility]) Assessment and Plan Plan ASSESSMENT - left quadrant pain - unclear etiology. lipase 762. presented with elevated BG. ?chronic pancreatitis - abnormal imaging - liver mass 2.4cm seen on CT, along with chronic pancreatitis. has previously had liver w/u 09/2016 and unremarkable other than elevated mitochondrial m2 76.8. ALP is elevated . 08/16/17 going for MRI abd. CEA elevated 9.3, CA19-9 elevated 532. AFP WNL. PLAN - await MRI liver - JOCELYN - further recs after MRI resulted - ?bx mass pt seen by myself and Dr Mcdowell and this note is on her behalf (Hanna Hernandez) Physician Comments seen, examined agree with above mri liver noted-consult IR for ct guided liver biopsy of the liver mass (Annette Mcdowell MD) Hanna Hernandez August 16, 2017 11:33 Annette Mcdowell MD August 16, 2017 13:56
[2017-08-16] MEDS ORDERED: GADODIAMIDE PF 287 MG/ML 5 ML VIAL (for RAD MRI) IVCONTRAST ONE (12:12)
--- NOTE | 2017-08-16 13:02 | RADRPT ---
EXAM DATE/TIME: 08/16/2017 11:58 [place] COMPARISON: CT ABDOMEN & PELVIS W/O CONTRAST, March 24, 2017, 23:03. CT ABDOMEN & PELVIS W CONTRAST, January 07, 2017, 15:38. CT ABDOMEN & PELVIS W/O CONTRAST, July 10, 2017, 21:56. CT ABDOMEN & PELVIS W/O C ONTRAST, August 14, 2017, 22:43. INDICATIONS : Liver mass. Abdominal pain. CONTRAST: 14 cc Omniscan (gadodiamide) IV MEDICAL HISTORY : Hypertension. Diabetes mellitus type 2. Gastroesophageal reflux disease. Coronary artery disease. SURGICAL HISTORY : Coronary artery stent. Biliary stent. ENCOUNTER: Initial ACUITY: 1 day PAIN SCORE: 5/10 LOCATION: Right upper quadrant TECHNIQUE: Multiplanar, multisequence magnetic resonance imaging of the abdomen was performed without and with i ntravenous contrast. FINDINGS: Biliary stent is identified and common bile duct measures almost 1.3 cm in size. Pancreatic duct is d ilated measures 7.5 mm and there are simple cysts in the kidneys the largest on the left measures 1.2 cm. There is a mass in the right hepatic lobe measures 2.7 cm in size corresponds to a low attenuati ng mass seen on the patient's CT examination dated 08/14/2017. This mass does not have characteristics of hemangioma. It demonstrates inhomogeneous enhancement on the postcontrast portion and in the area that appears masslike on the CT portion of the exam measures 2.3 cm. Adjacent to it and surrounding it is area of inhomogeneous diminished signal intensity for maximum transverse diameter of 6.5 cm. Th e pancreas appears atrophic without a clear mass. There are no other lesions in the liver. The rest o f the examination is unremarkable. CONCLUSION: 1. Right hepatic lobe mass not present on the older CT from 03/2017 and does not have characteristics of a hemangioma. The exact etiology is uncertain, however malignant etiologies should be entertained such as primary hepatocellular carcinoma and the appearance is nonspecific in regard to other neopla stic etiologies. 2. Dilated common bile duct and pancreatic duct and the pancreas appears atrophic. Tamika Drummond MD on August 16, 2017 at 12:51 Board Certified Radiologist. This report was verified electronically.
[2017-08-16] MEDS ORDERED: MAGNESIUM SULFATE 2 GM/NS 100 ML IV ONE ×2 (16:15)
--- NOTE | 2017-08-16 18:32 | HHI.PR ---
Subjective Remarks Resting in bed feeling fatigued but no abdominal pain nausea or vomiting Objective Vitals Vital Signs Date Time Temp Pulse Resp B/P (MAP) Pulse Ox O2 Delivery O2 Flow Rate FiO2 08/16/17 17:10 20 08/16/17 16:00 99.2 84 24 104/63 (77) 100 08/16/17 16:00 84 08/16/17 14:00 91 08/16/17 12:30 99.0 86 18 124/60 (81) 99 08/16/17 10:00 92 08/16/17 08:00 85 08/16/17 08:00 98.6 85 19 105/51 (69) 100 08/16/17 06:00 90 08/16/17 04:00 93.0 90 18 93/54 (67) 97 08/16/17 04:00 90 08/16/17 02:00 92 08/16/17 00:00 93 08/16/17 00:00 99.5 92 22 107/57 (74) 96 08/15/17 22:00 92 08/15/17 20:00 98.8 94 20 137/75 (95) 96 08/15/17 20:00 93 08/15/17 19:00 88 20 125/73 (90) 98 I/O 08/15/17 08/15/17 08/15/17 08/16/17 08/16/17 08/16/17 07:00 15:00 23:00 07:00 15:00 23:00 Intake Total 5153 ml 1000 ml 1024 ml 505 ml Output Total 1200 ml 1350 ml Balance 3953 ml 1000 ml -326 ml 505 ml Intake Oral 120 ml 400 ml IV Total 5153 ml 1000 ml 904 ml 105 ml Output Urine Total 1200 ml 1350 ml # Bowel Movements 0 Result Diagram: 08/15/17 0325 08/16/17 0311 Objective Remarks GENERAL: This is a well-nourished, well-developed patient, in no apparent distress. CARDIOVASCULAR: RRR, no gallops, or rubs. RESPIRATORY: Fair air entry bilaterally. No W, R, or R GASTROINTESTINAL: Abdomen soft, non-tender, nondistended. Positive bowel sounds MUSCULOSKELETAL: Extremities without clubbing, cyanosis, or edema. Pedal pulses appreciated NEUROLOGICAL: Awake and alert. Moves all extremity. Normal speech.no focal neurological deficit A/P Assessment and Plan 08/15: DC IV fluids start Levemir 20 units twice daily tonight, for now start diet diabetic ADA 1800 and give 10 units of 7030 insulin, discussed with the nurse, check Accu-Chek every 4 hours Appreciate GI consultation for pancreatic insufficiency and liver mass, elevated CEA, 08/16: Blood sugar much better controlled, continue follow-up with GI for liver mass possible need for biopsy to be decided by GI, A/P: DKA -Insulin drip per ICU protocol -N.p.o. -IV fluid hydration Pancreatic insufficiency -Continue Amylase/Lipase/ Protease Chronic back pain -Morphine and Tylenol as needed Liver mass -Workup per gastroenterology consultation Hypertension -Norvasc Acute kidney injury Hyperkalemia -Aggressive IV fluid hydration -Received calcium gluconate and bicarb in the ED -Monitor trend -Strict I's and O's GERD -Pantoprazole DVT GI prophylaxis -Artemio's and SCDs -Subcu heparin -Pantoprazole Meredith Damon MD August 16, 2017 18:32
[2017-08-16] MEDS: ENOXAPARIN SODIUM 40 MG/0.4 ML SYRINGE SQ SCH (23:05)
[2017-08-17] VITALS (13 sets, daily range): BP systolic 102–153; BP diastolic 55–98; PULSE 76–101; RESP 17–20; TEMP 97.7–99; O2SAT 94–99
[2017-08-17] MEDS: MORPHINE SULFATE 4 MG/ML INJ IV PUSH PRN ×3 (00:27→20:25)
[2017-08-17] MEDS: SODIUM CHLOR 0.9% 1000 ML INJ 1,000 ML IV SCH ×3 (00:27→20:29)
[2017-08-17] MEDS: CHLORHEXIDINE GLUCONATE 2 % 1 PACK (2 CLOTHS) TOP SCH (04:00)
[2017-08-17] MEDS: LOW DOSE INSULIN NOVOLIN REGULAR SUPPLEMENTAL SCALE SQ SCH ×5 (04:00→20:24)
[2017-08-17] MEDS: DEXT 5%-NACL 0.9% 1000 ML INJ 1,000 ML IV SCH ×2 (05:36→20:29)
[2017-08-17] MEDS: PANTOPRAZOLE SOD 40 MG DELAYED RELEASE TAB PO SCH (08:51)
[2017-08-17] MEDS: URSODIOL 300 MG CAP PO SCH ×2 (08:51→20:24)
[2017-08-17] MEDS: DOCUSATE SODIUM 50 MG/SENNA 8.6 MG TAB PO SCH ×2 (08:51→20:24)
[2017-08-17] MEDS: amLODIPine BESYLATE 5 MG TAB PO SCH (08:51)
[2017-08-17] MEDS: LIPASE/PROTEASE/AMYLASE (24,000/76,000/120,000) CAP PO SCH ×3 (08:51→17:58)
--- NOTE | 2017-08-17 09:58 | HHI.GIFU ---
Subjective Remarks Pt resting in bed Currently NPO for liver biopsy today Complaining of mid abdominal pain that wraps around her left side to her back (+) BM yesterday Denies nausea, vomiting (Ana Gage) Objective Vitals I&O Vital Signs Date Time Temp Pulse Resp B/P (MAP) Pulse Ox O2 Delivery O2 Flow Rate FiO2 08/17/17 08:00 98.8 90 18 104/60 (75) 98 08/17/17 04:59 97.8 93 20 137/72 (93) 98 08/17/17 04:00 76 08/17/17 00:59 99.0 91 20 102/59 (73) 96 08/17/17 00:32 18 08/17/17 00:00 95 08/16/17 22:52 92 08/16/17 22:48 101.1 96 20 123/67 (85) 98 08/16/17 22:00 113 08/16/17 20:00 97 08/16/17 20:00 98.8 97 19 128/58 (81) 86 08/16/17 18:00 98 08/16/17 16:00 99.2 84 24 104/63 (77) 100 08/16/17 16:00 84 08/16/17 14:00 91 08/16/17 12:30 99.0 86 18 124/60 (81) 99 08/16/17 10:00 92 I/O 08/16/17 08/16/17 08/16/17 08/17/17 08/17/17 08/17/17 07:00 15:00 23:00 07:00 15:00 23:00 Intake Total 505 ml 400 ml 350 ml Output Total 1350 ml Balance 505 ml -950 ml 350 ml Intake Oral 400 ml 400 ml 350 ml IV Total 105 ml Output Urine Total 1350 ml # Voids 1 # Bowel Movements 0 Laboratory Date/Time Source Procedure Growth Status 08/14/17 20:00 Urine Catheterized Urine Urine Culture - Final 10-50,000 CFU/ML MIXED LEYDI... Complete Imaging Last Impressions Abdomen MRI 08/16/17 0000 Signed Impressions: Service Date/Time: July 11:58 - CONCLUSION: 1. Right hepatic lobe mass not present on the older CT from 03/2017 and does not have characteristics of a hemangioma. The exact etiology is uncertain, however malignant etiologies should be entertained such as primary hepatocellular carcinoma and the appearance is nonspecific in regard to other neoplastic etiologies. 2. Dilated common bile duct and pancreatic duct and the pancreas appears atrophic. Tamika Drummond MD Abdomen/Pelvis CT 08/14/17 0000 Signed Impressions: Service Date/Time: Monday, August 14, 2017 22:43 - CONCLUSION: 2.4 cm right lobe liver mass does not appear to have been previously evaluated. Contrasted hepatic MRI suggested on an elective basis for followup. Otherwise stable study Chang Torres MD Physical Exam HEENT: Normocephalic; atraumatic CHEST: Even/unlabored CARDIAC: RRR ABDOMEN: Soft, nondistended, mild abdominal tenderness to mid abdomen, bowel sounds active EXTREMITIES: No clubbing, cyanosis, or edema. SKIN: Normal; no rash; no jaundice. 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 (Ana Gage) Assessment and Plan Plan ASSESSMENT - Live mass on imaging History of heavy ETOH, reports no ETOH in [address] abdomen and pelvis W/O IV contrast --> 2.4 cm right lobe liver mass does not appear to have been previously evaluated. MRI abdomen W & W/O contrast --> Right hepatic lobe mass not present on the older CT from 03/2017 and does not have characteristics of a hemangioma. Dilated common bile duct and pancreatic duct and the pancreas appears atrophic. Previous liver CHRISTIAN: [id number] Ceruloplasmin-39 Hepatitis panel negative FAY negative AMA-76.8 ASMA-negative Iron-67 TIBC-197 %sat-33.9 Ferritin-513 AFP-4.4 CEA-9.3 CA 19-9-532.1 - Chronic pancreatitis- Pt takes Creon as home med Lipase-762 on arrival- no mention of acute pancreatitis on imaging - DKA- glucose 1600 on arrival- now off Insulin gtt and on subq insulin PLAN - Liver biopsy - Creon - Monitor labs - Further recommendations based on findings of above and clinical course Pt has been seen and examined by myself and Dr. Mcdowell and this note is written on her behalf (Ana Gage) Ana Gage August 17, 2017 09:58 Annette Mcdowell MD August 17, 2017 18:48
[2017-08-17] MEDS: INSULIN DETEMIR 100 UNITS/ML VIAL SQ SCH ×2 (10:03→20:24)
--- NOTE | 2017-08-17 13:43 | HHI.PR ---
Subjective Remarks 57-year-old -[place] female with past medical history of hypertension, diabetes, coronary artery disease, chronic back pain, presents complaints of left sided back pain that is radiating to the left abdomen for a few days. She also complains of some nausea and vomiting. Denies any fever, chest pain, sob, focal weakness or numbness, fall. The CT of the abdomen obtained in the emergency department shows stable calcifications and pancreatic ductal dilatation consistent with chronic pancreatitis. and 2.4 cm right lobe liver mass. She also says that she has lost her prescription for pain medication for her back and her doctor wont write her a new one. The initial lab work in the emergency department also shows her glucose of 1600, potassium 7.5 and sodium of 115. She has been admitted to ICU on insulin drip per a DKA protocol. TRANSFERRED OUT OF ICU TO OUR CARE 08-17 FOUND TO HAVE A LIVER MASS DW RN AND PT FOR BIOPSY OF LIVER MASS TODAY Objective Vitals Vital Signs Date Time Temp Pulse Resp B/P (MAP) Pulse Ox O2 Delivery O2 Flow Rate FiO2 08/17/17 12:00 98.4 92 18 110/55 (73) 99 08/17/17 08:00 98.8 90 18 104/60 (75) 98 08/17/17 04:59 97.8 93 20 137/72 (93) 98 08/17/17 04:00 76 08/17/17 00:59 99.0 91 20 102/59 (73) 96 08/17/17 00:32 18 08/17/17 00:00 95 08/16/17 22:52 92 08/16/17 22:48 101.1 96 20 123/67 (85) 98 08/16/17 22:00 113 08/16/17 20:00 97 08/16/17 20:00 98.8 97 19 128/58 (81) 86 08/16/17 18:00 98 08/16/17 16:00 99.2 84 24 104/63 (77) 100 08/16/17 16:00 84 08/16/17 14:00 91 I/O 08/16/17 08/16/17 08/16/17 08/17/17 08/17/17 08/17/17 07:00 15:00 23:00 07:00 15:00 23:00 Intake Total 505 ml 400 ml 350 ml Output Total 1350 ml Balance 505 ml -950 ml 350 ml Intake Oral 400 ml 400 ml 350 ml IV Total 105 ml Output Urine Total 1350 ml # Voids 1 # Bowel Movements 0 Result Diagram: 08/15/17 0325 08/16/17 0311 Other Results Laboratory Tests Test 08/14/17 20:00 08/14/17 20:43 08/14/17 20:45 08/14/17 21:13 White Blood Count 4.9 TH/MM3 Red Blood Count 4.53 MIL/MM3 Hemoglobin 13.4 GM/DL Hematocrit 46.3 % Mean Corpuscular Volume 102.2 FL Mean Corpuscular Hemoglobin 29.7 PG Mean Corpuscular Hemoglobin Concent 29.0 % Red Cell Distribution Width 16.7 % Platelet Count 188 TH/MM3 Mean Platelet Volume 10.6 FL Neutrophils (%) (Auto) 78.4 % Lymphocytes (%) (Auto) 15.7 % Monocytes (%) (Auto) 5.2 % Eosinophils (%) (Auto) 0.1 % Basophils (%) (Auto) 0.6 % Neutrophils # (Auto) 3.9 TH/MM3 Lymphocytes # (Auto) 0.8 TH/MM3 Monocytes # (Auto) 0.3 TH/MM3 Eosinophils # (Auto) 0.0 TH/MM3 Basophils # (Auto) 0.0 TH/MM3 CBC Comment DIFF FINAL Differential Comment Urine Color COLORLESS Urine Turbidity CLEAR Urine pH 6.5 Urine Specific [place] 1.023 Urine Protein NEG mg/dL Urine Glucose (UA) 1000 mg/dL Urine Ketones 10 mg/dL Urine Occult Blood NEG Urine Nitrite NEG Urine Bilirubin NEG Urine Urobilinogen LESS THAN 2.0 MG/DL Urine Leukocyte Esterase NEG Urine RBC LESS THAN 1 /hpf Urine WBC LESS THAN 1 /hpf Microscopic Urinalysis Comment CULT NOT INDICATED Blood Urea Nitrogen 59 MG/DL Creatinine 2.00 MG/DL Random Glucose 1642 MG/DL Total Protein 8.5 GM/DL Albumin 3.6 GM/DL Calcium Level 9.8 MG/DL Alkaline Phosphatase 211 U/L Aspartate Amino Transf (AST/SGOT) 18 U/L Alanine Aminotransferase (ALT/SGPT) 21 U/L Total Bilirubin 0.7 MG/DL Sodium Level 115 MEQ/L Potassium Level 7.4 MEQ/L Chloride Level 74 MEQ/L Carbon Dioxide Level 17.1 MEQ/L Anion Gap 24 MEQ/L Estimat Glomerular Filtration Rate 31 ML/MIN Lipase 762 U/L Troponin I LESS THAN 0.02 NG/ML B-Hydroxybutyrate 7.00 MMOL/L Blood Gas Puncture Site LT RADIAL Blood Gas Patient Temperature 98.6 Blood Gas HCO3 16 mmol/L Blood Gas Base Excess -8.4 mmol/L Blood Gas Oxygen Saturation 93 % Arterial Blood pH 7.34 Arterial Blood Partial Pressure CO2 31 mmHg Arterial Blood Partial Pressure O2 84 mmHG Arterial Blood Oxygen Content 18.4 Vol % Arterial Blood Carboxyhemoglobin 2.2 % Arterial Blood Methemoglobin 0.6 % Blood Gas Hemoglobin 14.1 G/DL Oxygen Delivery Device ROOM AIR Blood Gas Inspired Oxygen 21 % Test 08/14/17 21:46 08/14/17 23:40 08/15/17 01:41 08/15/17 03:25 Potassium Level 7.5 MEQ/L 4.3 MEQ/L Nasal Screen MRSA (PCR) MRSA NOT DETECTED Random Glucose 806 MG/DL 548 MG/DL White Blood Count 5.1 TH/MM3 Red Blood Count 4.31 MIL/MM3 Hemoglobin 12.6 GM/DL Hematocrit 38.6 % Mean Corpuscular Volume 89.6 FL Mean Corpuscular Hemoglobin 29.3 PG Mean Corpuscular Hemoglobin Concent 32.7 % Red Cell Distribution Width 15.4 % Platelet Count 96 TH/MM3 Mean Platelet Volume 10.1 FL Neutrophils (%) (Auto) 61.1 % Lymphocytes (%) (Auto) 33.0 % Monocytes (%) (Auto) 4.5 % Eosinophils (%) (Auto) 0.9 % Basophils (%) (Auto) 0.5 % Neutrophils # (Auto) 3.1 TH/MM3 Lymphocytes # (Auto) 1.7 TH/MM3 Monocytes # (Auto) 0.2 TH/MM3 Eosinophils # (Auto) 0.0 TH/MM3 Basophils # (Auto) 0.0 TH/MM3 CBC Comment AUTO DIFF Differential Comment AUTO DIFF CONFIRMED Platelet Estimate LOW Platelet Morphology Comment NORMAL Red Cell Morphology Comment NORMAL Hematology Comments Prothrombin Time 11.7 SEC Prothromb Time International Ratio 1.2 RATIO Activated Partial Thromboplast Time 24.0 SEC Blood Urea Nitrogen 47 MG/DL Creatinine 1.26 MG/DL Total Protein 7.2 GM/DL Albumin 3.0 GM/DL Calcium Level 8.6 MG/DL Phosphorus Level 1.5 MG/DL Magnesium Level 1.6 MG/DL Alkaline Phosphatase 170 U/L Aspartate Amino Transf (AST/SGOT) 13 U/L Alanine Aminotransferase (ALT/SGPT) 17 U/L Total Bilirubin 0.3 MG/DL Sodium Level 139 MEQ/L Chloride Level 106 MEQ/L Carbon Dioxide Level 22.1 MEQ/L Anion Gap 11 MEQ/L Estimat Glomerular Filtration Rate 53 ML/MIN Troponin I 0.03 NG/ML Test 08/15/17 15:50 08/15/17 16:08 08/16/17 03:11 Blood Urea Nitrogen 23 MG/DL 15 MG/DL Creatinine 0.78 MG/DL 0.75 MG/DL Random Glucose 171 MG/DL 127 MG/DL Calcium Level 8.3 MG/DL 8.2 MG/DL Phosphorus Level 1.1 MG/DL 0.9 MG/DL Magnesium Level 1.3 MG/DL 1.1 MG/DL Sodium Level 145 MEQ/L 141 MEQ/L Potassium Level 3.7 MEQ/L 3.6 MEQ/L Chloride Level 115 MEQ/L 110 MEQ/L Carbon Dioxide Level 23.0 MEQ/L 22.5 MEQ/L Anion Gap 7 MEQ/L 9 MEQ/L Estimat Glomerular Filtration Rate 92 ML/MIN 96 ML/MIN Troponin I 0.02 NG/ML Tumor Marker Alpha Fetoprotein 4.9 NG/ML 4.4 NG/ML Carcinoembryonic Antigen 10.4 NG/ML 9.3 NG/ML CA 19-9 Antigen 566.0 U/ML 532.1 U/ML B-Hydroxybutyrate 0.09 MMOL/L Imaging Last Impressions Abdomen MRI 08/16/17 0000 Signed Impressions: Service Date/Time: July 11:58 - CONCLUSION: 1. Right hepatic lobe mass not present on the older CT from 03/2017 and does not have characteristics of a hemangioma. The exact etiology is uncertain, however malignant etiologies should be entertained such as primary hepatocellular carcinoma and the appearance is nonspecific in regard to other neoplastic etiologies. 2. Dilated common bile duct and pancreatic duct and the pancreas appears atrophic. Tamika Drummond MD Abdomen/Pelvis CT 08/14/17 0000 Signed Impressions: Service Date/Time: Monday, August 14, 2017 22:43 - CONCLUSION: 2.4 cm right lobe liver mass does not appear to have been previously evaluated. Contrasted hepatic MRI suggested on an elective basis for followup. Otherwise stable study Chang Torres MD Objective Remarks GENERAL: Awake alert and oriented 3 talkative and cooperative SKIN: Warm and dry. HEAD: Atraumatic. Normocephalic. EYES: Pupils equal and round. No scleral icterus. No injection or drainage. Extraocular muscles intact ENT: No nasal bleeding or discharge. Mucous membranes pink and moist. Tongue is midline NECK: Trachea midline. No JVD. Supple CARDIOVASCULAR: Regular rate and rhythm. S1-S2 no S3-S4 RESPIRATORY: No accessory muscle use. Clear to auscultation. Breath sounds equal bilaterally. GASTROINTESTINAL: Abdomen soft, non-tender, nondistended. Hepatic and splenic margins not palpable. MUSCULOSKELETAL: Extremities without clubbing, cyanosis, or edema. No obvious deformities. NEUROLOGICAL: Awake and alert. No obvious cranial nerve deficits. Motor grossly within normal limits. Five out of 5 muscle strength in the arms and legs. Normal speech. PSYCHIATRIC: Appropriate mood and affect; insight and judgment normal. Procedures LIVER BIOPSY Medications and IVs Current Medications Morphine Sulfate (Morphine Inj) 4 mg ONCE ONCE IV PUSH Last administered on at 20:30; Start 08/14/17 at 19:45; Stop 08/14/17 at 19:46; Status DC Ondansetron HCl (Zofran Odt) 4 mg ONCE ONCE PO Last administered on 20:30; Start 08/14/17 at 19:45; Stop 08/14/17 at 19:46; Status DC Sodium Chloride 1,000 ml @ 999 mls/hr BOLUS ONCE IV Last administered on 08/14at 21:29; Start 08/14/17 at 21:00; Stop 08/14/17 at 22:00; Status DC Calcium Gluconate 1 gm/Dextrose 110 ml @ 110 mls/hr ONCE ONCE IV Last administered on 08/14/17at 22:13; Start 08/14/17 at 21:45; Stop 08/14/17 at 22:48 ; Status DC Sodium Chloride 1,000 ml @ 1,000 mls/hr Q1H IV Last administered on 08/14/17at 23:06; Start 08/14/17 at 21:42; Stop 08/14/17 at 23:41; Status DC Sodium Chloride 1,000 ml @ 250 mls/hr Q4H IV ; Start 08/14/17 at 21:42; Stop at 22:49; Status DC Dextrose/Sodium Chloride 1,000 ml @ 200 mls/hr Q5H IV ; Start 08/14/17 at 21:42 ; Stop 08/14/17 at 22:49; Status DC Insulin Human Regular (NovoLIN R INJ) 6 units BOLUS ONCE IV PUSH Last administered on 08/14/17at 22:44; Start 08/14/17 at 21:45; Stop 08/14/17 at 21:46 ; Status DC Insulin Human Regular 100 units/ Sodium Chloride 100 ml @ 6 mls/hr TITRATE PRN IV Blood Sugar Management; Start 08/14/17 at 21:45; Stop 08/14/17 at 22:49; Status DC Amlodipine Besylate (Norvasc) 5 mg DAILY PO Last administered on 08/16/17at 07: 40; Start 08/15/17 at 09:00 Amylase/Lipase/ Protease (Creon 24-76-120) 2 cap TID PO Last administered on at 17:12; Start 08/15/17 at 09:00 Pantoprazole Sodium (Protonix) 40 mg DAILY PO Last administered on 08/17/17at 08 :51; Start 08/15/17 at 09:00 Acetaminophen (Tylenol) 650 mg Q6H PRN PO PAIN 1-5 AND/OR FEVER >101F Last administered on 08/16/17at 23:05; Start 08/14/17 at 22:45 Morphine Sulfate (Morphine Inj) 2 mg Q2H PRN IV PUSH PAIN SCALE 6 TO 10 Last administered on 08/17/17at 06:04; Start 08/14/17 at 22:45 Ondansetron HCl (Zofran Inj) 4 mg Q6H PRN IV PUSH NAUSEA OR VOMITING; Start at 22:45 Temazepam (Restoril) 15 mg HS PRN PO INSOMNIA; Start 08/14/17 at 22:45 Albuterol/ Ipratropium (Duoneb Neb) 1 ampule Q2HR NEB PRN INH WHEEZING; Start 08/14/17 at 22:45 Enoxaparin Sodium (Lovenox Inj) 40 mg Q24H SQ Last administered on 08/16/17at 23 :05; Start 08/14/17 at 23:00 Miscellaneous Information ([facility] Nursing Information) 1 [id number] XX ; Start at 22:45 Chlorhexidine Gluconate (Chlorhexidine 2% Cloth) 3 pack Taper DAILY@04 TOP Last administered on 08/15/17at 04:00; Start 08/15/17 at 04:00; Stop 08/11/18 at 03:59 Chlorhexidine Gluconate (Chlorhexidine 2% Cloth) 3 pack UNSCH PRN TOP HYGIENIC CARE; Start 08/14/17 at 22:45 Senna/Docusate Sodium (Mariah-Colace) 1 tab BID PO Last administered on at 20:37; Start 08/15/17 at 09:00 Magnesium Hydroxide (Milk Of Magnesia Liq) 30 ml Q12H PRN PO Mild constipation ; Start 08/14/17 at 22:45 Sennosides (Senokot) 17.2 mg Q12H PRN PO Moderate constipation; Start 08/14/17 at 22:45 Bisacodyl (Dulcolax Supp) 10 mg DAILY PRN RECTAL SEVERE CONSITIPATION; Start at 22:45 Lactulose (Lactulose Liq) 30 ml DAILY PRN PO SEVERE CONSITIPATION; Start at 22:45 Sodium Chloride 1,000 ml @ 250 mls/hr Q4H IV Last administered on 08/15/17at 00 :26; Start 08/14/17 at 22:36 Dextrose/Sodium Chloride 1,000 ml @ 200 mls/hr Q5H IV Last administered on at 12:58; Start 08/14/17 at 22:36 Insulin Human Regular 100 units/ Sodium Chloride 100 ml @ 6 mls/hr TITRATE PRN IV Blood Glucose Control Last administered on 08/14/17at 23:13; Start 08/14/17 at 22:45 Potassium Chloride 100 ml @ 100 mls/hr Q1H PRN IV SEE LABEL COMMENTS; Start at 22:45; Stop 08/16/17 at 22:10; Status DC Potassium Chloride 100 ml @ 50 mls/hr Q2H PRN IV SEE LABEL COMMENTS; Start at 22:45; Stop 08/16/17 at 22:10; Status DC Potassium Chloride 100 ml @ 100 mls/hr Q1H PRN IV SEE LABEL COMMENTS; Start at 22:45; Stop 08/16/17 at 22:10; Status DC Potassium Chloride 100 ml @ 100 mls/hr Q1H PRN IV SEE LABEL COMMENTS; Start at 22:45; Stop 08/16/17 at 22:10; Status DC Potassium Chloride 100 ml @ 50 mls/hr Q2H PRN IV SEE LABEL COMMENTS; Start at 22:45; Stop 08/16/17 at 22:10; Status DC Potassium Chloride 100 ml @ 50 mls/hr Q2H PRN IV SEE LABEL COMMENTS; Start at 22:45; Stop 08/16/17 at 22:10; Status DC Potassium Chloride 100 ml @ 50 mls/hr Q2H PRN IV SEE LABEL COMMENTS Last administered on 08/15/17at 07:38; Start 08/14/17 at 22:45; Stop 08/16/17 at 22:10 ; Status DC Potassium Chloride 100 ml @ 50 mls/hr Q2H PRN IV SEE LABEL COMMENTS; Start at 22:45; Stop 08/16/17 at 22:10; Status DC Sodium Bicarbonate (Sodium Bicarbonate 8.4% Inj) 100 meq UNSCH PRN IV PUSH SEE LABEL COMMENTS; Start 08/14/17 at 22:45; Stop 08/16/17 at 22:10; Status DC Sodium Bicarbonate (Sodium Bicarbonate 8.4% Inj) 50 meq UNSCH PRN IV PUSH SEE LABEL COMMENTS; Start 08/14/17 at 22:45; Stop 08/16/17 at 22:10; Status DC Sodium Phosphate 15 mmol/Sodium Chloride 105 ml @ 25 mls/hr UNSCH PRN IV SEE LABEL COMMENTS Last administered on 08/16/17at 08:41; Start 08/14/17 at 22:45 Sodium Chloride 1,000 ml @ 999 mls/hr BOLUS ONCE IV Last administered on 08/15at 02:18; Start 08/15/17 at 01:30; Stop 08/15/17 at 02:30; Status DC Sodium Chloride 1,000 ml @ 999 mls/hr BOLUS ONCE IV Last administered on 08/15at 03:04; Start 08/15/17 at 01:30; Stop 08/15/17 at 02:30; Status DC Insulin Detemir (Levemir Inj) 20 units Q12HR SQ Last administered on 08/16/17at 20:38; Start 08/15/17 at 21:00 Insulin Human Isoph/Insulin Regular (NovoLIN 70/30 INJ) 8 units ONCE ONCE SQ Last administered on 08/15/17at 17:32; Start 08/15/17 at 14:45; Stop 08/15/17 at 14:56; Status DC Ursodiol (Actigall) 300 mg Q12HR PO Last administered on 08/16/17at 20:37; Start 08/15/17 at 21:00 Amylase/Lipase/ Protease (Creon 2476-120) 2 cap TID PO ; Start 08/15/17 at 18: 00; Stop 08/17/17 at 07:23; Status DC Dextrose (D50w (Vial) Inj) 50 ml UNSCH PRN IV PUSH HYPOGLYCEMIA - SEE COMMENTS ; Start 08/15/17 at 20:00 Glucagon (Glucagon Inj) 1 mg UNSCH PRN OTHER HYPOGLYCEMIA-SEE COMMENTS; Start 08/15/17 at 20:00 Insulin Human Regular (NovoLIN R SUPPLEMENTAL SCALE) 1 Q4HR SQ Last administered on 08/16/17at 23:24; Start 08/15/17 at 20:00 Gadodiamide (Omniscan Pf Inj) 14 ml STK-MED ONCE IVCONTRAST Last administered on 08/16/17at 12:12; Start 08/16/17 at 12:12; Stop 08/16/17 at 12:13; Status DC Magnesium Sulfate 2 gm/Sodium Chloride 104 ml @ 52 mls/hr ONCE ONCE IV Last administered on 08/16/17at 17:10; Start 08/16/17 at 16:15; Stop 08/16/17 at 18:14 ; Status DC A/P Assessment and Plan DKA -Insulin drip per ICU protocol -N.p.o. -IV fluid hydration Pancreatic insufficiency -Continue Amylase/Lipase/ Protease Chronic pancreatitis- Pt takes Creon as home med [id number] on arrival- no mention of acute pancreatitis on imaging Chronic back pain -Morphine and Tylenol as needed Liver mass -Workup per gastroenterology consultation -Patient is undergoing liver biopsy today for right liver mass Hypertension -Norvasc Acute kidney injury Hyperkalemia -Aggressive IV fluid hydration -Received calcium gluconate and bicarb in the ED -Monitor trend -Strict I's and O's GERD -Pantoprazole DVT GI prophylaxis -Artemio's and SCDs -Subcu heparin -Pantoprazole Liver mass found on CAT scan will get biopsy by interventional radiology later today Discharge Planning Pending GI clearance and improvement Charly Mckeon DO August 17, 2017 13:43
[2017-08-17 13:53] LABS: SMOOTH MUSCLE TOTAL AUTOABS Negative (Negative)
[2017-08-17] MEDS ORDERED: MIDAZOLAM HCL 2 MG/2 ML VIAL ONE (14:46)
[2017-08-17] MEDS ORDERED: THROMBIN (TOPICAL) 5,000 UNIT VIAL ONE (15:20)
--- NOTE | 2017-08-17 15:29 | PD.RAD ---
Post Procedure Progress Note Pre Procedure Diagnosis: (1) Liver mass Post Procedure Diagnosis: (1) Liver mass Procedure Date: August 17, 2017 Supervising Radiologist: George Davies Estimated blood loss: None Anesthesia: Local, Conscious Sedation Plan of Activity Patient to Unit: ROPU Patient Condition: Good Additional Comments: CT guided biopsy of the liver mass completed without difficulty. 4 core samples taken. Full dictated report to follow See PACS Report for procedural detail/treatment George Davies MD August 17, 2017 15:29
--- NOTE | 2017-08-17 16:42 | RADRPT ---
EXAM DATE/TIME: 08/17/2017 15:02 [facility] COMPARISON: CT ABDOMEN & PELVIS W/O CONTRAST, August 14, 2017, 22:43. INDICATIONS : Liver mass. SEDATION TIME: 30 minutes BIOPSY SITE: Right lateral MEDICATION(S): 1.) 2 midazolam (Versed) IV 2.) 100 mcg fentanyl (Sublimaze) IV DEVICE(S): 1.) 19 gauge coaxial 2.) 20 gauge Bard MEDICAL HISTORY : Hypertension. SURGICAL HISTORY : Cholecystectomy Hysterectomy. ENCOUNTER: Initial ACUITY: 1 day PAIN SCORE: 0/10 LOCATION: Right lateral A total of four core specimen(s) were obtained and sent to the laboratory for pathologic evaluation. PROCEDURE: 1. CT guided liver biopsy. 2. Conscious sedation with continuous EKG and oximetry monitoring. Prior to the procedure informed consent was obtained. Any appropriate prior imaging studies were rev iewed. Using automated exposure control and adjustment of the mA and/or kV according to patient size, radiat ion dose was kept as low as reasonably achievable to obtain optimal diagnostic quality images. DICOM format image data is available electronically for review and comparison. The site was prepped in a sterile fashion. Full sterile technique was used, including cap, mask, rupinder rile gloves and gown and a large sterile sheet. Hand hygiene and 2% chlorhexidine and/or betadine/al cohol prep was utilized per protocol for cutaneous antisepsis. The skin and subcutaneous tissues wer e infiltrated with local anesthetic solution. With CT guidance the previously identified target was localized. Biopsy was performed using the presc ribed needle as above. Adequate hemostasis was obtained with compression at the puncture site. Follow-up CT scan reveals no hemorrhage. The patient tolerated the procedure well and there were no complications. The patient was returned to the Radiology Outpatient Unit in stable condition. CONCLUSION: Uncomplicated CT guided biopsy. George Davies MD on August 17, 2017 at 16:40 Board Certified Radiologist. This report was verified electronically.
[2017-08-17] MEDS: HYDROmorphone HCL 2 MG TAB PO PRN (17:58)
[2017-08-18] VITALS: BP 153/70; PULSE 105; PULSE 93; RESP 18; TEMP 99.1; O2SAT 100
[2017-08-18] MEDS: HYDROmorphone HCL 2 MG TAB PO PRN (00:07)
[2017-08-18] MEDS: ENOXAPARIN SODIUM 40 MG/0.4 ML SYRINGE SQ SCH (00:07)
[2017-08-18] MEDS: DEXT 5%-NACL 0.9% 1000 ML INJ 1,000 ML IV SCH ×2 (00:08→05:12)
[2017-08-18] MEDS: SODIUM CHLOR 0.9% 1000 ML INJ 1,000 ML IV SCH ×2 (00:09→05:12)
[2017-08-18 04:00] VITALS: BP 136/73; PULSE 102; PULSE 107; RESP 18; TEMP 98.8; O2SAT 97
[2017-08-18] MEDS: CHLORHEXIDINE GLUCONATE 2 % 1 PACK (2 CLOTHS) TOP SCH (04:00)
[2017-08-18] MEDS: LOW DOSE INSULIN NOVOLIN REGULAR SUPPLEMENTAL SCALE SQ SCH ×4 (04:00→12:00)
[2017-08-18] MEDS: MORPHINE SULFATE 4 MG/ML INJ IV PUSH PRN ×2 (05:08→08:04)
[2017-08-18 08:00] VITALS: BP 96/53; PULSE 88; RESP 20; TEMP 98.8; O2SAT 98
[2017-08-18 08:02] LABS: AUTOMATED NEUTROPHIL # 2.3 TH/MM3 (1.8-7.7); BASOPHIL % 0.3 % (0.0-2.0); EOSINOPHIL # 0.1 TH/MM3 (0-0.4); EOSINOPHIL % 1.5 % (0.0-4.0); HEMATOCRIT 30.9 % (35.0-46.0); HEMOGLOBIN 10.2 GM/DL (11.6-15.3); LYMPH % 31.7 % (9.0-44.0); LYMPHOCYTE # 1.2 TH/MM3 (1.0-4.8); MEAN CELL VOLUME 88.8 FL (80.0-100.0); MEAN CORPUSCULAR HEMOGLOBIN 29.2 PG (27.0-34.0); MEAN CORPUSCULAR HGB CONC 32.9 % (32.0-36.0); MEAN PLATELET VOLUME 9.8 FL (7.0-11.0); MONO % 6.5 % (0.0-8.0); MONOCYTE # 0.2 TH/MM3 (0-0.9); PLATELET COUNT 87 TH/MM3 (150-450); RED BLOOD COUNT 3.48 MIL/MM3 (4.00-5.30); RED CELL DISTRIBUTION WIDTH 15.9 % (11.6-17.2); WHITE BLOOD COUNT 3.8 TH/MM3 (4.0-11.0)
[2017-08-18] MEDS: amLODIPine BESYLATE 5 MG TAB PO SCH (08:05)
[2017-08-18] MEDS: DOCUSATE SODIUM 50 MG/SENNA 8.6 MG TAB PO SCH (08:05)
[2017-08-18] MEDS: URSODIOL 300 MG CAP PO SCH (08:05)
[2017-08-18] MEDS: LIPASE/PROTEASE/AMYLASE (24,000/76,000/120,000) CAP PO SCH ×2 (08:05→12:10)
[2017-08-18] MEDS: PANTOPRAZOLE SOD 40 MG DELAYED RELEASE TAB PO SCH (08:06)
[2017-08-18 08:11] LABS: INTERNATIONAL NORMALIZED RATIO 1.1 RATIO; PROTHROMBIN TIME - PATIENT 10.7 SEC (9.8-11.6)
[2017-08-18 08:27] LABS: ALBUMIN 2.1 GM/DL (3.4-5.0); ALT (GPT) 29 U/L (10-53); AST (GOT) 42 U/L (15-37); BLOOD UREA NITROGEN 12 MG/DL (7-18); CALCIUM 7.8 MG/DL (8.5-10.1); CHLORIDE 106 MEQ/L (98-107); CREATININE 0.66 MG/DL (0.50-1.00); GLOMERULAR FILTRATION RATE 112 ML/MIN (>89); GLUCOSE,RANDOM 106 MG/DL (74-106); MAGNESIUM 1.6 MG/DL (1.5-2.5); PHOSPHORUS 2.5 MG/DL (2.5-4.9); SODIUM (NA) 138 MEQ/L (136-145)
[2017-08-18 08:37] LABS: ALKALINE PHOSPHATASE 145 U/L (45-117); TOTAL BILIRUBIN ADULT 0.2 MG/DL (0.2-1.0); TOTAL PROTEIN 5.9 GM/DL (6.4-8.2)
[2017-08-18] MEDS: INSULIN DETEMIR 100 UNITS/ML VIAL SQ SCH (09:00)
[2017-08-18 10:04] VITALS: PULSE 90
--- NOTE | 2017-08-18 11:50 | HHI.PR ---
Subjective Remarks 57-year-old -[place] female with past medical history of hypertension, diabetes, coronary artery disease, chronic back pain, presents complaints of left sided back pain that is radiating to the left abdomen for a few days. She also complains of some nausea and vomiting. Denies any fever, chest pain, sob, focal weakness or numbness, fall. The CT of the abdomen obtained in the emergency department shows stable calcifications and pancreatic ductal dilatation consistent with chronic pancreatitis. and 2.4 cm right lobe liver mass. She also says that she has lost her prescription for pain medication for her back and her doctor wont write her a new one. The initial lab work in the emergency department also shows her glucose of 1600, potassium 7.5 and sodium of 115. She has been admitted to ICU on insulin drip per a DKA protocol. TRANSFERRED OUT OF ICU TO [facility] 08-17 FOUND TO HAVE A LIVER MASS DW RN AND PT FOR BIOPSY OF LIVER MASS TODAY 08-18 HAD LIVER BIOPSY YESTERDAY HAS SOME BACK PAIN CAN DC TO HOME AND FOLLOW UP WITH PCP AND GI PAIN CONTROL DC TO HOME TODAY Objective Vitals Vital Signs Date Time Temp Pulse Resp B/P (MAP) Pulse Ox O2 Delivery O2 Flow Rate FiO2 08/18/17 10:04 90 08/18/17 10:04 98 Room Air 08/18/17 08:00 98.8 88 20 96/53 (67) 98 08/18/17 04:00 102 08/18/17 04:00 98.8 107 18 136/73 (94) 97 08/18/17 00:00 105 08/18/17 00:00 99.1 93 18 153/70 (97) 100 08/17/17 20:30 97 08/17/17 20:30 16 08/17/17 20:00 98.8 101 17 153/79 (103) 98 08/17/17 18:14 18 08/17/17 16:45 97.7 98 18 140/98 (112) 94 08/17/17 16:30 97 20 111/59 (76) 96 08/17/17 16:00 91 20 115/63 (80) 99 08/17/17 15:45 98.6 94 20 109/80 (90) 99 08/17/17 12:00 98.4 92 18 110/55 (73) 99 I/O 508/17/17 08/17/17 08/18/17 08/18/17 08/18/17 07:00 15:00 23:00 07:00 15:00 23:00 Intake Total 350 ml 120 ml 450 ml Balance 350 ml 120 ml 450 ml Intake Oral 350 ml 120 ml 450 ml # Voids 1 5 3 Result Diagram: 08/18/17 0734 08/18/17 0734 Other Results Laboratory Tests Test 08/15/17 15:50 08/15/17 16:08 08/16/17 03:11 08/18/17 07:34 Blood Urea Nitrogen 23 MG/DL 15 MG/DL 12 MG/DL Creatinine 0.78 MG/DL 0.75 MG/DL 0.66 MG/DL Random Glucose 171 MG/DL 127 MG/DL 106 MG/DL Calcium Level 8.3 MG/DL 8.2 MG/DL 7.8 MG/DL Phosphorus Level 1.1 MG/DL 0.9 MG/DL 2.5 MG/DL Magnesium Level 1.3 MG/DL 1.1 MG/DL 1.6 MG/DL Sodium Level 145 MEQ/L 141 MEQ/L 138 MEQ/L Potassium Level 3.7 MEQ/L 3.6 MEQ/L 3.7 MEQ/L Chloride Level 115 MEQ/L 110 MEQ/L 106 MEQ/L Carbon Dioxide Level 23.0 MEQ/L 22.5 MEQ/L 23.0 MEQ/L Anion Gap 7 MEQ/L 9 MEQ/L 9 MEQ/L Estimat Glomerular Filtration Rate 92 ML/MIN 96 ML/MIN 112 ML/MIN Troponin I 0.02 NG/ML Tumor Marker Alpha Fetoprotein 4.9 NG/ML 4.4 NG/ML Carcinoembryonic Antigen 10.4 NG/ML 9.3 NG/ML CA 19-9 Antigen 566.0 U/ML 532.1 U/ML Anti-Smooth Muscle Antibody Negative B-Hydroxybutyrate 0.09 MMOL/L White Blood Count 3.8 TH/MM3 Red Blood Count 3.48 MIL/MM3 Hemoglobin 10.2 GM/DL Hematocrit 30.9 % Mean Corpuscular Volume 88.8 FL Mean Corpuscular Hemoglobin 29.2 PG Mean Corpuscular Hemoglobin Concent 32.9 % Red Cell Distribution Width 15.9 % Platelet Count 87 TH/MM3 Mean Platelet Volume 9.8 FL Neutrophils (%) (Auto) 60.0 % Lymphocytes (%) (Auto) 31.7 % Monocytes (%) (Auto) 6.5 % Eosinophils (%) (Auto) 1.5 % Basophils (%) (Auto) 0.3 % Neutrophils # (Auto) 2.3 TH/MM3 Lymphocytes # (Auto) 1.2 TH/MM3 Monocytes # (Auto) 0.2 TH/MM3 Eosinophils # (Auto) 0.1 TH/MM3 Basophils # (Auto) 0.0 TH/MM3 CBC Comment AUTO DIFF Differential Comment AUTO DIFF CONFIRMED Platelet Estimate LOW Platelet Morphology Comment NORMAL Red Cell Morphology Comment NORMAL Prothrombin Time 10.7 SEC Prothromb Time International Ratio 1.1 RATIO Total Protein 5.9 GM/DL Albumin 2.1 GM/DL Alkaline Phosphatase 145 U/L Aspartate Amino Transf (AST/SGOT) 42 U/L Alanine Aminotransferase (ALT/SGPT) 29 U/L Total Bilirubin 0.2 MG/DL Free Thyroxine 1.40 NG/DL Thyroid Stimulating Hormone 3rd Gen 1.430 uIU/ML Imaging Last Impressions Liver Biopsy CT 08/17/17 0000 Signed Impressions: Service Date/Time: Thursday, August 17, 2017 15:02 - CONCLUSION: Uncomplicated CT guided biopsy. George Davies MD Abdomen MRI 08/16/17 0000 Signed Impressions: Service Date/Time: July 11:58 - CONCLUSION: 1. Right hepatic lobe mass not present on the older CT from 03/2017 and does not have characteristics of a hemangioma. The exact etiology is uncertain, however malignant etiologies should be entertained such as primary hepatocellular carcinoma and the appearance is nonspecific in regard to other neoplastic etiologies. 2. Dilated common bile duct and pancreatic duct and the pancreas appears atrophic. Tamika Drummond MD Abdomen/Pelvis CT 08/14/17 0000 Signed Impressions: Service Date/Time: Monday, August 14, 2017 22:43 - CONCLUSION: 2.4 cm right lobe liver mass does not appear to have been previously evaluated. Contrasted hepatic MRI suggested on an elective basis for followup. Otherwise stable study Chang Torres MD Objective Remarks GENERAL: Awake alert and oriented 3 talkative and cooperative SKIN: Warm and dry. HEAD: Atraumatic. Normocephalic. EYES: Pupils equal and round. No scleral icterus. No injection or drainage. Extraocular muscles intact ENT: No nasal bleeding or discharge. Mucous membranes pink and moist. Tongue is midline NECK: Trachea midline. No JVD. Supple CARDIOVASCULAR: Regular rate and rhythm. S1-S2 no S3-S4 RESPIRATORY: No accessory muscle use. Clear to auscultation. Breath sounds equal bilaterally. GASTROINTESTINAL: Abdomen soft, non-tender, nondistended. Hepatic and splenic margins not palpable. MUSCULOSKELETAL: Extremities without clubbing, cyanosis, or edema. No obvious deformities. NEUROLOGICAL: Awake and alert. No obvious cranial nerve deficits. Motor grossly within normal limits. Five out of 5 muscle strength in the arms and legs. Normal speech. PSYCHIATRIC: Appropriate mood and affect; insight and judgment normal. Procedures LIVER BIOPSY Medications and IVs Current Medications Morphine Sulfate (Morphine Inj) 4 mg ONCE ONCE IV PUSH Last administered on at 20:30; Start 08/14/17 at 19:45; Stop 08/14/17 at 19:46; Status DC Ondansetron HCl (Zofran Odt) 4 mg ONCE ONCE PO Last administered on at 20:30; Start 08/14/17 at 19:45; Stop 08/14/17 at 19:46; Status DC Sodium Chloride 1,000 ml @ 999 mls/hr BOLUS ONCE IV Last administered on 08/14at 21:29; Start 08/14/17 at 21:00; Stop 08/14/17 at 22:00; Status DC Calcium Gluconate 1 gm/Dextrose 110 ml @ 110 mls/hr ONCE ONCE IV Last administered on 08/14/17at 22:13; Start 08/14/17 at 21:45; Stop 08/14/17 at 22:48 ; Status DC Sodium Chloride 1,000 ml @ 1,000 mls/hr Q1H IV Last administered on 08/14/17at 23:06; Start 08/14/17 at 21:42; Stop 08/14/17 at 23:41; Status DC Sodium Chloride 1,000 ml @ 250 mls/hr Q4H IV ; Start 08/14/17 at 21:42; Stop at 22:49; Status DC Dextrose/Sodium Chloride 1,000 ml @ 200 mls/hr Q5H IV ; Start 08/14/17 at 21:42 ; Stop 08/14/17 at 22:49; Status DC Insulin Human Regular (NovoLIN R INJ) 6 units BOLUS ONCE IV PUSH Last administered on 08/14/17at 22:44; Start 08/14/17 at 21:45; Stop 08/14/17 at 21:46 ; Status DC Insulin Human Regular 100 units/ Sodium Chloride 100 ml @ 6 mls/hr TITRATE PRN IV Blood Sugar Management; Start 08/14/17 at 21:45; Stop 08/14/17 at 22:49; Status DC Amlodipine Besylate (Norvasc) 5 mg DAILY PO Last administered on 08/18/17at 08: 05; Start 08/15/17 at 09:00 Amylase/Lipase/ Protease (Creon 24-76-120) 2 cap TID PO Last administered on at 08:05; Start 08/15/17 at 09:00 Pantoprazole Sodium (Protonix) 40 mg DAILY PO Last administered on 08/18/17at 08 :06; Start 08/15/17 at 09:00 Acetaminophen (Tylenol) 650 mg Q6H PRN PO PAIN 1-5 AND/OR FEVER >101F Last administered on 08/16/17at 23:05; Start 08/14/17 at 22:45 Morphine Sulfate (Morphine Inj) 2 mg Q2H PRN IV PUSH PAIN SCALE 6 TO 10 Last administered on 08/18/17at 08:04; Start 08/14/17 at 22:45 Ondansetron HCl (Zofran Inj) 4 mg Q6H PRN IV PUSH NAUSEA OR VOMITING; Start at 22:45 Temazepam (Restoril) 15 mg HS PRN PO INSOMNIA; Start 08/14/17 at 22:45 Albuterol/ Ipratropium (Duoneb Neb) 1 ampule Q2HR NEB PRN INH WHEEZING; Start 08/14/17 at 22:45 Enoxaparin Sodium (Lovenox Inj) 40 mg Q24H SQ Last administered on 08/18/17at 00 :07; Start 08/14/17 at 23:00 Miscellaneous Information ([facility]) 1 Q361D XX ; Start at 22:45 Chlorhexidine Gluconate (Chlorhexidine 2% Cloth) 3 pack Taper DAILY@04 TOP Last administered on 08/15/17at 04:00; Start 08/15/17 at 04:00; Stop 08/11/18 at 03:59 Chlorhexidine Gluconate (Chlorhexidine 2% Cloth) 3 pack UNSCH PRN TOP HYGIENIC CARE; Start 08/14/17 at 22:45 Senna/Docusate Sodium (Mariah-Colace) 1 tab BID PO Last administered on at 08:05; Start 08/15/17 at 09:00 Magnesium Hydroxide (Milk Of Magnesia Liq) 30 ml Q12H PRN PO Mild constipation ; Start 08/14/17 at 22:45 Sennosides (Senokot) 17.2 mg Q12H PRN PO Moderate constipation; Start 08/14/17 at 22:45 Bisacodyl (Dulcolax Supp) 10 mg DAILY PRN RECTAL SEVERE CONSITIPATION; Start at 22:45 Lactulose (Lactulose Liq) 30 ml DAILY PRN PO SEVERE CONSITIPATION; Start at 22:45 Sodium Chloride 1,000 ml @ 250 mls/hr Q4H IV Last administered on 08/15/17at 00 :26; Start 08/14/17 at 22:36 Dextrose/Sodium Chloride 1,000 ml @ 200 mls/hr Q5H IV Last administered on at 12:58; Start 08/14/17 at 22:36 Insulin Human Regular 100 units/ Sodium Chloride 100 ml @ 6 mls/hr TITRATE PRN IV Blood Glucose Control Last administered on 08/14/17at 23:13; Start 08/14/17 at 22:45 Potassium Chloride 100 ml @ 100 mls/hr Q1H PRN IV SEE LABEL COMMENTS; Start at 22:45; Stop 08/16/17 at 22:10; Status DC Potassium Chloride 100 ml @ 50 mls/hr Q2H PRN IV SEE LABEL COMMENTS; Start at 22:45; Stop 08/16/17 at 22:10; Status DC Potassium Chloride 100 ml @ 100 mls/hr Q1H PRN IV SEE LABEL COMMENTS; Start at 22:45; Stop 08/16/17 at 22:10; Status DC Potassium Chloride 100 ml @ 100 mls/hr Q1H PRN IV SEE LABEL COMMENTS; Start at 22:45; Stop 08/16/17 at 22:10; Status DC Potassium Chloride 100 ml @ 50 mls/hr Q2H PRN IV SEE LABEL COMMENTS; Start at 22:45; Stop 08/16/17 at 22:10; Status DC Potassium Chloride 100 ml @ 50 mls/hr Q2H PRN IV SEE LABEL COMMENTS; Start at 22:45; Stop 08/16/17 at 22:10; Status DC Potassium Chloride 100 ml @ 50 mls/hr Q2H PRN IV SEE LABEL COMMENTS Last administered on 08/15/17at 07:38; Start 08/14/17 at 22:45; Stop 08/16/17 at 22:10 ; Status DC Potassium Chloride 100 ml @ 50 mls/hr Q2H PRN IV SEE LABEL COMMENTS; Start at 22:45; Stop 08/16/17 at 22:10; Status DC Sodium Bicarbonate (Sodium Bicarbonate 8.4% Inj) 100 meq UNSCH PRN IV PUSH SEE LABEL COMMENTS; Start 08/14/17 at 22:45; Stop 08/16/17 at 22:10; Status DC Sodium Bicarbonate (Sodium Bicarbonate 8.4% Inj) 50 meq UNSCH PRN IV PUSH SEE LABEL COMMENTS; Start 08/14/17 at 22:45; Stop 08/16/17 at 22:10; Status DC Sodium Phosphate 15 mmol/Sodium Chloride 105 ml @ 25 mls/hr UNSCH PRN IV SEE LABEL COMMENTS Last administered on 08/16/17at 08:41; Start 08/14/17 at 22:45 Sodium Chloride 1,000 ml @ 999 mls/hr BOLUS ONCE IV Last administered on 08/15at 02:18; Start 08/15/17 at 01:30; Stop 08/15/17 at 02:30; Status DC Sodium Chloride 1,000 ml @ 999 mls/hr BOLUS ONCE IV Last administered on 08/15at 03:04; Start 08/15/17 at 01:30; Stop 08/15/17 at 02:30; Status DC Insulin Detemir (Levemir Inj) 20 units Q12HR SQ Last administered on 08/18/17at 09:00; Start 08/15/17 at 21:00 Insulin Human Isoph/Insulin Regular (NovoLIN 70/30 INJ) 8 units ONCE ONCE SQ Last administered on 08/15/17at 17:32; Start 08/15/17 at 14:45; Stop 08/15/17 at 14:56; Status DC Ursodiol (Actigall) 300 mg Q12HR PO Last administered on 08/18/17at 08:05; Start 08/15/17 at 21:00 Amylase/Lipase/ Protease (Creon 24-76-120) 2 cap TID PO ; Start 08/15/17 at 18: 00; Stop 08/17/17 at 07:23; Status DC Dextrose (D50w (Vial) Inj) 50 ml UNSCH PRN IV PUSH HYPOGLYCEMIA - SEE COMMENTS ; Start 08/15/17 at 20:00 Glucagon (Glucagon Inj) 1 mg UNSCH PRN OTHER HYPOGLYCEMIA-SEE COMMENTS; Start 08/15/17 at 20:00 Insulin Human Regular (NovoLIN R SUPPLEMENTAL SCALE) 1 Q4HR SQ Last administered on 08/18/17at 00:00; Start 08/15/17 at 20:00 Gadodiamide (Omniscan Pf Inj) 14 ml STK-MED ONCE IVCONTRAST Last administered on 08/16/17at 12:12; Start 08/16/17 at 12:12; Stop 08/16/17 at 12:13; Status DC Magnesium Sulfate 2 gm/Sodium Chloride 104 ml @ 52 mls/hr ONCE ONCE IV Last administered on 08/16/17at 17:10; Start 08/16/17 at 16:15; Stop 08/16/17 at 18:14 ; Status DC Fentanyl Citrate (fentaNYL INJ) 200 mcg STK-MED ONCE .ROUTE Last administered on 08/17/17at 14:46; Start 08/17/17 at 14:46; Stop 08/17/17 at 14:47; Status DC Midazolam HCl (Versed Inj) 4 mg STK-MED ONCE .ROUTE Last administered on at 14:46; Start 08/17/17 at 14:46; Stop 08/17/17 at 14:47; Status DC Thrombin (Thrombin Top Soln) 5,000 units STK-MED ONCE .ROUTE ; Start 08/17/17 at 15:20; Stop 08/17/17 at 15:21; Status DC Hydromorphone HCl (Dilaudid) 1 mg Q6H PRN PO Pain 1-10 post liver biopsy Last administered on 08/18/17at 00:07; Start 08/17/17 at 15:30 A/P Assessment and Plan DKA -Insulin drip per ICU protocol -N.p.o. -IV fluid hydration Pancreatic insufficiency -Continue Amylase/Lipase/ Protease Chronic pancreatitis- Pt takes Creon as home med Lipase-762 on arrival- no mention of acute pancreatitis on imaging Chronic back pain -Morphine and Tylenol as needed Liver mass -Workup per gastroenterology consultation -Patient is undergoing liver biopsy today for right liver mass Hypertension -Norvasc Acute kidney injury Hyperkalemia -Aggressive IV fluid hydration -Received calcium gluconate and bicarb in the ED -Monitor trend -Strict I's and O's GERD -Pantoprazole DVT GI prophylaxis -Artemio's and SCDs -Subcu heparin -Pantoprazole Liver mass found on CAT scan will get biopsy by interventional radiology 08-17 DC TO HOME FOLLOW UP PCP AND GI Discharge Planning Pending GI clearance and improvement Charly Mckeon DO August 18, 2017 11:50
[2017-08-18 11:53] LABS: HEMOGLOBIN A1C GREATER THAN 19.0 % (4.3-6.0)
[2017-08-18] MEDS ORDERED: ENOX40P SQ (11:56)
[2017-08-18] MEDS ORDERED: REST15CA PO (11:56)
[2017-08-18] MEDS ORDERED: Ursodiol PO (11:56)
[2017-08-18] MEDS ORDERED: Albuterol-Ipratropium Neb INH (11:56)
[2017-08-18] MEDS ORDERED: DILA2TAB4 PO (11:56)
[2017-08-18] MEDS ORDERED: PERI PO (11:56)
--- NOTE | 2017-08-18 11:59 | HHI.DS ---
Discharge Summary Admission Date August 14, 2017 at 22:15 Discharge Date: August 18, 2017 Admitting Diagnosis Hyperosmolar hyperglycemic state (1) Liver mass ICD Code: R16.0 - Hepatomegaly, not elsewhere classified Diagnosis: Secondary (2) Hyperglycemic crisis in diabetes mellitus ICD Code: E11.65 - Type 2 diabetes mellitus with hyperglycemia Diagnosis: Principal Status: Acute (3) Abdominal pain ICD Code: R10.9 - Unspecified abdominal pain Diagnosis: Secondary Status: Acute (4) Elevated liver enzymes ICD Code: R74.8 - Abnormal levels of other serum enzymes Diagnosis: Secondary Status: Acute (5) MAUREEN (acute kidney injury) ICD Code: N17.9 - Acute kidney failure, unspecified Diagnosis: Secondary Status: Acute (6) DM (diabetes mellitus) ICD Code: E11.9 - Type 2 diabetes mellitus without complications Diagnosis: Principal Status: Acute (7) HTN (hypertension) ICD Code: I10 - Essential (primary) hypertension Diagnosis: Secondary Status: Chronic (8) Tobacco abuse ICD Code: Z72.0 - Tobacco use Diagnosis: Secondary Status: Chronic (9) Pancreatitis ICD Code: K85.9 - Acute pancreatitis, unspecified Diagnosis: Principal Status: Chronic (10) Type 2 diabetes mellitus with hyperosmolar nonketotic hyperglycemia ICD Code: E11.01 - Type 2 diabetes mellitus with hyperosmolarity with coma Diagnosis: Principal Status: Acute (11) Acute pancreatitis ICD Code: K85.9 - Acute pancreatitis, unspecified Diagnosis: Principal Status: Acute (12) Chronic pancreatitis ICD Code: K86.1 - Other chronic pancreatitis Diagnosis: Principal Status: Acute (13) Elevated tumor markers ICD Code: R97.8 - Other abnormal tumor markers Diagnosis: Principal Status: Acute (14) Hyperlipemia ICD Code: E78.5 - Hyperlipidemia, unspecified Diagnosis: Secondary Status: Acute (15) Hypertension ICD Code: I10 - Essential (primary) hypertension Diagnosis: Secondary Status: Acute (16) Type 2 diabetes mellitus ICD Code: E11.9 - Type 2 diabetes mellitus without complications Diagnosis: Principal Status: Chronic (17) Poorly controlled diabetes mellitus ICD Code: E11.65 - Type 2 diabetes mellitus with hyperglycemia Diagnosis: Principal Status: Acute (18) Noncompliance w/medication treatment due to intermit use ofmedication ICD Code: Z91.14 - Patient's other noncompliance with medication regimen Diagnosis: Principal Status: Chronic Procedures LIVER BIOPSY Brief History - From Admission 57-year-old -Stateless female with past medical history of hypertension, diabetes, coronary artery disease, chronic back pain, presents complaints of left sided back pain that is radiating to the left abdomen for a few days. She also complains of some nausea and vomiting. Denies any fever, chest pain, sob, focal weakness or numbness, fall. The CT of the abdomen obtained in the emergency department shows stable calcifications and pancreatic ductal dilatation consistent with chronic pancreatitis. and 2.4 cm right lobe liver mass. She also says that she has lost her prescription for pain medication for her back and her doctor wont write her a new one. The initial lab work in the emergency department also shows her glucose of 1600, potassium 7.5 and sodium of 115. She has been admitted to ICU on insulin drip per a DKA protocol. CBC/BMP: 08/18/17 0734 08/18/17 0734 Significant Findings Laboratory Tests Test 08/15/17 15:50 08/15/17 16:08 08/16/17 03:11 08/18/17 07:34 Blood Urea Nitrogen 23 MG/DL (7-18) Random Glucose 171 MG/DL (74-106) 127 MG/DL (74-106) Calcium Level 8.3 MG/DL (8.5-10.1) 8.2 MG/DL (8.5-10.1) 7.8 MG/DL (8.5-10.1) Phosphorus Level 1.1 MG/DL (2.5-4.9) 0.9 MG/DL (2.5-4.9) Magnesium Level 1.3 MG/DL (1.5-2.5) 1.1 MG/DL (1.5-2.5) Chloride Level 115 MEQ/L (98-107) 110 MEQ/L (98-107) Carcinoembryonic Antigen 10.4 NG/ML (0.2-5.0) 9.3 NG/ML (0.2-5.0) CA 19-9 Antigen 566.0 U/ML (0.0-35.0) 532.1 U/ML (0.0-35.0) White Blood Count 3.8 TH/MM3 (4.0-11.0) Red Blood Count 3.48 MIL/MM3 (4.00-5.30) Hemoglobin 10.2 GM/DL (11.6-15.3) Hematocrit 30.9 % (35.0-46.0) Platelet Count 87 TH/MM3 (150-450) Platelet Estimate LOW (NORMAL) Total Protein 5.9 GM/DL (6.4-8.2) Albumin 2.1 GM/DL (3.4-5.0) Alkaline Phosphatase 145 U/L (45-117) Aspartate Amino Transf (AST/SGOT) 42 U/L (15-37) Hemoglobin A1c GREATER THAN 19.0 % Imaging Last Impressions Liver Biopsy CT 08/17/17 0000 Signed Impressions: Service Date/Time: Thursday, August 17, 2017 15:02 - CONCLUSION: Uncomplicated CT guided biopsy. George Davies MD Abdomen MRI 08/16/17 0000 Signed Impressions: Service Date/Time: July 11:58 - CONCLUSION: 1. Right hepatic lobe mass not present on the older CT from 03/2017 and does not have characteristics of a hemangioma. The exact etiology is uncertain, however malignant etiologies should be entertained such as primary hepatocellular carcinoma and the appearance is nonspecific in regard to other neoplastic etiologies. 2. Dilated common bile duct and pancreatic duct and the pancreas appears atrophic. Tamika Drummond MD Abdomen/Pelvis CT 08/14/17 0000 Signed Impressions: Service Date/Time: Monday, August 14, 2017 22:43 - CONCLUSION: 2.4 cm right lobe liver mass does not appear to have been previously evaluated. Contrasted hepatic MRI suggested on an elective basis for followup. Otherwise stable study Chang Torres MD PE at Discharge GENERAL: This is a well-nourished, well-developed patient, in no apparent distress. CARDIOVASCULAR: RRR, no gallops, or rubs. RESPIRATORY: Fair air entry bilaterally. No W, R, or R GASTROINTESTINAL: Abdomen soft, non-tender, nondistended. Positive bowel sounds MUSCULOSKELETAL: Extremities without clubbing, cyanosis, or edema. Pedal pulses appreciated NEUROLOGICAL: Awake and alert. Moves all extremity. Normal speech.no focal neurological deficit Hospital Course 57-year-old -Stateless female with past medical history of hypertension, diabetes, coronary artery disease, chronic back pain, presents complaints of left sided back pain that is radiating to the left abdomen for a few days. She also complains of some nausea and vomiting. Denies any fever, chest pain, sob, focal weakness or numbness, fall. The CT of the abdomen obtained in the emergency department shows stable calcifications and pancreatic ductal dilatation consistent with chronic pancreatitis. and 2.4 cm right lobe liver mass. She also says that she has lost her prescription for pain medication for her back and her doctor wont write her a new one. The initial lab work in the emergency department also shows her glucose of 1600, potassium 7.5 and sodium of 115. She has been admitted to ICU on insulin drip per a DKA protocol. TRANSFERRED OUT OF ICU TO [facility] 18 FOUND TO HAVE A LIVER MASS DW RN AND PT FOR BIOPSY OF LIVER MASS TODAY 5-19 HAD LIVER BIOPSY YESTERDAY HAS SOME BACK PAIN CAN DC TO HOME AND FOLLOW UP WITH PCP AND GI PAIN CONTROL DC TO HOME TODAY Pt Condition on Discharge: Good Discharge Disposition: Discharge to SNF Discharge Time: > 30 minutes Discharge Instructions DIET: Follow Instructions for: Heart Healthy Diet, Diabetic Diet Speech Therapy-Diet Recommends: Regular Activities you can perform: Regular-No Restrictions, Weight Bearing as Kali Follow up Referrals: Gastroenterology - 3-5 Days with Annette Mcdowell MD PCP Follow-up - 2-3 Days New Medications: Enoxaparin Inj (Lovenox Inj) 40 Mg/0.4 Ml Syr 40 MG SQ Q24H for Blood Clot Prevention, #30 INJECTION Hydromorphone (Dilaudid) 2 Mg Tab 1 MG PO Q6H PRN for Pain 1-10 post liver biopsy, #60 TAB Sennosides-Docusate Sodium (Gnp Senna Plus 8.6-50 mg) 8.6 Mg-50 Mg Tab 2 TAB PO BID for Constipation, #120 TAB Temazepam (Restoril) 15 Mg Cap 15 MG PO HS PRN for INSOMNIA, #30 CAP [Albuterol-Ipratropium Neb] () 1 AMPULE NEBU 1 AMPULE INH Q2HR NEB PRN for WHEEZING, #120 NEBULE [Ursodiol] () 300 MG CAP 300 MG PO Q12HR for LIVER, #60 CAP Continued Medications: Amlodipine (Norvasc) 5 Mg Tab 5 MG PO DAILY, #30 TAB Insulin Detemir Inj (Levemir Inj) 1,000 unit/ 10 ML Vial 20 UNITS SQ BID for Blood Sugar Management, VIAL 0 Refills Do not mix with any other Insulin. Metformin (Glucophage) 500 Mg Tab 1000 MG PO BIDPC, #120 TAB Pancrelipase (Creon) 24,000-76,000-120,000 Units Cap 2 CAP PO TID for Pancreatic insufficiency, #90 CAP 0 Refills Pantoprazole (Pantoprazole) 40 Mg Tab 40 MG PO DAILY for Reflux, #30 TAB 0 Refills Charly Mckeon DO August 18, 2017 11:58
[2017-08-18 12:00] VITALS: BP 114/80; PULSE 100; RESP 20; TEMP 97.6; O2SAT 98
[2017-08-18 13:26] VITALS: PULSE 89
[2017-08-20 03:50] LABS: MITOCHONDRIAL ABS 67.2 U (<=20.0)
== END 2017-08-18 18:00 | DRG 637 ==
LOC: NEPC 19:16 → NEDA 22:15 → HIMW 23:35 → N04A 08-16 22:25
PROVIDERS: ADMIT Hospitalist; ATTEND Hospitalist
PROC: 0FB03ZX Excision of Liver, Percutaneous Approach, Diagnostic (ICD-10-PCS; principal; 2017-08-17)
DX: E11.10 Type 2 diabetes mellitus with ketoacidosis without coma (principal); K85.90 Acute pancreatitis without necrosis or infection, unspecified; E87.1 Hypo-osmolality and hyponatremia; N17.9 Acute kidney failure, unspecified; K86.1 Other chronic pancreatitis; R16.0 Hepatomegaly, not elsewhere classified; E87.5 Hyperkalemia; E11.00 Type 2 diabetes mellitus with hyperosmolarity without nonketotic hyperglycemic-hyperosmolar coma (NKHHC); G89.29 Other chronic pain; M54.9 Dorsalgia, unspecified; G47.30 Sleep apnea, unspecified; E86.0 Dehydration; K21.9 Gastro-esophageal reflux disease without esophagitis; K59.00 Constipation, unspecified; R97.0 Elevated carcinoembryonic antigen [CEA]; R74.8 Abnormal levels of other serum enzymes; R97.8 Other abnormal tumor markers; I10 Essential (primary) hypertension; I25.10 Atherosclerotic heart disease of native coronary artery without angina pectoris; E78.00 Pure hypercholesterolemia, unspecified; E78.5 Hyperlipidemia, unspecified; F17.210 Nicotine dependence, cigarettes, uncomplicated; Z79.4 Long term (current) use of insulin; Z82.49 Family history of ischemic heart disease and other diseases of the circulatory system; Z91.14 Patient's other noncompliance with medication regimen; Z86.73 Personal history of transient ischemic attack (TIA), and cerebral infarction without residual deficits
CPT/HCPCS: 36600; 47000; 74176; 74183; 76937; 77012; 80048; 80053; 81001; 82010; 82105; 82378; 82784; 82787; 82805; 82947; 82948; 83036; 83520; 83690; 83735; 84100; 84132; 84425; 84439; 84443; 84484; 85025; 85610; 85730; 86255; 86301; 87086; 87641; 88307; 88341; 88342; 93005; 96361; 96374; 96375; 99152; 99153; A9579; J0610; J1650; J1815; J1817; J2250; J2270; J3010; J3475; J3480; J7030; J7042

== ENCOUNTER 2017-12-27 14:43 | Inpatient (IN) ==
[2017-12-27] MEDS ORDERED: Morphine Inj 4 MG/ML Vial IV.PUSH ONE (15:22)
[2017-12-27] MEDS ORDERED: Sod Chloride 0.9% Inj 1,000 ML IV.SIG ONE (15:22)
--- NOTE | 2017-12-27 15:30 | ED ---
HPI General Chief Complaint: Abdominal Pain Stated Complaint: Medical Time Seen by Provider: 12/27/17 15:09 Source: patient Mode of arrival: ambulatory Limitations: no limitations History of Present Illness HPI narrative: The patient is a 57-year-old -[place]ym[place] female who presents to the emergency department via private vehicle for abdominal pain. The patient notes a 3-4-month history of intermittent abdominal pain located on the left aspect of the abdomen and radiating to the groin. The patient states the abdominal pain has been worse over the last 3 weeks. The patient states she was diagnosed with cancer by her cancer doctor at [facility] , however, does not know the name of her oncologist. She also states that she was seen by a specialist in [place], however, cannot recall the name of her specialist. The patient states there has been no biopsies performed and there has been no radiation or chemotherapy. The patient denies any dysuria, frequency, or urgency. The patient denies any associated fever, chills, or sweats. The patient also states her blood sugars have been running "high ". The patient is currently on Levemir 20 units twice a day, denies any short sliding scale insulin or oral medications currently for her diabetes. She does complain of polyuria. MD complaint: Reports abdominal pain Onset (ago): month(s) Pain Consistency: intermittent Location: Reports LLQ and L flank Severity: moderate Severity scale (1-10): 6 Quality: Reports stabbing and aching Radiation: Reports L flank Migration to: Reports no migration Relieving factors: nothing Exacerbating factors: nothing Context: Reports history of similar episodes Associated symptoms: Reports denies other symptoms Related Data Home Medications Medication Instructions Recorded Confirmed amlodipine 5 mg PO DAILY 12/07/17 12/27/17 atorvastatin 20 mg PO DAILY 12/07/17 12/27/17 folic acid 1 mg PO DAILY 12/07/17 12/27/17 gabapentin 300 mg PO BID 12/07/17 12/27/17 [id number] [Creon] 1 cap PO QID 12/07/17 12/27/17 metformin 500 mg PO BID 12/07/17 12/27/17 metoprolol tartrate 25 mg PO BID 12/07/17 12/27/17 metronidazole 500 mg PO TID 12/07/17 12/27/17 pantoprazole 40 mg PO DAILY 12/07/17 12/27/17 ursodiol 300 mg PO BID 12/07/17 12/27/17 Allergies Allergy/AdvReac Type Severity Reaction Status Date / Time No Known Allergies Allergy Unknown Uncoded 07/01/17 18:05 Review of Systems ROS: all other systems reviewed are negative [facility] Social History Social History Substance History: Past History Second Hand Smoke Exposure: Yes Smoking Status: Current every day smoker Tobacco Type: Cigarettes How Often Do You Have a Drink Containing Alcohol: Never Recent Travel in [facility] within the Last 8 Weeks: No Recent Out of Country Travel within the Last 8 Weeks: No Exam Narrative Exam Narrative: GENERAL: Awake, alert, pleasant 57-year-old female who appears her stated age and is in no acute respiratory distress. SKIN: Focused skin assessment warm/dry. HEAD: Atraumatic. Normocephalic. EYES: No injection or drainage. ENT: No nasal bleeding or discharge. Dry mucous membranes. No visible dentition. NECK: Trachea midline. No JVD. CARDIOVASCULAR: Regular rate and rhythm. No murmur appreciated. RESPIRATORY: No accessory muscle use. Clear to auscultation. Breath sounds equal bilaterally. GASTROINTESTINAL: Abdomen soft, mild tenderness of the left flank. No guarding or rigidity. MUSCULOSKELETAL: No obvious deformities. No clubbing. No cyanosis. No edema. NEUROLOGICAL: Awake and alert. No obvious cranial nerve deficits. Motor grossly within normal limits. Normal speech. PSYCHIATRIC: Appropriate mood and affect; insight and judgment normal. Course Initial Documented Vital Signs Temperature 98.3 F 12/27/17 14:56 Pulse Rate 111 H 12/27/17 14:56 Respiratory Rate 18 12/27/17 14:56 Blood Pressure 161/98 H 12/27/17 14:56 Pulse Oximetry 100 12/27/17 14:56 Last Documented Vital Signs Temperature 98.3 F 12/27/17 14:56 Pulse Rate 85 12/27/17 18:45 Respiratory Rate 19 12/27/17 18:45 Blood Pressure 160/88 H 12/27/17 18:45 Pulse Oximetry 98 12/27/17 18:45 Critical Care Time Critical Care Time: Yes Total Critical Care Time: 35 Attestation: Aggregate critical care time was 35 minutes. Time to perform other separately billable procedures was not included in the critical care time. My time did not include minutes spent treating any other patients simultaneously or on activities that did not directly contribute to the patient's treatment. The services I provided to this patient were to treat and/or prevent clinically significant deterioration that could result in: Arrhythmia, dehydration, acidosis, altered mental status. I provided critical care services requiring my management, as noted below: Chart data review, documentation time, medication orders and management, vital sign assessments/reviewing monitor data, ordering and reviewing lab tests, ordering and interpreting/reviewing x-rays and diagnostic studies, care of the patient and discussion of the patient with the admitting physicians. Medical Decision Making MDM Narrative Medical decision making narrative: IV was established, labs were drawn and sent , and the patient was placed on cardiac telemetry monitoring and continuous pulse oximetry monitoring. The patient was administered IV fluids, morphine, and Zofran. EKG was ordered and interpreted. CT of the abdomen and pelvis was performed. Patient's laboratory evaluation reveals a glucose of 938 consistent with hyperglycemia and a sodium of 122 consistent with pseudo-hyponatremia. As the patient's glucose was still elevated and she would not be able to go to a floor with sliding scale insulin, the patient was given a bolus of insulin, 6 units, and placed on an insulin drip. The patient was noted to have a potassium of 6.1, however, there was hemolysis, therefore, the patient was administered a second liter of IV fluids. The on-call quality control assessor was paged for admission. CT scan of the abdomen and pelvis shows no acute findings. Patient reassessed, she is resting comfortably however she did complain of back pain and was requesting pain medication. She was given Percocet 5/325 x [address] Jasmine who accepted admission. Patient will be placed in the ICU. Medical Screen Exam Complete: Yes Emergency Medical Condition: Yes Differential Diagnosis Differential Diagnosis: Differential diagnosis includes partial small bowel obstruction, small bowel obstruction, colitis, enteritis, nephrolithiasis, pyelonephritis, cancer, chronic pain, hyperglycemia, DKA, dehydration, electrolyte abnormality. Lab Data Result diagrams: 12/27/17 14:45 12/27/17 14:45 Lab Results 12/27/17 12/27/17 12/27/17 Range/Units 14:45 14:45 14:45 WBC 7.1 (4.0-11.0) th/mm3 RBC 4.41 (4.00-5.30) mil/mm3 Hgb 13.2 (11.6-15.3) gm/dL Hct 41.4 (35.0-46.0) % MCV 93.7 (80.0-100.0) fL MCH 29.9 (27.0-34.0) pg MCHC 31.9 L (32.0-36.0) % RDW 15.8 (11.6-17.2) % Plt Count 236 (150-450) th/mm3 MPV 10.9 (7.0-11.0) fL Neut % (Auto) 67.3 (16.0-70.0) % Lymph % (Auto) 26.3 (9.0-44.0) % [place] % (Auto) 5.2 (0.0-8.0) % Eos % (Auto) 0.7 (0.0-4.0) % Baso % (Auto) 0.5 (0.0-2.0) % Neut # (Auto) 4.8 (1.8-7.7) th/mm3 Lymph # (Auto) 1.9 (1.0-4.8) th/mm3 [place] # (Auto) 0.4 (0.0-0.9) th/mm3 Eos # (Auto) 0.1 (0.0-0.4) th/mm3 Baso # (Auto) 0.0 (0.0-0.2) th/mm3 WBC Differential . Differential Comment Auto diff final Puncture Site Patient Temperature VBG pH (7.360-7.400) VBG pCO2 (44-48) mmHG VBG pO2 (35-40) mmHG VBG HCO3 (22-26) mmol/L VBG O2 Saturation (70-76) % VBG O2 Content (9.0-17.0) Vol % VBG Base Excess (-2-2) mmol/L VBG Carboxyhemoglobin (0-4) % VBG Methemoglobin (0-2) % Hemoglobin (12.0-16.0) G/DL O2 Delivery Device Inspired O2 % Critical Value Sodium 122 L* (136-145) meq/L Potassium 6.1 H (3.5-5.1) meq/L Chloride 86 L (98-107) meq/L Carbon Dioxide 24.4 (21.0-32.0) meq/L Anion Gap 12 (5-15) meq/L BUN 25 H (7-18) mg/dL Creatinine 1.58 H (0.50-1.00) mg/dL Estimated GFR 41 L (>89) mL/min POC Glucose (68-110) mg/dl Random Glucose 938 H* (74-106) mg/dL Lactic Acid 1.9 (0.4-2.0) mmol/L Calcium 9.7 (8.5-10.1) mg/dL Total Bilirubin 0.8 (0.2-1.0) mg/dL AST 29 (15-37) U/L ALT 16 (10-53) U/L Alkaline Phosphatase 152 H (45-117) U/L Total Protein 8.7 H (6.4-8.2) g/dL Albumin 3.6 (3.4-5.0) g/dL Lipase 374 (73-393) U/L Urine Color (Yellw/Straw) Urine Clarity (Clear) Urine pH (5.0-8.5) Ur Specific Simpson (1.002-1.035) Urine Protein (Neg-Trace) mg/dL Urine Glucose (UA) (Negative) mg/dL Urine Ketones (Negative) mg/dL Urine Occult Blood (Negative) Urine Nitrate (Negative) Urine Bilirubin (Negative) Urine Urobilinogen (Less than 2) mg/dL Ur Leukocyte Esterase (Negative) Urine RBC (0-3) /hpf Urine WBC (0-5) /hpf Ur Squamous Epith Cells (0-5) /hpf Urine Bacteria (None) /hpf Urine Yeast (None) /hpf Micro UA Comment Ur Microscopic Review Urine Culture Comments 12/27/17 12/27/17 12/27/17 Range/Units 15:35 15:38 18:13 WBC (4.0-11.0) th/mm3 RBC (4.00-5.30) mil/mm3 Hgb (11.6-15.3) gm/dL Hct (35.0-46.0) % MCV (80.0-100.0) fL MCH (27.0-34.0) pg MCHC (32.0-36.0) % RDW (11.6-17.2) % Plt Count (150-450) th/mm3 MPV (7.0-11.0) fL Neut % (Auto) (16.0-70.0) % Lymph % (Auto) (9.0-44.0) % [place] % (Auto) (0.0-8.0) % Eos % (Auto) (0.0-4.0) % Baso % (Auto) (0.0-2.0) % Neut # (Auto) (1.8-7.7) th/mm3 Lymph # (Auto) (1.0-4.8) th/mm3 [place] # (Auto) (0.0-0.9) th/mm3 Eos # (Auto) (0.0-0.4) th/mm3 Baso # (Auto) (0.0-0.2) th/mm3 WBC Differential Differential Comment Puncture Site I.v. Patient Temperature 98.6 VBG pH 7.33 L (7.360-7.400) VBG pCO2 43 L (44-48) mmHG VBG pO2 32 L (35-40) mmHG VBG HCO3 22 (22-26) mmol/L VBG O2 Saturation 53 L (70-76) % VBG O2 Content 9.2 (9.0-17.0) Vol % VBG Base Excess -2.9 L (-2-2) mmol/L VBG Carboxyhemoglobin 4.3 H (0-4) % VBG Methemoglobin 0.6 (0-2) % Hemoglobin 12.4 (12.0-16.0) G/DL O2 Delivery Device Room air Inspired O2 21 % Critical Value No Sodium (136-145) meq/L Potassium (3.5-5.1) meq/L Chloride (98-107) meq/L Carbon Dioxide (21.0-32.0) meq/L Anion Gap (5-15) meq/L BUN (7-18) mg/dL Creatinine (0.50-1.00) mg/dL Estimated GFR (>89) mL/min POC Glucose Greater than 600 H* (68-110) mg/dl Random Glucose (74-106) mg/dL Lactic Acid (0.4-2.0) mmol/L Calcium (8.5-10.1) mg/dL Total Bilirubin (0.2-1.0) mg/dL AST (15-37) U/L ALT (10-53) U/L Alkaline Phosphatase (45-117) U/L Total Protein (6.4-8.2) g/dL Albumin (3.4-5.0) g/dL Lipase (73-393) U/L Urine Color Straw (Yellw/Straw) Urine Clarity Clear (Clear) Urine pH 6.0 (5.0-8.5) Ur Specific Simpson 1.025 (1.002-1.035) Urine Protein Negative (Neg-Trace) mg/dL Urine Glucose (UA) 500 or greater (Negative) mg/dL Urine Ketones Trace H (Negative) mg/dL Urine Occult Blood Negative (Negative) Urine Nitrate Negative (Negative) Urine Bilirubin Negative (Negative) Urine Urobilinogen Less than 2 (Less than 2) mg/dL Ur Leukocyte Esterase Small H (Negative) Urine RBC 1 (0-3) /hpf Urine WBC 12 H (0-5) /hpf Ur Squamous Epith Cells <1 (0-5) /hpf Urine Bacteria Rare H (None) /hpf Urine Yeast Occasional H (None) /hpf Micro UA Comment Culture indicated Ur Microscopic Review Not Reportable Urine Culture Comments Culture indicated Imaging Data Radiologist's impression: Abdomen/Pelvis CT 12/27/17 15:22 CONCLUSION: 1. No acute findings. 2. Multiple chronic findings, described above, are stable in appearance when compared to December 2016. ECG Data EKG Prior to Arrival: No Attestation: I personally reviewed and interpreted this ECG as follows: Interpretation: EKG reveals sinus rhythm with a rate of 90. No ischemic changes are ectopy noted. Discharge Plan Discharge Disposition Patient Disposition: 30 Still Patient Discharge Condition Condition: Stable Discharge Details Diagnosis: Hyperglycemia, Hyperosmolar hyponatremia Physicians Team ED Provider: Matthew Martinez ED Midlevel Provider: Kendra Damico Primary Care Provider: UNKNOWN, Attending Provider: Kar Jasmine Status ED Status: Admitted Patient
[2017-12-27 15:48] LABS: VBG Base Excess -2.9 mmol/L (-2-2); VBG Blood Gas Oxygen Content 9.2 Vol % (9.0-17.0); VBG PCO2 43 mmHG (44-48); VBG PH 7.33 (7.360-7.400); VBG PO2 32 mmHG (35-40)
[2017-12-27 16:18] LABS: Baso % (Auto) 0.5 % (0.0-2.0); Eos # (Auto) 0.1 th/mm3 (0.0-0.4); Eos % (Auto) 0.7 % (0.0-4.0); Hematocrit 41.4 % (35.0-46.0); Hemoglobin 13.2 gm/dL (11.6-15.3); Lymph # (Auto) 1.9 th/mm3 (1.0-4.8); Lymph % (Auto) 26.3 % (9.0-44.0); Mean Corpuscular HGB Conc 31.9 % (32.0-36.0); Mean Corpuscular Hemoglobin 29.9 pg (27.0-34.0); Mean Corpuscular Volume 93.7 fL (80.0-100.0); Mean Platelet Volume 10.9 fL (7.0-11.0); Mono # (Auto) 0.4 th/mm3 (0.0-0.9); Mono % (Auto) 5.2 % (0.0-8.0); Neut # (Auto) 4.8 th/mm3 (1.8-7.7); Neut % (Auto) 67.3 % (16.0-70.0); Platelet Count 236 th/mm3 (150-450); Red Blood Count 4.41 mil/mm3 (4.00-5.30); Red Cell Distribution Width 15.8 % (11.6-17.2); White Blood Count 7.1 th/mm3 (4.0-11.0)
[2017-12-27 16:43] LABS: Alanine Aminotransferase 16 U/L (10-53); Albumin 3.6 g/dL (3.4-5.0); Alkaline Phosphatase 152 U/L (45-117); Anion Gap 12 meq/L (5-15); Aspartate Aminotransferase 29 U/L (15-37); Blood Urea Nitrogen 25 mg/dL (7-18); Calcium 9.7 mg/dL (8.5-10.1); Carbon Dioxide 24.4 meq/L (21.0-32.0); Chloride 86 meq/L (98-107); Glomerular Filtration Rate 41 mL/min (>89); Lipase 374 U/L (73-393); Total Protein 8.7 g/dL (6.4-8.2)
[2017-12-27 16:46] LABS: Glucose,Random 938 mg/dL (74-106); Potassium 6.1 meq/L (3.5-5.1); Sodium 122 meq/L (136-145)
[2017-12-27] MEDS ORDERED: Insulin Regular (For Infusion) 100 UNIT in Sodium Chlor 0.9% Inj 99 ML IV.CONT PRN (16:49)
[2017-12-27 16:53] LABS: Bacteria,Urine Rare /hpf; Bilirubin,Urine Negative (Negative); Clarity,Urine Clear (Clear); Color,Urine Straw (Yellw/Straw); Glucose,Urine (UA) 500 or Greater mg/dL (Negative); Leukocyte Esterase,Urine Small (Negative); Nitrite,Urine Negative (Negative); Specific Gravity,Urine 1.025 (1.002-1.035); Squamous Epithelial Cell,Urine <1 /hpf (0-5)
[2017-12-27] MEDS: Sod Chloride 0.9% Inj 1,000 ML IV.SIG SCH (17:03)
--- NOTE | 2017-12-27 19:41 | CT ---
EXAM DATE: 12/27/2017 5:59 PM EDT AGE/SEX: 57 years / Female INDICATIONS: Left lower abdomen pain. CLINICAL DATA: This is the patient's initial encounter. Patient reports that signs and symptoms have been present for 1 day and indicates a pain score of 9/10. MEDICAL/SURGICAL HISTORY: Diabetes. Hypertension. . G tube. ORAL CONTRAST: No oral contrast ingested. RADIATION DOSE: 7.04 CTDI (mGy) [place] [facility] [place]. . TECHNIQUE: Multiple contiguous axial images were obtained through the abdomen and pelvis following b olus infusion of 50 ml Visipaque 320 (iodixanol) nonionic water-soluble contrast as a single exam d ose. No oral contrast ingested. Using automated exposure control and adjustment of the mA and/or kV according to patient size, radiation dose was kept as low as reasonably achievable to obtain optimal diagnostic quality images. DICOM format image data is available electronically for review and compar stephen. FINDINGS: Lower Lungs: The visualized lower lungs are clear. Stable lobular right paraspinal fatty mass. Liver: There is a new 4.1 cm poorly defined slightly hypodense lesion in the posterior segment right lobe liver. Indwelling biliary stent with mild dilation of the central biliary ducts and the ducts of the left lobe. The ductal dilatation is stable. Spleen: Homogeneous density without enlargement. Pancreas: Stable appearance to chronic pancreatitis with diffuse calcifications and prominent dilati on of the pancreatic duct out to the tail. Kidneys: Normal in size and shape. No evidence of mass or hydronephrosis. Adrenal Glands: Stable 1.5 cm low density mass in the crux of the left adrenal. Right adrenal gland is normal in configuration. Aorta: The aorta and proximal iliac vessels are grossly unremarkable without aneurysmal dilation. Bowel/Mesentery: No dilated loops of small or large bowel. Abdominal Wall: Intact. Retroperitoneum: No evidence of adenopathy in the retrocrural, para-aortic, or deep pelvic regions. Bladder: Contours are smooth. Reproductive Organs: Stable 4 cm right adnexal dermoid. No evidence of free fluid. Inguinal: The inguinal region is unremarkable without evidence of adenopathy. Bony Structures: Unremarkable. CONCLUSION: 1. No acute findings. 2. Multiple chronic findings, described above, are stable in appearance when compared to December. Electronically signed by: Jay Hidalgo MD 12/27/2017 7:40 PM EDT
[2017-12-27] MEDS: Sod Chloride 0.9% Inj 1,000 ML IV.CONT SCH (20:15)
[2017-12-27] MEDS ORDERED: Dextrose 50% in Water 50 ML Vial IV.PUSH PRN (20:15)
[2017-12-27] MEDS ORDERED: Potassium Chlor 20 mEq Premix 20 MEQ/100 ML PIGGYBACK IV.SIG PRN ×6 (20:21)
[2017-12-27] MEDS ORDERED: Potassium Chlor 40 mEq Premix 40 MEQ/100 ML PIGGYBACK IV.SIG PRN ×2 (20:21)
[2017-12-27] MEDS ORDERED: Sodium Phosphate Inj 15 MMOL in Sodium Chlor 0.9% Inj 100 ML IV.SIG PRN (20:21)
[2017-12-27] MEDS ORDERED: Dextrose 5%/NaCl 0.9% Inj 1,000 ML IV.CONT SCH (20:30)
[2017-12-27] MEDS ORDERED: Sod Chloride 0.9% Inj 1,000 ML IV.CONT SCH (20:30)
--- NOTE | 2017-12-27 22:01 | P.HPIM ---
History of Present Illness Service: [facility] Primary Care Physician: UNKNOWN Chief Complaint: abdominal pain History of Present Illness: 57 y/o Female with a history of diabetes, hypertension, hyperlipidemia and asthma presented to the ED with complaints of abdominal pain and back pain. Patient states she has been having a 3-4-month history of intermittent, aching abdominal pain radiates to her back and down her left leg. She denies any associated symptoms states worse with movement and food, better with rest. She states over the past couple days it has just gotten worse. Patient states that she was diagnosed with cancer but is unsure what type and she has not underwent any biopsies chemo or radiation. She states she has been taking her long- acting insulin, Levemir as prescribed but does not know where her blood sugar machine is she was seen by her PCP today and was found to have an elevated blood sugar. She denies any chest pain, shortness of breath, fever, chills, dysuria, constipation or headaches. He does seem to be a poor historian as far as her medical history is concerned. Patient was seen by Dr. Orozco in October 2017, CT and bone scan were ordered and patient was going to be referred to a tertiary center. Inpatient Certification: I certify that the inpatient services were ordered in accordance with Medicare regulations governing the order. This includes certification that hospital inpatient services are reasonable and necessary and in the case of services not specified as inpatient-only under 42 CFR 419.22(n), that they are appropriately provided as inpatient services in accordance to with the 2-midnight benchmark under 43 CFR 412.3(e) Estimated Total Length of Stay (Days): 3 Plans for Post Hospital Care: Home Review of Systems All other systems reviewed negative except as stated in [facility] - History History Provided By: Patient - Medical History Medical History: Medical History (Last Reviewed 12/27/17 @ 21:52 by STEVE Kumar) Diabetes Hypertension Liver tumor or cancer - Surgical History Surgical History: Surgical History (Last Updated 12/27/17 @ 21:52 by STEVE Kumar) H/O heart artery stent History of biliary duct stent placement Hx of cholecystectomy History of gastrostomy tube placement - Family History Family History: Family History (Last Reviewed 12/27/17 @ 21:52 by STEVE Kumar) Mother Hypertension Father Hypertension - Social History I have reviewed the patient's Social History: Yes - Tobacco History Second Hand Smoke Exposure: Yes Tobacco Use In Past 30 Days: Yes Smoking Status: Current every day smoker Tobacco Type: Cigarettes Cigarettes Per Day: 5 - Alcohol History How Often Do You Have a Drink Containing Alcohol: Never (Prior alcohol abuse) - Substance Use History Substance History: Past History - Substance Use Type Alcohol Status: Sustained Remission - Travel History Recent Travel in the [place] Within the Last 8 Weeks: No Recent Travel Out of the Country Within the Last 8 Weeks: No - Immunization History Tetanus Immunization: <5 Years Hx Influenza Vaccine This Season: Yes Medications and Allergies Active Medications: Active Medications Amlodipine Besylate (Norvasc) 5 mg PO DAILY LUCAS Lipase/Protease/Amylase (Creon /) 1 cap PO QID LUCAS Chlorhexidine Gluconate (Chlorhexidine 2% Cloth) 3 pack TOPICAL DAILY@0400 PRN PRN Reason: Extra cloth needed Stop: 01/02/18 03:59 Chlorhexidine Gluconate (Chlorhexidine 2% Cloth) 3 pack TOPICAL DAILY@0400 LUCAS Stop: 01/02/18 03:59 Dextrose (D50w Vial) 50 ml IV.PUSH UNSCH PRN PRN Reason: PER HYPOGLYCEMIA PROTOCOL Gabapentin (Neurontin) 300 mg PO BID LUCAS Sodium Chloride (Ns Inj) 1,000 mls @ 0 mls/hr IV.SIG BOLUS LUCAS Last Infusion: 12/27/17 18:05 Dose: Infused Insulin Human Regular 100 unit (/ Sodium Chloride) 100 mls @ 9 mls/hr IV.CONT TITRATE PRN; Protocol PRN Reason: See protocol Last Admin: 12/27/17 18:36 Dose: 6 units/hr, 6 mls/hr Sodium Chloride (Ns Inj) 1,000 mls @ 250 mls/hr IV.CONT .Q4H LUCAS Dextrose/Sodium Chloride (D5w/Normal Saline Inj) 1,000 mls @ 200 mls/hr IV.CONT .Q5H LUCAS Sodium Chloride (Ns Inj) 1,000 mls @ 250 mls/hr IV.CONT .Q4H LUCAS Potassium Chloride (Kcl 40 Meq Premix Inj) 40 meq in 100 mls @ 100 mls/hr IV.SIG Q1H PRN PRN Reason: for Initial K+ ONLY < 3.5 Potassium Chloride (Kcl 40 Meq Premix Inj) 40 meq in 100 mls @ 50 mls/hr IV.SIG Q2H PRN PRN Reason: for Subsequent K+ < 3.5 Potassium Chloride (Kcl 20 Meq Premix Inj) 20 meq in 100 mls @ 100 mls/hr IV.SIG Q1H PRN PRN Reason: for K+ 3.5 to 4.4 Potassium Chloride (Kcl 20 Meq Premix Inj) 20 meq in 100 mls @ 100 mls/hr IV.SIG Q1H PRN PRN Reason: for K+ 4.5 to 5 Potassium Chloride (Kcl 20 Meq Premix Inj) 20 meq in 100 mls @ 50 mls/hr IV.SIG Q2H PRN PRN Reason: for Initial K+ ONLY < 3.5 Potassium Chloride (Kcl 20 Meq Premix Inj) 20 meq in 100 mls @ 50 mls/hr IV.SIG Q2H PRN PRN Reason: for Subsequent K+ < 3.5 Potassium Chloride (Kcl 20 Meq Premix Inj) 20 meq in 100 mls @ 50 mls/hr IV.SIG Q2H PRN PRN Reason: for K+ 3.5 to 4.4 Potassium Chloride (Kcl 20 Meq Premix Inj) 20 meq in 100 mls @ 50 mls/hr IV.SIG Q2H PRN PRN Reason: for K+ 4.5 to 5 Sodium Phosphate 15 mmol/ (Sodium Chloride) 105 mls @ 25 mls/hr IV.SIG UNSCH PRN PRN Reason: for Phosphate Level < 1.0 Metoprolol Tartrate (Lopressor) 25 mg PO BID LUCAS Pantoprazole Sodium (Protonix) 40 mg PO DAILY LUCAS Sodium Bicarbonate (Sodium Bicarbonate 8.4% Inj) 100 meq IV.PUSH UNSCH PRN PRN Reason: for pH less than 6.9 Sodium Bicarbonate (Sodium Bicarbonate 8.4% Inj) 50 meq IV.PUSH UNSCH PRN PRN Reason: for pH 6.9 to 7.0 Sodium Chloride (Ns Flush) 2 ml IV.FLUSH PRN PRN PRN Reason: FLUSH AFTER USING IV ACCESS Last Admin: 12/27/17 15:51 Dose: 2 ml Ursodiol (Actigall) 300 mg PO BID LUCAS Allergies Allergy/AdvReac Type Severity Reaction Status Date / Time No Known Allergies Allergy Unknown Uncoded 07/01/17 18:05 Home Medications Medication Instructions Recorded Confirmed Type amlodipine 5 mg PO DAILY 12/07/17 12/27/17 History atorvastatin 20 mg PO DAILY 12/07/17 12/27/17 History folic acid 1 mg PO DAILY 12/07/17 12/27/17 History gabapentin 300 mg PO BID 12/07/17 12/27/17 History [id number] [Creon] 1 cap PO QID 12/07/17 12/27/17 History metformin 500 mg PO BID 12/07/17 12/27/17 History metoprolol tartrate 25 mg PO BID 12/07/17 12/27/17 History metronidazole 500 mg PO TID 12/07/17 12/27/17 History pantoprazole 40 mg PO DAILY 12/07/17 12/27/17 History ursodiol 300 mg PO BID 12/07/17 12/27/17 History Exam Vital signs: Vital Signs 12/27/17 14:56 12/27/17 15:53 12/27/17 17:00 Temperature 98.3 F Pulse Rate 111 H 56 L 87 Respiratory Rate 18 16 18 Blood Pressure 161/98 H 105/62 152/84 H Pulse Oximetry 100 98 98 12/27/17 18:45 12/27/17 20:23 Temperature Pulse Rate 85 85 Respiratory Rate 19 20 Blood Pressure 160/88 H 107/76 Pulse Oximetry 98 99 Intake & Output 12/27/17 12/27/17 12/28/17 06:59 18:59 06:59 Intake Total 1999 Balance 1999 Weight 63.957 kg Intake: IV 1999 NS Inj 1,000 ML @ Wide Open IV. 1999 SIG BOLUS [facility] Rx#:[id number] Narrative: GENERAL: This is a well-nourished, well-developed patient, in no apparent distress. SKIN: Warm, dry, intact, no ecchymosis or open lesions EYES: Pupils equal round and reactive, no scleral edema or drainage CARDIOVASCULAR: Regular rate and rhythm without murmurs, gallops, or rubs. RESPIRATORY: Clear to auscultation. Breath sounds equal bilaterally. No wheezes , rales, or rhonchi. GASTROINTESTINAL: Abdomen soft, non-tender, nondistended. Normal active bowel sounds MUSCULOSKELETAL: Extremities without clubbing, cyanosis, or edema. NEURO: Alert & Oriented x4 to person, place, time, situation. Moves all ext x4 Results - Labs CBC & Chem 7: 12/27/17 14:45 12/27/17 14:45 Labs: Short CBC 12/27/17 Range/Units 14:45 WBC 7.1 (4.0-11.0) th/mm3 Hgb 13.2 (11.6-15.3) gm/dL Hct 41.4 (35.0-46.0) % Plt Count 236 (150-450) th/mm3 BMP 12/27/17 14:45 Sodium 122 L* Potassium 6.1 H Chloride 86 L Carbon Dioxide 24.4 BUN 25 H Creatinine 1.58 H Calcium 9.7 Liver Function 12/27/17 Range/Units 14:45 Total Bilirubin 0.8 (0.2-1.0) mg/dL AST 29 (15-37) U/L ALT 16 (10-53) U/L Alkaline Phosphatase 152 H (45-117) U/L Albumin 3.6 (3.4-5.0) g/dL Urine 12/27/17 Range/Units 15:35 Urine Color Straw (Yellw/Straw) Urine Clarity Clear (Clear) Urine pH 6.0 (5.0-8.5) Ur Specific [place] 1.025 (1.002-1.035) Urine Protein Negative (Neg-Trace) mg/dL Urine Glucose (UA) 500 or greater (Negative) mg/dL - Imaging Impressions Abdomen/Pelvis CT 12/27/17 15:22 CONCLUSION: 1. No acute findings. 2. Multiple chronic findings, described above, are stable in appearance when compared to December 2016. Caprini VTE Risk Assessment Caprini VTE Risk Assessment: Moderate/High Risk (score >= 2) Caprini Risk Assessment Model: Point Value = 1 Point Value = 2 Point Value = 3 Point Value = 5 Age 41-60 Minor surgery BMI > 25 kg/m2 Swollen legs Varicose veins or History of unexplained or recurrent spontaneous Oral contraceptives or hormone replacement Sepsis (< 1 month) Serious lung disease, including pneumonia (< 1 month) Abnormal pulmonary function Acute myocardial infarction Congestive heart failure (< 1 month) History of inflammatory bowel disease Medical patient at bed rest Age 61-74 Arthroscopic surgery Major open surgery (> 45 min) Laparoscopic surgery (> 45 min) Malignancy Confined to bed (> 72 hours) Immobilizing plaster cast Central venous access Age >= 75 History of VTE Family history of VTE Factor V Leiden Prothrombin [id number] Lupus anticoagulant Anticardiolipin antibodies Elevated serum homocysteine Heparin-induced thrombocytopenia Other congenital or acquired thrombophilia Stroke (< 1 month) Elective arthroplasty Hip, pelvis, or leg fracture Acute spinal cord injury (< 1 month) Prophylaxis Regimen: Total Risk Factor Score Risk Level Prophylaxis Regimen 0-1 Low Early ambulation 2 Moderate Order ONE of the following: *Sequential Compression Device (SCD) *Heparin 5000 units SQ BID 3-4 Higher Order ONE of the following medications: *Heparin 5000 units SQ TID *Enoxaparin/Lovenox 40 mg SQ daily (WT < 150 kg, CrCl > 30 mL/min) *Enoxaparin/Lovenox 30 mg SQ daily (WT < 150 kg, CrCl > 10-29 mL/min) *Enoxaparin/Lovenox 30 mg SQ BID (WT < 150 kg, CrCl > 30 mL/min) AND/OR *Sequential Compression Device (SCD) 5 or more Highest Order ONE of the following medications: *Heparin 5000 units SQ TID (Preferred with Epidurals) *Enoxaparin/Lovenox 40 mg SQ daily (WT < 150 kg, CrCl > 30 mL/min) *Enoxaparin/Lovenox 30 mg SQ daily (WT < 150 kg, CrCl > 10-29 mL/min) *Enoxaparin/Lovenox 30 mg SQ BID (WT < 150 kg, CrCl > 30 mL/min) AND *Sequential Compression Device (SCD) 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 Abdominal CT shows a 4.1 cm poorly defined slightly hypodense lesion in the right lobe of the liver -Consult to oncology for evaluation -Pain management with IV morphine Hyperglycemia, glucose 938 on admission -Insulin drip -Monitor in ICU -Will transition to sliding scale when Sugars are more controlled -Consult to wellness educator -A1c ordered hyponatremia, likely secondary to hypoglycemia -Serial sodiums ordered UTI, elevated WBC, small leukocyte esterase -continue IV Rocephin -Urine culture pending Hypertension, chronic -Resume home medications DVT prophylaxis: Heparin Discussed Condition With: Patient and RN
[2017-12-27] MEDS: Metoprolol Tartrate 25 MG Tablet PO SCH (22:30)
[2017-12-27] MEDS: Gabapentin 300 MG Capsule PO SCH (22:30)
[2017-12-27] MEDS: Heparin - SQ 10,000 UNITS/ML Vial SQ SCH (23:00)
[2017-12-27] MEDS: Insulin Detemir Inj 1,000 UNIT/10 ML Vial SQ SCH (23:30)
[2017-12-27] MEDS: Lipase/Protease/Amylase 24/76/120 DR Capsule PO SCH (23:30)
[2017-12-27 23:52] LABS: Calcium 8.1 mg/dL (8.5-10.1); Carbon Dioxide 22.9 meq/L (21.0-32.0); Potassium 3.5 meq/L (3.5-5.1)
[2017-12-28 02:31] LABS: Anion Gap 9 meq/L (5-15); Blood Urea Nitrogen 17 mg/dL (7-18); Calcium 7.9 mg/dL (8.5-10.1); Carbon Dioxide 22.9 meq/L (21.0-32.0); Chloride 108 meq/L (98-107); Glomerular Filtration Rate Greater Than 89 mL/min (>89); Glucose,Random 195 mg/dL (74-106); Magnesium 1.3 mg/dL (1.5-2.5); Potassium 3.8 meq/L (3.5-5.1); Sodium 140 meq/L (136-145)
[2017-12-28] MEDS ORDERED: Chlorhexidine Gluconate 2% 1 Pack (2 Cloths) TOPICAL PRN (04:00)
[2017-12-28] MEDS: Insulin NovoLOG Aspart Correctional Sugar Inj SQ SCH ×5 (05:07→21:33)
[2017-12-28 08:11] LABS: Anion Gap 7 meq/L (5-15); Blood Urea Nitrogen 14 mg/dL (7-18); Calcium 7.9 mg/dL (8.5-10.1); Carbon Dioxide 22.9 meq/L (21.0-32.0); Chloride 111 meq/L (98-107); Glomerular Filtration Rate Greater Than 89 mL/min (>89); Glucose,Random 160 mg/dL (74-106); Magnesium 1.3 mg/dL (1.5-2.5); Phosphorus 1.9 mg/dL (2.5-4.9); Potassium 3.6 meq/L (3.5-5.1); Sodium 141 meq/L (136-145)
[2017-12-28] MEDS: Heparin - SQ 10,000 UNITS/ML Vial SQ SCH ×2 (08:11→21:31)
[2017-12-28] MEDS: Lipase/Protease/Amylase 24/76/120 DR Capsule PO SCH ×4 (08:17→21:31)
[2017-12-28] MEDS: Insulin Detemir Inj 1,000 UNIT/10 ML Vial SQ SCH ×2 (08:17→21:33)
[2017-12-28] MEDS: Gabapentin 300 MG Capsule PO SCH ×2 (08:17→21:31)
[2017-12-28] MEDS: amLODIPine 5 MG Tablet PO SCH (08:17)
[2017-12-28] MEDS: Metoprolol Tartrate 25 MG Tablet PO SCH ×2 (08:17→21:31)
[2017-12-28] MEDS: Morphine Inj 4 MG/ML Vial IV.PUSH PRN ×3 (08:23→17:36)
[2017-12-28] MEDS: Sod Chloride 0.9% Inj 1,000 ML IV.CONT SCH ×3 (08:53→21:32)
--- NOTE | 2017-12-28 09:53 | MB ---
cc: Mamadou Saez MD, Steven M DO DATE: 12/28/2017 REQUESTING PHYSICIAN: Charly Geiger MD REASON FOR CONSULTATION: A patient of Dr. Orozco with possible cholangiocarcinoma admitted with abdominal pain. HISTORY OF PRESENT ILLNESS: A 57-year-old pleasant black lady with a history of diabetes, hypertension, hyperlipidemia, asthma, recently diagnosed liver mass, possible hepatic carcinoma versus cholangiocarcinoma, being managed by Dr. Orozco. She is currently admitted with new-onset left lower quadrant abdominal pain, and the patient was found to be in a hyperglycemic state with a glucose more than 900 and sodium of 122. Hence, was admitted to the hospital and oncology was consulted. Mrs. Redding was recently diagnosed with a liver tumor, according to her, and is unsure about her details. She was seen by Dr. Orozco and was sent to a referral physician in [facility] for possible stereotactic body radiation. Again, she is unclear about the reason for referral and she claims that she has seen this oncologist in [facility] earlier this week, and she does not have any further details. Currently, her abdominal pain is decreasing. She has no nausea, vomiting, hematemesis, blood in the stool or black stools. REVIEW OF SYSTEMS: No headaches, motor or sensory symptoms. No cough, chest pain or shortness of breath. She has right lower chest wall pain that is pleuritic in nature. She has no right upper quadrant abdominal pain as such. She describes her abdominal pain mostly as left lower quadrant and lasts 2-3 weeks' duration and increased in the last 3 days since she came to the emergency room. It is not associated with any blood in the stool or constipation or diarrhea. No frequency, urgency, or hematuria. No fevers, night sweats, or recent weight loss. The patient admits to having tingling and numbness in the extremities. PAST MEDICAL HISTORY: As above, diabetes, hypertension and liver tumor. PAST SURGICAL HISTORY: Coronary artery stent, biliary ductal stent placement, history of cholecystectomy and gastrostomy tube placement in the past. FAMILY HISTORY: Noncontributory. SOCIAL HISTORY: Current smoker. Denies alcohol abuse. PHYSICAL EXAMINATION: GENERAL: Middle-aged lady, appearing much older than stated age, partially edentulous. Pallor present. No icterus. No palpable adenopathy in the neck or axilla. Specifically, left supraclavicular lymph not palpable. Alert and oriented x4. HEENT: Without oropharyngeal lesions. Dry mucous membranes and skin noted. BACK: No spinal tenderness. HEART: S1, S2. Regular rate and rhythm. No murmurs or gallops. LUNGS: Bilaterally clear without crackles or wheeze. ABDOMEN: Diffusely distended, soft and nontender without palpable organomegaly. No guarding, rigidity or rebound. Specifically, left lower quadrant rebound is not felt and positive bowel sounds. EXTREMITIES: No edema or evidence of DVTs. MEDICATIONS: 1. Amlodipine. 2. Lipase. 3. Protease. 4. Chlorhexidine gluconate. 5. Gabapentin. 6. Insulin. 7. Metoprolol. 8. Pantoprazole. 6. Ursodiol. LABORATORIES ON ADMISSION: She had a white count of 7.1, hemoglobin 13.2, platelets 236. Glucose of 524 which subsequently came down to 195 yesterday 211 this morning. Creatinine is normal. Liver enzymes not available, except total bilirubin of 1.3. CT abdomen and pelvis 12/27/2017 compared with 01/07/2017 showed a new 4 cm poorly defined hypodense lesion in the posterior segment of the right lobe of the liver with an indwelling biliary stent with mild dilatation, central biliary duct, central duct of the left lobe and no evidence of adenopathy. There is a 4 cm right adnexal dermoid with no evidence of free fluid and a stable 1.5 cm low-density mass in the crux of the left adrenal gland. IMPRESSION: A 57-year-old lady with a possible cholangiocarcinoma, status post intrahepatic stent placement, currently being evaluated for possible intrahepatic therapy versus stereotactic body radiation at [facility], admitted with left lower quadrant abdominal pain of unclear etiology. She appears to have abdominal pain secondary to uncontrolled glucose and hyperglycemic state. In addition, she could have an episode of diverticulitis and that this lower quadrant abdominal pain does not appear to be related to her malignancy. I will have Dr. Orozco follow her up in the hospital for continuation of her oncologic care, and if we can be of any further help, please do not hesitate to contact me. Mamadou Saez MD MVA/eva , 08:10 AM , 08:21 AM
--- NOTE | 2017-12-28 11:56 | P.PNIM ---
Subjective Interval history: 57 y/o Female with a history of diabetes, hypertension, hyperlipidemia and asthma presented to the ED with complaints of abdominal pain and back pain. Patient states she has been having a 3-4-month history of intermittent, aching abdominal pain radiates to her back and down her left leg. She denies any associated symptoms states worse with movement and food, better with rest. She states over the past couple days it has just gotten worse. Patient states that she was diagnosed with cancer but is unsure what type and she has not underwent any biopsies chemo or radiation. She states she has been taking her long- acting insulin, Levemir as prescribed but does not know where her blood sugar machine is she was seen by her PCP today and was found to have an elevated blood sugar. She denies any chest pain, shortness of breath, fever, chills, dysuria, constipation or headaches. He does seem to be a poor historian as far as her medical history is concerned. Patient was seen by Dr. Orozco in October 2017, CT and bone scan were ordered and patient was going to be referred to a tertiary center. 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 SP INTRAHEPATIC STENT PLACEMENT FOUND TO HAVE HYPERGLYCEMIA AND UNCONTROLLED SUGARS MEDS ADJUSTED POSSIBLE DIVERTICULITIS Physical Exam Vital signs: Vital Signs 12/27/17 14:56 12/27/17 15:53 12/27/17 17:00 Temperature 98.3 F Pulse Rate 111 H 56 L 87 Respiratory Rate 18 16 18 Blood Pressure 161/98 H 105/62 152/84 H Pulse Oximetry 100 98 98 12/27/17 18:45 12/27/17 20:23 12/28/17 01:21 Temperature 97.4 F L Pulse Rate 85 85 68 Respiratory Rate 19 20 18 Blood Pressure 160/88 H 107/76 120/58 L Pulse Oximetry 98 99 99 12/28/17 04:00 12/28/17 08:00 12/28/17 11:48 Temperature 97.8 F 98.3 F 98.2 F Pulse Rate 70 69 72 Respiratory Rate 18 18 18 Blood Pressure 120/60 92/51 L 92/54 L Pulse Oximetry 100 96 98 Intake & Output 12/27/17 12/28/17 12/28/17 18:59 06:59 18:59 Intake Total 1999 1000 / 1000 Balance 1999 1000 / 1000 Weight 63.957 kg 68 kg Intake: IV 1999 / 1000 NS Inj 1,000 ML @ 100 mls/hr IV 999 / 1000 .CONT .Q10H LUCAS Rx#:[id number] NS Inj 1,000 ML @ Wide Open IV. 1999 SIG BOLUS LUCAS Rx#:[id number] Other: # Voids 2 Date of Last Bowel Movement 12/27/17 Weight On Admission 68 kg Narrative: GENERAL: This is a VERY THIN APPEARING FEMALE, in no apparent distress. SKIN: Warm, dry, intact, no ecchymosis or open lesions EYES: Pupils equal round and reactive, no scleral edema or drainage CARDIOVASCULAR: Regular rate and rhythm without murmurs, gallops, or rubs. RESPIRATORY: Clear to auscultation. Breath sounds equal bilaterally. No wheezes , rales, or rhonchi. GASTROINTESTINAL: Abdomen soft, non-tender, nondistended. Normal active bowel sounds MUSCULOSKELETAL: Extremities without clubbing, cyanosis, or edema. NEURO: Alert & Oriented x4 to person, place, time, situation. Moves all ext x4 Results - Labs CBC & Chem 7: 12/27/17 14:45 12/28/17 06:52 Laboratory Results - last 24 hr 12/27/17 12/27/17 12/27/17 14:45 14:45 14:45 WBC 7.1 RBC 4.41 Hgb 13.2 Hct 41.4 MCV 93.7 MCH 29.9 MCHC 31.9 L RDW 15.8 Plt Count 236 MPV 10.9 Neut % (Auto) 67.3 Lymph % (Auto) 26.3 Chambers % (Auto) 5.2 Eos % (Auto) 0.7 Baso % (Auto) 0.5 Neut # (Auto) 4.8 Lymph # (Auto) 1.9 [place] # (Auto) 0.4 Eos # (Auto) 0.1 Baso # (Auto) 0.0 WBC Differential . Differential Comment Auto diff final Puncture Site Patient Temperature VBG pH VBG pCO2 VBG pO2 VBG HCO3 VBG O2 Saturation VBG O2 Content VBG Base Excess VBG Carboxyhemoglobin VBG Methemoglobin Hemoglobin O2 Delivery Device Inspired O2 Critical Value Sodium 122 L* Potassium 6.1 H Chloride 86 L Carbon Dioxide 24.4 Anion Gap 12 BUN 25 H Creatinine 1.58 H Estimated GFR 41 L POC Glucose Random Glucose 938 H* Lactic Acid 1.9 Calcium 9.7 Phosphorus Magnesium Total Bilirubin 0.8 AST 29 ALT 16 Alkaline Phosphatase 152 H Total Protein 8.7 H Albumin 3.6 Lipase 374 Urine Color Urine Clarity Urine pH Ur Specific [place] Urine Protein Urine Glucose (UA) Urine Ketones Urine Occult Blood Urine Nitrate Urine Bilirubin Urine Urobilinogen Ur Leukocyte Esterase Urine RBC Urine WBC Ur Squamous Epith Cells Urine Bacteria Urine Yeast Micro UA Comment Ur Microscopic Review Urine Culture Comments 12/27/17 12/27/17 12/27/17 15:35 15:38 18:13 WBC RBC Hgb Hct MCV MCH MCHC RDW Plt Count MPV Neut % (Auto) Lymph % (Auto) [place] % (Auto) Eos % (Auto) Baso % (Auto) Neut # (Auto) Lymph # (Auto) [place] # (Auto) Eos # (Auto) Baso # (Auto) WBC Differential Differential Comment Puncture Site I.v. Patient Temperature 98.6 VBG pH 7.33 L VBG pCO2 43 L VBG pO2 32 L VBG HCO3 22 VBG O2 Saturation 53 L VBG O2 Content 9.2 VBG Base Excess -2.9 L VBG Carboxyhemoglobin 4.3 H VBG Methemoglobin 0.6 Hemoglobin 12.4 O2 Delivery Device Room air Inspired O2 21 Critical Value No Sodium Potassium Chloride Carbon Dioxide Anion Gap BUN Creatinine Estimated GFR POC Glucose Greater than 600 H* Random Glucose Lactic Acid Calcium Phosphorus Magnesium Total Bilirubin AST ALT Alkaline Phosphatase Total Protein Albumin Lipase Urine Color Straw Urine Clarity Clear Urine pH 6.0 Ur Specific [place] 1.025 Urine Protein Negative Urine Glucose (UA) 500 or greater Urine Ketones Trace H Urine Occult Blood Negative Urine Nitrate Negative Urine Bilirubin Negative Urine Urobilinogen Less than 2 Ur Leukocyte Esterase Small H Urine RBC 1 Urine WBC 12 H Ur Squamous Epith Cells <1 Urine Bacteria Rare H Urine Yeast Occasional H Micro UA Comment Culture indicated Ur Microscopic Review Not Reportable Urine Culture Comments Culture indicated 12/27/17 12/27/17 12/27/17 20:13 22:49 22:50 WBC RBC Hgb Hct MCV MCH MCHC RDW Plt Count MPV Neut % (Auto) Lymph % (Auto) [place] % (Auto) Eos % (Auto) Baso % (Auto) Neut # (Auto) Lymph # (Auto) [place] # (Auto) Eos # (Auto) Baso # (Auto) WBC Differential Differential Comment Puncture Site Patient Temperature VBG pH VBG pCO2 VBG pO2 VBG HCO3 VBG O2 Saturation VBG O2 Content VBG Base Excess VBG Carboxyhemoglobin VBG Methemoglobin Hemoglobin O2 Delivery Device Inspired O2 Critical Value Sodium 139 D Potassium 3.5 D Chloride 107 D Carbon Dioxide 22.9 Anion Gap 9 BUN 18 Creatinine 0.87 Estimated GFR 81 L POC Glucose 524 H* 163 H Random Glucose 152 H D Lactic Acid Calcium 8.1 L D Phosphorus Magnesium Total Bilirubin AST ALT Alkaline Phosphatase Total Protein Albumin Lipase Urine Color Urine Clarity Urine pH Ur Specific [place] Urine Protein Urine Glucose (UA) Urine Ketones Urine Occult Blood Urine Nitrate Urine Bilirubin Urine Urobilinogen Ur Leukocyte Esterase Urine RBC Urine WBC Ur Squamous Epith Cells Urine Bacteria Urine Yeast Micro UA Comment Ur Microscopic Review Urine Culture Comments 12/28/17 12/28/17 12/28/17 01:36 05:01 06:52 WBC RBC Hgb Hct MCV MCH MCHC RDW Plt Count MPV Neut % (Auto) Lymph % (Auto) [place] % (Auto) Eos % (Auto) Baso % (Auto) Neut # (Auto) Lymph # (Auto) [place] # (Auto) Eos # (Auto) Baso # (Auto) WBC Differential Differential Comment Puncture Site Patient Temperature VBG pH VBG pCO2 VBG pO2 VBG HCO3 VBG O2 Saturation VBG O2 Content VBG Base Excess VBG Carboxyhemoglobin VBG Methemoglobin Hemoglobin O2 Delivery Device Inspired O2 Critical Value Sodium 140 141 Potassium 3.8 3.6 Chloride 108 H 111 H Carbon Dioxide 22.9 22.9 Anion Gap 9 7 BUN 17 14 Creatinine 0.75 0.68 Estimated GFR Greater than 89 Greater than 89 POC Glucose 211 H Random Glucose 195 H 160 H Lactic Acid Calcium 7.9 L 7.9 L Phosphorus 1.9 L Magnesium 1.3 L 1.3 L Total Bilirubin AST ALT Alkaline Phosphatase Total Protein Albumin Lipase Urine Color Urine Clarity Urine pH Ur Specific [place] Urine Protein Urine Glucose (UA) Urine Ketones Urine Occult Blood Urine Nitrate Urine Bilirubin Urine Urobilinogen Ur Leukocyte Esterase Urine RBC Urine WBC Ur Squamous Epith Cells Urine Bacteria Urine Yeast Micro UA Comment Ur Microscopic Review Urine Culture Comments 12/28/17 08:16 WBC RBC Hgb Hct MCV MCH MCHC RDW Plt Count MPV Neut % (Auto) Lymph % (Auto) [place] % (Auto) Eos % (Auto) Baso % (Auto) Neut # (Auto) Lymph # (Auto) [place] # (Auto) Eos # (Auto) Baso # (Auto) WBC Differential Differential Comment Puncture Site Patient Temperature VBG pH VBG pCO2 VBG pO2 VBG HCO3 VBG O2 Saturation VBG O2 Content VBG Base Excess VBG Carboxyhemoglobin VBG Methemoglobin Hemoglobin O2 Delivery Device Inspired O2 Critical Value Sodium Potassium Chloride Carbon Dioxide Anion Gap BUN Creatinine Estimated GFR POC Glucose 123 H Random Glucose Lactic Acid Calcium Phosphorus Magnesium Total Bilirubin AST ALT Alkaline Phosphatase Total Protein Albumin Lipase Urine Color Urine Clarity Urine pH Ur Specific [place] Urine Protein Urine Glucose (UA) Urine Ketones Urine Occult Blood Urine Nitrate Urine Bilirubin Urine Urobilinogen Ur Leukocyte Esterase Urine RBC Urine WBC Ur Squamous Epith Cells Urine Bacteria Urine Yeast Micro UA Comment Ur Microscopic Review Urine Culture Comments Microbiology 12/27/17 15:35 Clean Catch Urine Urine Culture - Preliminary gram negative rods - Imaging Impressions Abdomen/Pelvis CT 12/27/17 15:22 CONCLUSION: 1. No acute findings. 2. Multiple chronic findings, described above, are stable in appearance when compared to December 2016. 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 Abdominal CT shows a 4.1 cm poorly defined slightly hypodense lesion in the right lobe of the liver -Consult to oncology for evaluation -Pain management with IV morphine Hyperglycemia, glucose 938 on admission/LAST HGBA -Insulin drip -Monitor in ICU -Will transition to sliding scale when Sugars are more controlled -Consult to commercial artist lettering -A1c ordered--LAST AIC WAS GREATER THAN 19 IN [place] hyponatremia, likely secondary to hypoglycemia -Serial sodiums ordered UTI, elevated WBC, small leukocyte esterase -continue IV Rocephin -Urine culture pending Hypertension, chronic -Resume home medications DVT prophylaxis: Heparin Code Status: FULL CODE Discussed Condition With: RN AND PT AND CM Discharge Planning: ONCE ABDOMINAL PAIN IMPROVED AND SUGARS ARE GOOD
[2017-12-28] MEDS ORDERED: Morphine Sulfate Inj 2 MG/ML Vial IV.PUSH PRN (11:58)
[2017-12-28] MEDS ORDERED: Acetaminophen 325 MG Tablet PO PRN (11:58)
[2017-12-28] MEDS ORDERED: Naloxone Inj 0.4 MG/ML Vial IV.PUSH PRN (11:58)
[2017-12-28 14:00] LABS: Anion Gap 7 meq/L (5-15); Blood Urea Nitrogen 12 mg/dL (7-18); Calcium 8.2 mg/dL (8.5-10.1); Carbon Dioxide 24.1 meq/L (21.0-32.0); Chloride 109 meq/L (98-107); Glomerular Filtration Rate Greater Than 89 mL/min (>89); Glucose,Random 136 mg/dL (74-106); Magnesium 1.3 mg/dL (1.5-2.5); Phosphorus 2.2 mg/dL (2.5-4.9); Potassium 3.8 meq/L (3.5-5.1); Sodium 140 meq/L (136-145)
--- NOTE | 2017-12-28 15:21 | ECG ---
Date Performed: 12/27/2017 Time Performed: 16:45:41 PTAGE: 57 years EKG: Sinus rhythm NORMAL ECG Since the PREVIOUS TRACING , no significant change noted PREVIOUS TRACIN08/14/2017 23.28 DOCTOR: Sarah Hargrove Interpretating Date/Time 12/28/2017 15:15:51
[2017-12-28 20:36] LABS: Magnesium 1.3 mg/dL (1.5-2.5)
[2017-12-28 22:06] LABS: Hemoglobin A1c 17.3 % (4.3-6.0)
[2017-12-29] MEDS: oxyCODONE/Acetaminophen 10/325 Tablet PO PRN ×3 (01:22→20:49)
[2017-12-29] MEDS: Chlorhexidine Gluconate 2% 1 Pack (2 Cloths) TOPICAL SCH ×2 (03:28→05:06)
[2017-12-29] MEDS: Insulin NovoLOG Aspart Correctional Sugar Inj SQ SCH ×5 (03:55→20:48)
[2017-12-29] MEDS: Morphine Inj 4 MG/ML Vial IV.PUSH PRN (05:09)
[2017-12-29 06:20] LABS: Albumin 2.3 g/dL (3.4-5.0); Anion Gap 9 meq/L (5-15); Aspartate Aminotransferase 243 U/L (15-37); Blood Urea Nitrogen 7 mg/dL (7-18); Calcium 7.3 mg/dL (8.5-10.1); Carbon Dioxide 21.1 meq/L (21.0-32.0); Chloride 111 meq/L (98-107); Glomerular Filtration Rate Greater Than 89 mL/min (>89); Glucose,Random 189 mg/dL (74-106); Magnesium 1.2 mg/dL (1.5-2.5); Potassium 3.4 meq/L (3.5-5.1); Sodium 141 meq/L (136-145)
[2017-12-29 06:33] LABS: Alanine Aminotransferase 81 U/L (10-53); Alkaline Phosphatase 227 U/L (45-117); Free T4 (Free Thyroxine) 1.35 ng/dL (0.76-1.46); Phosphorus 2.1 mg/dL (2.5-4.9); Total Protein 5.5 g/dL (6.4-8.2)
[2017-12-29 06:50] LABS: Baso % (Auto) 0.9 % (0.0-2.0); Eos # (Auto) 0.1 th/mm3 (0.0-0.4); Eos % (Auto) 2.3 % (0.0-4.0); Hematocrit 32.8 % (35.0-46.0); Hemoglobin 10.7 gm/dL (11.6-15.3); Lymph % (Auto) 44.6 % (9.0-44.0); Mean Corpuscular HGB Conc 32.7 % (32.0-36.0); Mean Corpuscular Hemoglobin 29.7 pg (27.0-34.0); Mean Corpuscular Volume 90.8 fL (80.0-100.0); Mean Platelet Volume 9.7 fL (7.0-11.0); Mono # (Auto) 0.2 th/mm3 (0.0-0.9); Mono % (Auto) 4.9 % (0.0-8.0); Neut # (Auto) 2.1 th/mm3 (1.8-7.7); Neut % (Auto) 47.3 % (16.0-70.0); Platelet Count 140 th/mm3 (150-450); Red Blood Count 3.61 mil/mm3 (4.00-5.30); White Blood Count 4.5 th/mm3 (4.0-11.0)
[2017-12-29] MEDS: Lipase/Protease/Amylase 24/76/120 DR Capsule PO SCH ×4 (08:31→20:51)
[2017-12-29] MEDS: Gabapentin 300 MG Capsule PO SCH ×2 (08:31→20:51)
[2017-12-29] MEDS: Heparin - SQ 10,000 UNITS/ML Vial SQ SCH ×2 (08:31→20:51)
[2017-12-29] MEDS: Metoprolol Tartrate 25 MG Tablet PO SCH ×2 (08:31→20:51)
[2017-12-29] MEDS: amLODIPine 5 MG Tablet PO SCH (08:31)
[2017-12-29] MEDS: Sod Chloride 0.9% Inj 1,000 ML IV.SIG SCH ×2 (08:32→18:09)
[2017-12-29] MEDS: Sod Chloride 0.9% Inj 1,000 ML IV.CONT SCH ×2 (08:41→18:15)
--- NOTE | 2017-12-29 08:42 | P.PN ---
Subjective Interval history: Admission Notes: 57 y/o Female with a history of diabetes, hypertension, hyperlipidemia and asthma presented to the ED with complaints of abdominal pain and back pain. Patient states she has been having a 3-4-month history of intermittent, aching abdominal pain radiates to her back and down her left leg. She denies any associated symptoms states worse with movement and food, better with rest. She states over the past couple days it has just gotten worse. Patient states that she was diagnosed with cancer but is unsure what type and she has not underwent any biopsies chemo or radiation. She states she has been taking her long- acting insulin, Levemir as prescribed but does not know where her blood sugar machine is she was seen by her PCP today and was found to have an elevated blood sugar. She denies any chest pain, shortness of breath, fever, chills, dysuria, constipation or headaches. He does seem to be a poor historian as far as her medical history is concerned. Patient was seen by Dr. Orozco in October 2017, CT and bone scan were ordered and patient was going to be referred to a tertiary center. Hospitalist Notes: 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 SP INTRAHEPATIC STENT PLACEMENT UNCONTROLLED BLOOD SUGAR. 12/29: Seen in her bedroom, discussed with patient and nurse no new complaint. Physical Exam Vital signs: Vital Signs 12/28/17 11:48 12/28/17 16:00 12/28/17 20:00 Temperature 98.2 F 98.5 F 98.1 F Pulse Rate 72 76 87 Respiratory Rate 18 18 20 Blood Pressure 92/54 L 109/53 L 135/76 Pulse Oximetry 98 100 97 12/28/17 23:57 12/29/17 04:00 Temperature 98.6 F 98.4 F Pulse Rate 69 66 Respiratory Rate 18 18 Blood Pressure 130/61 133/66 Pulse Oximetry 96 96 Intake & Output 12/28/17 12/29/17 12/29/17 18:59 06:59 18:59 Intake Total 1000 / 1000 1240 / 1240 Balance 1000 / 1000 1240 / 1240 Weight 73.8 kg Intake: IV 1000 / 1000 1000 / 1000 NS Inj 1,000 ML @ 100 mls/hr IV 1000 / 1000 1000 / 1000 .CONT .Q10H LUCAS Rx#:[id number] Oral 0 / 0 240 / 240 Other: # Voids 2 8 Date of Last Bowel Movement 12/26/17 # Bowel Movements 0 Narrative: GENERAL: Thin patient in no apparent distress. CARDIOVASCULAR: Regular rate and rhythm without murmurs, gallops, or rubs. RESPIRATORY: Clear to auscultation. Breath sounds equal bilaterally. No wheezes , rales, or rhonchi. GASTROINTESTINAL: Abdomen soft, non-tender, nondistended. Normal active bowel sounds MUSCULOSKELETAL: Extremities without clubbing, cyanosis, or edema. NEURO: Alert & Oriented x4 to person, place, time, situation. Moves all ext x4 Results - Labs CBC & Chem 7: 12/30/17 03:53 12/30/17 03:53 Laboratory Results - last 24 hr 12/27/17 12/27/17 12/28/17 14:45 15:35 12:07 WBC RBC Hgb Hct MCV MCH MCHC RDW Plt Count MPV Neut % (Auto) Lymph % (Auto) [place] % (Auto) Eos % (Auto) Baso % (Auto) Neut # (Auto) Lymph # (Auto) [place] # (Auto) Eos # (Auto) Baso # (Auto) WBC Differential Differential Comment Sodium Potassium Chloride Carbon Dioxide Anion Gap BUN Creatinine Estimated GFR POC Glucose 132 H Random Glucose Hemoglobin A1c 17.3 H Calcium Prot Corrected Calcium Phosphorus Magnesium Total Bilirubin AST ALT Alkaline Phosphatase Total Protein Albumin TSH Free T4 Urine Color Straw Urine Clarity Clear Urine pH 6.0 Ur Specific [place] 1.025 Urine Protein Negative Urine Glucose (UA) 500 or greater Urine Ketones Trace H Urine Occult Blood Negative Urine Nitrate Negative Urine Bilirubin Negative Urine Urobilinogen Less than 2 Ur Leukocyte Esterase Small H Urine RBC 1 Urine WBC 12 H Ur Squamous Epith Cells <1 Urine Bacteria Rare H Urine Yeast Occasional H Micro UA Comment Culture indicated Urine Culture Comments Culture indicated 12/28/17 12/28/17 12/28/17 13:15 17:33 19:13 WBC RBC Hgb Hct MCV MCH MCHC RDW Plt Count MPV Neut % (Auto) Lymph % (Auto) [place] % (Auto) Eos % (Auto) Baso % (Auto) Neut # (Auto) Lymph # (Auto) [place] # (Auto) Eos # (Auto) Baso # (Auto) WBC Differential Differential Comment Sodium 140 Potassium 3.8 Chloride 109 H Carbon Dioxide 24.1 Anion Gap 7 BUN 12 Creatinine 0.64 Estimated GFR Greater than 89 POC Glucose 139 H Random Glucose 136 H Hemoglobin A1c Calcium 8.2 L Prot Corrected Calcium Phosphorus 2.2 L 2.0 L Magnesium 1.3 L 1.3 L Total Bilirubin AST ALT Alkaline Phosphatase Total Protein Albumin TSH Free T4 Urine Color Urine Clarity Urine pH Ur Specific [place] Urine Protein Urine Glucose (UA) Urine Ketones Urine Occult Blood Urine Nitrate Urine Bilirubin Urine Urobilinogen Ur Leukocyte Esterase Urine RBC Urine WBC Ur Squamous Epith Cells Urine Bacteria Urine Yeast Micro UA Comment Urine Culture Comments 12/28/17 12/29/17 12/29/17 21:27 03:53 05:42 WBC RBC Hgb Hct MCV MCH MCHC RDW Plt Count MPV Neut % (Auto) Lymph % (Auto) [place] % (Auto) Eos % (Auto) Baso % (Auto) Neut # (Auto) Lymph # (Auto) [place] # (Auto) Eos # (Auto) Baso # (Auto) WBC Differential Differential Comment Sodium 141 Potassium 3.4 L Chloride 111 H Carbon Dioxide 21.1 Anion Gap 9 BUN 7 Creatinine 0.56 Estimated GFR Greater than 89 POC Glucose 119 H 203 H Random Glucose 189 H Hemoglobin A1c Calcium 7.3 L* D Prot Corrected Calcium 8.2 L Phosphorus 2.1 L Magnesium 1.2 L Total Bilirubin 0.4 AST 243 H ALT 81 H Alkaline Phosphatase 227 H Total Protein 5.5 L D Albumin 2.3 L D TSH 1.330 Free T4 1.35 Urine Color Urine Clarity Urine pH Ur Specific [place] Urine Protein Urine Glucose (UA) Urine Ketones Urine Occult Blood Urine Nitrate Urine Bilirubin Urine Urobilinogen Ur Leukocyte Esterase Urine RBC Urine WBC Ur Squamous Epith Cells Urine Bacteria Urine Yeast Micro UA Comment Urine Culture Comments 12/29/17 12/29/17 06:37 08:30 WBC 4.5 RBC 3.61 L Hgb 10.7 L D Hct 32.8 L MCV 90.8 MCH 29.7 MCHC 32.7 RDW 15.0 Plt Count 140 L D MPV 9.7 Neut % (Auto) 47.3 Lymph % (Auto) 44.6 H [place] % (Auto) 4.9 Eos % (Auto) 2.3 Baso % (Auto) 0.9 Neut # (Auto) 2.1 Lymph # (Auto) 2.0 [place] # (Auto) 0.2 Eos # (Auto) 0.1 Baso # (Auto) 0.0 WBC Differential . Differential Comment Auto diff final Sodium Potassium Chloride Carbon Dioxide Anion Gap BUN Creatinine Estimated GFR POC Glucose 93 Random Glucose Hemoglobin A1c Calcium Prot Corrected Calcium Phosphorus Magnesium Total Bilirubin AST ALT Alkaline Phosphatase Total Protein Albumin TSH Free T4 Urine Color Urine Clarity Urine pH Ur Specific [place] Urine Protein Urine Glucose (UA) Urine Ketones Urine Occult Blood Urine Nitrate Urine Bilirubin Urine Urobilinogen Ur Leukocyte Esterase Urine RBC Urine WBC Ur Squamous Epith Cells Urine Bacteria Urine Yeast Micro UA Comment Urine Culture Comments Microbiology 12/27/17 15:35 Clean Catch Urine Urine Culture - Preliminary gram negative rods - Imaging Abdomen/Pelvis CT 12/27/17 15:22 CONCLUSION: 1. No acute findings. 2. Multiple chronic findings, described above, are stable in appearance when compared to December 2016. 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 hyponatremia, Improved. UTI, elevated WBC, small leukocyte esterase -continue IV Rocephin E Coli present sensitivities in chart. Hypertension, chronic -Resume home medications DVT prophylaxis: Heparin No change to anterior assessment. Code Status: Full code. Discussed Condition With: patient and nurse. Discharge Planning: Expected by tomorrow.
[2017-12-29] MEDS: Insulin Detemir Inj 1,000 UNIT/10 ML Vial SQ SCH ×2 (13:27→20:48)
[2017-12-30] MEDS: Insulin NovoLOG Aspart Correctional Sugar Inj SQ SCH ×3 (02:44→12:57)
[2017-12-30] MEDS: oxyCODONE/Acetaminophen 10/325 Tablet PO PRN ×2 (02:44→14:59)
[2017-12-30] MEDS: Sod Chloride 0.9% Inj 1,000 ML IV.CONT SCH ×3 (02:47→12:58)
[2017-12-30] MEDS: Chlorhexidine Gluconate 2% 1 Pack (2 Cloths) TOPICAL SCH (04:13)
[2017-12-30 05:00] LABS: Hemoglobin 10.5 gm/dL (11.6-15.3); Mean Corpuscular HGB Conc 32.9 % (32.0-36.0); Mean Corpuscular Hemoglobin 30.2 pg (27.0-34.0); Mean Platelet Volume 10.5 fL (7.0-11.0); Platelet Count 133 th/mm3 (150-450); Red Blood Count 3.48 mil/mm3 (4.00-5.30); Red Cell Distribution Width 15.5 % (11.6-17.2); White Blood Count 4.6 th/mm3 (4.0-11.0)
[2017-12-30 05:32] LABS: Anion Gap 10 meq/L (5-15); Blood Urea Nitrogen 7 mg/dL (7-18); Calcium 7.3 mg/dL (8.5-10.1); Chloride 112 meq/L (98-107); Glomerular Filtration Rate Greater Than 89 mL/min (>89); Glucose,Random 254 mg/dL (74-106); Magnesium 1.2 mg/dL (1.5-2.5); Potassium 4.4 meq/L (3.5-5.1); Sodium 140 meq/L (136-145)
[2017-12-30 05:47] LABS: Total Protein 5.7 g/dL (6.4-8.2)
[2017-12-30] MEDS ORDERED: Folic Acid 1 MG Tablet PO SCH (09:00)
[2017-12-30 09:19] VITALS: RESP 14
[2017-12-30] MEDS: Gabapentin 300 MG Capsule PO SCH (10:10)
[2017-12-30] MEDS: amLODIPine 5 MG Tablet PO SCH (10:10)
[2017-12-30] MEDS: Insulin Detemir Inj 1,000 UNIT/10 ML Vial SQ SCH (10:10)
[2017-12-30] MEDS: Metoprolol Tartrate 25 MG Tablet PO SCH (10:10)
[2017-12-30] MEDS: Heparin - SQ 10,000 UNITS/ML Vial SQ SCH (10:11)
[2017-12-30] MEDS: Lipase/Protease/Amylase 24/76/120 DR Capsule PO SCH ×2 (10:13→14:58)
[2017-12-30 13:06] VITALS: BP 135/75; PULSE 77; TEMP 98.4; O2SAT 97
--- NOTE | 2017-12-30 14:05 | P.PNIM ---
Subjective Interval history: 57 y/o Female with a history of diabetes, hypertension, hyperlipidemia and asthma presented to the ED with complaints of abdominal pain and back pain. Patient states she has been having a 3-4-month history of intermittent, aching abdominal pain radiates to her back and down her left leg. She denies any associated symptoms states worse with movement and food, better with rest. She states over the past couple days it has just gotten worse. Patient states that she was diagnosed with cancer but is unsure what type and she has not underwent any biopsies chemo or radiation. She states she has been taking her long- acting insulin, Levemir as prescribed but does not know where her blood sugar machine is she was seen by her PCP today and was found to have an elevated blood sugar. She denies any chest pain, shortness of breath, fever, chills, dysuria, constipation or headaches. He does seem to be a poor historian as far as her medical history is concerned. Patient was seen by Dr. Orozco in October 2017, CT and bone scan were ordered and patient was going to be referred to a tertiary center. 9 POSSIBLE CHOLANGIOCARCINOMA SP INTRAHEPATIC STENT PLACEMENT FOUND TO HAVE HYPERGLYCEMIA AND UNCONTROLLED SUGARS MEDS ADJUSTED POSSIBLE DIVERTICULITIS 12-29 NO CHANGE 9- DC TO HOME TODAY WANTS PO PAIN MEDS WILL CHECK E-FORCSE FOR DC CEFTIN AT DC Physical Exam Vital signs: Vital Signs 12/29/17 16:00 12/29/17 20:00 12/29/17 23:15 Temperature 98.5 F 98.7 F Pulse Rate 71 70 63 Respiratory Rate 16 18 Blood Pressure 134/58 L 140/78 Pulse Oximetry 98 97 12/30/17 00:00 12/30/17 04:00 12/30/17 08:00 Temperature 98.6 F 98.4 F 97.8 F Pulse Rate 67 67 75 Respiratory Rate 18 18 14 Blood Pressure 132/78 143/70 H 133/81 Pulse Oximetry 100 99 98 12/30/17 12:00 Temperature 98.4 F Pulse Rate 77 Respiratory Rate 14 Blood Pressure 135/75 Pulse Oximetry 97 Intake & Output 12/29/17 12/30/17 12/30/17 18:59 06:59 18:59 Intake Total 2680 / 2680 1240 / 1240 Balance 2680 / 2680 1240 / 1240 Weight 75.5 kg Intake: IV 1300 / 1300 1000 / 1000 NS Inj 1,000 ML @ 100 mls/hr IV 1000 / 1000 .CONT .Q10H LUCAS Rx#:[id number] NS Inj 1,000 ML @ Wide Open IV. 1000 / 1000 SIG BOLUS LUCAS Rx#:[id number] Rocephin Inj 1,000 MG In NS Inj 300 / 300 100 ML @ 200 mls/hr IV.SIG Q24H LUCAS Rx#:[id number] Oral 1380 / 1380 240 / 240 Other: # Voids 3 3 Date of Last Bowel Movement 12/26/17 12/26/17 12/26/18 Narrative: GENERAL: Thin patient in no apparent distress. CARDIOVASCULAR: Regular rate and rhythm without murmurs, gallops, or rubs. RESPIRATORY: Clear to auscultation. Breath sounds equal bilaterally. No wheezes , rales, or rhonchi. GASTROINTESTINAL: Abdomen soft, non-tender, nondistended. Normal active bowel sounds MUSCULOSKELETAL: Extremities without clubbing, cyanosis, or edema. NEURO: Alert & Oriented x4 to person, place, time, situation. Moves all ext x4 Results - Labs CBC & Chem 7: 12/30/17 03:53 12/30/17 03:53 Laboratory Results - last 24 hr 12/29/17 12/29/17 12/30/17 17:13 20:42 02:39 WBC RBC Hgb Hct MCV MCH MCHC RDW Plt Count MPV Sodium Potassium Chloride Carbon Dioxide Anion Gap BUN Creatinine Estimated GFR POC Glucose 86 190 H 234 H Random Glucose Calcium Prot Corrected Calcium Magnesium Total Protein 12/30/17 12/30/17 12/30/17 03:53 03:53 11:56 WBC 4.6 RBC 3.48 L Hgb 10.5 L Hct 32.0 L MCV 92.0 MCH 30.2 MCHC 32.9 RDW 15.5 Plt Count 133 L MPV 10.5 Sodium 140 Potassium 4.4 D Chloride 112 H Carbon Dioxide 18.0 L Anion Gap 10 BUN 7 Creatinine 0.70 Estimated GFR Greater than 89 POC Glucose 263 H Random Glucose 254 H Calcium 7.3 L* Prot Corrected Calcium 8.1 L Magnesium 1.2 L Total Protein 5.7 L - Imaging Abdomen/Pelvis CT 12/27/17 15:22 CONCLUSION: 1. No acute findings. 2. Multiple chronic findings, described above, are stable in appearance when compared to December 2016. 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 Abdominal CT shows a 4.1 cm poorly defined slightly hypodense lesion in the right lobe of the liver -Consult to oncology for evaluation -Pain management with IV morphine Hyperglycemia, glucose 938 on admission/LAST HGBA -Insulin drip -Monitor in ICU -Will transition to sliding scale when Sugars are more controlled -Consult to clinical staff educator -A1c ordered--LAST AIC WAS GREATER THAN 19 IN [place] NOW IS 17.3 hyponatremia, likely secondary to hypoglycemia -Serial sodiums ordered UTI, elevated WBC, small leukocyte esterase -continue IV Rocephin -Urine culture pending E.COLI UTI SENSITIVE TO CEFTIN Hypertension, chronic -Resume home medications DVT prophylaxis: Heparin DC TO HOME TODAY Code Status: FULL CODE Discussed Condition With: RN AND PT AND CM Discharge Planning: DC TO HOME TODAY
--- NOTE | 2017-12-30 14:26 | P.DS ---
Date of admission: 12/27/17 20:06 Primary care physician: UNKNOWN Attending physician on discharge: Charly Mkceon Anticipated date of discharge: 12/30/17 Brief History from admission: 57 y/o Female with a history of diabetes, hypertension, hyperlipidemia and asthma presented to the ED with complaints of abdominal pain and back pain. Patient states she has been having a 3-4-month history of intermittent, aching abdominal pain radiates to her back and down her left leg. She denies any associated symptoms states worse with movement and food, better with rest. She states over the past couple days it has just gotten worse. Patient states that she was diagnosed with cancer but is unsure what type and she has not underwent any biopsies chemo or radiation. She states she has been taking her long- acting insulin, Levemir as prescribed but does not know where her blood sugar machine is she was seen by her PCP today and was found to have an elevated blood sugar. She denies any chest pain, shortness of breath, fever, chills, dysuria, constipation or headaches. He does seem to be a poor historian as far as her medical history is concerned. Patient was seen by Dr. Orozco in October 2017, CT and bone scan were ordered and patient was going to be referred to a tertiary center. Patient update on day of discharge: 57 y/o Female with a history of diabetes, hypertension, hyperlipidemia and asthma presented to the ED with complaints of abdominal pain and back pain. Patient states she has been having a 3-4-month history of intermittent, aching abdominal pain radiates to her back and down her left leg. She denies any associated symptoms states worse with movement and food, better with rest. She states over the past couple days it has just gotten worse. Patient states that she was diagnosed with cancer but is unsure what type and she has not underwent any biopsies chemo or radiation. She states she has been taking her long- acting insulin, Levemir as prescribed but does not know where her blood sugar machine is she was seen by her PCP today and was found to have an elevated blood sugar. She denies any chest pain, shortness of breath, fever, chills, dysuria, constipation or headaches. He does seem to be a poor historian as far as her medical history is concerned. Patient was seen by Dr. Orozco in October 2017, CT and bone scan were ordered and patient was going to be referred to a tertiary center. 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 coli UTI (urinary tract infection) Status: Acute (3) Noncompliance Status: Chronic (4) Hyperglycemia Status: Chronic (5) Hyperosmolar hyponatremia Status: Acute DS: Medications - Discharge Medications Prescriptions: amlodipine 5 mg PO DAILY #30 tab atorvastatin 20 mg PO DAILY #30 tab blood glucose strip-disp meter [[employer] Blood Glucose System] #1 each blood-glucose meter [Blood Glucose Monitoring] #1 each cefuroxime axetil 500 mg PO Q12H #14 tab folic acid 1 mg PO DAILY #30 tab gabapentin 300 mg PO BID #60 cap insulin detemir U-100 [Levemir U-100 Insulin] 20 unit SUBCUT BID #5 vial insulin regular human [Novolin R Regular U-100 Insuln] 100 unit IV.CONT TITRATE PRN #5 vial PRN Reason: See protocol insulin syringe-needle,dispos. #500 each insulin syringes (disposable) #500 each lancets-blood glucose strips #200 each sddnio-[id number] [Creon] 1 cap PO QID #120 cap metformin 1,000 mg PO BID #120 tab metoprolol tartrate 25 mg PO BID #60 tab metronidazole 500 mg PO TID #21 tab oxycodone-acetaminophen 1 tab PO Q6H PRN #40 tab PRN Reason: Pain pantoprazole 40 mg PO DAILY #30 tab ursodiol 300 mg PO BID #60 cap DS: Summary Hospital Course: 57 y/o Female with a history of diabetes, hypertension, hyperlipidemia and asthma presented to the ED with complaints of abdominal pain and back pain. Patient states she has been having a 3-4-month history of intermittent, aching abdominal pain radiates to her back and down her left leg. She denies any associated symptoms states worse with movement and food, better with rest. She states over the past couple days it has just gotten worse. Patient states that she was diagnosed with cancer but is unsure what type and she has not underwent any biopsies chemo or radiation. She states she has been taking her long- acting insulin, Levemir as prescribed but does not know where her blood sugar machine is she was seen by her PCP today and was found to have an elevated blood sugar. She denies any chest pain, shortness of breath, fever, chills, dysuria, constipation or headaches. He does seem to be a poor historian as far as her medical history is concerned. Patient was seen by Dr. Orozco in October 2017, CT and bone scan were ordered and patient was going to be referred to a tertiary center. 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 SP INTRAHEPATIC STENT PLACEMENT FOUND TO HAVE HYPERGLYCEMIA AND UNCONTROLLED SUGARS MEDS ADJUSTED POSSIBLE DIVERTICULITIS 12-29 NO CHANGE 12-30 DC TO HOME TODAY WANTS PO PAIN MEDS WILL CHECK E-FORCSE FOR DC CEFTIN AT DC - Time Spent with Patient Total time spent providing and/or coordinating discharge services: Greater than 30 minutes - Quality: VTE Deep Vein Thrombosis/Pulmonary Embolism Present on Admission: No Exam Vital signs: Vital Signs 12/29/17 16:00 12/29/17 20:00 12/29/17 23:15 Temperature 98.5 F 98.7 F Pulse Rate 71 70 63 Respiratory Rate 16 18 Blood Pressure 134/58 L 140/78 Pulse Oximetry 98 97 12/30/17 00:00 12/30/17 04:00 12/30/17 08:00 Temperature 98.6 F 98.4 F 97.8 F Pulse Rate 67 67 75 Respiratory Rate 18 18 14 Blood Pressure 132/78 143/70 H 133/81 Pulse Oximetry 100 99 98 12/30/17 12:00 Temperature 98.4 F Pulse Rate 77 Respiratory Rate 14 Blood Pressure 135/75 Pulse Oximetry 97 Intake & Output 12/29/17 12/30/17 12/30/17 18:59 06:59 18:59 Intake Total 2680 / 2680 1240 / 1240 Balance 2680 / 2680 1240 / 1240 Weight 75.5 kg Intake: IV 1300 / 1300 1000 / 1000 NS Inj 1,000 ML @ 100 mls/hr IV 1000 / 1000 .CONT .Q10H LUCAS Rx#:[id number] NS Inj 1,000 ML @ Wide Open IV. 1000 / 1000 SIG BOLUS LUCAS Rx#:[id number] Rocephin Inj 1,000 MG In NS Inj 300 / 300 100 ML @ 200 mls/hr IV.SIG Q24H LUCAS Rx#:[id number] Oral 1380 / 1380 240 / 240 Other: # Voids 3 3 Date of Last Bowel Movement 12/26/17 12/26/17 12/26/18 Narrative: GENERAL: Thin patient in no apparent distress. CARDIOVASCULAR: Regular rate and rhythm without murmurs, gallops, or rubs. RESPIRATORY: Clear to auscultation. Breath sounds equal bilaterally. No wheezes , rales, or rhonchi. GASTROINTESTINAL: Abdomen soft, non-tender, nondistended. Normal active bowel sounds MUSCULOSKELETAL: Extremities without clubbing, cyanosis, or edema. NEURO: Alert & Oriented x4 to person, place, time, situation. Moves all ext x4 Results Procedures completed during hospitalization: NONE Completed studies during hospitalization: Laboratory Results WBC 4.6 th/mm3 (4.0-11.0) 12/30/17 03:53 RBC 3.48 mil/mm3 (4.00-5.30) L 12/30/17 03:53 Hgb 10.5 gm/dL (11.6-15.3) L 12/30/17 03:53 Hct 32.0 % (35.0-46.0) L 12/30/17 03:53 MCV 92.0 fL (80.0-100.0) 12/30/17 03:53 MCH 30.2 pg (27.0-34.0) 12/30/17 03:53 MCHC 32.9 % (32.0-36.0) 12/30/17 03:53 RDW 15.5 % (11.6-17.2) 12/30/17 03:53 Plt Count 133 th/mm3 (150-450) L 12/30/17 03:53 MPV 10.5 fL (7.0-11.0) 12/30/17 03:53 Neut % (Auto) 47.3 % (16.0-70.0) 12/29/17 06:37 Lymph % (Auto) 44.6 % (9.0-44.0) H 12/29/17 06:37 [place] % (Auto) 4.9 % (0.0-8.0) 12/29/17 06:37 Eos % (Auto) 2.3 % (0.0-4.0) 12/29/17 06:37 Baso % (Auto) 0.9 % (0.0-2.0) 12/29/17 06:37 Neut # (Auto) 2.1 th/mm3 (1.8-7.7) 12/29/17 06:37 Lymph # (Auto) 2.0 th/mm3 (1.0-4.8) 12/29/17 06:37 [place] # (Auto) 0.2 th/mm3 (0.0-0.9) 12/29/17 06:37 Eos # (Auto) 0.1 th/mm3 (0.0-0.4) 12/29/17 06:37 Baso # (Auto) 0.0 th/mm3 (0.0-0.2) 12/29/17 06:37 WBC Differential . 12/29/17 06:37 Differential Comment Auto diff final 12/29/17 06:37 Puncture Site I.v. 12/27/17 15:38 Patient Temperature 98.6 12/27/17 15:38 VBG pH 7.33 (7.360-7.400) L 12/27/17 15:38 VBG pCO2 43 mmHG (44-48) L 12/27/17 15:38 VBG pO2 32 mmHG (35-40) L 12/27/17 15:38 VBG HCO3 22 mmol/L (22-26) 12/27/17 15:38 VBG O2 Saturation 53 % (70-76) L 12/27/17 15:38 VBG O2 Content 9.2 Vol % (9.0-17.0) 12/27/17 15:38 VBG Base Excess -2.9 mmol/L (-2-2) L 12/27/17 15:38 VBG Carboxyhemoglobin 4.3 % (0-4) H 12/27/17 15:38 VBG Methemoglobin 0.6 % (0-2) 12/27/17 15:38 Hemoglobin 12.4 G/DL (12.0-16.0) 12/27/17 15:38 O2 Delivery Device Room air 12/27/17 15:38 Inspired O2 21 % 12/27/17 15:38 Critical Value No 12/27/17 15:38 Sodium 140 meq/L (136-145) 12/30/17 03:53 Potassium 4.4 meq/L (3.5-5.1) D 12/30/17 03:53 Chloride 112 meq/L (98-107) H 12/30/17 03:53 Carbon Dioxide 18.0 meq/L (21.0-32.0) L 12/30/17 03:53 Anion Gap 10 meq/L (5-15) 12/30/17 03:53 BUN 7 mg/dL (7-18) 12/30/17 03:53 Creatinine 0.70 mg/dL (0.50-1.00) 12/30/17 03:53 Estimated GFR Greater than 89 mL/min (>89) 12/30/17 03:53 POC Glucose 263 mg/dl (68-110) H 12/30/17 11:56 Random Glucose 254 mg/dL (74-106) H 12/30/17 03:53 Hemoglobin A1c 17.3 % (4.3-6.0) H 12/27/17 14:45 Lactic Acid 1.9 mmol/L (0.4-2.0) 12/27/17 14:45 Calcium 7.3 mg/dL (8.5-10.1) L* 12/30/17 03:53 Prot Corrected Calcium 8.1 mg/dL (8.5-10.1) L 12/30/17 03:53 Phosphorus 2.1 mg/dL (2.5-4.9) L 12/29/17 05:42 Magnesium 1.2 mg/dL (1.5-2.5) L 12/30/17 03:53 Total Bilirubin 0.4 mg/dL (0.2-1.0) 12/29/17 05:42 AST 243 U/L (15-37) H 12/29/17 05:42 ALT 81 U/L (10-53) H 12/29/17 05:42 Alkaline Phosphatase 227 U/L (45-117) H 12/29/17 05:42 Total Protein 5.7 g/dL (6.4-8.2) L 12/30/17 03:53 Albumin 2.3 g/dL (3.4-5.0) L D 12/29/17 05:42 Lipase 374 U/L (73-393) 12/27/17 14:45 TSH 1.330 uIU/mL (0.358-3.740) 12/29/17 05:42 Free T4 1.35 ng/dL (0.76-1.46) 12/29/17 05:42 Urine Color Straw (Yellw/Straw) 12/27/17 15:35 Urine Clarity Clear (Clear) 12/27/17 15:35 Urine pH 6.0 (5.0-8.5) 12/27/17 15:35 Ur Specific [place] 1.025 (1.002-1.035) 12/27/17 15:35 Urine Protein Negative mg/dL (Neg-Trace) 12/27/17 15:35 Urine Glucose (UA) 500 or greater mg/dL (Negative) 12/27/17 15:35 Urine Ketones Trace mg/dL (Negative) H 12/27/17 15:35 Urine Occult Blood Negative (Negative) 12/27/17 15:35 Urine Nitrate Negative (Negative) 12/27/17 15:35 Urine Bilirubin Negative (Negative) 12/27/17 15:35 Urine Urobilinogen Less than 2 mg/dL (Less than 2) 12/27/17 15:35 Ur Leukocyte Esterase Small (Negative) H 12/27/17 15:35 Urine RBC 1 /hpf (0-3) 12/27/17 15:35 Urine WBC 12 /hpf (0-5) H 12/27/17 15:35 Ur Squamous Epith Cells <1 /hpf (0-5) 12/27/17 15:35 Urine Bacteria Rare /hpf (None) H 12/27/17 15:35 Urine Yeast Occasional /hpf (None) H 12/27/17 15:35 Micro UA Comment Culture indicated 12/27/17 15:35 Ur Microscopic Review Not Reportable 12/27/17 15:35 Urine Culture Comments Culture indicated 12/27/17 15:35 Impressions Abdomen/Pelvis CT 12/27/17 15:22 CONCLUSION: 1. No acute findings. 2. Multiple chronic findings, described above, are stable in appearance when compared to December 2016. Labs on day of discharge: Labs from last 24 hours 12/30/17 12/30/17 12/30/17 11:56 03:53 03:53 WBC 4.6 RBC 3.48 L Hgb 10.5 L Hct 32.0 L MCV 92.0 MCH 30.2 MCHC 32.9 RDW 15.5 Plt Count 133 L MPV 10.5 Sodium 140 Potassium 4.4 D Chloride 112 H Carbon Dioxide 18.0 L Anion Gap 10 BUN 7 Creatinine 0.70 Estimated GFR Greater than 89 POC Glucose 263 H Random Glucose 254 H Calcium 7.3 L* Prot Corrected Calcium 8.1 L Magnesium 1.2 L Total Protein 5.7 L 12/30/17 12/29/17 12/29/17 02:39 20:42 17:13 WBC RBC Hgb Hct MCV MCH MCHC RDW Plt Count MPV Sodium Potassium Chloride Carbon Dioxide Anion Gap BUN Creatinine Estimated GFR POC Glucose 234 H 190 H 86 Random Glucose Calcium Prot Corrected Calcium Magnesium Total Protein - Impressions ITS Impressions Abdomen/Pelvis CT 12/27/17 15:22 CONCLUSION: 1. No acute findings. 2. Multiple chronic findings, described above, are stable in appearance when compared to December 2016. Discharge Plan - Discharge Disposition Patient Disposition: Discharge Home - Discharge Condition Condition: Stable - Discharge Order Discharge Orders: Discharge Order (Routine); Ordered 12/30/17 Ordered By: Charly Mckeon - Discharge Details Anticipated Discharge Date: 12/30/17 Discharge Comment: DC TO HOME TODAY - Physicians Team Primary Care Provider: UNKNOWN, Attending Provider: Charly Mckeon Other Providers: Mamadou Saez MD ; Ramana Orozco MD
== END 2017-12-30 18:12 | disposition home or self-care (01) ==
LOC: NEPC 14:43 → NEDA 20:06 → N06 12-28 00:54
PROVIDERS: ADMIT Hospitalist; ATTEND Hospitalist